=== PATIENT | male | born 1955 | race Caucasian/White ===

== ENCOUNTER 2017-04-22 20:36 | Emergency (ER) | payer OTHER | END 2017-04-22 21:00 | disposition home or self-care (01) | LOC: SCSER 20:36 | DX: G54.6 Phantom limb syndrome with pain (principal); I10 Essential (primary) hypertension; Z79.899 Other long term (current) drug therapy | CPT/HCPCS: 99283 ==

== ENCOUNTER 2017-05-16 04:55 | Emergency (ER) | payer OTHER ==
[2017-05-16] MEDS ORDERED: Ketorolac Tromethamine 30 MG/ML VIAL ONE (05:41)
[2017-05-16] MEDS ORDERED: Methocarbamol 500 MG TAB PO SCH (05:45)
== END 2017-05-16 06:43 | disposition home or self-care (01) ==
LOC: ERS 04:55
DX: S16.1XXA Strain of muscle, fascia and tendon at neck level, initial encounter (principal); I10 Essential (primary) hypertension; I25.2 Old myocardial infarction; Z79.899 Other long term (current) drug therapy; X50.1XXA Overexertion from prolonged static or awkward postures, initial encounter
CPT/HCPCS: 96372; J1885

== ENCOUNTER 2017-05-27 20:45 | Observation (INO) | payer OTHER ==
--- NOTE | 2017-05-27 22:09 | RAD ---
LUMBAR SPINE THREE VIEWS: History: Low back pain. FINDINGS: There are five lumbar type vertebrae. Pedicles are intact. Rightward convex curvature is apparent on the frontal view. Vertebral body heights are maintained. Minimal degenerative retrolisthesis is pre sent at the L3-4 level where disc space narrowing is greatest. There is prominent osteophytosis thro ughout the vertebral bodies and facets. Calcification overlies the arterial structures. IMPRESSION: 1. Lumbar spondylosis. No evidence of compression fracture. 2. Atherosclerosis. POS: [facility]
[2017-05-27] MEDS ORDERED: Methocarbamol 1 GM in Sodium Chloride 0.9% 100 ML IVPB SCH (23:15)
[2017-05-28] MEDS ORDERED: Morphine 10 MG/ML VIAL ONE ×2 (00:19→02:59)
[2017-05-28] MEDS ORDERED: Ondansetron HCl/PF 4 MG/2 ML Vial ONE (00:20)
[2017-05-28] MEDS ORDERED: hydrALAZINE 20 MG/ML VIAL ONE ×2 (00:39→02:18)
[2017-05-28 01:04] LABS: #Eosinphils 0.2 thou/uL (0.0-0.7); #Monocytes 0.6 thou/uL (0.11-0.59); #Neutrophils 4.8 thou/uL (1.40-6.50); %Basophils 0.3 % (0.0-1.0); %Eosinophils 2.8 % (0.0-10.0); %Lymphocytes 25.9 % (21.0-51.0); Hematocrit 42.7 % (42.0-52.0); Red Blood Cell (RBC) Count 4.72 mill/uL (4.70-6.10); White Blood Cell (WBC) Count 7.7 thou/uL (4.8-10.8)
[2017-05-28 01:14] LABS: Calcium 8.8 mg/dL (7.8-10.44); Chloride 110 mmol/L (98-107)
[2017-05-28 01:22] LABS: Troponin I Less than 0.010 ng/mL (< 0.028)
[2017-05-28 01:25] LABS: ALT (SGPT) 15 U/L (8-55); AST (SGOT) 25 U/L (5-34); Alkaline Phosphatase 109 U/L (40-150); BUN (Urea Nitrogen) 22 mg/dL (8.4-25.7); Bilirubin, Total 0.2 mg/dL (0.2-1.2); Calc. Creatinine Clearance 0 mL/min (70-130); Carbon Dioxide 20 mmol/L (22-29); Estimated GFR-MDRD 55; Globulin 3.7 g/dL (2.4-3.5); Protein, Total 7.2 g/dL (6.0-8.3)
[2017-05-28 01:32] LABS: Anion Gap 17 mmol/L (10-20)
[2017-05-28] MEDS ORDERED: Acetaminophen 500 MG TAB ONE (05:06)
[2017-05-28] MEDS ORDERED: Ondansetron ODT 4 MG TAB PO PRN (07:02)
[2017-05-28] MEDS ORDERED: Acetaminophen 325 MG TAB PO PRN (07:02)
[2017-05-28] MEDS ORDERED: Ondansetron HCl/PF 4 MG/2 ML Vial IVP PRN ×2 (07:02→08:56)
[2017-05-28] MEDS ORDERED: Morphine 4 MG/ML Carpuject SLOW IVP PRN (07:04)
[2017-05-28 07:40] VITALS: BMI 25.9
[2017-05-28] MEDS ORDERED: MORPHINE 10 MG/ML SYRINGE IV PRN (07:50)
--- NOTE | 2017-05-28 08:45 | CT ---
PRELIMINARY REPORT/[facility]/EMERGENCY AFTER HOURS PROCEDURE: EXAM: CT Abdomen and Pelvis Without Intravenous Contrast CLINICAL HISTORY: 62 years old, male; Pain; Abdominal pain; Flank; Right; Patient HX: R/O stone TECHNIQUE: Axial computed tomography images of the abdomen and pelvis without intravenous contrast. Coronal reformatted images were created and reviewed. COMPARISON: No relevant prior studies available. FINDINGS: The lung bases are clear. Kidneys: Small left intrarenal calculus. No hydronephrosis or hydroureter. No visible ureteral calculus. Possible small renal cysts bilaterally. Suspect a small faintly calcified gallstone visible within the gallbladder. Ultrasound could be more specific/sensitive for detecting gallstones, if clinically needed. No other definite gallbladder abnormality by CT. No biliary tree dilation. Unremarkable appearance of the liver, spleen, adrenal glands, and pancreas. No free air, ascites, or bowel distention. No evidence for abdominal aortic aneurysm. No retroperitoneal adenopathy. CT pelvis: Urinary bladder unremarkable by CT. The appendix is visualized and appears normal. There are no CT findings to strongly suggest diverticulitis. No abnormal mass or fluid collection in the pelvis. IMPRESSION: Suspect cholelithiasis, see above discussion. Small left intrarenal calculus. No ureteral calculus. No hydronephrosis or hydroureter. Normal appendix. No free air or bowel distention. No diverticulitis. Other findings discussed above. Thank you for allowing us to participate in the care of your patient. Dictated and Authenticated by: Geo Garcia MD 05/28/2017 2:18 AM Central Time ([place] \[place]\ [place]) FINAL REPORT CT ABDOMEN AND PELVIS WITHOUT CONTRAST STONE PROTOCOL: Date: 05/28/17 HISTORY: Right flank pain. Evaluate for stone. COMPARISON: None. FINDINGS/IMPRESSION: Findings and impression are concordant with the preliminary report.
--- NOTE | 2017-05-28 08:45 | RAD ---
RIGHT SHOULDER THREE VIEWS: History: Fall, pain. Comparison: None. FINDINGS: Right shoulder prosthesis is identified. No definite malalignment. No evidence of a complicated proc ess or loosening. No fractures. Possible loose body fragment inferior to the joint space noted. IMPRESSION: No definite fracture. POS: [facility]
--- NOTE | 2017-05-28 08:47 | CT ---
PRELIMINARY REPORT/[facility]/EMERGENCY AFTER HOURS PROCEDURE: EXAM: CT Head Without Intravenous Contrast CLINICAL HISTORY: 62 years old, male; Pain; Headache; Headache not specified; Patient HX: ARREOLA, HTN TECHNIQUE: Axial computed tomography images of the head/brain without intravenous contrast. COMPARISON: No relevant prior studies available. FINDINGS: Brain: No intracranial hemorrhage. Chronic appearing infarctions in the head of the right caudate, t he anterior limb of the right internal capsule, the bilateral basal ganglia, the bilateral centrum s emiovale, and the right whitlock radiata. No evidence of acute infarction. Mild diffuse cortical volum e loss. Patchy white matter hypodensities consistent with chronic small vessel ischemic changes. Ventricles: Normal for age. Bones/joints: No acute fracture. Soft tissues: Normal. Vasculature: Atherosclerosis. Sinuses: Normal as visualized. No acute sinusitis. Mastoid air cells: Normal as visualized. No mastoid effusion. IMPRESSION: No acute intracranial abnormality. Nonacute/incidental findings above. Thank you for allowing us to participate in the care of your patient. Dictated and Authenticated by: Judah Bernard MD 05/28/2017 3:27 AM Central Time ([place] \[place]) FINAL REPORT HEAD CT WITHOUT CONTRAST: Date: 05-28-17 Comparison: 07-27-05 History: Headache. FINDINGS: I agree with the preliminary [facility] report dictated by Dr. Judah Lama. There are multiple foci of hypodensity in the periventricular and deep white matter suggesting seque llae of small vessel disease. Focal areas of hypodensity are noted within the region of the basal ga nglia anteriorly bilaterally suggesting areas of age indeterminate ischemia. No intracranial hemorrh age, midline shift, or mass effect. The imaged paranasal sinuses and mastoid air cells are well aerated. No displaced calvarial fracture . IMPRESSION: Age indeterminate ischemia/small vessel disease. No intracranial hemorrhage. If there is concern for acute infarction, brain MRI advised. Code QA POS: [facility]
[2017-05-28] MEDS ORDERED: Loratadine 10 MG TAB PO PRN (08:56)
[2017-05-28] MEDS ORDERED: Bisacodyl 5 MG TAB PO PRN (08:56)
[2017-05-28] MEDS ORDERED: Cyclobenzaprine 10 MG TAB PO PRN (08:56)
[2017-05-28] MEDS ORDERED: Diabetic Tussin 200 MG/10 ML UDCUP PO PRN (08:56)
[2017-05-28] MEDS ORDERED: Mag-Al 1200 mg/1200 mg/30 ML UDCUP PO PRN (08:56)
[2017-05-28] MEDS ORDERED: Senokot 8.6 MG TAB PO PRN (08:56)
[2017-05-28] MEDS ORDERED: Benzonatate 100 MG CAP PO PRN (08:56)
[2017-05-28] MEDS ORDERED: Calcium Carbonate 500 MG ChewTAB PO PRN (08:56)
[2017-05-28] MEDS ORDERED: Nitroglycerin 0.4 MG TAB (25 Tab Bottle) SL PRN (08:56)
[2017-05-28] MEDS ORDERED: hydrALAZINE 20 MG/ML VIAL SLOW IVP PRN (08:56)
[2017-05-28] MEDS ORDERED: cloNIDine 0.1 MG TAB PO PRN (08:56)
[2017-05-28] MEDS: Enoxaparin Sodium 40 MG/0.4 ML SYRINGE SC SCH (09:41)
[2017-05-28] MEDS: Amlodipine 10 MG TAB PO SCH (09:41)
[2017-05-28] MEDS: Gabapentin 300 MG CAP PO SCH ×3 (09:41→20:14)
[2017-05-28] MEDS: traMADol HCl 50 MG TAB PO PRN ×3 (09:46→21:28)
[2017-05-28] MEDS: Lorazepam 1 MG TAB PO PRN ×2 (10:57→21:29)
[2017-05-28] MEDS ORDERED: Naproxen 500 MG TAB PO SCH (11:45)
[2017-05-28] MEDS ORDERED: SUMAtriptan Succinate 50 MG TAB PO SCH (11:45)
[2017-05-28] MEDS ORDERED: Metoprolol Tartrate 25 MG TAB PO SCH (14:30)
[2017-05-28] MEDS ORDERED: Lisinopril/Hydrochlorothiazide 10 mg/12.5 mg Tablet PO SCH (14:30)
--- NOTE | 2017-05-28 15:13 | HP ---
PRIMARY CARE PHYSICIAN: None. CHIEF COMPLAINT: Fall and backache. HISTORY OF PRESENT ILLNESS: Mr. Cast is a pleasant 62-year-old male with past medical history of h ypertension and strokes in the past as well as blood clots per the patient, who [facility] after he sustained of falls and was hurting in his back. History is mainly obtained by the patient himself and electronic medical records have been reviewed. Last time, the patient was a dmitted here in 02/2017 for chest pain and hypertensive urgency and was ruled out for ACS by a gisel l stress test. At that time, he was started on multiple antihypertensives including amlodipine, met oprolol, lisinopril, along with starting on atorvastatin, aspirin and fish oil, and Plavix, but unfo rtunately the patient reports that he is not taking any of his medications. He reports that while deer hunting, he picked up a log of wood and fell backwards and heard a cracki ng sound in his back and hit the dirt. He presented to the emergency room with severe back pain and was found to be severely hypertensive with blood pressure of 199/127. Multiple imaging studies wer e done including pelvic x-ray as well as head CT, which were all unremarkable. He had a CT scan of the abdomen and pelvis done, which showed possible cholilithiasis otherwise no acute changes. He is now being admitted under observation status for uncontrolled hypertension and pain control. PAST MEDICAL HISTORY: 1. History of cerebrovascular accident. 2. Hypertension. 3. Medication noncompliance. 4. Dyslipidemia. 5. Personal history of deep venous thrombosis and pulmonary embolism. PAST SURGICAL HISTORY: 1. Right BKA. 2. Right knee surgery x7, right elbow surgery x3. 3. L4-L5 back surgery x6. 4. Right shoulder surgery x3. PSYCHIATRIC HISTORY: Anxiety. SOCIAL HISTORY: No history of drug, tobacco, or alcohol abuse. FAMILY HISTORY: Significant for coronary artery disease in his mother. His father had congestive h eart failure. Multiple family members with hypertension. ALLERGIES: CODEINE. CURRENT MEDICATIONS: The patient is not taking the medications as prescribed. Medication, Vantin 3 00 mg p.o. t.i.d., tramadol as needed, and amlodipine 10 mg daily. REVIEW OF SYSTEMS: The patient is complaining of severe headache involving the left side of his fac e, back of his head, and back his neck. Otherwise negative for except are those mentioned in the hi story and physical. The following complete review of systems was negative, unless otherwise mentioned in the HPI or belo w: Constitutional: Weight loss or gain, ability to conduct usual activities. Skin: Rash, itching. Eyes: Double vision, pain. ENT/Mouth: Nose bleeding, neck stiffness, pain, tenderness. Cardiovascular: Palpitations, dyspnea on exertion, orthopnea. Respiratory: Shortness of breath, wheezing, cough, hemoptysis, fever or night sweats. Gastrointestinal: Poor appetite, abdominal pain, heartburn, nausea, vomiting, constipation, or diar jhonny. Genitourinary: Urgency, frequency, dysuria, nocturia. Musculoskeletal: Pain, swelling. Neurologic/Psychiatric: Anxiety, depression. Allergy/Immunologic: Skin rash, bleeding tendency. Please see my HPI for pertinent positives and negatives. All other review of systems reviewed and n egative except as mentioned in the HPI. LABORATORY DATA: CBC is unremarkable. Serum chemistries show chloride 110, bicarbonate 20, creatin ine 1.33 with estimated GFR of 55, CK-MB and troponin normal. Liver enzymes normal. CT scan of the brain by my review has no evidence of acute hemorrhage, infarction. Age indeterminate small vessel disease noticed. CT scan of the abdomen and pelvis by my review as per HPI. Shoulder x-ray is neg ative for any definitive fracture of the right-sided. Lumbar spinal x-ray by my review has no evide nce of fracture. PHYSICAL EXAMINATION: VITAL SIGNS: His blood pressure has been ranging anywhere from systolic 180s to 190s with diastolic anywhere from 90s to one teens. His temperature is 97.8, pulse of 81, respirations 16, and saturat ing 97% on room air. GENERAL: He appears uncomfortable and is fidgety in the bed and complains of severe headache. He i s otherwise awake, alert, oriented x3. HEENT: Mucous membrane is moist and pink. No oropharyngeal exudate or erythema. Head is normoceph alic, atraumatic. Pupils are equal, reactive to light and accommodation. Extraocular movement is i ntact. NECK: Supple without any lymphadenopathy, JVD or bruit. CHEST: Clear to auscultation without any wheezing, rales or rhonchi. Rate and rhythm is regular wi thout any murmur, rubs, or gallops. ABDOMEN: Soft, nontender, nondistended with positive bowel sounds. EXTREMITIES: Show right BKA, otherwise no edema. NEUROLOGIC: Nonfocal. SKIN: Free of any rashes or bruises. Feels warm and dry to touch. PSYCHIATRIC: Normal affect. IMPRESSION AND PLAN: 1. Hypertensive urgency. This is secondary to noncompliance. I have once again instructed the pat lashawn that almost all of his medications are at [facility] list and he says that he can afford it. At this time, I will restart his aspirin, statin, beta nieves. I will add him. I will also start him back on lisinopril with hydrochlorothiazide and continue Norvasc for now. At this time, t he patient is not hemodynamically stable and needs better blood pressure control and may need overni ght stay in the hospital. At this time, we will admit him to telemetry unit under observation statu s and further management will depend upon his clinical course. 2. History of cerebrovascular accident. Restart his aspirin and statins for now. 3. Acute kidney insufficiency. This is likely secondary to end-organ damage from uncontrolled hype rtension. We will avoid any nephrotoxic medications at this time and recheck labs in the morning. We will gently hydrate him as this regard this. Blood pressure management will help with the improv ement in renal function as well. 4. Dyslipidemia. The patient had significant hypertriglyceridemia and hypercholesterolemia during his last hospitalization. He will be restarted on atorvastatin and fish oil at this time. His trig lycerides were 457 with cholesterol of 310. 5. Noncompliance. The patient has been extensively counseled. 6. Headache. We will try medications for migraine, but most likely his headache is from his uncont rolled hypertension. Once again p.r.n. antihypertensives will be used and we will re-start his home medications. 7. Code status: FULL CODE. 8. Personal history of deep venous thrombosis and pulmonary embolism. DISPOSITION: The patient is currently being admitted under observation status. Further management will depend upon his clinical course and improvement in his blood pressure and renal failure.
[2017-05-28] MEDS: Morphine PF 1 MG/ML SYR IVP PRN ×2 (16:05→20:15)
[2017-05-28] MEDS: Metoprolol Tartrate 25 MG TAB PO SCH (20:15)
[2017-05-28] MEDS ORDERED: Atorvastatin Calcium 40 MG TAB PO SCH (21:00)
[2017-05-28] MEDS: Acetaminophen 325 MG TAB PO PRN (21:28)
[2017-05-29] MEDS: Morphine PF 1 MG/ML SYR IVP PRN ×2 (00:03→05:01)
[2017-05-29] MEDS: Acetaminophen 325 MG TAB PO PRN (02:04)
[2017-05-29] MEDS: Lorazepam 1 MG TAB PO PRN (02:04)
[2017-05-29 05:29] LABS: #Basophils 0.1 thou/uL (0.0-0.2); #Eosinphils 0.4 thou/uL (0.0-0.7); #Lymphocytes 2.5 thou/uL (1.20-3.40); #Monocytes 0.7 thou/uL (0.11-0.59); #Neutrophils 3.3 thou/uL (1.40-6.50); %Basophils 0.9 % (0.0-1.0); %Eosinophils 5.6 % (0.0-10.0); %Lymphocytes 36.2 % (21.0-51.0); %Monocytes 10.1 % (0.0-10.0); Hematocrit 42.8 % (42.0-52.0); Mean Platelet Volume 7.4 fL (7.4-10.4); Red Blood Cell (RBC) Count 4.68 mill/uL (4.70-6.10)
[2017-05-29 05:46] LABS: Anion Gap 11 mmol/L (10-20); BUN (Urea Nitrogen) 20 mg/dL (8.4-25.7); Calc. Creatinine Clearance 81 mL/min (70-130); Calcium 8.9 mg/dL (7.8-10.44); Carbon Dioxide 25 mmol/L (22-29); Chloride 105 mmol/L (98-107); Estimated GFR-MDRD 57
[2017-05-29 07:42] VITALS: BP 137/80; TEMP 97.3
[2017-05-29] MEDS: Amlodipine 10 MG TAB PO SCH (08:10)
[2017-05-29] MEDS: Metoprolol Tartrate 25 MG TAB PO SCH (08:10)
[2017-05-29] MEDS: Gabapentin 300 MG CAP PO SCH (08:10)
[2017-05-29] MEDS: Enoxaparin Sodium 40 MG/0.4 ML SYRINGE SC SCH (08:11)
[2017-05-29] MEDS ORDERED: Lisinopril/Hydrochlorothiazide 10 mg/12.5 mg Tablet PO SCH (09:00)
[2017-05-29] MEDS ORDERED: Aspirin 81 mg Enteric Coated Tablet PO SCH (09:00)
--- NOTE | 2017-05-29 11:32 | DIS ---
DATE OF ADMISSION: 05/28/2017 DATE OF DISCHARGE: 05/29/2017 PRIMARY DISCHARGE DIAGNOSIS: Hypertensive urgency. SECONDARY DISCHARGE DIAGNOSES: 1. History of cerebrovascular accident. 2. Acute kidney injury. 3. Dyslipidemia. 4. Medication noncompliance. HOSPITAL COURSE: The patient was admitted after he fell during a hunting event and came in [facility] of excruciating back pain. He was noted to have very elevated blood pressure, systolic greater th an 190. The patient was also noted to have some acute kidney insufficiency. This was thought to be secondary to his uncontrolled hypertension. The patient did admit to being noncompliant with his ant ihypertensive regimen. The patient was administered his appropriate home medication, his blood press ure returned to baseline. The patient was deemed stable for discharge with prescriptions for his qian e antihypertensives as well as tramadol for back pain. PROCEDURES: None. CONSULTATIONS: None. DISPOSITION: To home. DISCHARGE DIET: Cardiac heart healthy, low sodium. DISCHARGE ACTIVITY: As tolerated. DISCHARGE MEDICATIONS: Please see medication rec list. PHYSICAL EXAMINATION: GENERAL: No acute distress, alert and oriented x3. HEENT: Normocephalic, atraumatic. Pupils equal, round, and reactive to light. Extraocular muscles intact. NECK: Supple. LUNGS: Clear to auscultation. CARDIAC: Regular rate and rhythm, no murmurs, rubs or gallops. ABDOMEN: Soft, nontender, nondistended. EXTREMITIES: Right-sided BKA, otherwise no clubbing, cyanosis or edema. NEUROLOGIC: Nonfocal. FOLLOWUP: The patient has been given a hard prescription for Ultram and a prescription for amlodipin e was transmitted to the [facility] pharmacy of the patient's choice. He is to follow up with his PCP kaden ayers 1-2 weeks and he has been strongly encouraged to be compliant with his medication regimen.
== END 2017-05-29 10:31 | disposition home or self-care (01) ==
LOC: ERS 20:45 → 2SW 05-28 05:04
PROVIDERS: ADMIT Internal Medicine; ATTEND Internal Medicine
DX: I16.0 Hypertensive urgency (principal); S37.009A Unspecified injury of unspecified kidney, initial encounter; E78.5 Hyperlipidemia, unspecified; F41.9 Anxiety disorder, unspecified; Z91.14 Patient's other noncompliance with medication regimen; Z88.5 Allergy status to narcotic agent; Z89.511 Acquired absence of right leg below knee; Z98.890 Other specified postprocedural states; Z91.81 History of falling; Z86.718 Personal history of other venous thrombosis and embolism; Z86.73 Personal history of transient ischemic attack (TIA), and cerebral infarction without residual deficits
CPT/HCPCS: 36415; 70450; 72100; 74176; 80048; 80053; 82553; 84484; 85025; 96365; 96375; 96376; A4216; G0378; J0360; J1650; J2270; J2274; J2405; J2800; J7050

== ENCOUNTER 2017-06-08 14:27 | Observation (INO) | payer OTHER ==
[2017-06-08 14:45] LABS: #Basophils 0.1 thou/uL (0.0-0.2); #Eosinphils 0.1 thou/uL (0.0-0.7); #Lymphocytes 1.4 thou/uL (1.20-3.40); #Monocytes 0.5 thou/uL (0.11-0.59); %Basophils 0.7 % (0.0-1.0); %Eosinophils 1.5 % (0.0-10.0); %Lymphocytes 20.2 % (21.0-51.0); %Monocytes 7.1 % (0.0-10.0); Hematocrit 47.3 % (42.0-52.0); Mean Platelet Volume 7.7 fL (7.4-10.4); Red Blood Cell (RBC) Count 5.25 mill/uL (4.70-6.10); White Blood Cell (WBC) Count 7.1 thou/uL (4.8-10.8)
[2017-06-08 15:08] LABS: Amphetamine Not Detected (NotDetected); Methadone Not Detected (NotDetected); Methamphetamine Not Detected (NotDetected)
[2017-06-08 15:10] LABS: Troponin I 0.014 ng/mL (< 0.028)
[2017-06-08 15:33] LABS: ALT (SGPT) 19 U/L (8-55); AST (SGOT) 27 U/L (5-34); Alkaline Phosphatase 108 U/L (40-150); Anion Gap 15 mmol/L (10-20); BUN (Urea Nitrogen) 26 mg/dL (8.4-25.7); Bilirubin, Total 0.3 mg/dL (0.2-1.2); CK (CPK) 119 U/L (30-200); Calc. Creatinine Clearance 0 mL/min (70-130); Calcium 9.3 mg/dL (7.8-10.44); Carbon Dioxide 20 mmol/L (22-29); Chloride 106 mmol/L (98-107); Estimated GFR-MDRD 51; Protein, Total 8.1 g/dL (6.0-8.3)
--- NOTE | 2017-06-08 17:21 | CT ---
NONCONTRAST CT HEAD 06/08/17 HISTORY: Altered mental status, hypertensive crises. COMPARISON: 05/28/17. FINDINGS: Again noted are remote lacunar infarctions in each basal ganglia with stable hypodensities seen in t he periventricular and deep white matter most likely attributable to small vessel ischemic changes. There is no evidence of an acute cortical infarction, hemorrhage, mass effect or midline shift. There is mild cerebral volume loss not unexpected for the patient's age. No mass effect or midline shift. No intraparenchymal or extra-axial hemorrhage is seen. There has been no interval change when compare d to the prior exam. IMPRESSION: 1. No acute intracranial abnormalities demonstrated. 2. Stable CT scan of the head including multiple remote bilateral basal ganglia lacunar infarcti ons as well as stable chronic small vessel ischemic changes. POS: [facility]
[2017-06-08] MEDS ORDERED: Morphine 2 mg/2ml in 0.9% NaCl PF SYRINGE ONE (17:38)
[2017-06-08] MEDS ORDERED: hydrALAZINE 20 MG/ML VIAL SLOW IVP PRN (18:45)
[2017-06-08 18:47] VITALS: BMI 26.9
[2017-06-08] MEDS ORDERED: Acetaminophen 325 MG TAB PO PRN (19:55)
[2017-06-08] MEDS: Famotidine 20 MG TAB PO SCH (20:43)
[2017-06-08] MEDS: Atorvastatin Calcium 20 MG TAB PO SCH (20:43)
[2017-06-08] MEDS: Heparin 5,000 UNITS/ML VIAL SC SCH (20:45)
[2017-06-08] MEDS: Sodium Chloride 0.9% 1,000 ML IV SCH (20:46)
[2017-06-08] MEDS ORDERED: Carvedilol 6.25 MG TAB PO SCH (21:00)
[2017-06-08] MEDS: traMADol HCl 50 MG TAB PO PRN (21:21)
[2017-06-08] MEDS: HYDROcodone/Acetaminophen 5/325 mg Tablet PO PRN (22:38)
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
[2017-06-08] MEDS: hydrALAZINE 20 MG/ML VIAL SLOW IVP PRN (23:33)
[2017-06-09] MEDS ORDERED: HYDROcodone/Acetaminophen 10/325 mg Tablet PO SCH (00:15)
[2017-06-09] MEDS: traMADol HCl 50 MG TAB PO PRN (03:02)
[2017-06-09] MEDS: hydrALAZINE 20 MG/ML VIAL SLOW IVP PRN ×2 (03:42→13:20)
[2017-06-09] MEDS: HYDROcodone/Acetaminophen 5/325 mg Tablet PO PRN ×2 (04:24→08:30)
[2017-06-09 05:38] LABS: Anion Gap 16 mmol/L (10-20); BUN (Urea Nitrogen) 25 mg/dL (8.4-25.7); Calc. Creatinine Clearance 79 mL/min (70-130); Calcium 9.9 mg/dL (7.8-10.44); Carbon Dioxide 19 mmol/L (22-29); Chloride 109 mmol/L (98-107); Estimated GFR-MDRD 53
[2017-06-09] MEDS ORDERED: Amlodipine 10 MG TAB PO SCH ×2 (05:45→09:00)
[2017-06-09] MEDS ORDERED: Carvedilol 25 MG TAB PO SCH (05:45)
[2017-06-09] MEDS ORDERED: Morphine 4 MG/ML VIAL SLOW IVP SCH (05:45)
[2017-06-09] MEDS: Sodium Chloride 0.9% 1,000 ML IV SCH ×2 (05:51→12:58)
[2017-06-09] MEDS: Famotidine 20 MG TAB PO SCH ×2 (08:29→20:39)
[2017-06-09] MEDS: Gabapentin 300 MG CAP PO SCH ×3 (08:30→20:38)
[2017-06-09] MEDS: Heparin 5,000 UNITS/ML VIAL SC SCH ×3 (08:30→20:36)
[2017-06-09] MEDS: NIFEdipine XL 30 MG TAB PO SCH ×2 (08:30→20:38)
[2017-06-09] MEDS ORDERED: Fentanyl 100 MCG/2 ML VIAL SLOW IVP SCH (12:15)
--- NOTE | 2017-06-09 13:29 | PRG ---
DATE OF SERVICE: 06/09/2017 SUBJECTIVE: The patient seen and examined at bedside. He is crying and telling me that he has such a severe headache. He never had one like this before. This headache he had before, but much less in tense and never so severe. It is located in his forehead and behind his both eyes and eyes somewhat burning and blurred vision present. He did not vomit. He did not have any nausea. OBJECTIVE: Blood pressure is 174/102, temperature is 97.9, pulse is 81, respiratory rate is 16, O2 saturation is 97% on room air. HEENT: Eyes: Pupils about 3 mm in size, similar bilaterally, conjunctiva is pinkish. Both eyes con gested, tearing. NECK: Supple. LUNGS: Clear. HEART: S1, S2 normal, no S3, no S4. ABDOMEN: Soft, nontender. EXTREMITIES: No clubbing, cyanosis or edema. Right [id number]-vhef amputee. NEUROLOGIC: He is alert and oriented x4. There are no any sensorimotor deficits present. Cranial n erves intact. LABORATORY DATA: Showed sodium of 140, potassium 4.2, chloride 109, CO2 19, BUN 25, creatinine 1.38, calcium 9.9. IMPRESSION: 1. Hypertensive crisis with severe headache; at this point, it is difficult to know what is the prim yeyo. He had those headaches before, but never that severe. Description fits criteria for cluster he adaches. We will try to use some high flow O2 for 10-15 minutes, see whether this helps. If not, we will give him fentanyl intravenous push every 2 hours until stabilized. 2. History of cerebrovascular accident and positive CT findings consistent with remote bilateral inf arct in basal ganglia. Patient started on Zocor and aspirin. 3. Medical noncompliance. 4. Dyslipidemia. 5. Headache as mentioned above, most likely it is a cluster headache. 6. Renal insufficiency with mild improvement with intravenous fluids. PLAN: To stop IV fluids since his renal insufficiency is not improving that much with hydration. We will start him on O2 high flow and p.r.n. fentanyl and adjust his blood pressure medications.
[2017-06-09] MEDS: Fentanyl 100 MCG/2 ML VIAL SLOW IVP PRN ×4 (14:36→21:38)
[2017-06-09] MEDS ORDERED: cloNIDine 0.1 MG TAB PO SCH ×2 (15:00)
[2017-06-09] MEDS ORDERED: ALPRAZolam 0.5 MG TAB PO PRN (16:14)
[2017-06-09] MEDS ORDERED: Vicks VapoRub 50 gm Jar TOP PRN (17:18)
[2017-06-09] MEDS: cloNIDine 0.1 MG TAB PO SCH (20:37)
[2017-06-09] MEDS: Atorvastatin Calcium 20 MG TAB PO SCH (20:38)
[2017-06-09] MEDS: Carvedilol 25 MG TAB PO SCH (20:39)
[2017-06-09] MEDS ORDERED: cloNIDine 0.1 MG TAB PO PRN (22:09)
[2017-06-10] MEDS: Fentanyl 100 MCG/2 ML VIAL SLOW IVP PRN ×2 (02:38→08:39)
[2017-06-10] MEDS: cloNIDine 0.1 MG TAB PO SCH (08:26)
[2017-06-10] MEDS: NIFEdipine XL 30 MG TAB PO SCH (08:27)
[2017-06-10] MEDS: Famotidine 20 MG TAB PO SCH (08:27)
[2017-06-10] MEDS: Carvedilol 25 MG TAB PO SCH (08:27)
[2017-06-10] MEDS: Gabapentin 300 MG CAP PO SCH (08:27)
[2017-06-10] MEDS: Heparin 5,000 UNITS/ML VIAL SC SCH (08:27)
[2017-06-10] MEDS ORDERED: Amlodipine 10 MG TAB PO SCH (09:00)
[2017-06-10] MEDS ORDERED: NIFEdipine XL 30 MG TAB PO SCH (10:41)
--- NOTE | 2017-06-10 10:55 | PDOC.PN ---
- Subjective Encounter Start Date: 06/10/17 Encounter Start Time: 10:40 Subjective: f/u for HTN urgency and ARREOLA. - Objective Resuscitation Status: Resuscitation Status FULL:Full Resuscitation MAR Reviewed: Yes Vital Signs & Weight: Vital Signs (12 hours) Temp Pulse Resp BP BP Pulse Ox 06/10/17 08:48 165/95 H 06/10/17 08:30 97.6 F 64 16 06/10/17 08:27 64 187/86 H 06/10/17 08:26 187/86 H 06/10/17 07:20 97.6 F 64 16 187/96 H 98 06/10/17 03:20 97.4 F L 72 20 166/101 H 97 06/10/17 01:24 189/103 H 06/09/17 23:57 98.3 F 76 18 189/103 H 97 Weight Weight 215 lb I&O: 06/09/17 06/10/17 06/11/17 06:59 06:59 06:59 Intake Total 1286 720 Output Total 675 1450 Balance 611 -730 Result Diagrams: 06/08/17 14:35 06/09/17 04:26 Dx/Plan - Plan * .
[2017-06-10] MEDS: HYDROcodone/Acetaminophen 5/325 mg Tablet PO PRN (10:57)
[2017-06-10 11:50] VITALS: BP 187/96; TEMP 97.6
--- NOTE | 2017-06-10 12:04 | DIS ---
DATE OF ADMISSION: 06/08/2017 DATE OF DISCHARGE: 06/10/2017 DISCHARGE DIAGNOSES: 1. Hypertensive urgency, resolved. 2. Medication noncompliance. 3. Tension versus cluster headache, improved. 4. Chronic kidney disease, stage 3. 5. Hyperlipidemia. 6. History of lacunar infarct to the basal ganglia, stable. CONSULTATIONS: None. PERTINENT LAB AND X-RAY FINDINGS: Creatinine ranged between 1.38-1.42 with estimated GFR ranging bet ween 51-53. LFTs within normal limits. Troponin I negative x1. CBC within normal limits. Urine dr ug screen dated 06/08/[address] of the brain without contrast dated 05/16 showed no acute intracranial process. Multiple remote bilateral basal ganglia lacunar infarct s with chronic small vessel ischemic changes noted. HOSPITAL COURSE: The patient was observed on the stroke unit after initially presenting with headach es with associated hypertensive urgency. The patient was initially treated for hypertensive urgency with sublingual nitroglycerin in addition to intravenous normal saline and IV labetalol. The patient 's overall blood pressure trend improved with resumption of antihypertensive regimen. The patient wi th medication noncompliance with outpatient prescription likely contributing factor to presentation. The patient was resumed on antihypertensive medications with overall improvement in blood pressure t rend and decreasing headaches. The patient was given education and reinforcement regarding the need for compliance with his overall antihypertensive regimen after discharge. The patient may need addit ional titration of his antihypertensive regimen on an ongoing basis after discharge. Overall, gage cabrera remained clinically stable during observation with telemetry monitoring showing no evidence of acut e arrhythmia or dysrhythmia. The patient overall clinically stable and ready for discharge on 2016. DISCHARGE MEDICATIONS: 1. Amlodipine 10 mg 1 tablet p.o. daily. 2. Aspirin enteric coated 81 mg 1 tablet p.o. daily. 3. Coreg 12.5 mg p.o. b.i.d. 4. Gabapentin 300 mg p.o. t.i.d. 5. Pravachol 40 mg p.o. at bedtime. 6. Tramadol 150 mg p.o. b.i.d. FOLLOWUP: The patient will follow up with his primary care provider, Dr. Geo Hernandez within 7 days o f discharge. CONDITION ON DISCHARGE: Stable. ACTIVITY: Ad ellis. DIET: Heart healthy. CODE STATUS: FULL. DISPOSITION: Home 06/10/2017.
[2017-06-11] MEDS ORDERED: Amlodipine 10 MG TAB PO SCH (09:00)
== END 2017-06-10 12:12 | disposition home or self-care (01) ==
LOC: ERS 14:27 → 2SE 16:49
PROVIDERS: ADMIT Internal Medicine; ATTEND Internal Medicine
DX: I16.0 Hypertensive urgency (principal); G44.209 Tension-type headache, unspecified, not intractable; I12.9 Hypertensive chronic kidney disease with stage 1 through stage 4 chronic kidney disease, or unspecified chronic kidney disease; N18.3 Chronic kidney disease, stage 3 (moderate); E78.5 Hyperlipidemia, unspecified; F41.9 Anxiety disorder, unspecified; Z79.899 Other long term (current) drug therapy; Z91.14 Patient's other noncompliance with medication regimen; Z89.611 Acquired absence of right leg above knee; Z98.890 Other specified postprocedural states; Z86.73 Personal history of transient ischemic attack (TIA), and cerebral infarction without residual deficits; Z82.49 Family history of ischemic heart disease and other diseases of the circulatory system
CPT/HCPCS: 36415; 70450; 80048; 80053; 80306; 82553; 84484; 85025; 93005; 96374; 96375; 96376; A4216; G0378; J0360; J1644; J2270; J3010

== ENCOUNTER 2017-07-13 13:30 | Observation (INO) | payer OTHER ==
[2017-07-13 14:12] LABS: #Eosinphils 0.1 thou/uL (0.0-0.7); #Lymphocytes 1.6 thou/uL (1.20-3.40); #Monocytes 0.5 thou/uL (0.11-0.59); #Neutrophils 6.9 thou/uL (1.40-6.50); %Basophils 0.2 % (0.0-1.0); %Eosinophils 1.2 % (0.0-10.0); %Lymphocytes 17.2 % (21.0-51.0); %Monocytes 5.5 % (0.0-10.0); %Neutrophils 75.9 % (42.0-75.0); Hemoglobin 15.3 g/dL (14.0-18.0); Mean Corpuscular HGB CONC 32.5 g/dL (32.0-36.0); Mean Corpuscular Volume 92.3 fl (80.0-94.0); Mean Platelet Volume 7.2 fL (7.4-10.4); Platelet Count 355 thou/uL (130-400); RBC Distribution Width 12.5 % (11.5-14.5)
[2017-07-13 14:19] LABS: PTT 33.9 SEC (22.9-36.1); Prothrombin Time 13.6 SEC (12.0-14.7)
--- NOTE | 2017-07-13 14:22 | RAD ---
RADIOGRAPH CHEST 1 VIEW: HISTORY: A 62-year-old male with acute chest pain. FINDINGS: There are no air space densities, pulmonary edema, pneumothorax, or cardiomegaly. The lateral costop hrenic angles are sharp. There are multiple surgical clips overlying the soft tissues of the left ax illa and left lower lung zone. Partially visualized metallic hardware at the right shoulder. IMPRESSION: 1. No acute cardiopulmonary findings. 2. Status post surgery in the left axilla and/or chest wall. 3. status post Total right glenohumeral joint shoulder replacement arthroplasty. ama [] POS: SHAI
[2017-07-13 14:31] LABS: ALT (SGPT) 16 U/L (8-55); AST (SGOT) 23 U/L (5-34); Albumin 4.1 g/dL (3.5-5.0); Alkaline Phosphatase 79 U/L (40-150); Anion Gap 15 mmol/L (10-20); BUN (Urea Nitrogen) 24 mg/dL (8.4-25.7); Bilirubin, Total 0.4 mg/dL (0.2-1.2); CK (CPK) 91 U/L (30-200); Calc. Creatinine Clearance 0 mL/min (70-130); Calcium 9.9 mg/dL (7.8-10.44); Carbon Dioxide 27 mmol/L (22-29); Chloride 101 mmol/L (98-107); Estimated GFR-MDRD 53; Globulin 4.2 g/dL (2.4-3.5); Glucose 120 mg/dL (70-105); Lipase 31 U/L (8-78); Potassium 4.3 mmol/L (3.5-5.1); Protein, Total 8.3 g/dL (6.0-8.3); Sodium 139 mmol/L (136-145)
[2017-07-13 14:35] LABS: CKMB 1.9 ng/mL (0-6.6)
[2017-07-13] MEDS ORDERED: Ketorolac Tromethamine 30 MG/ML VIAL ONE (15:09)
[2017-07-13] MEDS ORDERED: Morphine 2 MG/ML SYRINGE ONE ×2 (16:11→17:47)
--- NOTE | 2017-07-13 16:46 | CT ---
CT PULMONARY ANGIOGRAM WITH IV CONTRAST AND 3D POSTPROCESSING: HISTORY: Chest pain and back pain. FINDINGS: No filling defects are seen in well-opacified pulmonary arterial vasculature. No aneurysmal dilatati on or dissection of the thoracic aorta is seen. No pleural or pericardial effusions are identified. No pneumothoraces or lobar consolidation are identified. There are mild ground glass infiltrates in the right lower lobe. Bullous changes seen in the left upper lobe. There are degenerative changes in the spine. Upper abdominal tomograms demonstrate cholelithiasis and left renal cyst. IMPRESSION: No CT evidence of pulmonary embolism. POS: SHALINI
[2017-07-13] MEDS ORDERED: ISOVUE-370 76%-LOCM 1 ML ONE (17:01)
[2017-07-13 17:44] LABS: Troponin I 0.018 ng/mL (< 0.028)
[2017-07-13] MEDS ORDERED: Nitroglycerin 0.4 MG TAB (25 Tab Bottle) PO PRN (18:58)
[2017-07-13] MEDS ORDERED: Senokot 8.6 MG TAB PO PRN (18:58)
[2017-07-13] MEDS ORDERED: Acetaminophen 325 MG TAB PO PRN ×2 (18:58→18:59)
[2017-07-13] MEDS ORDERED: Guaifenesin DM 100-10/5 ML UDCUP PO PRN (18:58)
[2017-07-13 18:59] VITALS: BMI 26.4
[2017-07-13] MEDS ORDERED: Ondansetron HCl/PF 4 MG/2 ML Vial IVP PRN (18:59)
[2017-07-13] MEDS ORDERED: Ondansetron ODT 4 MG TAB SL PRN (18:59)
[2017-07-13] MEDS ORDERED: Sodium Chloride 0.9% 1,000 ML IV SCH (19:00)
[2017-07-13] MEDS ORDERED: Nitroglycerin 2% Ointment 1 INCH/1 GM Packet TOP SCH (19:00)
--- NOTE | 2017-07-13 20:14 | HP ---
REASON FOR ADMISSION: Chest pain, uncontrolled hypertension. HISTORY OF PRESENT ILLNESS: The patient gives history of having chest tightness with increased blood pressure from yesterday 9:00 a.m. This was associated with some back pain in the lower back area. He developed this when he was lying in the couch. He could not get comfortable. Patient tried to take his Ultram for his back pain, which did not really help much. He managed to sleep it off. This morning, the pain was still there and it was a 6/10 in intensity, which is essentially chest tightness. No palpitations, cough, or expectoration. No history of fever. He actually lives in [place] and was visiting his cousins. He has had a stress test done 8 months back, which was negative at [facility] in [place]. The patient also has had history of PE 5 years back and was on Coumadin for the same. Does not complain of any myalgias at present. PAST MEDICAL AND SURGICAL HISTORY: History of hypertension, history of CVA x2 with no residual paralysis, history of pulmonary embolus 5 years ago with left lower extremity DVT, likely due to his back and leg surgeries. 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 CURRENT MEDICATIONS: Patient takes Norvasc 10 mg twice daily, Ultram p.r.n., and gabapentin 300 mg twice daily. ALLERGIES: CODEINE. PERSONAL HISTORY: Does not abuse alcohol or drugs. No history of smoking. FAMILY HISTORY: Mother at the age of 86 years. She has had history of coronary artery disease. Father at the age of 82 years. He has had history of heart failure and coronary artery disease. The patient has 2 children a boy and a girl. He is single and lives alone. The patient states he gets around with his prosthesis and states he is fairly active. REVIEW OF SYSTEMS: The following complete review of systems was negative, unless otherwise mentioned in the HPI or below: Constitutional: Weight loss or gain, ability to conduct usual activities. Skin: Rash, itching. Eyes: Double vision, pain. ENT/Mouth: Nose bleeding, neck stiffness, pain, tenderness. Cardiovascular: Palpitations, dyspnea on exertion, orthopnea. Respiratory: Shortness of breath, wheezing, cough, hemoptysis, fever or night sweats. Gastrointestinal: Poor appetite, abdominal pain, heartburn, nausea, vomiting, constipation, or diarrhea. Genitourinary: Urgency, frequency, dysuria, nocturia. Musculoskeletal: Pain, swelling. Neurologic/Psychiatric: Anxiety, depression. Allergy/Immunologic: Skin rash, bleeding tendency. PHYSICAL EXAMINATION: GENERAL: The patient is a 62-year-old male, who is currently not in any chest pain or tightness at present. VITAL SIGNS: Blood pressure 184/104 on arrival, pulse 68 per minute, respiratory rate 18 per minute, temperature 98.8 degrees Fahrenheit, saturating 97% on room air. NECK: Supple, no elevated JVD. HEENT: Eyes: Extraocular muscles intact. Pupils reacting to light. Oral cavity mucous membranes are moist. No exudates or congestion. CARDIOVASCULAR: S1 and S2 heard. Regular rhythm. RESPIRATORY: Air entry 2+ bilateral. No rales or rhonchi. ABDOMEN: Soft, bowel sounds heard. No tenderness, rigidity, or guarding. EXTREMITIES: No peripheral edema or calf tenderness. Patient has right above- the-knee amputation with prosthesis in place, no calf tenderness in the left lower extremity. VASCULAR: Peripheral pulses are 1+ bilateral. No ischemic ulcerations or gangrene. CENTRAL NERVOUS SYSTEM: No gross focal deficits seen. Patient is alert, awake , oriented well. PSYCHIATRIC: The patient's mood is euthymic. No hallucinations or delusions. LABORATORY AND X-RAY FINDINGS: CT angio chest done shows no evidence of PE or dissection. There was questionable infiltrate in the right lower lobe, likely atelectasis. There is bullous changes in the left lobe, upper abdomen reveals cholelithiasis and left renal cyst. BUN 24, creatinine 1.3, glucose 120, troponin x2 is negative. CK-MB 1.9. Liver enzymes are within normal limits. Albumin is 4.1, lipase is 31. PT, INR, PTT within normal limits. White count of 9, H&H 15 and 47, platelet count 355 with 75% neutrophils, MCV is 92. AST 23 , ALT 16, alkaline phosphatase 79, total bilirubin 0.4. EKG done shows normal sinus rhythm at 69 beats per minute with no gross ST-T wave changes. CLINICAL IMPRESSION AND PLAN: The patient will be under observation on telemetry for atypical chest pain with uncontrolled hypertension. We will continue his Norvasc and add Lopressor 25 mg twice daily to be gently hydrated with normal saline at 60 mL per hour. Patient has no clinical signs of right upper quadrant pain, tenderness, or rigidity, although he has cholelithiasis on the CT angio. The plan is to obtain one more set of cardiac enzymes and if patient is comfortable in the morning, he can be discharged home. He has had a recent stress test done 8 months back, which was negative per patient. His primary care physician is Dr. Seth in [place]. We will continue his Norvasc , gabapentin, and Ultram as before. MTDD
[2017-07-13] MEDS ORDERED: Metoprolol Tartrate 25 MG TAB PO SCH (21:00)
[2017-07-13] MEDS ORDERED: HYDROcodone/Acetaminophen 10/325 mg Tablet PO PRN (21:34)
[2017-07-13] MEDS ORDERED: Carvedilol 25 MG TAB PO SCH (21:45)
[2017-07-13] MEDS: Gabapentin 300 MG CAP PO SCH (21:57)
[2017-07-13] MEDS: Famotidine/PF 20 mg/2ml Vial SLOW IVP SCH (21:57)
[2017-07-13] MEDS: Metoprolol Tartrate 25 MG TAB PO SCH (21:58)
[2017-07-13] MEDS: HYDROcodone/Acetaminophen 10/325 mg Tablet PO PRN (21:58)
[2017-07-13] MEDS: traMADol HCl 50 MG TAB PO PRN (22:01)
[2017-07-13] MEDS: Nitroglycerin 2% Ointment 1 INCH/1 GM Packet TOP SCH (22:16)
[2017-07-13] MEDS: Morphine 4 MG/ML VIAL SLOW IVP PRN (22:50)
[2017-07-13] MEDS: Albuterol Sulfate 1.25 MG/3 ML NEB NEB SCH (23:39)
[2017-07-14] MEDS: HYDROcodone/Acetaminophen 10/325 mg Tablet PO PRN ×2 (02:25→09:37)
[2017-07-14] MEDS: Morphine 4 MG/ML VIAL SLOW IVP PRN ×5 (03:18→20:01)
[2017-07-14] MEDS: Nitroglycerin 2% Ointment 1 INCH/1 GM Packet TOP SCH ×4 (03:23→23:03)
[2017-07-14 04:31] LABS: #Basophils 0.1 thou/uL (0.0-0.2); #Eosinphils 0.2 thou/uL (0.0-0.7); #Lymphocytes 2.2 thou/uL (1.20-3.40); #Monocytes 0.6 thou/uL (0.11-0.59); #Neutrophils 3.7 thou/uL (1.40-6.50); %Eosinophils 2.9 % (0.0-10.0); %Lymphocytes 33.2 % (21.0-51.0); %Monocytes 8.5 % (0.0-10.0); %Neutrophils 54.4 % (42.0-75.0); Hemoglobin 13.5 g/dL (14.0-18.0); Mean Corpuscular HGB CONC 31.9 g/dL (32.0-36.0); Mean Corpuscular Hemoglobin 29.6 pg (27.0-31.0); Mean Corpuscular Volume 92.8 fl (80.0-94.0); Mean Platelet Volume 7.4 fL (7.4-10.4); Platelet Count 309 thou/uL (130-400); RBC Distribution Width 12.6 % (11.5-14.5); Red Blood Cell (RBC) Count 4.55 mill/uL (4.70-6.10); White Blood Cell (WBC) Count 6.8 thou/uL (4.8-10.8)
[2017-07-14 04:50] LABS: Anion Gap 13 mmol/L (10-20); BUN (Urea Nitrogen) 30 mg/dL (8.4-25.7); Calc. Creatinine Clearance 66 mL/min (70-130); Calcium 9.6 mg/dL (7.8-10.44); Carbon Dioxide 28 mmol/L (22-29); Cardiac Risk 5.2 (Less than 4.5); Chloride 102 mmol/L (98-107); Cholesterol 173 mg/dl (< 200 Desired); Estimated GFR-MDRD 44; Glucose 132 mg/dL (70-105); HDL Cholesterol 33 mg/dL (>60 Neg Risk); LDL Cholesterol, Calculated 100 mg/dL; Sodium 139 mmol/L (136-145); Triglycerides 201 mg/dL (Less than 150)
[2017-07-14] MEDS: hydrALAZINE 20 MG/ML VIAL SLOW IVP PRN ×2 (06:17→21:47)
[2017-07-14] MEDS: Famotidine/PF 20 mg/2ml Vial SLOW IVP SCH ×2 (07:52→20:00)
[2017-07-14] MEDS: Amlodipine 10 MG TAB PO SCH (07:53)
[2017-07-14] MEDS: Enoxaparin Sodium 40 MG/0.4 ML SYRINGE SC SCH (07:53)
[2017-07-14] MEDS: Carvedilol 25 MG TAB PO SCH ×3 (07:53→15:27)
[2017-07-14] MEDS: Metoprolol Tartrate 25 MG TAB PO SCH ×2 (07:53→07:57)
[2017-07-14] MEDS: Aspirin 325 MG TAB PO SCH (07:54)
[2017-07-14] MEDS: Gabapentin 300 MG CAP PO SCH ×3 (07:54→20:00)
[2017-07-14] MEDS: Albuterol Sulfate 1.25 MG/3 ML NEB NEB SCH ×3 (08:00→18:13)
--- NOTE | 2017-07-14 15:32 | PDOC.PN ---
- Subjective Encounter Start Date: 07/14/17 Encounter Start Time: 15:31 Mr. Cast was seen today in follow-up of chest and back pain. He now complains of a bad headache. It is also noted that his blood pressure was around 209 systolic at the time of his headache. - Objective Resuscitation Status: Resuscitation Status FULL:Full Resuscitation MAR Reviewed: Yes Vital Signs & Weight: Vital Signs (12 hours) Temp Pulse Resp BP BP Pulse Ox 07/14/17 15:15 98.3 F 60 20 209/101 H 100 07/14/17 11:32 98.0 F 61 16 162/82 H 99 07/14/17 08:00 98 F 72 18 07/14/17 07:31 97.7 F 64 16 219/105 H 99 07/14/17 06:17 72 171/105 H Weight Weight 211 lb 8 oz I&O: 07/13/17 07/14/17 07/15/17 06:59 06:59 06:59 Intake Total 998 Balance 998 Result Diagrams: 07/14/17 03:57 07/14/17 03:57 Phys Exam - Physical Examination HEENT: PERRLA Respiratory: no wheezing, no rales, no rhonchi, clear to auscultation bilateral Cardiovascular: RRR, no significant murmur Gastrointestinal: soft, non-tender, positive bowel sounds Musculoskeletal: no edema Dx/Plan (1) HLD (hyperlipidemia) Code(s): E78.5 - HYPERLIPIDEMIA, UNSPECIFIED Status: Acute (2) Hypertensive urgency Code(s): I16.0 - HYPERTENSIVE URGENCY Status: Acute (3) H/O DVT/PE Status: Chronic Comment: Reports he was taken off of Eliquis 3 weeks ago when he fell and had a scalp bleed - Plan * Hypertensive Urgency- Will add Lisinopril-HCT to his regimen. He states that his Primary care Provider took him off Carvediolol at his last visit, and increased Amlodipine to twice a day. I explained to him that he may need 2 or even three blood pressure medications to control his blood pressure. * Chest pain- likely from uncontrolled HTN * H/O DVT- this has been treated, and CTA was negative for PE * Home once blood pressure is better .
[2017-07-14] MEDS ORDERED: Zolpidem Tartrate 5 MG TAB PO PRN (15:38)
[2017-07-14] MEDS: Fiorinal 325/50/40 mg Tablet PO PRN (18:54)
[2017-07-14] MEDS: Lisinopril/Hydrochlorothiazide 10 mg/12.5 mg Tablet PO SCH (20:00)
[2017-07-15] MEDS: Morphine 4 MG/ML VIAL SLOW IVP PRN (00:18)
[2017-07-15] MEDS: HYDROcodone/Acetaminophen 10/325 mg Tablet PO PRN (01:12)
[2017-07-15 08:19] VITALS: BP 156/97; TEMP 98.3
[2017-07-15] MEDS: traMADol HCl 50 MG TAB PO PRN (09:14)
[2017-07-15] MEDS: Famotidine/PF 20 mg/2ml Vial SLOW IVP SCH (09:16)
[2017-07-15] MEDS: Enoxaparin Sodium 40 MG/0.4 ML SYRINGE SC SCH (09:16)
[2017-07-15] MEDS: Lisinopril/Hydrochlorothiazide 10 mg/12.5 mg Tablet PO SCH (09:16)
[2017-07-15] MEDS: Carvedilol 25 MG TAB PO SCH (09:17)
[2017-07-15] MEDS: Gabapentin 300 MG CAP PO SCH (09:17)
[2017-07-15] MEDS: Aspirin 325 MG TAB PO SCH (09:17)
[2017-07-15] MEDS: Amlodipine 10 MG TAB PO SCH (09:17)
--- NOTE | 2017-07-15 10:30 | PDOC.PN ---
- Subjective Encounter Start Date: 07/15/17 Encounter Start Time: 10:28 Mr. Cast was seen today in follow-up. He is feeling a bit better this morning. - Objective Resuscitation Status: Resuscitation Status FULL:Full Resuscitation MAR Reviewed: Yes Vital Signs & Weight: Vital Signs (12 hours) Temp Pulse Resp BP Pulse Ox 07/15/17 08:10 98.3 F 59 L 16 07/15/17 07:18 98.3 F 59 L 16 156/97 H 99 07/15/17 05:19 95 07/15/17 04:59 98.4 F 74 16 158/87 H 95 07/15/17 00:38 97.6 F 69 20 131/78 97 Weight Weight 211 lb 8 oz I&O: 07/14/17 07/15/17 07/16/17 06:59 06:59 06:59 Intake Total 998 1540 Output Total 3550 Balance Result Diagrams: 07/14/17 03:57 07/14/17 03:57 Phys Exam - Physical Examination HEENT: PERRLA Respiratory: no wheezing, no rales ( ) Cardiovascular: RRR, no significant murmur, no rub Gastrointestinal: soft, non-tender, positive bowel sounds Musculoskeletal: no edema Dx/Plan (1) HLD (hyperlipidemia) Code(s): E78.5 - HYPERLIPIDEMIA, UNSPECIFIED Status: Acute (2) Hypertensive urgency Code(s): I16.0 - HYPERTENSIVE URGENCY Status: Acute (3) H/O DVT/PE Status: Chronic Comment: Reports he was taken off of Eliquis 3 weeks ago when he fell and had a scalp bleed - Plan * HTN- blood pressure is better * Headache- improved * Chest pain- resolved * Stable for discharge home.
[2017-07-15] MEDS: Albuterol Sulfate 1.25 MG/3 ML NEB NEB SCH (10:39)
[2017-07-15] MEDS: Fiorinal 325/50/40 mg Tablet PO PRN (10:44)
--- NOTE | 2017-07-15 11:04 | DIS ---
DATE OF ADMISSION: 07/13/2017 DATE OF DISCHARGE: 07/15/2017 PRIMARY CARE PHYSICIAN: An out of town physician. DISCHARGE DISPOSITION: Home. PRIMARY DISCHARGE DIAGNOSES: 1. Chest and back pain secondary to hypertensive urgency. 2. Hypertensive urgency due to suspected noncompliance. 3. History of previous cerebrovascular accident. 4. 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 DISCHARGE MEDICATIONS: Amlodipine 10 mg; the patient says twice a day, by history it is once a day. The patient is to continue taking as previously directed. Aspirin 81 mg daily, carvedilol 25 mg twi ce a day, gabapentin 300 mg t.i.d., lisinopril 10/12.5 twice a day, tramadol 50 mg t.i.d. as needed f or pain. CODE STATUS: FULL CODE. ALLERGIES: CODEINE. PROCEDURES DONE DURING ADMISSION: The patient had a CT angiogram of the chest, which was negative fo r PE. There is no aneurysm noted or dissection. HOSPITAL COURSE: Mr. Cast is a pleasant 62-year-old gentleman, who presented to the emergency room with complaints of chest and back pain. CT angiogram was done in the ER, which was negative for PE o r dissection. It is also noted the patient had a nuclear stress test earlier this year, approximatel y 4 months ago, which was negative. He was ruled out and it was noted that his blood pressure was ex tremely elevated. It is also noted that he had had a recent admission for hypertensive urgency [facility], and at that time, he was discharged on both amlodipine as well as carvedilol. The patient states that his primary care physician had taken him off of the carvedilol; however, it is unclear whether o r not this was actually the case, and he was placed back on carvedilol as well as lisinopril was adde d to his regimen. His blood pressure has improved dramatically even just overnight and his discharge blood pressure was 156/97. He had had one earlier recorded at 131/78 and he is being discharged qian to have close followup with his primary care physician.
== END 2017-07-15 12:20 | disposition home or self-care (01) ==
LOC: ERS 13:30 → 2SW 17:01
PROVIDERS: ADMIT Internal Medicine; ATTEND Internal Medicine
DX: I16.0 Hypertensive urgency (principal); R07.9 Chest pain, unspecified; M54.9 Dorsalgia, unspecified; I10 Essential (primary) hypertension; E78.5 Hyperlipidemia, unspecified; Z86.73 Personal history of transient ischemic attack (TIA), and cerebral infarction without residual deficits; Z86.14 Personal history of Methicillin resistant Staphylococcus aureus infection; Z86.711 Personal history of pulmonary embolism; Z86.718 Personal history of other venous thrombosis and embolism; Z82.49 Family history of ischemic heart disease and other diseases of the circulatory system; Z79.899 Other long term (current) drug therapy; Z88.5 Allergy status to narcotic agent; Z89.611 Acquired absence of right leg above knee; Z98.890 Other specified postprocedural states
CPT/HCPCS: 36415; 71010; 71275; 80048; 80053; 80061; 82553; 83690; 84484; 85025; 85610; 85730; 93005; 94640; 94760; 96361; 96372; 96374; 96375; 96376; A4216; G0378; J0360; J1650; J1885; J2270; S0028

== ENCOUNTER 2017-07-27 22:02 | Emergency (ER) | payer OTHER ==
[2017-07-27] MEDS ORDERED: Ketorolac Tromethamine 30 MG/ML VIAL ONE (22:59)
== END 2017-07-27 23:18 | disposition home or self-care (01) ==
LOC: ERS 22:02
DX: M27.69 Other endosseous dental implant failure (principal); I10 Essential (primary) hypertension; E78.5 Hyperlipidemia, unspecified; Z86.73 Personal history of transient ischemic attack (TIA), and cerebral infarction without residual deficits; Z79.899 Other long term (current) drug therapy
CPT/HCPCS: 96372; J1885

== ENCOUNTER 2017-08-01 22:30 | Observation (INO) | payer OTHER ==
[2017-08-01] MEDS ORDERED: hydrALAZINE 20 MG/ML VIAL ONE (22:53)
[2017-08-01] MEDS ORDERED: diphenhydrAMINE 50 MG/ML VIAL ONE (23:05)
[2017-08-01] MEDS ORDERED: methylPREDNISolone Sod Succ/PF 125 MG/2 ML VIAL ONE (23:05)
[2017-08-01] MEDS ORDERED: Metoclopramide HCl 10 MG/2 ML VIAL ONE (23:05)
[2017-08-01 23:12] LABS: #Eosinphils 0.2 thou/uL (0.0-0.7); #Monocytes 0.7 thou/uL (0.11-0.59); #Neutrophils 6.2 thou/uL (1.40-6.50); %Basophils 0.4 % (0.0-1.0); %Eosinophils 1.7 % (0.0-10.0); %Monocytes 7.4 % (0.0-10.0); %Neutrophils 68.5 % (42.0-75.0); Hemoglobin 15.5 g/dL (14.0-18.0); Mean Corpuscular HGB CONC 32.6 g/dL (32.0-36.0); Mean Corpuscular Hemoglobin 29.3 pg (27.0-31.0); Mean Corpuscular Volume 89.6 fl (80.0-94.0); Mean Platelet Volume 7.5 fL (7.4-10.4); Platelet Count 278 thou/uL (130-400); RBC Distribution Width 12.5 % (11.5-14.5); Red Blood Cell (RBC) Count 5.31 mill/uL (4.70-6.10)
[2017-08-01] MEDS ORDERED: Lorazepam 2 MG/ML VIAL ONE (23:14)
[2017-08-01 23:37] LABS: CKMB 2.1 ng/mL (0-6.6); Troponin I 0.012 ng/mL (< 0.028)
--- NOTE | 2017-08-01 23:51 | CT ---
NONCONTRAST CT HEAD 08/01/17 HISTORY: Hypertension and headache. Blurry vision. COMPARISON: 06/08/17. FINDINGS: Again noted are chronic small vessel ischemic changes with remote lacunar infarctions in the basal ga nglia bilaterally which were also present on the prior exam. There is no evidence of an acute cortica l infarction, hemorrhage, mass effect or midline shift. Mild cerebral volume loss is present. CT scan of the head is stable from prior exam. IMPRESSION: 1. No acute intracranial abnormalities demonstrated. 2. Stable chronic small vessel ischemic changes with multiple stable remote lacunar infarctions in each basal ganglia. POS: SHAI
[2017-08-02] LABS: ALT (SGPT) 34 U/L (8-55); AST (SGOT) 30 U/L (5-34); Albumin 4.2 g/dL (3.5-5.0); Alkaline Phosphatase 107 U/L (40-150); Anion Gap 17 mmol/L (10-20); BUN (Urea Nitrogen) 29 mg/dL (8.4-25.7); Bilirubin, Total 0.3 mg/dL (0.2-1.2); Calc. Creatinine Clearance 0 mL/min (70-130); Calcium 9.7 mg/dL (7.8-10.44); Carbon Dioxide 20 mmol/L (22-29); Chloride 105 mmol/L (98-107); Estimated GFR-MDRD 66; Glucose 111 mg/dL (70-105); Potassium 4.3 mmol/L (3.5-5.1); Protein, Total 8.2 g/dL (6.0-8.3); Sodium 138 mmol/L (136-145)
[2017-08-02 02:16] VITALS: BMI 26.3
[2017-08-02] MEDS ORDERED: Nitroglycerin 0.4 MG TAB (25 Tab Bottle) SL PRN (03:17)
[2017-08-02] MEDS ORDERED: Ondansetron HCl/PF 4 MG/2 ML Vial IVP PRN (03:17)
[2017-08-02] MEDS ORDERED: Temazepam 15 MG CAP PO PRN (03:17)
[2017-08-02] MEDS ORDERED: hydrALAZINE 20 MG/ML VIAL SLOW IVP PRN (03:17)
[2017-08-02] MEDS ORDERED: Ibuprofen 200 MG TAB PO PRN (03:17)
[2017-08-02] MEDS: traMADol HCl 50 MG TAB PO PRN ×5 (03:58→22:10)
[2017-08-02] MEDS: Acetaminophen 325 MG TAB PO PRN ×2 (04:51→13:22)
[2017-08-02 05:55] LABS: #Monocytes 0.1 thou/uL (0.11-0.59); %Basophils 0.4 % (0.0-1.0); %Eosinophils 0.3 % (0.0-10.0); %Lymphocytes 9.1 % (21.0-51.0); %Monocytes 0.5 % (0.0-10.0); %Neutrophils 89.7 % (42.0-75.0); Hemoglobin 15.2 g/dL (14.0-18.0); Mean Corpuscular HGB CONC 32.7 g/dL (32.0-36.0); Mean Corpuscular Hemoglobin 29.3 pg (27.0-31.0); Mean Corpuscular Volume 89.8 fl (80.0-94.0); Platelet Count 287 thou/uL (130-400); RBC Distribution Width 12.6 % (11.5-14.5); Red Blood Cell (RBC) Count 5.17 mill/uL (4.70-6.10); White Blood Cell (WBC) Count 11.1 thou/uL (4.8-10.8)
--- NOTE | 2017-08-02 06:07 | HP ---
CHIEF COMPLAINT: Headache, blurry vision, and uncontrolled blood pressure as high as 240/130. HISTORY OF PRESENT ILLNESS: This is a 62-year-old pleasant gentleman, who was recently discharged fr om our hospital after being evaluated for atypical chest pain on 07/15/2017, comes back today with bl urry vision. Patient reports that blurry vision started sometime this morning and he woke up with he octavia. He says the blurry vision is worse on the left eye and on the right side. Patient's last re corded blood pressure was 240/130 and patient got some labetalol, nitro 3 sublingual by the EMS. The patient says that he had similar symptoms in the past that resolved after a couple of hours. The pa navdeep also reports chest pain and some mild shortness of breath. The patient denies any fever, chill s, diarrhea, or dysuria. The patient says that he is compliant with his medication and he takes only amlodipine 10 mg p.o. daily though was discharged on Coreg, lisinopril, hydrochlorothiazide, the las t time he was here in our hospital. PAST MEDICAL HISTORY: Significant for hypertension, history of CVA x2 with no residual paralysis, hi story of pulmonary embolism 5 years ago with left lower extremity deep venous thrombosis, likely due to his back and neck surgeries. PAST SURGICAL HISTORY: He took Coumadin for the same and has discontinued after a full course of finesse atment, right knee surgery x7, right elbow surgery x3, back surgery x6, right above-knee amputation, surgery, right shoulder surgery, and right hand surgery, had MRSA in his right shoulder. He to ok vancomycin for nearly 2 years, 10 years back. CURRENT MEDICATIONS: Include Norvasc 10 mg p.o. daily, Ultram 50 p.o. q.6 hours. ALLERGIES: CODEINE. PERSONAL HISTORY: Denies smoking, alcohol, or drug use. FAMILY HISTORY: Mother at age 66, had coronary artery disease. Father at age 82, had a hi story of heart failure and coronary artery disease. REVIEW OF SYSTEMS: Significant for headache, blurry vision, some chest pain, and some mild shortness of breath, otherwise no fever, no chills, eye pain, no hearing loss, no dental disease. No cough, n o diarrhea, dysuria, or polyuria. No memory mood changes. No neck pain. PHYSICAL EXAMINATION: VITAL SIGNS: Patient's blood pressure in the ER was 240/130 right now, after he got some other medic ations given to him by EMS is 184/90. The patient is afebrile, pulse is 70, breathing comfortably on room air. GENERAL: Patient is lying in bed, in no apparent distress. HEENT: Atraumatic, normocephalic. Pupils equally round, react to light. Extraocular movements inta ct. Mucous membranes moist. NECK: Supple. No JVD. CHEST: Breath sounds heard. There are no rales or rhonchi. HEART: S1, S2 normal. No murmurs or gallops. ABDOMEN: Soft. EXTREMITIES: Right AKA. Left leg, distal pulses present. No cyanosis, clubbing, or edema. NEUROLOGIC: Patient has no cranial nerve deficits. Right now, the patient's blurred vision has reso lved. There is no nystagmus. No cranial nerve deficits. SKIN: Warm and dry. LABORATORY DATA: WBC count is 9, hemoglobin is 15, potassium is 4.3, creatinine is 1.1. IMAGING: CT of the brain is negative shows old infarct, old remote, stable infarcts in the lacunar a sara of the basal ganglia is older, stable remote lacunar infarcts in the basal ganglia. ASSESSMENT AND PLAN: 1. Hypertensive urgency, most probably secondary to noncompliance with medication. We will put him back on his Norvasc, Coreg, and lisinopril. 2. Blurred vision has resolved and though he complains of headache and shoulder tightness, and he is asking for Dilaudid versus tramadol. He is asking for Dilaudid, when I said I could not give him Di laudid, he was asking for tramadol. We will put on the tramadol for now and monitor him. 3. History of old cerebrovascular accidents. We will continue aspirin. 4. History of right paswx-awz-vuat amputation secondary to methicillin-resistant Staphylococcus tali us infection in the past, stable. 5. History of noncompliance. Of note, patient was talking to the medical staff, I understand that t he patient has a warrant from the [employer] for him. 6. Sequential compression devices for deep venous thrombosis prophylaxis. I will monitor the blood pressure and make recommendations as the clinical course evolves. If neurological symptoms worsen, w ill get Neurology on board.
[2017-08-02 06:31] LABS: Anion Gap 19 mmol/L (10-20); BUN (Urea Nitrogen) 25 mg/dL (8.4-25.7); Calc. Creatinine Clearance 75 mL/min (70-130); Calcium 10.1 mg/dL (7.8-10.44); Carbon Dioxide 17 mmol/L (22-29); Chloride 105 mmol/L (98-107); Estimated GFR-MDRD 51; Glucose 272 mg/dL (70-105); Potassium 4.1 mmol/L (3.5-5.1); Sodium 137 mmol/L (136-145)
[2017-08-02] MEDS: Docusate 100 MG CAP PO SCH ×2 (07:58→20:51)
[2017-08-02] MEDS ORDERED: Carvedilol 6.25 MG TAB PO SCH ×2 (08:00→08:44)
[2017-08-02] MEDS: Amlodipine 10 MG TAB PO SCH (08:04)
--- NOTE | 2017-08-02 08:47 | PDOC.PN ---
- Subjective Encounter Start Date: 08/02/17 Encounter Start Time: 08:46 Subjective: Seen and examined - Objective Vital Signs & Weight: Vital Signs (12 hours) Temp Pulse Resp BP BP Pulse Ox 08/02/17 08:04 85 185/104 H 08/02/17 08:00 97.8 F 85 20 185/104 H 95 08/02/17 07:58 100 185/104 H 08/02/17 07:57 185/104 H 08/02/17 05:11 159/100 H 08/02/17 04:03 85 08/02/17 04:00 97.8 F 72 16 236/119 H 95 08/02/17 01:35 97.4 F L 85 16 185/99 H 99 Weight Weight 210 lb 9.6 oz Result Diagrams: 08/02/17 05:20 08/02/17 05:20 Phys Exam - Physical Examination Constitutional: NAD HEENT: PERRLA, moist MMs, sclera anicteric, TM's clear Neck: no nodes, no JVD, supple, full ROM Respiratory: no wheezing, no rales, no rhonchi, clear to auscultation bilateral Cardiovascular: RRR, no significant murmur, no rub Gastrointestinal: soft, non-tender, no distention, positive bowel sounds Dx/Plan - Plan PT/OT, social services aide Increase coreg -: increase lisinopril -: D/c ibuprofen -: Counselling on compliance * .
[2017-08-02] MEDS ORDERED: Lisinopril/Hydrochlorothiazide 10 mg/12.5 mg Tablet PO SCH (09:00)
[2017-08-02] MEDS: Lisinopril/Hydrochlorothiazide 20/25 mg Tablet PO SCH (09:11)
[2017-08-02] MEDS: Carvedilol 25 MG TAB PO SCH (16:14)
[2017-08-02] MEDS ORDERED: SUMAtriptan Succinate 25 MG TAB PO SCH (16:15)
[2017-08-02] MEDS: SUMAtriptan Succinate 50 MG TAB PO PRN (20:52)
[2017-08-03] MEDS ORDERED: Ibuprofen 200 MG TAB PO SCH (00:15)
[2017-08-03] MEDS: Labetalol HCl 100 MG/20 ML VIAL SLOW IVP PRN (00:27)
[2017-08-03] MEDS: traMADol HCl 50 MG TAB PO PRN ×5 (02:17→20:14)
[2017-08-03] MEDS: SUMAtriptan Succinate 50 MG TAB PO PRN ×3 (03:06→18:03)
[2017-08-03] MEDS: Docusate 100 MG CAP PO SCH ×2 (08:20→20:08)
[2017-08-03] MEDS: Lisinopril/Hydrochlorothiazide 20/25 mg Tablet PO SCH (08:20)
[2017-08-03] MEDS: Carvedilol 25 MG TAB PO SCH ×2 (08:20→17:59)
[2017-08-03] MEDS: Amlodipine 10 MG TAB PO SCH (08:20)
[2017-08-03] MEDS: hydrALAZINE 25 MG TAB PO SCH ×3 (08:23→20:08)
[2017-08-03 08:31] LABS: #Basophils 0.1 thou/uL (0.0-0.2); #Eosinphils 0.1 thou/uL (0.0-0.7); #Lymphocytes 2.9 thou/uL (1.20-3.40); #Monocytes 0.9 thou/uL (0.11-0.59); #Neutrophils 9.2 thou/uL (1.40-6.50); %Basophils 0.4 % (0.0-1.0); %Eosinophils 0.9 % (0.0-10.0); %Lymphocytes 22.3 % (21.0-51.0); %Monocytes 6.6 % (0.0-10.0); %Neutrophils 69.7 % (42.0-75.0); Hemoglobin 15.3 g/dL (14.0-18.0); Mean Corpuscular Hemoglobin 30.5 pg (27.0-31.0); Mean Corpuscular Volume 92.5 fl (80.0-94.0); Mean Platelet Volume 7.9 fL (7.4-10.4); Platelet Count 269 thou/uL (130-400); RBC Distribution Width 13.2 % (11.5-14.5); Red Blood Cell (RBC) Count 5.01 mill/uL (4.70-6.10); White Blood Cell (WBC) Count 13.2 thou/uL (4.8-10.8)
[2017-08-03 08:52] LABS: Anion Gap 18 mmol/L (10-20); BUN (Urea Nitrogen) 33 mg/dL (8.4-25.7); Calc. Creatinine Clearance 73 mL/min (70-130); Calcium 9.1 mg/dL (7.8-10.44); Carbon Dioxide 17 mmol/L (22-29); Chloride 107 mmol/L (98-107); Estimated GFR-MDRD 47; Glucose 190 mg/dL (70-105); Magnesium 2.4 mg/dL (1.6-2.6); Potassium 4.2 mmol/L (3.5-5.1); Sodium 138 mmol/L (136-145)
[2017-08-03] MEDS ORDERED: Gabapentin 300 MG CAP PO SCH (11:45)
--- NOTE | 2017-08-03 14:06 | PDOC.PN ---
- Subjective Encounter Start Date: 08/03/17 Encounter Start Time: 12:40 Pt seen and examine,d chart reviewed in its entirety. This is my first visit with this patient. Admitted early 08/02 or late 08/01 with left monocular blurry vision and headache/ left head pressure. BP very elevated. Home meds restarted, still remained high. Seen by Dr Del Castillo yesterday, meds adjusted, staying at SBP 180s. blurriness better, headache and pressure better, but still present No F/c, no N/V/D/C, no CP or sOB, no new neuro deficits 10 point ROs performed and neg fro all systems except as per HPI. hydralazine po added this morning by me, BP 2 hours later at systolic 150 - Objective MAR Reviewed: Yes Vital Signs & Weight: Vital Signs (12 hours) Temp Pulse Resp BP Pulse Ox 08/03/17 11:43 98.4 F 67 16 157/92 H 93 L 08/03/17 08:23 76 08/03/17 08:20 76 08/03/17 08:00 97.8 F 76 16 08/03/17 07:49 97.8 F 76 16 180/106 H 94 L 08/03/17 04:00 98.4 F 76 16 184/107 H 94 L Weight Weight 220 lb 1.6 oz Result Diagrams: 08/03/17 08:10 08/03/17 08:10 Radiology Reviewed by me: Yes EKG Reviewed by me: Yes Phys Exam - Physical Examination Constitutional: NAD HEENT: PERRLA, moist MMs, sclera anicteric, oral pharynx no lesions Neck: no nodes, no JVD, supple, full ROM Respiratory: no wheezing, no rales, no rhonchi, clear to auscultation bilateral Cardiovascular: RRR, no significant murmur, no rub Gastrointestinal: soft, non-tender, no distention, positive bowel sounds Musculoskeletal: no edema, pulses present Neurological: non-focal, normal sensation, moves all 4 limbs Lymphatic: no nodes Psychiatric: normal affect, A&O x 3 Skin: no rash, normal turgor, cap refill <2 seconds Dx/Plan (1) Hypertensive urgency Code(s): I16.0 - HYPERTENSIVE URGENCY Status: Acute (2) HTN (hypertension) Code(s): I10 - ESSENTIAL (PRIMARY) HYPERTENSION Status: Acute Qualifiers: Hypertension type: essential hypertension Qualified Code(s): I10 - Essential (primary) hypertension (3) GISELA (acute kidney injury) Code(s): N17.9 - ACUTE KIDNEY FAILURE, UNSPECIFIED Status: Acute (4) H/O: CVA (cerebrovascular accident) Code(s): Z86.73 - PRSNL HX OF TIA (TIA), AND CEREB INFRC W/O RESID DEFICITS Status: Chronic (5) HLD (hyperlipidemia) Code(s): E78.5 - HYPERLIPIDEMIA, UNSPECIFIED Status: Chronic Qualifiers: Hyperlipidemia type: unspecified Qualified Code(s): E78.5 - Hyperlipidemia , unspecified (6) H/O DVT/PE Status: Chronic Comment: Reports he was taken off of Eliquis 3 weeks ago when he fell and had a scalp bleed - Plan cont current plan of care, PT/OT, out of bed/ambulate, DVT proph w/SCDs * .
[2017-08-03] MEDS: Gabapentin 300 MG CAP PO SCH (20:08)
[2017-08-04] MEDS: traMADol HCl 50 MG TAB PO PRN ×5 (00:02→20:55)
[2017-08-04] MEDS: SUMAtriptan Succinate 50 MG TAB PO PRN ×2 (05:08→23:44)
[2017-08-04 05:32] LABS: #Basophils 0.1 thou/uL (0.0-0.2); #Eosinphils 0.3 thou/uL (0.0-0.7); #Lymphocytes 2.7 thou/uL (1.20-3.40); #Monocytes 0.9 thou/uL (0.11-0.59); #Neutrophils 5.2 thou/uL (1.40-6.50); %Eosinophils 3.2 % (0.0-10.0); %Lymphocytes 29.9 % (21.0-51.0); %Monocytes 9.6 % (0.0-10.0); %Neutrophils 56.3 % (42.0-75.0); Hemoglobin 14.9 g/dL (14.0-18.0); Mean Corpuscular HGB CONC 32.5 g/dL (32.0-36.0); Mean Corpuscular Hemoglobin 30.1 pg (27.0-31.0); Mean Corpuscular Volume 92.7 fl (80.0-94.0); Mean Platelet Volume 7.5 fL (7.4-10.4); Platelet Count 298 thou/uL (130-400); RBC Distribution Width 13.3 % (11.5-14.5); Red Blood Cell (RBC) Count 4.94 mill/uL (4.70-6.10); White Blood Cell (WBC) Count 9.2 thou/uL (4.8-10.8)
[2017-08-04 05:51] LABS: Anion Gap 15 mmol/L (10-20); BUN (Urea Nitrogen) 32 mg/dL (8.4-25.7); Calc. Creatinine Clearance 83 mL/min (70-130); Calcium 9.1 mg/dL (7.8-10.44); Carbon Dioxide 25 mmol/L (22-29); Chloride 105 mmol/L (98-107); Estimated GFR-MDRD 54; Glucose 110 mg/dL (70-105); Magnesium 2.5 mg/dL (1.6-2.6); Potassium 4.5 mmol/L (3.5-5.1); Sodium 140 mmol/L (136-145)
[2017-08-04] MEDS: Amlodipine 10 MG TAB PO SCH (08:54)
[2017-08-04] MEDS: Carvedilol 25 MG TAB PO SCH ×2 (08:54→16:11)
[2017-08-04] MEDS: Gabapentin 300 MG CAP PO SCH ×2 (08:55→20:55)
[2017-08-04] MEDS: hydrALAZINE 25 MG TAB PO SCH ×3 (08:55→20:56)
[2017-08-04] MEDS: Docusate 100 MG CAP PO SCH ×2 (08:55→20:55)
[2017-08-04] MEDS: Lisinopril/Hydrochlorothiazide 20/25 mg Tablet PO SCH (08:56)
--- NOTE | 2017-08-04 11:05 | PDOC.PN ---
- Subjective Encounter Start Date: 08/04/17 Encounter Start Time: 09:15 Pt states blurriness to left eyes still there, but a little better, Left hemispheric ARREOLA the same and seems to be associated with his spike sin right LE phantom limb pain. No F/c, no N/V/d/C. has basically not slept in last 2-3 night, requesting aid. No other complaints,. 10 point ROS performed and neg for all systems except as per HPI - Objective MAR Reviewed: Yes Vital Signs & Weight: Vital Signs (12 hours) Temp Pulse Resp BP BP Pulse Ox 08/04/17 08:56 69 133/85 08/04/17 08:55 69 133/85 08/04/17 08:54 69 133/85 08/04/17 08:00 97.6 F 69 16 08/04/17 07:53 97.6 F 69 16 133/85 98 08/04/17 04:10 98.4 F 67 16 159/86 H 98 08/03/17 23:58 98.0 F 66 16 165/86 H 98 Weight Weight 220 lb 1.6 oz Result Diagrams: 08/04/17 04:37 08/04/17 04:37 Phys Exam - Physical Examination Constitutional: NAD HEENT: PERRLA, moist MMs, sclera anicteric, oral pharynx no lesions Neck: no nodes, no JVD, supple, full ROM Respiratory: no wheezing, no rales, no rhonchi, clear to auscultation bilateral Cardiovascular: RRR, no significant murmur, no rub Gastrointestinal: soft, non-tender, no distention, positive bowel sounds Musculoskeletal: no edema right AKa stump C/D/I Neurological: non-focal, normal sensation, moves all 4 limbs Lymphatic: no nodes Psychiatric: normal affect, A&O x 3 Skin: no rash, normal turgor, cap refill <2 seconds Dx/Plan (1) Hypertensive urgency Code(s): I16.0 - HYPERTENSIVE URGENCY Status: Resolved Comment: BP much better, symptoms persist. MRI and MRA ordered (2) HTN (hypertension) Code(s): I10 - ESSENTIAL (PRIMARY) HYPERTENSION Status: Chronic Qualifiers: Hypertension type: essential hypertension Qualified Code(s): I10 - Essential (primary) hypertension (3) GISELA (acute kidney injury) Code(s): N17.9 - ACUTE KIDNEY FAILURE, UNSPECIFIED Status: Resolved Comment : cr 1.3, back to baseline (4) H/O: CVA (cerebrovascular accident) Code(s): Z86.73 - PRSNL HX OF TIA (TIA), AND CEREB INFRC W/O RESID DEFICITS Status: Chronic (5) HLD (hyperlipidemia) Code(s): E78.5 - HYPERLIPIDEMIA, UNSPECIFIED Status: Chronic Qualifiers: Hyperlipidemia type: unspecified Qualified Code(s): E78.5 - Hyperlipidemia , unspecified (6) H/O DVT/PE Status: Chronic Comment: Reports he was taken off of Eliquis 3 weeks ago when he fell and had a scalp bleed - Plan cont current plan of care, PT/OT, DVT proph w/lovenox * .
[2017-08-04] MEDS ORDERED: traZODone HCl 50 MG TAB PO PRN (11:07)
--- NOTE | 2017-08-04 12:05 | MRI ---
MRI OF THE BRAIN WITHOUT CONTRAST: HISTORY: Left posterior headache for 5-6 days causing blurry vision. TECHNIQUE: Multiplanar, multisequence MR images were obtained of the brain without contrast. FINDINGS: There are scattered foci of high FLAIR signal in the subcortical and periventricular white matter, li kevan secondary to small-vessel ischemic disease. No restricted diffusion is seen to suggest an acute infarction. There is no evidence of hydrocephalus, intracranial hemorrhage, or extraaxial fluid collection. The expected flow voids are present. The corpus callosum, pituitary, and craniocervical junction are unr emarkable. The calvarium and overlying soft tissues are unremarkable. The visualized paranasal sinuses and mast oid air cells are well aerated. IMPRESSION: Small-vessel ischemic disease without acute intracranial abnormality. POS: [facility]
--- NOTE | 2017-08-04 12:13 | MRI ---
MRA BRAIN NONCONTRAST: HISTORY: TIA. FINDINGS: Good flow is demonstrated into each internal carotid system and each vertebral system. No filling de fects or aneurysm are apparent. Posterior circulation is supplied via the left vertebral artery. Po sterior communicating arteries are not apparent. IMPRESSION: No significant abnormalities are demonstrated. POS: [facility]
[2017-08-05] MEDS: Labetalol HCl 100 MG/20 ML VIAL SLOW IVP PRN (00:37)
[2017-08-05] MEDS: traMADol HCl 50 MG TAB PO PRN ×3 (00:38→12:21)
[2017-08-05] MEDS: Acetaminophen 325 MG TAB PO PRN ×2 (01:51→08:35)
--- NOTE | 2017-08-05 08:00 | PDOC.PN ---
- Subjective Encounter Start Date: 08/05/17 Encounter Start Time: 08:30 Subjective: Patient with persistent ARREOLA for 2 months. Chronic phantom limb pain. -: BP improved. - Objective MAR Reviewed: Yes Vital Signs & Weight: Vital Signs (12 hours) Temp Pulse Resp BP BP BP Pulse Ox 08/05/17 05:42 97.7 F 77 16 134/76 96 08/05/17 00:37 69 08/05/17 00:07 97.2 F L 70 16 182/100 H 100 08/04/17 21:33 98.2 F 73 20 147/82 H 96 08/04/17 20:56 65 128/79 08/04/17 20:55 98.2 F 73 20 Weight Weight 220 lb 1.6 oz Result Diagrams: 08/04/17 04:37 08/04/17 04:37 Phys Exam - Physical Examination Constitutional: NAD HEENT: moist MMs Respiratory: no wheezing, no rales, no rhonchi Cardiovascular: RRR, no significant murmur Gastrointestinal: soft, positive bowel sounds Right BKA Neurological: non-focal Psychiatric: normal affect, A&O x 3 Dx/Plan (1) Hypertensive urgency Code(s): I16.0 - HYPERTENSIVE URGENCY Status: Resolved Comment: BP much better, symptoms persist. MRI and MRA negative for acute abnormalities (2) HTN (hypertension) Code(s): I10 - ESSENTIAL (PRIMARY) HYPERTENSION Status: Chronic Qualifiers: Hypertension type: essential hypertension Qualified Code(s): I10 - Essential (primary) hypertension (3) GISELA (acute kidney injury) Code(s): N17.9 - ACUTE KIDNEY FAILURE, UNSPECIFIED Status: Resolved Comment : cr 1.3, back to baseline (4) H/O DVT/PE Status: Chronic Comment: Reports he was taken off of Eliquis 3 weeks ago when he fell and had a scalp bleed (5) H/O: CVA (cerebrovascular accident) Code(s): Z86.73 - PRSNL HX OF TIA (TIA), AND CEREB INFRC W/O RESID DEFICITS Status: Chronic (6) HLD (hyperlipidemia) Code(s): E78.5 - HYPERLIPIDEMIA, UNSPECIFIED Status: Chronic Qualifiers: Hyperlipidemia type: unspecified Qualified Code(s): E78.5 - Hyperlipidemia , unspecified (7) Phantom limb pain Code(s): G54.6 - PHANTOM LIMB SYNDROME WITH PAIN Status: Chronic Comment: Previously on Gabapentin with some improvement. Will restart and titrate up to 600mg TID. - Plan cont current plan of care stable to d/c home -: ARREOLA migrainous vs. post concussive syndrome. Will try migraine cocktail -: prior to removing IV. F/u with Dr. Melvin neurology as outpatient. * . - Discharge Day Encounter end time: 09:00
[2017-08-05] MEDS: Amlodipine 10 MG TAB PO SCH (08:33)
[2017-08-05] MEDS: Carvedilol 25 MG TAB PO SCH (08:33)
[2017-08-05] MEDS: Docusate 100 MG CAP PO SCH (08:34)
[2017-08-05] MEDS: hydrALAZINE 25 MG TAB PO SCH (08:34)
[2017-08-05] MEDS: Gabapentin 300 MG CAP PO SCH (08:34)
[2017-08-05] MEDS: Lisinopril/Hydrochlorothiazide 20/25 mg Tablet PO SCH (08:34)
[2017-08-05] MEDS ORDERED: Metoclopramide HCl 10 MG/2 ML VIAL IVP SCH (09:30)
[2017-08-05] MEDS ORDERED: diphenhydrAMINE 50 MG/ML VIAL IVP SCH (09:30)
[2017-08-05 12:14] VITALS: BP 132/77; TEMP 98.6
--- NOTE | 2017-08-05 13:32 | DIS ---
PRIMARY CARE PHYSICIAN: [facility]. DIAGNOSES ON ADMISSION: 1. Hypertensive urgency. 2. Blurred vision and headache. 3. History of previous cerebrovascular accident. 4. History of [id number] amputation. 5. History of medical noncompliance. DIAGNOSES ON DISCHARGE: 1. Hypertensive urgency, resolved. 2. Acute kidney injury, resolved. 3. History of cerebrovascular accident. 4. History of deep venous thrombosis/pulmonary embolus. 5. Hyperlipidemia. 6. Phantom limb pain. 7. Headache, migraine versus post-concussive syndrome. 8. Prescription drug abuse PROCEDURES PERFORMED: 1. CT of the brain showing no acute intracranial abnormalities are stable chronic small vessel ischemic changes with multiple stable remote lacunar infarcts in each basal ganglia. 2. MRI of the brain without contrast showing small vessel ischemic disease without acute intracranial abnormality. 3. MRI/MRA angio of the brain showing no significant vascular abnormalities. CONSULTATIONS: None. HOSPITAL COURSE: This is a 62-year-old white male who presented with a headache and blurred vision. Blurry was worse on the left side. He was found to have hypertensive urgency with blood pressures 240/130, by EMS this improved with medication. The patient was put on observation in the hospital. He had improvement in his blood pressure with resuming his old blood pressure medications that he had been discharged on last hospitalization and had continuing of his aspirin. A urine drug screen was ordered; however, patient never gave us a urine sample. Patient had resolution of high blood pressure with persistent blurred vision and headache on speaking with him. On the day of discharge, he stated the headache is actually going on for 2 months and he has had multiple head injuries with previous subdural hematomas. This is suspicious for possible postconcussive syndrome versus continuous migraine. Otherwise, patient was doing well and he did have an imaging of the brain as above with no evidence for acute CVA. On the day of discharge, he was treated with IV migraine treatments of Benadryl and Reglan with some improvement in his symptoms and he was discharged home to follow up with his primary care physician as well as a neurologist as an outpatient. DISCHARGE MANAGEMENT: Discharged home. DISCHARGE FOLLOWUP: Follow up with Neurology, contact information of Dr. Mahogany Bates's office was given. He is to follow up in 1 week and follow up with his primary care physician in the next 3 days. DISCHARGE ACTIVITY: As tolerated. DISCHARGE DIET: Healthy heart, low sodium diet. DISCHARGE MEDICATIONS: 1. Carvedilol 25 mg twice a day, 60 tablets dispensed. 2. Gabapentin 600 mg 3 times a day. He is to titrate this up for about 2 weeks from once a day to 3 times a day, 90 tablets dispensed. 3. Tramadol 50 mg every 4 hours as needed for pain, 14 tablets dispensed. 4. Continue patient's amlodipine 10 mg daily. Addendum: Later in the day I was contacted by nursing pump servicer supervisor. Apparently patient has filled many Rx for Tramadol over the past month from many different providers. Has also been arrested for stealing prescriptions, including in our ER and sent to [facility]. For some reason patient didn't flag under high alert system. Nursing pump servicer supervisor went to get the Tramadol Rx back from the patient but he had left the room already. EDILSON
--- NOTE | 2017-08-17 14:14 | EKG ---
Test Reason : Blood Pressure : / mmHG Vent. Rate : 079 BPM Atrial Rate : 079 BPM P-R Int : 146 ms QRS Dur : 106 ms QT Int : 386 ms P-R-T Axes : 042 -29 026 degrees QTc Int : 442 ms Normal sinus rhythm Normal ECG Confirmed by CRISTY RODRIGUEZ, CASSANDRA ([id number]), newspaper editor [employer] ([id number]) on 08/17/2017 2:13:58 PM Referred By: Confirmed By:CASSANDRA MUNIZ MD
== END 2017-08-05 13:11 | disposition home or self-care (01) ==
LOC: ERS 22:30 → 2SE 08-02 00:14
PROVIDERS: ADMIT Internal Medicine; ATTEND Internal Medicine
DX: I16.0 Hypertensive urgency (principal); N17.9 Acute kidney failure, unspecified; E78.5 Hyperlipidemia, unspecified; G54.6 Phantom limb syndrome with pain; R51 Headache; F19.10 Other psychoactive substance abuse, uncomplicated; I10 Essential (primary) hypertension; Z91.19 Patient's noncompliance with other medical treatment and regimen; Z79.899 Other long term (current) drug therapy; Z88.5 Allergy status to narcotic agent; Z89.611 Acquired absence of right leg above knee; Z98.890 Other specified postprocedural states; Z86.14 Personal history of Methicillin resistant Staphylococcus aureus infection; Z86.73 Personal history of transient ischemic attack (TIA), and cerebral infarction without residual deficits; Z86.718 Personal history of other venous thrombosis and embolism; Z86.711 Personal history of pulmonary embolism
CPT/HCPCS: 36415; 36416; 70450; 70544; 70551; 80048; 80053; 82553; 83735; 83880; 84484; 85025; 93005; 96374; 96375; 96376; G0378; J0360; J1200; J2060; J2765; J2930

== ENCOUNTER 2017-08-12 08:31 | Observation (INO) | payer OTHER ==
[2017-08-12] MEDS ORDERED: Morphine 2 MG/ML SYRINGE ONE ×4 (08:42→17:09)
[2017-08-12 09:04] LABS: #Eosinphils 0.3 thou/uL (0.0-0.7); #Lymphocytes 2.3 thou/uL (1.20-3.40); #Neutrophils 6.2 thou/uL (1.40-6.50); %Basophils 0.5 % (0.0-1.0); %Eosinophils 3.1 % (0.0-10.0); %Lymphocytes 23.1 % (21.0-51.0); %Neutrophils 63.4 % (42.0-75.0); Hemoglobin 15.6 g/dL (14.0-18.0); Mean Corpuscular HGB CONC 34.1 g/dL (32.0-36.0); Mean Corpuscular Hemoglobin 30.4 pg (27.0-31.0); Mean Corpuscular Volume 89.1 fl (80.0-94.0); Platelet Count 338 thou/uL (130-400); RBC Distribution Width 12.1 % (11.5-14.5); Red Blood Cell (RBC) Count 5.13 mill/uL (4.70-6.10); White Blood Cell (WBC) Count 9.7 thou/uL (4.8-10.8)
--- NOTE | 2017-08-12 09:11 | RAD ---
PORTABLE CHEST 1 VIEW: Date: 08/12/17 Time: 0859 hours HISTORY: Chest pain. FINDINGS: Comparison made with exam of 07/13/17. The heart size is normal. The lungs are well expanded without focal areas of consolidation, pneumotho rax, or pleural effusions. There are postop changes of right shoulder arthroplasty. IMPRESSION: No radiographic evidence of acute cardiopulmonary process. POS: [facility]
[2017-08-12 09:30] LABS: CKMB 1.4 ng/mL (0-6.6); Troponin I 0.013 ng/mL (< 0.028)
[2017-08-12 10:47] LABS: ALT (SGPT) 20 U/L (8-55); AST (SGOT) 18 U/L (5-34); Albumin 4.1 g/dL (3.5-5.0); Alkaline Phosphatase 90 U/L (40-150); Anion Gap 12 mmol/L (10-20); BUN (Urea Nitrogen) 26 mg/dL (8.4-25.7); Bilirubin, Total 0.2 mg/dL (0.2-1.2); Calc. Creatinine Clearance 0 mL/min (70-130); Calcium 9.5 mg/dL (7.8-10.44); Carbon Dioxide 24 mmol/L (22-29); Chloride 105 mmol/L (98-107); Estimated GFR-MDRD 73; Globulin 3.5 g/dL (2.4-3.5); Glucose 113 mg/dL (70-105); Lipase 45 U/L (8-78); Potassium 4.4 mmol/L (3.5-5.1); Protein, Total 7.6 g/dL (6.0-8.3); Sodium 137 mmol/L (136-145)
--- NOTE | 2017-08-12 11:25 | ULT ---
RIGHT UPPER QUADRANT ULTRASOUND: Date: 08/12/17 HISTORY: Abdominal pain COMPARISON: None. TECHNIQUE: Utilizing multihertz transducer, sonographic imaging of the right upper quadrant was performed in the longitudinal and transverse plane. FINDINGS: Examination is markedly limited due to artifact. There is sonographic evidence of cholelithiasis with out definite sonographic evidence of cholecystitis. No obvious hydronephrosis in the right kidney. IMPRESSION: Suboptimal evaluation due to artifact. No definite evidence of cholecystitis. There is sonographic ev idence of cholelithiasis. POS: [facility]
[2017-08-12] MEDS ORDERED: Ketorolac Tromethamine 30 MG/ML VIAL ONE (11:51)
[2017-08-12] MEDS ORDERED: Glycopyrrolate 0.2 MG/ML 5 ML SYRINGE ONE (12:15)
[2017-08-12] MEDS ORDERED: Propofol 200 MG/20 ML VIAL ONE (12:15)
[2017-08-12] MEDS ORDERED: Ondansetron HCl/PF 4 MG/2 ML Vial ONE (12:15)
--- NOTE | 2017-08-12 12:49 | HP ---
DATE OF ADMISSION: 08/12/2017 HISTORY OF PRESENT ILLNESS: This is a 62-year-old man who presented with recurrent epigast raoul abdominal pain. The patient was awoken at 0300 hours this morning with severe epigastric abdomin al pain, which radiated to his back. The patient denies any nausea or vomiting. He has had similar pain episodes in the past landed him in the emergency department with chest pain. The patient report s frequent flatulence and abdominal bloating over the last few days. He denies any fevers or chills. PAST MEDICAL HISTORY: Significant for essential hypertension. Other pertinent past medical history includes chronic pain. PAST SURGICAL HISTORY: Significant for lumber spinal fusion x5. He is status post right shoulder ar throplasty. He had total right knee replacement, which was complicated by infection, treated with pr olonged antibiotic therapy and ultimately patient underwent right above the knee amputation. SOCIAL HISTORY: He is an senior cost accountant. He denies any cigarette smoking, ethanol or illicit drug abuse . PREHOSPITALIZATION MEDICATION: Includes amlodipine 10 mg p.o. daily, gabapentin 600 mg p.o. t.i.d., tramadol 50 mg 1-2 p.o. p.r.n. pain, and carvedilol 25 mg p.o. b.i.d. ALLERGIES: CODEINE. FAMILY HISTORY: Notable for heart disease in both parents who from complications there off. He denies any family history of diabetes mellitus or cancer. REVIEW OF SYSTEMS: Ten point review of systems essentially unremarkable except for as stated in past medical history and chief complaint. PHYSICAL EXAMINATION: GENERAL: This reveals a 62-year-old normally developed man who is otherwise coherent and interactive and appears stated age. The patient is alert and oriented x3, appears to be in no significant acute distress at the time of my evaluation. VITAL SIGNS: Includes blood pressure 150/101, pulse is 79, respiratory rate is 16, oxygen saturation is 95% on room air. HEENT: Reveals normocephalic and atraumatic. Pupils equal, round, and reactive to light and accommo dation. Extraocular muscles are intact bilaterally. No sclerae icterus is present. Oral mucosa is pink and moist. No lesions are noted. NECK: Supple. No palpable lymphadenopathy or thyromegaly present. HEART: Reveals regular rate and rhythm, no murmurs or gallops auscultated. LUNGS: Clear to auscultation bilaterally. Breathing is regular and unlabored. ABDOMEN: Soft with epigastric to right upper quadrant tenderness to palpation. Liver and spleen are otherwise nonpalpable below costal margins. EXTREMITIES: Reveals 2+ bilateral radial and left pedal pulses. He is status post right above-the-k nee amputation with a healed stump. NEUROLOGIC: Reveals no focal deficits present. PERTINENT LABORATORY FINDINGS AND IMAGING: Includes a CBC with 9700 white blood cells, hemoglobin 15 .6, hematocrit is 45.7, platelet count is 338,000. Metabolic profile: Sodium 137, potassium is 4.4, chloride is 105, bicarbonate 24, BUN 26, creatinine is 1.04, glucose is 113. Total bilirubin is 0.2 , AST and ALT are 18 and 20 respectively. Alkaline phosphatase is 90. Serum lipase is 45. I have p ersonally reviewed the abdominal ultrasound, which was obtained as part of this evaluation. This rev eals a large solitary stone impacted in gallbladder neck. IMPRESSION: Recurrent biliary colic secondary to impacting large solitary gallstone. PLAN: Laparoscopic cholecystectomy. Above findings and plan has been discussed with the patient who indicates understanding of the information given. I have answered his questions. I have advised th e patient of the risks and benefits of the proposed surgery. Risks include, but not limited to bleed ing, infection, injury to bile duct or surrounding structures. The patient indicates understanding o f this information. He has granted consent for this admission and surgical intervention.
[2017-08-12] MEDS ORDERED: Lidocaine 1% w/Epinephrine 1:200K 30 ML VIAL ONE (13:10)
[2017-08-12] MEDS ORDERED: Bupivacaine PF 0.5% 30 ML VIAL ONE (13:10)
[2017-08-12] MEDS ORDERED: Iothalamate Meglumine 60% 50 ML VIAL FS ONE (13:10)
[2017-08-12] MEDS ORDERED: Fentanyl 100 MCG/2 ML VIAL ONE ×5 (13:43→18:30)
[2017-08-12] MEDS ORDERED: Promethazine HCl 25 MG/ML VIAL ONE ×2 (15:36→18:36)
--- NOTE | 2017-08-12 15:38 | OP ---
DATE OF OPERATION: 08/12/2017 PREOPERATIVE DIAGNOSES: 1. Acute recurrent biliary colic. 2. Cholelithiasis. POSTOPERATIVE DIAGNOSES: 1. Acute recurrent biliary colic. 2. Cholelithiasis. PROCEDURE PERFORMED: Laparoscopic cholecystectomy. SURGEON: Jostin Dowell D.O. ANESTHESIA: General endotracheal. ESTIMATED BLOOD LOSS: 5 mL FLUIDS GIVEN: 500 mL crystalloids. SPONGE AND INSTRUMENT COUNT: Certified as correct x2. COMPLICATIONS: None apparent. INDICATIONS FOR PROCEDURE: This is a 62-year-old man who presented to the emergency department today with recurrent epigastric abdominal pain, which started at 0300 hours. The patient has had 2 previo us trips to the Emergency Department in the recent past, complaining of similar pain at that time. A cute coronary syndrome was excluded. Abdominal ultrasound today was obtained, which revealed a large gallstone impacted in gallbladder nec k. The patient was brought to the operating room today for cholecystectomy. Findings are consistent with gallbladder in the usual anatomic location with partial omental encaseme nt. DESCRIPTION OF PROCEDURE: Informed consent obtained from the patient who was brought to the operatin g room and placed in supine position. Following general anesthesia, the abdomen was sterilely preppe d and draped in the usual fashion. Next, the skin below the umbilicus was infiltrated with 0.25% Mar kyra with epinephrine. A small curvilinear infraumbilical incision was made using an 11 scalpel. U mbilical stalk was grasped with Robby and elevated. A Veress needle was inserted through the incisi on through which the abdomen was insufflated with 3 liters of CO2 gas. Intraabdominal pressure was n oted at 2 mmHg. Following abdominal insufflation, Veress needle was removed. The 5 mm trocar was th en introduced into the peritoneal cavity using a Visiport under laparoscopy. Laparoscopy confirmed p dioni placement of the port, no injuries to underlying structures. An additional laparoscopy reveale d gallbladder in the usual anatomic location partially encased by omental adhesions. On the laparosc opy, a 12 mm epigastric and two 5 mm right lateral subcostal ports were placed after the overlying sk in was infiltrated with 0.25% Marcaine with epinephrine and appropriate incisions made. The patient was placed in the reverse Trendelenburg position, rotated to his left. I introduced the [place] dissector with cautery, using this to take down omental adhesions. Prestig e grasper was then introduced through the right lateral subcostal port grasping the fundus of the gal lbladder which was elevated cephalad. Next, a second Prestige grasper was introduced through the rig ht medial subcostal port grasping the Anderson's pouch which was retracted laterally. An anterior cou rsing cystic artery was dissected free from surrounding structures and divided between clips. Two cl ips were applied proximally and one clip at the junction of the cystic artery and gallbladder. The cystic duct itself was then divided between clips in a similar fashion. Gallbladder itself was r emoved from the liver bed using cautery. Gallbladder was passed off the operative field for transmis kimberly to pathology. Minor venous oozing from the gallbladder fossa was readily controlled using 1 x 2 inch piece of fibula. Finding no other pathology, laparoscopy was terminated. Fascia of the epigas tric port was closed using 0 Vicryl suture and Endo closure device under laparoscopy. Abdomen was de sufflated. Next, all ports and instruments were removed and accounted for. All skin incisions close d using 4-0 Monocryl suture in subcuticular fashion. Dermabond was applied over the incisions. The patient tolerated the operation without any apparent complication and was returned to the recover y room in a satisfactory condition.
[2017-08-12] MEDS ORDERED: HYDROmorphone 0.5 MG/0.5 ML SYRINGE ONE ×3 (17:10→18:09)
[2017-08-12] MEDS ORDERED: Ibuprofen 600 MG TAB PO PRN (20:04)
[2017-08-12] MEDS ORDERED: Dextrose 50% Abboject 50 ML SYRINGE SLOW IVP PRN (20:04)
[2017-08-12] MEDS ORDERED: Acetaminophen 500 MG TAB PO PRN (20:04)
[2017-08-12] MEDS ORDERED: traMADol HCl 50 MG TAB PO PRN ×2 (20:04)
[2017-08-12] MEDS ORDERED: Dextrose 5% in Water 1,000 ML IV PRN (20:04)
[2017-08-12] MEDS ORDERED: hydrALAZINE 20 MG/ML VIAL SLOW IVP PRN (20:04)
[2017-08-12] MEDS ORDERED: Mag-Al 1200 mg/1200 mg/30 ML UDCUP PO PRN (20:04)
[2017-08-12] MEDS ORDERED: Senokot 8.6 MG TAB PO SCH (21:00)
[2017-08-12] MEDS: Famotidine 20 MG TAB PO SCH (21:48)
[2017-08-12] MEDS: Acetaminophen 500 MG TAB PO SCH (21:51)
[2017-08-12 22:24] VITALS: BMI 24.3
[2017-08-12] MEDS ORDERED: Sodium Chloride 0.9% 10 ML ONE (23:49)
[2017-08-12] MEDS: Ketorolac Tromethamine 30 MG/ML VIAL IVP SCH (23:50)
[2017-08-13] MEDS ORDERED: Morphine 2 MG/ML SYRINGE SLOW IVP SCH (00:18)
[2017-08-13] MEDS ORDERED: traMADol HCl 50 MG TAB PO SCH (00:30)
[2017-08-13] MEDS ORDERED: Morphine 5 MG/ML SYRINGE SLOW IVP SCH (01:00)
[2017-08-13] MEDS: Acetaminophen 500 MG TAB PO SCH ×3 (03:16→14:37)
[2017-08-13] MEDS: Ketorolac Tromethamine 30 MG/ML VIAL IVP SCH ×2 (05:20→14:42)
[2017-08-13] MEDS: traMADol HCl 50 MG TAB PO SCH ×2 (05:21→14:34)
[2017-08-13] MEDS: Famotidine 20 MG TAB PO SCH (09:09)
--- NOTE | 2017-08-13 12:44 | DIS ---
DATE OF ADMISSION: 08/12/2017 DATE OF DISCHARGE: 08/13/2017 ADMITTING PHYSICIAN: Dr. Jostin Dowell. ADMITTING DIAGNOSES: 1. Acute recurrent biliary colic. 2. Cholelithiasis. DISCHARGE DIAGNOSES: 1. Acute recurrent biliary colic. 2. Cholelithiasis. OPERATIONS PERFORMED: Laparoscopic cholecystectomy on 08/12/2017 by Delmer. Please see separate dict ation for the operative report. HISTORY AND HOSPITAL COURSE: This is a 62-year-old man, who presented with recurrent epigastric abdo haily pain. Clinical and radiographic examination was consistent with a large solitary gallstone imp act and gallbladder neck. The patient was taken to the operating room for an uneventful laparoscopic cholecystectomy. Following surgery, the patient was admitted to surgical floor for observation due to severe pain. Postop day #1, the patient is evaluated, have remained hemodynamically stable and afebrile through ho spitalization. Pain is now adequately controlled on oral analgesics. The patient is tolerating a ge neral diet, having normal bowel and urinary function and I will be discharged home with the following instructions: 1. He follows up with me in the Surgery Clinic in 2 weeks. 2. He is to call me with any questions or problems including exacerbation of abdominal pain, intoler ance to oral intake or any abnormal drainage from the wound. 3. He is to call me also for fever in excess of 101 degrees Fahrenheit. 4. He is given a prescription for tramadol 50 mg #30 to be taken 1-2 p.o. q.6 hours p.r.n. pain. 5. He may alternate or augment this with Tylenol 1000 mg p.o. q.6 hours or ibuprofen 600 mg p.o. q.8 hours p.r.n. pain. I examined the patient's abdominal incisional wounds remain intact today clean and dry. He clearly h as no peritoneal signs on examination. The patient indicated understanding of information I have given him today. I answered his questions. He has expressed gratitude for the care and nurturing during this hospitalization and surgery.
[2017-08-13 17:15] VITALS: BP 154/89; TEMP 98.5
--- NOTE | 2017-08-17 14:21 | EKG ---
Test Reason : CHEST PAIN Blood Pressure : / mmHG Vent. Rate : 088 BPM Atrial Rate : 088 BPM P-R Int : 140 ms QRS Dur : 094 ms QT Int : 370 ms P-R-T Axes : 040 -17 057 degrees QTc Int : 447 ms Normal sinus rhythm Normal ECG Confirmed by CRISTY RODRIGUEZ, CASSANDRA ([id number]), editorial specialist [employer]ES ([id number]) on 08/17/2017 2:21:27 PM Referred By: Confirmed By:CASSANDRA MUNIZ MD
== END 2017-08-13 18:06 | disposition home or self-care (01) ==
LOC: ERS 08:31 → SDC 13:05 → 3SE 19:27 → SURG A 08-13 00:10
PROVIDERS: ADMIT Surgery; ATTEND Surgery
PROC: 0FT44ZZ Resection of Gallbladder, Percutaneous Endoscopic Approach (ICD-10-PCS; principal; 2017-08-13)
DX: K80.64 Calculus of gallbladder and bile duct with chronic cholecystitis without obstruction (principal); I10 Essential (primary) hypertension; G89.29 Other chronic pain; Z88.5 Allergy status to narcotic agent; Z79.899 Other long term (current) drug therapy; Z98.1 Arthrodesis status; Z89.611 Acquired absence of right leg above knee; Z98.890 Other specified postprocedural states; Z82.49 Family history of ischemic heart disease and other diseases of the circulatory system
CPT/HCPCS: 36415; 36416; 71045; 76705; 80053; 82553; 83690; 83880; 84484; 85025; 88304; 93005; 96374; 96375; 96376; J2270; A4216; G0378; J1170; J1885; J2405; J2550; J2704; J3010; J3370; Q9961; S0020

== ENCOUNTER 2017-08-14 08:07 | Emergency (ER) | payer OTHER ==
--- NOTE | 2017-08-14 08:53 | RAD ---
RIGHT SHOULDER 2 VIEWS: HISTORY: Shoulder pain. FINDINGS: There are postop changes of total right shoulder arthroplasty. There is superior dislocation of righ t glenohumeral joint. POS: [facility]
[2017-08-14] MEDS ORDERED: Propofol 1,000 MG/100 ML VIAL IV ONE (09:32)
--- NOTE | 2017-08-14 11:58 | RAD ---
TWO VIEWS RIGHT SHOULDER: Date: 08-14-17 Time: 10:47 a.m. Comparison: 08-14-17 at 8:37 a.m. History: Status post reduction of previously noted shoulder dislocation. FINDINGS: There is a shoulder arthroplasty present on the right. The metallic glenoid component and the metalli c proximal right humeral component demonstrate a more normal configuration suggesting interval reduct ion in the previously noted dislocation. No acute fracture is seen. IMPRESSION: Findings suggesting interval reduction of previously noted dislocation of right shoulder arthroplasty . POS: [facility]
== END 2017-08-14 13:00 | disposition home or self-care (01) ==
LOC: ERS 08:07
DX: S43.004A Unspecified dislocation of right shoulder joint, initial encounter (principal); X58.XXXA Exposure to other specified factors, initial encounter; I10 Essential (primary) hypertension; E78.5 Hyperlipidemia, unspecified; Z79.899 Other long term (current) drug therapy
CPT/HCPCS: 23650; 99152; J2704

== ENCOUNTER 2017-08-15 21:16 | Observation (INO) | payer OTHER ==
[~2017-08-15 21:16] MED LIST: ISOVUE-370 76%-LOCM 1 ML ONE
[2017-08-15] MEDS ORDERED: HYDROmorphone 0.5 MG/0.5 ML SYRINGE ONE (22:04)
[2017-08-15 22:28] LABS: #Eosinphils 0.4 thou/uL (0.0-0.7); #Lymphocytes 1.7 thou/uL (1.20-3.40); #Monocytes 0.7 thou/uL (0.11-0.59); %Basophils 0.5 % (0.0-1.0); %Eosinophils 4.3 % (0.0-10.0); %Monocytes 7.9 % (0.0-10.0); %Neutrophils 68.3 % (42.0-75.0); Mean Corpuscular HGB CONC 32.7 g/dL (32.0-36.0); Mean Corpuscular Volume 91.9 fl (80.0-94.0); Mean Platelet Volume 7.1 fL (7.4-10.4); Platelet Count 298 thou/uL (130-400); Red Blood Cell (RBC) Count 4.01 mill/uL (4.70-6.10); White Blood Cell (WBC) Count 8.7 thou/uL (4.8-10.8)
[2017-08-15 22:37] LABS: Prothrombin Time 13.4 SEC (12.0-14.7)
[2017-08-15 22:49] LABS: Anion Gap 14 mmol/L (10-20); BUN (Urea Nitrogen) 19 mg/dL (8.4-25.7); Calc. Creatinine Clearance 0 mL/min (70-130); Carbon Dioxide 24 mmol/L (22-29); Chloride 104 mmol/L (98-107); Estimated GFR-MDRD 77; Glucose 107 mg/dL (70-105); Lipase 28 U/L (8-78); Sodium 138 mmol/L (136-145)
[2017-08-15 23:10] LABS: Bilirubin Negative (Negative); Blood, Urine Negative (Negative); Clarity CLOUDY (Clear); Glucose, Urine (Dipstick) Negative (Negative); Leukocyte Negative (Negative); Nitrite Negative (Negative); Protein, Urine (Dipstick) 30 mg/dL (Neg-Trace); Specific Gravity, Urine 1.018 (1.002-1.036); Urobilinogen 0.2 mg/dL (0.2-1.0); pH, Urine 7.5 (5.0-9.0)
[2017-08-15 23:12] LABS: Bacteria/HPF None Seen HPF (None Seen); Hyaline Casts/LPF 0-3 HYALINE CAST LPF (0-3 Hyaline); Squamous Epithelial None Seen HPF (0-3); WBC/HPF None Seen HPF (0-3)
--- NOTE | 2017-08-15 23:48 | CT ---
ABDOMEN AND PELVIC CT SCAN WITH IV CONTRAST: 08/15/17 HISTORY: 62-year-old male with abdominal pain following having gallbladder removed on 08/13/17. Minimal linear parenchymal changes in the right lower lobe evidence for some subsegmental atelectasis . There is some minimal opacity changes within the gallbladder fossa evidence for recent cholecystect margaret. There is a small amount of pericapsular low attenuation change involving the anterior inferior a spect of the right lobe of the liver measuring approximately 2.5 cm x 7.4 cm probably representing a small amount of subcapsular hemorrhage. The right kidney is somewhat small and scarred. Nonobstructin g left renal calculus. No evidence for acute obstruction. Normal appearing appendix. Small amount of slightly higher attenuation fluid in the pelvis possibly a very small amount of postoperative bloo d. No evidence for bowel obstruction. Bilateral renal low attenuation foci statistically small cyst. Minimal recent postoperative changes involving the anterior abdominal wall. Somewhat hypoplastic fatt y replaced left rectus muscle noted. IMPRESSION: Findings consistent with postoperative cholecystectomy with a small focus of subcapsular low attenuat ion probably blood as well as some very minimal higher attenuation fluid within the pelvis probably r epresenting some minimal postoperative fluid including some blood or hemorrhagic fluid. Normal appear ing appendix. No bowel obstruction. Nonobstructing left renal calculus. Postoperative changes of the right proximal femur evidence for a prior vadim placement which has been removed. Other findings as abo ve. POS: [facility]
[2017-08-16] MEDS ORDERED: HYDROcodone/Acetaminophen 10/325 mg Tablet PO PRN (00:23)
[2017-08-16] MEDS ORDERED: Dextrose 50% Abboject 50 ML SYRINGE SLOW IVP PRN (00:27)
[2017-08-16] MEDS ORDERED: Dextrose 5% in Water 1,000 ML IV PRN (00:27)
[2017-08-16] MEDS ORDERED: Ondansetron HCl/PF 4 MG/2 ML Vial IVP PRN (00:27)
[2017-08-16] MEDS ORDERED: Ondansetron ODT 4 MG TAB PO PRN (00:27)
[2017-08-16] MEDS ORDERED: Acetaminophen 325 MG TAB PO SCH (01:15)
[2017-08-16] MEDS ORDERED: Senokot S 8.6-50 MG TAB PO SCH ×2 (01:15→09:00)
[2017-08-16] MEDS: traMADol HCl 50 MG TAB PO SCH ×3 (01:57→13:23)
[2017-08-16] MEDS: Sodium Chloride 0.9% 1,000 ML IV SCH ×2 (01:58→11:23)
[2017-08-16 03:33] VITALS: BMI 26.8
--- NOTE | 2017-08-16 04:48 | HP ---
DATE OF SERVICE: 08/16/2017 HISTORY OF PRESENT ILLNESS: This is a 62-year-old gentleman with recurrent visits to the emergency r oom for pain and history of chronic pain, who is postoperative day #3 status post laparoscopic cholec ystectomy. Per patient, laparoscopic cholecystectomy with Dr. Dowell. Per patient, he initially have a significant amount of pain postoperatively, which had started to improve prior to discharge from [facility]; however, once the patient returned home, his pain continued to worsen and was no longer controlled with p.o. analgesics at home. Patient additionally noted increased lower abdominal/pelvic distention and a fever of 101. The patient states the only pain medication he is taking at home as Ultram. The only time he took ibuprofen was after he had his fever. The patient states the abdomina l discomfort is worse secondary to bloating. He endorses having flatulence, but denies any bowel mov ement since before his surgery. Pain is relieved with IV pain medications that he received in the em ergency room in urination. It is worsened with movement, palpation, or deep breathing. Although, he told the ER physician that his pain was worse in the pelvis and lower abdomen. He tells me that his pain is worse in the right upper quadrant. His current pain is 7/10. We were asked to admit patien t for pain control. Additionally, the patient had a CT scan which demonstrated evidence of a subcaps ular fluid collection measuring approximately 2.5 x 7.4 cm. We were asked to admit patient for obser vation and pain control. ALLERGIES: Previously reported as CODEINE; however, the patient states that he has tolerated Ultram and Dilaudid in the emergency room. CHRONIC MEDICAL ILLNESSES: Hypertension and chronic pain. 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 SOCIAL HISTORY: Patient is an systems accountant. Denies tobacco, alcohol, or illicit drug use. HOME MEDICATIONS: Amlodipine 10 mg p.o. daily, gabapentin 600 mg p.o. t.i.d., Ultram 50 mg 1-2 p.o. p.r.n. for pain, and carvedilol 25 mg p.o. b.i.d. FAMILY HISTORY: Mother with coronary artery disease. Father with coronary artery disease. REVIEW OF SYSTEMS: Negative except as indicated in the HPI. PHYSICAL EXAMINATION: VITAL SIGNS: Blood pressure 159/95, pulse 82, respirations 16, O2 sat 100% on room air, temperature 99.1. GENERAL: Well-developed male in no acute distress, resting in bed. HEAD: Normocephalic, atraumatic. EYES: Pupils were PERRL. Extraocular movements are intact. NECK: Supple. Trachea is midline. CHEST/PULMONARY: Normal work of breathing, symmetric rise. LUNGS: Clear to auscultation bilaterally. CARDIOVASCULAR: Regular rate and rhythm, no obvious murmurs, rubs, or gallops. GASTROINTESTINAL: Surgical sites are clean, dry, and intact. Abdomen is soft with generalized tende rness. There is minimal guarding. There is no rebound. There is no rigidity. Abdomen is most tend er in the right upper quadrant. BACK: Being reported as within normal limits. MUSCULOSKELETAL: Bilateral upper extremities within normal limits. Left lower extremity within norm al limits. Right AKA noted. NEUROLOGIC: GCS of 15. No focal deficit noted. LABORATORY FINDINGS: WBC 8.7, hemoglobin 12.0, hematocrit 36.8, platelet count 298. INR 1.0. Sodiu m 138, potassium 4.0, chloride 104, carbon dioxide 24, BUN 19, creatinine 0.99, glucose 107. Lactic acid 0.8. Urinalysis was unremarkable with the exception of proteinuria. RADIOGRAPHIC FINDINGS: CT of the abdomen and pelvis was read by Radiology as having findings consist ent with postoperative cholecystectomy and a small focus of subcapsular low attenuation measuring 2.5 x 7.4 cm as well as minimal higher attenuation fluid within the pelvis representing what they felt w as postoperative fluid including some blood or hemorrhage. There was no evidence of bowel obstructio n. There was evidence of a nonobstructing left renal calculus. Postoperative changes to the right p roximal femur were noted. ASSESSMENT: 1. Status post laparoscopic cholecystectomy on 08/12/2017. 2. Abdominal pain. 3. Low-grade fever. 4. Subcapsular fluid collection on CT. 5. Acute anemia. 6. History of chronic pain. 7. History of [id number] amputation. PLAN: Admit for observation and pain control. The patient should be n.p.o. Serial abdominal exams. The patient was educated on the importance of the abdominal exam in this setting and that high dose narcotic pain medications may mask worsening abdominal pain. Additionally, patient was educated on narcotic usage and risks for constipation. As patient has not been taking any NSAIDs or Tylenol, lindy l use these in addition to Ultram to try and achieve pain control at this time. Escalate pain medica tions as necessary. Gentle IV fluid hydration. Recheck labs in a.m. Low grade temperature, likely secondary to atelectasis. Incentive spirometry and pulmonary toilet, walking program. Assessment and plan was discussed with Dr. Lange prior to admission. Patient plans for admission wer e discussed with the patient, who vocalizes understanding. All questions were answered at the time o f this dictation.
[2017-08-16] MEDS: Ketorolac Tromethamine 30 MG/ML VIAL IVP SCH ×2 (05:44→11:54)
[2017-08-16] MEDS: Acetaminophen 325 MG TAB PO SCH ×2 (05:44→11:54)
[2017-08-16 06:08] LABS: Anion Gap 14 mmol/L (10-20); BUN (Urea Nitrogen) 15 mg/dL (8.4-25.7); Calc. Creatinine Clearance 110 mL/min (70-130); Calcium 9.4 mg/dL (7.8-10.44); Carbon Dioxide 23 mmol/L (22-29); Chloride 104 mmol/L (98-107); Estimated GFR-MDRD 78; Glucose 103 mg/dL (70-105); Magnesium 1.9 mg/dL (1.6-2.6); Phosphorus 2.9 mg/dL (2.3-4.7); Sodium 137 mmol/L (136-145)
[2017-08-16 06:11] LABS: ALT (SGPT) 34 U/L (8-55); AST (SGOT) 30 U/L (5-34); Albumin 3.8 g/dL (3.5-5.0); Alkaline Phosphatase 87 U/L (40-150); Bilirubin, Direct 0.2 mg/dL (0.1-0.3); Bilirubin, Total 0.6 mg/dL (0.2-1.2); Protein, Total 7.9 g/dL (6.0-8.3)
[2017-08-16 06:14] LABS: #Eosinphils 0.3 thou/uL (0.0-0.7); #Lymphocytes 1.6 thou/uL (1.20-3.40); #Monocytes 0.7 thou/uL (0.11-0.59); #Neutrophils 6.1 thou/uL (1.40-6.50); %Basophils 0.6 % (0.0-1.0); %Eosinophils 3.3 % (0.0-10.0); %Lymphocytes 18.6 % (21.0-51.0); %Monocytes 7.5 % (0.0-10.0); %Neutrophils 70.1 % (42.0-75.0); Hemoglobin 12.1 g/dL (14.0-18.0); Mean Corpuscular HGB CONC 32.4 g/dL (32.0-36.0); Mean Corpuscular Hemoglobin 29.8 pg (27.0-31.0); Mean Platelet Volume 7.2 fL (7.4-10.4); Platelet Count 304 thou/uL (130-400); Red Blood Cell (RBC) Count 4.05 mill/uL (4.70-6.10); White Blood Cell (WBC) Count 8.8 thou/uL (4.8-10.8)
[2017-08-16] MEDS ORDERED: Polyethylene Glycol 3350 17 GM Packet PO SCH (09:00)
[2017-08-16] MEDS ORDERED: Bisacodyl 10 MG SUPP PR SCH (10:00)
[2017-08-16] MEDS ORDERED: Amlodipine 10 MG TAB PO SCH (11:45)
[2017-08-16 11:52] VITALS: BP 185/100; TEMP 98.9
--- NOTE | 2017-08-16 14:20 | DIS ---
ADMITTING AND DISCHARGING PHYSICIAN: Dr. Jostin Dowell ADMITTING DIAGNOSES: Postoperative abdominal pain. HISTORY AND HOSPITAL COURSE: A 62-year-old man who is postoperative day #4 today status post laparos copic cholecystectomy. The patient apparently had a ground level fall onto his right side 2 to 3 days ago. He presented to emergency department with worsening abdominal pain. CT scan of abdomen and pelvis re vealed no significant postoperative changes at the operative site; however, a small pericapsular aston barber of the liver is noted. Hemoglobin is stable at 12.1, white blood cell count is 8800, hematocrit is 37.3, platelet count 304, 000. Metabolic profile is unremarkable. Clinical examination reveals a man in good spirits who was complaining of abdominal pain. The pain i s adequately controlled on oral analgesics. He was previously placed on tramadol which provided him with inadequate pain control. He was given [place]o 10 mg with better pain control. PHYSICAL EXAMINATION: VITAL SIGNS: Includes blood pressure 166/96, respiratory rate is 19, heart rate 86, oxygen saturatio n is 96% on room air. HEART: Reveals regular rate and rhythm, no murmurs or gallops auscultated. ABDOMEN: Abdominal examination reveals intact incisional wound. He clearly has no gross rebound ten derness on examination. NEUROLOGIC: Reveals no focal deficits present. The patient will be discharged home today with a prescription for [place]o 10 mg #20 to be taken 1 p.o. q.6 hours p.r.n. breakthrough pain. He is also encouraged to continue to take tramadol 50 mg 1-2 p.o . q.6h. p.r.n. pain. DISCHARGE INSTRUCTIONS: 1. He is to maintain his postoperative followup appointment with me in the next 10-14 days. The pat ient is to call with any questions or problems including fever in excess of 101 degrees Fahrenheit. 2. He is to continue his post-admission medication as prescribed by his primary care physician for h is blood pressure. 3. He is to follow up with his primary care physician regarding his hypertension. The patient indicates understanding of the information given. I answered his questions.
== END 2017-08-16 13:48 | disposition home or self-care (01) ==
LOC: ERS 21:16 → SURG A 08-16 00:27
PROVIDERS: ADMIT Surgery; ATTEND Surgery
DX: G89.18 Other acute postprocedural pain (principal); R10.9 Unspecified abdominal pain; I10 Essential (primary) hypertension; G89.29 Other chronic pain; R50.9 Fever, unspecified; Z88.5 Allergy status to narcotic agent; Z79.899 Other long term (current) drug therapy; Z90.49 Acquired absence of other specified parts of digestive tract; Z98.1 Arthrodesis status; Z89.611 Acquired absence of right leg above knee; Z98.890 Other specified postprocedural states; Z82.49 Family history of ischemic heart disease and other diseases of the circulatory system
CPT/HCPCS: 36415; 74177; 80048; 80076; 81003; 81015; 83605; 83690; 83735; 84100; 85025; 85610; 87040; 87086; 93005; 96361; 96374; 96375; G0378; J1170; J1885

== ENCOUNTER 2017-08-18 14:23 | Emergency (ER) | payer OTHER ==
[2017-08-18] MEDS ORDERED: Ondansetron HCl/PF 4 MG/2 ML Vial ONE (15:09)
[2017-08-18 15:12] LABS: Bilirubin Negative (Negative); Blood, Urine Negative (Negative); Clarity CLEAR (Clear); Glucose, Urine (Dipstick) Negative (Negative); Leukocyte Negative (Negative); Nitrite Negative (Negative); Protein, Urine (Dipstick) Trace mg/dL (Neg-Trace); Specific Gravity, Urine 1.018 (1.002-1.036); Urobilinogen 0.2 mg/dL (0.2-1.0)
[2017-08-18 15:28] LABS: #Basophils 0.1 thou/uL (0.0-0.2); #Eosinphils 0.1 thou/uL (0.0-0.7); #Lymphocytes 1.8 thou/uL (1.20-3.40); #Monocytes 0.8 thou/uL (0.11-0.59); #Neutrophils 7.3 thou/uL (1.40-6.50); %Basophils 0.7 % (0.0-1.0); %Eosinophils 0.9 % (0.0-10.0); %Monocytes 7.7 % (0.0-10.0); %Neutrophils 72.8 % (42.0-75.0); Hemoglobin 12.4 g/dL (14.0-18.0); Mean Corpuscular HGB CONC 33.9 g/dL (32.0-36.0); Mean Corpuscular Hemoglobin 30.7 pg (27.0-31.0); Mean Corpuscular Volume 90.6 fl (80.0-94.0); Mean Platelet Volume 7.1 fL (7.4-10.4); Platelet Count 353 thou/uL (130-400); Red Blood Cell (RBC) Count 4.04 mill/uL (4.70-6.10); White Blood Cell (WBC) Count 10.1 thou/uL (4.8-10.8)
[2017-08-18 15:55] LABS: ALT (SGPT) 27 U/L (8-55); AST (SGOT) 23 U/L (5-34); Albumin 3.7 g/dL (3.5-5.0); Alkaline Phosphatase 97 U/L (40-150); Anion Gap 14 mmol/L (10-20); BUN (Urea Nitrogen) 26 mg/dL (8.4-25.7); Bilirubin, Total 0.5 mg/dL (0.2-1.2); CK (CPK) 120 U/L (30-200); Calc. Creatinine Clearance 0 mL/min (70-130); Calcium 9.7 mg/dL (7.8-10.44); Carbon Dioxide 23 mmol/L (22-29); Chloride 105 mmol/L (98-107); Estimated GFR-MDRD 61; Globulin 4.3 g/dL (2.4-3.5); Glucose 107 mg/dL (70-105); Lipase 36 U/L (8-78); Sodium 138 mmol/L (136-145)
--- NOTE | 2017-08-18 16:17 | RAD ---
RIGHT SHOULDER THREE VIEWS: History: 62-year-old male with history of right shoulder pain. FINDINGS: There appears to be anterior superior dislocation of the humeral portion of reverse total shoulder pr osthesis. IMPRESSION: Dislocation of the reverse shoulder arthroplasty with what appears to be anterior superior dislocatio n. POS: [facility]
[2017-08-18] MEDS ORDERED: Diprivan 20 ML ONE (16:30)
--- NOTE | 2017-08-18 17:13 | CT ---
CT ABDOMEN AND PELVIS WITH CONTRAST: Comparison: 08-15-17 History: Abdominal pain status post cholecystectomy on 08-14-17. Technique: Multiple contiguous axial images were obtained in a CT of the abdomen and pelvis with cont rast. Coronal reformats were performed. FINDINGS: The gallbladder has been removed. There is a stable small amount of fluid in the gallbladder bed. No free air is identified. No biliary dilatation is seen. The liver, adrenal glands, and spleen are unremarkable. There is a nonobstructing stable small calcif ication in the left kidney. There are hypodensities in the bilateral kidneys which likely represent c ysts. The large and small bowel are unremarkable. The appendix is normal. No abdominal or pelvic lymphadeno edin are seen. Degenerative changes are seen in the spine. Visualized inferior thorax and abdominal aortic soft tiss ues are unremarkable. No free air is seen in the abdomen or pelvis. There is a very minimal amount of hyperdense fluid in t he pelvis which has decreased compared to the prior examination. IMPRESSION: Post-surgical changes from recent cholecystectomy with stable small amount of fluid in the gallbladde r bed. The previously seen blood in the pelvis has nearly completely resolved. POS: [facility]
--- NOTE | 2017-08-18 17:23 | RAD ---
TWO VIEWS OF THE RIGHT SHOULDER: Comparison: 08-18-17 History: Reduction of shoulder dislocation. FINDINGS: Two views of the right shoulder shows reduction of the shoulder prosthesis. No fracture is seen. The visualized right thorax is unremarkable. IMPRESSION: Reduction of dislocated shoulder prosthesis. POS: [facility]
== END 2017-08-18 17:50 | disposition home or self-care (01) ==
LOC: ERS 14:23
DX: R10.9 Unspecified abdominal pain (principal); T84.028A Dislocation of other internal joint prosthesis, initial encounter; E78.5 Hyperlipidemia, unspecified; I10 Essential (primary) hypertension; Z86.73 Personal history of transient ischemic attack (TIA), and cerebral infarction without residual deficits; Z79.899 Other long term (current) drug therapy; Z96.611 Presence of right artificial shoulder joint
CPT/HCPCS: 23650; 36415; 74177; 80053; 81003; 82550; 83690; 85025; 96361; 96374; 96375; 99152; J2405; J2704

== ENCOUNTER 2017-08-21 16:43 | Emergency (ER) | payer OTHER ==
[2017-08-21 17:52] LABS: Bilirubin Negative (Negative); Blood, Urine Negative (Negative); Clarity CLEAR (Clear); Glucose, Urine (Dipstick) Negative (Negative); Leukocyte Negative (Negative); Nitrite Negative (Negative); Protein, Urine (Dipstick) Trace mg/dL (Neg-Trace); Specific Gravity, Urine 1.016 (1.002-1.036); Urobilinogen 0.2 mg/dL (0.2-1.0)
== END 2017-08-21 19:02 | disposition home or self-care (01) ==
LOC: ERS 16:43
DX: R10.11 Right upper quadrant pain (principal); I10 Essential (primary) hypertension; Z86.73 Personal history of transient ischemic attack (TIA), and cerebral infarction without residual deficits; E78.5 Hyperlipidemia, unspecified; Z79.891 Long term (current) use of opiate analgesic; Z79.899 Other long term (current) drug therapy
CPT/HCPCS: 81003; 99284

== ENCOUNTER 2017-11-11 19:43 | Emergency (ER) | payer OTHER ==
[2017-11-11 20:45] LABS: #Basophils 0.1 thou/uL (0.0-0.2); #Eosinphils 0.2 thou/uL (0.0-0.7); #Monocytes 0.9 thou/uL (0.11-0.59); #Neutrophils 6.3 thou/uL (1.40-6.50); %Basophils 0.8 % (0.0-1.0); %Eosinophils 1.7 % (0.0-10.0); %Lymphocytes 20.8 % (21.0-51.0); %Monocytes 9.3 % (0.0-10.0); %Neutrophils 67.4 % (42.0-75.0); Hemoglobin 15.7 g/dL (14.0-18.0); Mean Corpuscular HGB CONC 33.8 g/dL (32.0-36.0); Mean Corpuscular Hemoglobin 29.6 pg (27.0-31.0); Mean Corpuscular Volume 87.5 fl (80.0-94.0); Mean Platelet Volume 7.1 fL (7.4-10.4); Platelet Count 385 thou/uL (130-400); RBC Distribution Width 13.2 % (11.5-14.5); Red Blood Cell (RBC) Count 5.32 mill/uL (4.70-6.10); White Blood Cell (WBC) Count 9.4 thou/uL (4.8-10.8)
[2017-11-11 21:04] LABS: ALT (SGPT) 20 U/L (8-55); AST (SGOT) 36 U/L (5-34); Albumin 4.1 g/dL (3.5-5.0); Alkaline Phosphatase 96 U/L (40-150); Anion Gap 19 mmol/L (10-20); BUN (Urea Nitrogen) 44 mg/dL (8.4-25.7); Bilirubin, Total 0.3 mg/dL (0.2-1.2); Calc. Creatinine Clearance 0 mL/min (70-130); Calcium 9.5 mg/dL (7.8-10.44); Carbon Dioxide 22 mmol/L (22-29); Chloride 101 mmol/L (98-107); Estimated GFR-MDRD 32; Glucose 93 mg/dL (70-105); Potassium 4.5 mmol/L (3.5-5.1); Protein, Total 9.1 g/dL (6.0-8.3); Sodium 137 mmol/L (136-145)
--- NOTE | 2017-11-11 22:57 | ULT ---
BILATERAL LOWER EXTREMITY VENOUS DOPPLER ULTRASOUND: 11/11/2017 HISTORY: Lower extremity pain, swelling, and edema. COMPARISON: None. TECHNIQUE: Multiplanar mckeon-scale sonographic imaging of the venous structures of the bilateral lower extremitie s obtained with color-flow and spectral analysis. FINDINGS: The right common femoral vein, greater saphenous vein, profunda femoral vein, and femoral vein appear patent. The left common femoral vein, greater saphenous vein, profunda femoral vein, femoral vein, popliteal vein, and posterior tibial vein demonstrate patency. Normal blood flow, augmentation, and compression within the deep venous system of the left lower extremity. The patient is status post right lower extremity amputation and, thus, the popliteal vein and posteri or tibial vein are not assessed. IMPRESSION: No evidence for deep venous thrombosis of either lower extremity. POS: [facility]
== END 2017-11-11 23:08 | disposition home or self-care (01) ==
LOC: ERS 19:43
DX: N17.9 Acute kidney failure, unspecified (principal); I10 Essential (primary) hypertension; E78.5 Hyperlipidemia, unspecified; Z79.899 Other long term (current) drug therapy; Z86.73 Personal history of transient ischemic attack (TIA), and cerebral infarction without residual deficits
CPT/HCPCS: 80053; 83880; 85025; 93970; 96360

== ENCOUNTER 2017-12-16 11:32 | Emergency (ER) | payer MEDICAID, OTHER ==
--- NOTE | 2017-12-16 14:42 | RAD ---
FRONTAL RADIOGRAPH CHEST AND 3 VIEWS RIGHT RIBS: Date: 12/16/17 COMPARISON: None. HISTORY: Right-sided anterior rib pain following a fall down stairs. FINDINGS: There are postoperative clips in the left axillary region. There is postoperative hardware associated with arthroplasty of right shoulder. There is no pneumothorax, pleural fluid, focal consolidation, or alveolar edema. Three views of right ribs demonstrate no displaced right-sided rib fracture. Clips in right upper sinan drant suggest prior cholecystectomy. IMPRESSION: No acute findings. POS: [facility]
== END 2017-12-16 14:12 | disposition home or self-care (01) ==
LOC: ERS 11:32
DX: S29.011A Strain of muscle and tendon of front wall of thorax, initial encounter (principal); E78.5 Hyperlipidemia, unspecified; I10 Essential (primary) hypertension; Z86.73 Personal history of transient ischemic attack (TIA), and cerebral infarction without residual deficits; Z79.899 Other long term (current) drug therapy; W17.89XA Other fall from one level to another, initial encounter

== ENCOUNTER 2018-01-15 13:03 | Emergency (ER) | payer MEDICAID ==
[2018-01-15] MEDS ORDERED: Gabapentin 300 MG CAP PO SCH (13:45)
== END 2018-01-15 14:25 | disposition home or self-care (01) ==
LOC: ERS 13:03
DX: Z76.0 Encounter for issue of repeat prescription (principal); G54.6 Phantom limb syndrome with pain; I10 Essential (primary) hypertension; Z86.73 Personal history of transient ischemic attack (TIA), and cerebral infarction without residual deficits; E78.5 Hyperlipidemia, unspecified; Z79.899 Other long term (current) drug therapy
CPT/HCPCS: 99283

== ENCOUNTER 2018-03-14 05:47 | Emergency (ER) | payer OTHER | END 2018-03-14 07:18 | disposition home or self-care (01) | LOC: ERS 05:47 | DX: G54.6 Phantom limb syndrome with pain (principal); E78.5 Hyperlipidemia, unspecified; I10 Essential (primary) hypertension; Z86.73 Personal history of transient ischemic attack (TIA), and cerebral infarction without residual deficits; Z79.899 Other long term (current) drug therapy | CPT/HCPCS: 99283 ==

== ENCOUNTER 2018-04-14 14:30 | Emergency (ER) | payer OTHER ==
[2018-04-14 15:26] LABS: #Eosinphils 0.4 thou/uL (0.0-0.7); #Lymphocytes 2.2 thou/uL (1.20-3.40); #Monocytes 0.8 thou/uL (0.11-0.59); #Neutrophils 6.6 thou/uL (1.40-6.50); %Basophils 0.5 % (0.0-1.0); %Eosinophils 4.2 % (0.0-10.0); %Lymphocytes 21.5 % (21.0-51.0); %Monocytes 7.7 % (0.0-10.0); %Neutrophils 66.1 % (42.0-75.0); Hemoglobin 16.3 g/dL (14.0-18.0); Mean Corpuscular HGB CONC 32.3 g/dL (32.0-36.0); Mean Corpuscular Hemoglobin 29.8 pg (27.0-31.0); Platelet Count 399 thou/uL (130-400); RBC Distribution Width 12.4 % (11.5-14.5); Red Blood Cell (RBC) Count 5.47 mill/uL (4.70-6.10)
[2018-04-14 15:47] LABS: ALT (SGPT) 204 U/L (8-55); AST (SGOT) 75 U/L (5-34); Albumin 4.3 g/dL (3.4-4.8); Alkaline Phosphatase 143 U/L (40-150); Anion Gap 14 mmol/L (10-20); BUN (Urea Nitrogen) 33 mg/dL (8.4-25.7); Bilirubin, Total 0.4 mg/dL (0.2-1.2); Calc. Creatinine Clearance 0 mL/min (70-130); Calcium 9.9 mg/dL (7.8-10.44); Carbon Dioxide 22 mmol/L (23-31); Chloride 104 mmol/L (98-107); Estimated GFR-MDRD 39; Globulin 4.9 g/dL (2.4-3.5); Glucose 120 mg/dL (80-115); Potassium 4.5 mmol/L (3.5-5.1); Protein, Total 9.2 g/dL (5.8-8.1); Sodium 135 mmol/L (136-145)
[2018-04-14] MEDS ORDERED: Lidocaine 1% w/Epinephrine 1:100K 20 ML VIAL ONE ×2 (16:19→16:39)
[2018-04-14] MEDS ORDERED: Fentanyl 100 MCG/2 ML VIAL ONE (16:38)
[2018-04-14] MEDS ORDERED: cefTRIAXone\\ROCEPHIN 1 GM VIAL ONE (16:39)
[2018-04-14] MEDS ORDERED: Ketorolac Tromethamine 30 MG/ML VIAL ONE (17:44)
--- NOTE | 2018-04-14 20:23 | CON ---
DATE OF CONSULTATION: 04/14/2018 PRIMARY CARE PHYSICIAN: PRIMARY SURGEON: Dr. Blanca. TIME OF SERVICE: 18:00 REQUESTING PHYSICIAN: Dr. Dimitry Naylor. REASON FOR CONSULTATION: Evaluation of cellulitis. HISTORY OF PRESENT ILLNESS: Mr. Cast is a pleasant 63-year-old male known to us from previous hospi talization with history of hypertension, hyperlipidemia, cerebrovascular disease with a stroke, DVT, PE, and hypertension who presented to the emergency department today for right arm pain. Patient abo ut a week ago underwent a cyst removed by Dr. Blanca in the [facility] in a procedu re that he said took several hours. Postoperatively, did well, but 2 days prior to presentation here , he developed some redness at the site. He saw Dr. Blanca who removed the sutures and started him on levofloxacin. The patient was taking regularly. Denies any abdominal pain, no nausea, vomiting, no chest pain, aisha rtness of breath and temperatures up to about 100. He said he has had some bloody drainage from the site that he is described as kind of milky looking but later retracted that. He presented to emergency department. Here labs were normal with a white count of 10.0, creatinine 1 .79, which is in line with previous values. His liver functions were abnormal with AST of 75 and ALT of 204 and I was subsequently called to evaluate. Patient denies any current complaints. PAST MEDICAL HISTORY: 1. Hypertension. 2. Hyperlipidemia. 3. Cerebrovascular disease. 4. DVT/PE. 5. Hypertension. 6. Chronic pain syndrome. PAST SURGICAL HISTORY: 1. Left cholecystectomy in July 2017. 2. Lumbar fusion x5. 3. Right total shoulder arthroplasty. 4. Right total knee arthroplasty with secondary infection ultimately resulting in a right AKA about 10 years ago. CURRENT MEDICATIONS: 1. Amlodipine 10 mg p.o. b.i.d. 2. Gabapentin 300 mg p.o. b.i.d. 3. Losartan/HCTZ 100/25 one p.o. daily. 4. Clonidine 0.1 mg p.o. b.i.d. ALLERGIES: CODEINE cause nausea and vomiting. He has tolerated other opioids without any difficulty . FAMILY HISTORY: Negative for clotting or bleeding disorder. No immune dysfunction. SOCIAL HISTORY: Does have a history of tobacco abuse, but says he does not smoke currently. No sign ificant alcohol use. No IV drug use. REVIEW OF SYSTEMS: All systems reviewed and negative except stated as per HPI. PHYSICAL EXAMINATION: VITAL SIGNS: Temperature here is 98.9, pulse 101, blood pressure 163/113, respiratory rate 18, 98% o n room air recently and 9/10 on the pain scale. GENERAL: He is awake. He is alert and he is oriented x3, well-developed, well-nourished, white male who appears to be in no distress. HEENT: Normocephalic, atraumatic. Pupils are equal and reactive bilaterally. Mucous membranes are moist. There is no visible lesion or thrush. NECK: Supple. No lymphadenopathy, JVD, or thyromegaly. He has normal carotid upstroke without brui ts. LUNGS: Clear, no wheeze, no rales, no rhonchi. No prolonged expiratory phase. He has had good air movement. Symmetrical chest excursion. CARDIOVASCULAR: Normal S1, S2. No S3, S4. There is a faint 2/6 systolic ejection murmur at the rig ht sternal border. There is no radiation. ABDOMEN: Soft, nontender, nondistended. No mass, organomegaly. No rebound, rigidity, or guarding. He has good bowel sounds in all fourth quadrants. EXTREMITIES: Show no cyanosis and no clubbing in the left, right has right AKA. The stump is clean, dry, and intact. There is no erythema or redness. No skin breakdown. MUSCULOSKELETAL: Shows large joints otherwise be normal. There is no evidence of inflammation or pa lpable effusions. SKIN: Warm, moist, and well perfused. On the right anterior forearm, he has a 3 cm incision covered with Dermabond that is slightly hyperemic and tender. There is no overt fluctuance, but does have s ome deep purplish discoloration. There is a small stab incision of the distal end of that to the chasidy l that is achieved hemostasis. There was some dried blood on the bandage, but no evidence of pus. NEUROLOGIC: Cranial nerves II-XII are grossly intact. There are no focal deficits. Normal speech p attern. LABORATORY DATA: Sodium 135, potassium 4.5, chloride 102, bicarb 22, BUN 33, creatinine 1.79, glucos e 120, calcium 9.9. Liver functions showed alkaline phosphatase of 143, AST elevated at 75, ALT of 2 04 and protein level was normal. CBC showed a white count of 10.0 with normal differential, hemoglob in 16.3, hematocrit of 50.4, and platelet count 399,000. RADIOGRAPHIC IMAGING: None. I did speak with Dr. Naylor. He did place an ultrasound probe. There is very minimal fluid collection present in the wound bed. IMPRESSION AND PLAN: 1. Cellulitis of the right upper extremity, postoperatively. Cause of organs will be Staph or strep . Levaquin is not optimal therapy for these. We will stop his Levaquin at this time and convert him over to doxycycline 100 mg p.o. b.i.d. and Keflex 500 mg p.o. q.i.d. for at least 10 days. We will with Dr. Blanca and short course in 2-3 days for wound check. 2. Transaminitis secondary to Levaquin, presumed. We will stop the Levaquin at this time and can eubanks ve this rechecked by Dr. Pearson in the next couple of days. 3. Hypertension, uncontrolled. Blood pressure 163/113. The patient said he is due for his evening amlodipine. He also stated he did not take his losartan/HCTZ today. Encouraged him to remain consis tent with that. 4. History of cerebrovascular disease. 5. History of deep venous thrombosis/pulmonary embolus. 6. Hypertension. 7. Chronic pain syndrome. We will place the patient on oral antibiotics and have him follow up with Dr. Balnca. If there are any other problems or recurs or worsens and warnings were given for temperature greater than 101.0, incr easing redness, drenching sweats or teeth chattering shaking chills, he is asked to come back for kenneth luation.
== END 2018-04-14 20:06 | disposition home or self-care (01) ==
LOC: ERS 14:30
DX: L03.113 Cellulitis of right upper limb (principal); K71.6 Toxic liver disease with hepatitis, not elsewhere classified; I10 Essential (primary) hypertension; Z79.899 Other long term (current) drug therapy
CPT/HCPCS: 10060; 36415; 80053; 85025; 87040; 96361; 96365; 96366; 96375; J0696; J1885; J2001; J3010; J3370

== ENCOUNTER 2018-04-15 20:51 | Emergency (ER) | payer OTHER ==
[2018-04-15] MEDS ORDERED: cloNIDine 0.1 MG TAB ONE (22:09)
[2018-04-15 22:12] LABS: #Basophils 0.1 thou/uL (0.0-0.2); #Eosinphils 0.5 thou/uL (0.0-0.7); #Lymphocytes 2.1 thou/uL (1.20-3.40); #Monocytes 0.9 thou/uL (0.11-0.59); #Neutrophils 4.5 thou/uL (1.40-6.50); %Basophils 1.1 % (0.0-1.0); %Eosinophils 6.3 % (0.0-10.0); %Lymphocytes 26.2 % (21.0-51.0); %Monocytes 11.2 % (0.0-10.0); %Neutrophils 55.2 % (42.0-75.0); Hemoglobin 14.9 g/dL (14.0-18.0); Mean Corpuscular Hemoglobin 30.1 pg (27.0-31.0); Mean Corpuscular Volume 91.4 fL (78.0-98.0); Mean Platelet Volume 7.9 fL (7.4-10.4); Platelet Count 350 thou/uL (130-400); RBC Distribution Width 12.4 % (11.5-14.5); Red Blood Cell (RBC) Count 4.93 mill/uL (4.70-6.10); White Blood Cell (WBC) Count 8.2 thou/uL (4.8-10.8)
[2018-04-15 22:57] LABS: ALT (SGPT) 126 U/L (8-55); AST (SGOT) 50 U/L (5-34); Alkaline Phosphatase 111 U/L (40-150); Anion Gap 15 mmol/L (10-20); BUN (Urea Nitrogen) 31 mg/dL (8.4-25.7); Bilirubin, Total 0.4 mg/dL (0.2-1.2); Calc. Creatinine Clearance 0 mL/min (70-130); Calcium 9.5 mg/dL (7.8-10.44); Carbon Dioxide 26 mmol/L (23-31); Chloride 104 mmol/L (98-107); Estimated GFR-MDRD 28; Globulin 4.8 g/dL (2.4-3.5); Glucose 92 mg/dL (80-115); Potassium 4.8 mmol/L (3.5-5.1); Protein, Total 8.8 g/dL (5.8-8.1); Sodium 140 mmol/L (136-145)
== END 2018-04-15 22:42 | disposition home or self-care (01) ==
LOC: ERS 20:51
DX: H10.13 Acute atopic conjunctivitis, bilateral (principal); Z48.01 Encounter for change or removal of surgical wound dressing; I10 Essential (primary) hypertension
CPT/HCPCS: 80053; 85025; 99283

== ENCOUNTER 2018-05-05 14:25 | Emergency (ER) | payer OTHER ==
[2018-05-05 15:50] LABS: #Eosinphils 0.2 thou/uL (0.0-0.7); #Lymphocytes 2.2 thou/uL (1.20-3.40); #Monocytes 0.8 thou/uL (0.11-0.59); #Neutrophils 5.7 thou/uL (1.40-6.50); %Basophils 0.2 % (0.0-1.0); %Eosinophils 1.8 % (0.0-10.0); %Lymphocytes 25.1 % (21.0-51.0); %Monocytes 8.5 % (0.0-10.0); %Neutrophils 64.4 % (42.0-75.0); Hemoglobin 14.9 g/dL (14.0-18.0); Mean Corpuscular HGB CONC 33.8 g/dL (32.0-36.0); Mean Corpuscular Hemoglobin 30.3 pg (27.0-31.0); Mean Corpuscular Volume 89.7 fL (78.0-98.0); Mean Platelet Volume 7.5 fL (7.4-10.4); Platelet Count 303 thou/uL (130-400); RBC Distribution Width 12.6 % (11.5-14.5); Red Blood Cell (RBC) Count 4.91 mill/uL (4.70-6.10); White Blood Cell (WBC) Count 8.9 thou/uL (4.8-10.8)
[2018-05-05 16:12] LABS: ALT (SGPT) 41 U/L (8-55); AST (SGOT) 77 U/L (5-34); Albumin 3.6 g/dL (3.4-4.8); Alkaline Phosphatase 84 U/L (40-150); Anion Gap 15 mmol/L (10-20); BUN (Urea Nitrogen) 45 mg/dL (8.4-25.7); Bilirubin, Total 0.3 mg/dL (0.2-1.2); Calc. Creatinine Clearance 0 mL/min (70-130); Calcium 9.1 mg/dL (7.8-10.44); Carbon Dioxide 22 mmol/L (23-31); Chloride 105 mmol/L (98-107); Estimated GFR-MDRD 22; Globulin 4.4 g/dL (2.4-3.5); Glucose 123 mg/dL (80-115); Potassium 3.9 mmol/L (3.5-5.1); Sodium 138 mmol/L (136-145)
[2018-05-05] MEDS ORDERED: Ibuprofen 200 MG TAB ONE (16:43)
[2018-05-05] MEDS ORDERED: HYDROcodone/Acetaminophen 10/325 mg Tablet ONE (16:43)
--- NOTE | 2018-05-10 13:26 | EKG ---
Test Reason : Blood Pressure : / mmHG Vent. Rate : 088 BPM Atrial Rate : 088 BPM P-R Int : 130 ms QRS Dur : 092 ms QT Int : 376 ms P-R-T Axes : 038 001 054 degrees QTc Int : 454 ms Normal sinus rhythm Nonspecific ST and T wave abnormality Abnormal ECG Confirmed by BOB DELUNA ([id number]), scientific editor [employer] ([id number]) on 05/10/2018 1:25:55 PM Referred By: Confirmed By:BOB DELUNA
== END 2018-05-05 17:08 | disposition left against medical advice (07) ==
LOC: ERS 14:25
DX: M54.5 Low back pain (principal); R10.9 Unspecified abdominal pain; I10 Essential (primary) hypertension; W01.198A Fall on same level from slipping, tripping and stumbling with subsequent striking against other object, initial encounter
CPT/HCPCS: 36415; 80053; 85025; 93005

== ENCOUNTER 2018-05-07 12:02 | Emergency (ER) | payer OTHER ==
--- NOTE | 2018-05-07 14:42 | RAD ---
PELVIS ONE VIEW: HISTORY: Pelvic pain. COMPARISON: None. FINDINGS: Mild degenerative changes to both hips, including hip joint space narrowing. Mild vascular calcifica tions. Heterotopic ossification along the right inferior iliac spine with possible old avulsion inju ry. 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 IMPRESSION: 1. Likely an old avulsion injury of the right anterior-inferior iliac spine. 2. No acute fracture or malalignment. 3. 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 POS: [facility]
--- NOTE | 2018-05-07 14:56 | CT ---
CT LUMBAR SPINE WITHOUT CONTRAST: HISTORY: Fall. Low back pain. Hematuria. COMPARISON: Pelvic radiograph from the same day. FINDINGS: Aortic contour is nonaneurysmal. Mild atherosclerotic plaque. No retroperitoneal adenopathy. No acute fracture of the lumbar spine. There is extensive narrowing of the L3-S1 interspinous proces ses with subcortical sclerosis and cyst formation. The lumbar spine transverse processes are intact. The visualized portions, limited, of the lung bases are clear. Levels are as follows: L1-L2: Moderate degenerative disk space height loss. Circumferential disk bulge. Bilateral subfemo ral and posterior disk osteophyte complexes. Mild ligamentum flavum hypertrophy. There is moderate bilateral neural foraminal narrowing. L2-L3: Mild circumferential disk bulge. Moderate facet arthrosis. Mild ligamentum flavum hypertrop hy. Moderate bilateral neural foraminal narrowing with abutment of the exiting nerve roots bilateral ly. L3-L4: Severe degenerative disk space height loss. Circumferential disk osteophyte complex. Severe facet arthrosis on the left and moderate on the right. There is moderate bilateral neural foraminal narrowing with abutment of the exiting nerve roots bilaterally. There appears to be a partial prior left hemilaminectomy at L4. L4-L5: Disk desiccation and disk vacuum phenomenon. Ligamentum flavum hypertrophy. There is a circ umferential disk bulge. Moderate facet arthropathy. Moderate to severe left and moderate to severe right-sided neural foraminal narrowing. There is abutment of the exiting traversing nerve roots bila terally. The spinal canal measures only approximately 6 mm. L5-S1: There is advanced facet arthrosis. Circumferential disk bulge. Bilateral posterior subforam inal disk osteophyte complexes. Moderate left and moderate to severe right-sided neural foraminal na rrowing with abutment of the exiting nerve roots bilaterally. IMPRESSION: 1. No acute lumbar spine fracture or malalignment. 2. Advanced spondylosis with multilevel neural foraminal and spinal canal narrowing. POS: [facility]
[2018-05-07] MEDS ORDERED: Ketorolac Tromethamine 60 MG/2 ML VIAL ONE (15:34)
== END 2018-05-07 15:36 | disposition home or self-care (01) ==
LOC: ERS 12:02
DX: M51.36 Other intervertebral disc degeneration, lumbar region (principal); I10 Essential (primary) hypertension; Z86.73 Personal history of transient ischemic attack (TIA), and cerebral infarction without residual deficits; E78.5 Hyperlipidemia, unspecified; Z79.899 Other long term (current) drug therapy
CPT/HCPCS: 72131; 72170; J1885

== ENCOUNTER 2018-05-09 18:26 | Emergency (ER) | payer OTHER ==
[2018-05-09 19:09] LABS: #Basophils 0.1 thou/uL (0.0-0.2); #Eosinphils 0.1 thou/uL (0.0-0.7); #Lymphocytes 2.5 thou/uL (1.20-3.40); #Monocytes 0.7 thou/uL (0.11-0.59); #Neutrophils 5.6 thou/uL (1.40-6.50); %Basophils 0.7 % (0.0-1.0); %Eosinophils 1.5 % (0.0-10.0); %Lymphocytes 27.9 % (21.0-51.0); %Monocytes 7.4 % (0.0-10.0); %Neutrophils 62.5 % (42.0-75.0); Hemoglobin 16.3 g/dL (14.0-18.0); Mean Corpuscular HGB CONC 32.6 g/dL (32.0-36.0); Mean Corpuscular Hemoglobin 29.7 pg (27.0-31.0); Mean Corpuscular Volume 91.2 fL (78.0-98.0); Mean Platelet Volume 7.6 fL (7.4-10.4); Platelet Count 364 thou/uL (130-400); RBC Distribution Width 12.9 % (11.5-14.5); Red Blood Cell (RBC) Count 5.48 mill/uL (4.70-6.10)
[2018-05-09 19:32] LABS: ALT (SGPT) 30 U/L (8-55); AST (SGOT) 32 U/L (5-34); Albumin 4.1 g/dL (3.4-4.8); Alkaline Phosphatase 90 U/L (40-150); Anion Gap 19 mmol/L (10-20); BUN (Urea Nitrogen) 28 mg/dL (8.4-25.7); Bilirubin, Total 0.4 mg/dL (0.2-1.2); Calc. Creatinine Clearance 0 mL/min (70-130); Calcium 10.1 mg/dL (7.8-10.44); Carbon Dioxide 22 mmol/L (23-31); Chloride 101 mmol/L (98-107); Estimated GFR-MDRD 40; Glucose 151 mg/dL (80-115); Lipase 48 U/L (8-78); Potassium 3.9 mmol/L (3.5-5.1); Protein, Total 9.1 g/dL (5.8-8.1); Sodium 138 mmol/L (136-145)
[2018-05-09 22:18] LABS: Bilirubin Small (Negative); Blood, Urine Negative (Negative); Clarity CLEAR (Clear); Glucose, Urine (Dipstick) 250 mg/dL (Negative); Leukocyte Trace (Negative); Nitrite Negative (Negative); Protein, Urine (Dipstick) 100 mg/dL (Neg-Trace); Specific Gravity, Urine 1.025 (1.002-1.036); pH, Urine 5.5 (5.0-9.0)
[2018-05-09 22:21] LABS: Bacteria/HPF None Seen HPF (None Seen); Hyaline Casts/LPF 0-3 HYALINE CAST LPF (0-3 Hyaline); Pathc Cast-AUWi Flag 0.72 (0-2.49); RBC/HPF 0-3 HPF (0-3); Squamous Epithelial 0-3 HPF (0-3)
[2018-05-09] MEDS ORDERED: Ibuprofen 800 MG TAB ONE (22:37)
== END 2018-05-09 22:39 | disposition home or self-care (01) ==
LOC: ERS 18:26
DX: N39.0 Urinary tract infection, site not specified (principal); R59.0 Localized enlarged lymph nodes; I10 Essential (primary) hypertension; Z79.899 Other long term (current) drug therapy
CPT/HCPCS: 36415; 51701; 80053; 81003; 81015; 83690; 85025

== ENCOUNTER 2018-05-14 16:55 | Emergency (ER) | payer OTHER ==
[2018-05-14] MEDS ORDERED: Ketorolac Tromethamine 30 MG/ML VIAL ONE (17:30)
== END 2018-05-14 18:05 | disposition home or self-care (01) ==
LOC: ERS 16:55
DX: L02.411 Cutaneous abscess of right axilla (principal); I10 Essential (primary) hypertension; E78.5 Hyperlipidemia, unspecified; Z86.73 Personal history of transient ischemic attack (TIA), and cerebral infarction without residual deficits; Z79.899 Other long term (current) drug therapy
CPT/HCPCS: 96372; J1885

== ENCOUNTER 2018-05-22 00:43 | Emergency (ER) | payer OTHER | END 2018-05-22 03:04 | disposition home or self-care (01) | LOC: ERS 00:43 | DX: Z00.00 Encounter for general adult medical examination without abnormal findings (principal); I10 Essential (primary) hypertension | CPT/HCPCS: 99282 ==

== ENCOUNTER 2018-07-07 01:36 | Inpatient (IN) | payer OTHER ==
[~2018-07-07 01:36] MED LIST changes: +Heparin 10,000 UNITS/ 10 ML VIAL ONE; -ISOVUE-370 76%-LOCM 1 ML ONE
[2018-07-07 02:15] LABS: #Basophils 0.1 thou/uL (0.0-0.2); #Eosinphils 0.2 thou/uL (0.0-0.7); #Lymphocytes 2.3 thou/uL (1.20-3.40); #Monocytes 1.3 thou/uL (0.11-0.59); #Neutrophils 9.3 thou/uL (1.40-6.50); %Basophils 0.4 % (0.0-1.0); %Eosinophils 1.7 % (0.0-10.0); %Lymphocytes 17.5 % (21.0-51.0); %Monocytes 9.9 % (0.0-10.0); %Neutrophils 70.4 % (42.0-75.0); Hemoglobin 15.5 g/dL (14.0-18.0); Mean Corpuscular HGB CONC 33.2 g/dL (32.0-36.0); Mean Corpuscular Hemoglobin 30.6 pg (27.0-31.0); Mean Corpuscular Volume 92.2 fL (78.0-98.0); Mean Platelet Volume 7.9 fL (7.4-10.4); Platelet Count 338 thou/uL (130-400); RBC Distribution Width 12.6 % (11.5-14.5); Red Blood Cell (RBC) Count 5.04 mill/uL (4.70-6.10); White Blood Cell (WBC) Count 13.2 thou/uL (4.8-10.8)
[2018-07-07 02:38] LABS: Osmolality, Serum 339 mOsm/kg (280-295)
[2018-07-07 02:41] LABS: Acetaminophen Less than 6.0 mcg/mL (10.0-30.0); Alcohol Less than 10 mg/dL (Less than 10); Salicylate Less than 8.0 mg/dL (15.0-30.0)
[2018-07-07 02:59] LABS: ALT (SGPT) 30 U/L (8-55); AST (SGOT) 21 U/L (5-34); Alkaline Phosphatase 105 U/L (40-150); Anion Gap 25 mmol/L (10-20); BUN (Urea Nitrogen) 46 mg/dL (8.4-25.7); Bilirubin, Total 0.2 mg/dL (0.2-1.2); Calc. Creatinine Clearance 0 mL/min (70-130); Carbon Dioxide 12 mmol/L (23-31); Chloride 112 mmol/L (98-107); Estimated GFR-MDRD 20; Globulin 4.3 g/dL (2.4-3.5); Glucose 100 mg/dL (80-115); Potassium 4.6 mmol/L (3.5-5.1); Protein, Total 8.3 g/dL (5.8-8.1); Sodium 144 mmol/L (136-145)
[2018-07-07] MEDS ORDERED: Thiamine HCl 200 MG/2 ML VIAL SLOW IVP SCH (03:30)
[2018-07-07] MEDS ORDERED: Fomepizole 1.5 GM in Sodium Chloride 0.9% 100 ML IVPB SCH (03:30)
[2018-07-07 03:38] LABS: Amphetamine Not Detected (NotDetected); Barbiturates Screen Not Detected (NotDetected); Benzodiazepine Screen Not Detected (NotDetected); Cocaine Metabolite Screen Not Detected (NotDetected); Medtox Control Line Valid? VALID (VALID); Medtox Reader # READER 4; Methadone Not Detected (NotDetected); Methamphetamine Not Detected (NotDetected); Opiate Screen Not Detected (NotDetected); Oxycodone Screen Not Detected (NotDetected); Phencyclidine (PCP) Not Detected (NotDetected); THC/Cannabinoid Screen Not Detected (NotDetected); Tricyclic Screen Not Detected (NotDetected)
--- NOTE | 2018-07-07 05:51 | HP ---
CHIEF COMPLAINT: Dizziness. HISTORY OF PRESENT ILLNESS: The patient is a 63-year-old male who was brought in by the ambulance after feeling unwell, especially dizzy. The patient stated that he had a cup of tea and a cup of antifreeze and accidentally picked up the antifreeze and drank about a cup of antifreeze when he realized that it was not tea. At this time, the patient started feeling unwell, he felt kind of dizzy and so he got worried and called EMS to bring him to the hospital. The patient denies any chest pain, shortness of breath, nausea, vomiting, or diarrhea. The patient stated that he did have one loose bowel movement on Saturday during the daytime. The patient states he has been eating and drinking without any difficulties. The patient did state that he has been falling quite a bit at home. He does have a zwzgi-[id number] amputation on his right leg and feels like his prosthesis is not fitting in appropriately, so he has been falling quite a bit. The patient denies having a syncopal episode. PAST MEDICAL HISTORY: 1. He has a history of hypertension. 2. He has a history hyperlipidemia. 3. He has had a history of chronic kidney disease. 4. He also has a history of MRSA infection. 5. He has a history of ischemic CVA in the past. PAST SURGICAL HISTORY: 1. He has had a cholecystectomy. 2. He has had nkuuh-fim-jfvu amputation. 3. He has had elbow surgeries. 4. He has also had a right shoulder surgery and a right hand surgery. SOCIAL HISTORY: The patient drinks alcohol at times. Denies any drug use and does not smoke any cigarettes. He is a full code and he lives alone. REVIEW OF SYSTEMS: All negative except for the ones mentioned above. ALLERGIES: HE IS ALLERGIC TO CODEINE. HE GETS HIVES. MEDICATIONS: The patient does not have a list with him. from the previous documentation, he is on; 1. Amlodipine. 2. Losartan. 3. Clonidine. FAMILY HISTORY: No history of heart disease or cancer. PHYSICAL EXAMINATION: VITAL SIGNS: Temperature 97.8, blood pressure 169/98, pulse of 77, respirations are 19, he is 99% on room air. GENERAL: He is awake, alert, and oriented x3. Does not appear in any distress. CV: S1, S2 present. No murmurs, rubs, or gallops. HEENT: Normocephalic, atraumatic. No lymphadenopathy noted. He does have some pain upon palpation to his left forehead area. LUNGS: Clear to auscultation. No rhonchi or wheezes noted. ABDOMEN: Soft and nontender. Bowel sounds are present x2. No hepatomegaly or splenomegaly noted. EXTREMITIES: He has a right ktiya-zev-mbgn amputation. Scar is healed. Left leg has some cuts and bruises. Otherwise, pedal pulses are present. No edema present. SKIN: Minor cuts and bruises present all over, which appear to be healed. NEUROVASCULAR: No focal deficits noted. LABORATORY DATA: His white count is 13.2, hemoglobin of 15.5, hematocrit of 46.5, and his platelets are 338. Chemistry; sodium of 144, potassium of 4.6, his BUN is 46, and creatinine of 3.12, which is elevated from his baseline. His anion gap is 25. His bicarb is 12. The patient's serum osmolality is 339. Lactic acid is 3.7. Urine, he has a few wbc's. Toxicology; his plasma alcohol level is less than 10; everything else is nondetected. ASSESSMENT AND PLAN: The patient is a very pleasant 63-year-old male who presents to the hospital with; 1. Dizziness. 2. Ethylene glycol poisoning. His calculated osmolality is 310 and his osmolar gap is 25. At this time, Poison Control was called. The patient has been started on and also Nephrology has been consulted and the patient will undergo dialysis currently and will be added thiamine and paroxetine also. The patient states he only ingested a cup; however, it is difficult to say how much he ingested. 3. Anion gap metabolic acidosis, most likely secondary to the ethylene glycol toxicity. We will continue to monitor labs closely and Nephrology has been consulted. 4. Acute kidney injury. The patient's creatinine at baseline is ranging from 1.73-2.9, currently is 3.12. We will continue to monitor. 5. Lactic acidosis. This could be secondary to the underlying process. We will continue to monitor. Also, the patient has been falling quite a bit. We will get Physical Therapy to see this patient. Also, we will get a CT head since he does have some tenderness on his left frontal area on some slight palpation. There is no ecchymosis or bruises that are noted. 6. Deep venous thrombosis prophylaxis. We will put the patient on some heparin subcu. Ethylene glycol level has been sent out, but it is going to take a while before we get those levels back in. The patient denies any suicidal thoughts or ideations. He is not trying to hurt himself. He stated that this was purely an accident that he just accidentally picked up ethylene glycol, started drinking only a little bit and thought he was drinking tea until he realized that it was not tea. Job ID: [id number]
[2018-07-07 06:04] LABS: Lactic Acid 1.4 mmol/L (0.5-2.2)
[2018-07-07 06:27] LABS: HBSAB Concentration 0.25 mIU/mL; Hep B Surf AB Non-Reactive (NonReactive)
[2018-07-07] MEDS ORDERED: Amlodipine 10 MG TAB PO SCH (06:30)
[2018-07-07] MEDS ORDERED: FOMEPIZOLE IVPB PRN (06:52)
[2018-07-07] MEDS ORDERED: Artificial Tears 18 DROP/0.9 ML EA EYE PRN (06:55)
[2018-07-07] MEDS ORDERED: Sodium Chloride 0.65% Nasal 44 ML BOT EA NARE PRN (06:55)
[2018-07-07] MEDS ORDERED: Labetalol HCl 100 MG/20 ML VIAL SLOW IVP PRN (06:55)
[2018-07-07] MEDS ORDERED: Loratadine 10 MG TAB PO PRN (06:55)
[2018-07-07] MEDS ORDERED: Diabetic Tussin 200 MG/10 ML UDCUP PO PRN (06:55)
[2018-07-07] MEDS ORDERED: Metoclopramide HCl 10 MG/2 ML VIAL IVP PRN (06:55)
[2018-07-07] MEDS ORDERED: Loperamide HCl 2 MG CAP PO PRN (06:55)
[2018-07-07] MEDS ORDERED: Acetaminophen 500 MG TAB PO PRN (06:55)
[2018-07-07] MEDS ORDERED: Eucerin (Mineral Oil/Petrolatum,White) 30 gm Jar TOP PRN (06:55)
[2018-07-07] MEDS ORDERED: Senokot S 8.6-50 MG TAB PO PRN (06:55)
[2018-07-07] MEDS ORDERED: Cepastat Lozenges 1 LOZ PO PRN (06:55)
[2018-07-07] MEDS ORDERED: Zolpidem Tartrate 5 MG TAB PO PRN (06:55)
[2018-07-07 07:18] LABS: Hep B Surf Ag Non-Reactive S/CO (NonReactive)
[2018-07-07 07:34] LABS: Actual Bicarbonate (HCO3a) 22.5 mEq/L (22-28); Analyzer IN Cardio ER; Base Excess (BEa) -1.5 mEq/L (-2.0 to +3.0); CO2 Tension 35.9 mmHg (35.0-45.0); Calcium, Ionized 1.07 mmol/L (1.12-1.30); Carboxyhemoglobin (COHb) 0.5 gm% (0.0-3.0); O2 Tension (PaO2) 89.1 mmHg (> 80.0); Potassium - ABG Lab 4.12 mmol/L (3.70-5.30); pH, Arterial 7.42 (7.35-7.45)
[2018-07-07 07:35] LABS: ALV-art Gradient 15.755 (0-20)
[2018-07-07 07:48] LABS: Anion Gap 16 mmol/L (10-20); BUN (Urea Nitrogen) 24 mg/dL (8.4-25.7); Calc. Creatinine Clearance 0 mL/min (70-130); Calcium 8.4 mg/dL (7.8-10.44); Carbon Dioxide 22 mmol/L (23-31); Chloride 106 mmol/L (98-107); Estimated GFR-MDRD 33; Glucose 94 mg/dL (80-115); Potassium 4.3 mmol/L (3.5-5.1); Sodium 140 mmol/L (136-145)
[2018-07-07] MEDS ORDERED: Heparin 10,000 UNITS/ 10 ML VIAL ONE (07:55)
[2018-07-07] MEDS ORDERED: Morphine 4 MG/ML VIAL ONE ×2 (09:33→13:51)
--- NOTE | 2018-07-07 10:13 | PDOC.PN ---
- Subjective Encounter Start Date: 07/07/18 Encounter Start Time: 09:15 -: old records requested/rev Patient seen and examined. No new complaints. No overnight events pt is getting HD, he has pain at catheter site - Objective Resuscitation Status - Order Detail: 07/07/18 04:22 Resuscitation Status Routine Resuscitation Status: FULL: Full Resuscitation MAR Reviewed: Yes Result Diagrams: 07/07/18 02:07 07/07/18 07:04 EKG Reviewed by me: Yes (nsr) Phys Exam - Physical Examination Constitutional: NAD HEENT: PERRLA, moist MMs, sclera anicteric Neck: no JVD, supple Respiratory: no wheezing, no rales, no rhonchi Cardiovascular: RRR, no significant murmur, no rub Gastrointestinal: soft, non-tender, no distention, positive bowel sounds Musculoskeletal: no edema, pulses present HD catheter left groin Neurological: non-focal, normal sensation, moves all 4 limbs Lymphatic: no nodes Psychiatric: normal affect, A&O x 3 Skin: no rash, normal turgor Dx/Plan (1) Ethylene glycol poisoning Code(s): T52.8X1A - TOXIC EFFECT OF ORGANIC SOLVENTS, ACCIDENTAL, INIT Status : Acute (2) Acute kidney failure Status: Acute (3) High anion gap metabolic acidosis Code(s): E87.2 - ACIDOSIS Status: Acute (4) H/O: CVA (cerebrovascular accident) Code(s): Z86.73 - PRSNL HX OF TIA (TIA), AND CEREB INFRC W/O RESID DEFICITS Status: Chronic (5) HTN (hypertension) Code(s): I10 - ESSENTIAL (PRIMARY) HYPERTENSION Status: Chronic Qualifiers: - Plan cont current plan of care * nephrology initiated HD * monitor labs * continue fomepizole, thiamin, pyridoxin as ordered * pulmonary will be consulted * medication reviewed as below * symptomatic treatment. * add morphin for pain control Review of Systems - Review of Systems Constitutional: negative: fever, chills, sweats, weakness, malaise, other ENT: negative: Ear Pain, Ear Discharge, Nose Pain, Nose Discharge, Nose Congestion, Mouth Pain, Mouth Swelling, Throat Pain, Throat Swelling, Other Respiratory: negative: Cough, Dry, Shortness of Breath, Hemoptysis, SOB with Excertion, Pleuritic Pain, Sputum, Wheezing Cardiovascular: negative: chest pain, palpitations, orthopnea, paroxysmal nocturnal dyspnea, edema, light headedness, other Gastrointestinal: negative: Nausea, Vomiting, Abdominal Pain, Diarrhea, Constipation, Melena, Hematochezia, Other Genitourinary: negative: Dysuria, Frequency, Incontinence, Hematuria, Retention , Other Skin: negative: Rash, Lesions, Mickey, Bruising, Other - Medications/Allergies Allergies/Adverse Reactions: Allergies Allergy/AdvReac Type Severity Reaction Status Date / Time codeine Allergy Hives Verified 06/09/17 00:22 Medications: Current Medications Acetaminophen (Tylenol) 650 mg PO Q6H PRN PRN Reason: Headache/Fever/Mild Pain (1-3) Artificial Tears (Tears Naturale) 2 drop EA EYE PRN PRN PRN Reason: Dry Eyes Guaifenesin (Robitussin Sf) 200 mg PO Q4H PRN PRN Reason: Cough Heparin Sodium (Porcine) (Heparin) 5,000 units SC BID [facility] Hydralazine HCl (Apresoline) 5 mg SLOW IVP Q6H PRN PRN Reason: Blood Pressure Dextrose/Sodium Chloride (D5 0.9% Ns) 1,000 mls @ 75 mls/hr IV .[id number] [facility] Thiamine HCl 100 mg/Pyridoxine HCl 100 mg/ Sodium Chloride 52 mls @ 101.961 mls /hr IVPB 0900 [facility] Fomepizole 1 gm/ Sodium (Chloride) 101 mls @ 202 mls/hr IVPB 1000,2200 [facility] Stop: 07/08/18 22:29 Labetalol HCl (Normodyne) 10 mg SLOW IVP Q4H PRN PRN Reason: SBP > 180 and HR >/= 70 Loperamide HCl (Imodium) 2 mg PO PRN PRN PRN Reason: Diarrhea/Loose Stools Loratadine (Claritin) 10 mg PO DAILYPRN PRN PRN Reason: Sinus Symptoms Metoclopramide HCl (Reglan) 5 mg IVP Q4H PRN PRN Reason: Nausea Mineral Oil/White Petrolatum (Eucerin Cream) 0 gm TOP BIDPRN PRN PRN Reason: Dry Skin Miscellaneous Medication (Pharmacy To Dose) 0 each IVPB DAILYPRN PRN PRN Reason: Pharmacy to dose Morphine Sulfate (Morphine) 2 mg SLOW IVP Q4H PRN PRN Reason: Pain Pantoprazole Sodium (Protonix) 40 mg IVP DAILY [facility] Senna/Docusate Sodium (Senokot S) 2 tab PO BID PRN PRN Reason: Constipation Sodium Chloride ([place] Nasal [place] 0.65%) 0 ml EA NARE QIDPRN PRN PRN Reason: Nasal Congestion Throat Lozenges (Cepastat Lozenges) 1 arin PO Q2H PRN PRN Reason: Sore Throat Zolpidem Tartrate (Ambien) 5 mg PO HSPRN PRN PRN Reason: Insomnia
--- NOTE | 2018-07-07 10:29 | CT ---
CT BRAIN WITHOUT CONTRAST: Date: 07/07/18 HISTORY: Fall, pain in left forehead. FINDINGS: Comparison made with exam of 08/01/17. Changes of chronic small vessel ischemic disease and old lacunar infarctions are again seen. The vent ricular size is stable and the basilar cisterns are patent. No evidence of acute infarct, hemorrhage, midline shift, or abnormal extra-axial fluid collections are noted. The bony calvarium is intact. Th e visualized paranasal sinuses and mastoid air cells are well aerated. IMPRESSION: No CT evidence of acute intracranial process. POS: [facility]
[2018-07-07] MEDS ORDERED: Pantoprazole 40 MG VIAL ONE (11:02)
[2018-07-07 11:08] LABS: Actual Bicarbonate (HCO3a) 21.6 mEq/L (22-28); Analyzer IN Cardio ER; Base Excess (BEa) -2.6 mEq/L (-2.0 to +3.0); CO2 Tension 35.6 mmHg (35.0-45.0); Calcium, Ionized 1.08 mmol/L (1.12-1.30); Carboxyhemoglobin (COHb) 0.4 gm% (0.0-3.0); Hemoglobin (Hb) 14.9 g/dL (14.0-18.0); O2 Tension (PaO2) 83.9 mmHg (> 80.0); Potassium - ABG Lab 4.04 mmol/L (3.70-5.30)
[2018-07-07 11:09] LABS: Puncture Site LRA
[2018-07-07 11:37] LABS: Anion Gap 18 mmol/L (10-20); BUN (Urea Nitrogen) 23 mg/dL (8.4-25.7); Calc. Creatinine Clearance 0 mL/min (70-130); Calcium 8.4 mg/dL (7.8-10.44); Carbon Dioxide 20 mmol/L (23-31); Chloride 107 mmol/L (98-107); Estimated GFR-MDRD 26; Glucose 87 mg/dL (80-115); Potassium 4.9 mmol/L (3.5-5.1); Sodium 140 mmol/L (136-145)
--- NOTE | 2018-07-07 11:45 | RAD ---
PORTABLE UPRIGHT FRONTAL CHEST RADIOGRAPH: Date: 07/07/18 COMPARISON: 12/16/17. HISTORY: Leukocytosis. FINDINGS: There is no pneumothorax or pleural fluid. No focal consolidation or alveolar edema. There are postop erative clips in the left axillary region. There is a shoulder arthroplasty on the right. IMPRESSION: No acute findings. POS: [facility]
[2018-07-07 12:59] LABS: Bilirubin Negative (Negative); Blood, Urine Trace (Negative); Clarity CLEAR (Clear); Glucose, Urine (Dipstick) Negative (Negative); Leukocyte Negative (Negative); Nitrite Negative (Negative); Protein, Urine (Dipstick) 30 mg/dL (Neg-Trace); Urobilinogen 0.2 mg/dL (0.2-1.0)
[2018-07-07 13:01] LABS: Bacteria/HPF None Seen HPF (None Seen); Hyaline Casts/LPF 0-3 HYALINE CAST LPF (0-3 Hyaline); Pathc Cast-AUWi Flag 0.58 (0-2.49); Squamous Epithelial 0-3 HPF (0-3); WBC/HPF 0-3 HPF (0-3)
--- NOTE | 2018-07-07 13:11 | CON ---
DATE OF CONSULTATION: NEPHROLOGY CONSULT REASON FOR CONSULTATION: Ethylene glycol toxicity, acidosis, as well as hyperkalemia. HISTORY OF PRESENT ILLNESS: This is a 63-year-old gentleman, who presented to the hospital at 4 a.m., after ingesting ethylene glycol accidently. The patient denies headache, numbness, tingling, or chest pain. PAST MEDICAL HISTORY: Significant for hypertension, chronic kidney disease, MRSA infection, and history of CVA. PAST SURGICAL HISTORY: Cholecystectomy, above-knee amputation, elbow surgery, and shoulder surgery. SOCIAL HISTORY: No alcohol or drug use. ALLERGIES: REVIEWED. MEDICATIONS: Home medication list reviewed. FAMILY HISTORY: Negative for ESRD. REVIEW OF SYSTEMS: A 15-point review of systems was performed and was negative except for positives noted above. NECK: No swelling or lumps. NOSE: No epistaxis or discharge. EYES: No diplopia or pain. MUSCULOSKELETAL: No joint pain. NEURO/PSYCHIATRIC SYSTEMS: No suicidal ideation. No ideation. SKIN: Denies any rash or ulcer. CONSTITUTIONAL: No fever or chills. PHYSICAL EXAMINATION: CONSTITUTIONAL: The patient is awake and alert. VITAL SIGNS: Afebrile, pulse 70, breathing is 16, and blood pressure was 150/70. GENERAL APPEARANCE AND MENTAL STATUS: Fair. HEAD/NECK: Normocephalic. Atraumatic. EYES: EOMI. No deformity. EARS: Clear. No ulcers. NOSE: Intact. No lesions. MOUTH: Clear. No discharge. THROAT: Clear. No exudate. LUNGS: Clear. No crackles. CARDIAC: S1, S2. No rub. ABDOMEN: Benign. Bowel sounds positive. GENITALIA/RECTUM: Go absent. BACK/EXTREMITIES: Edema 0+. NEUROLOGICAL: Alert and motor intact. LABORATORY DATA: Labs show sodium was 144, bicarb 12, creatinine 3.12, serum osmolality was 339. ASSESSMENT AND PLAN: 1. Ethylene glycol toxicity. We will plan urgent dialysis. The dialysis was called at 3:30 a.m., and dialysis will be initiated after line placement. 2. Metabolic acidosis. Plan dialysis of ethylene glycol. We will check ABG as well as acidosis periodically. 3. Anemia, stable. 4. Hyperkalemia. Plan dialysis. Risks versus benefits of dialysis were discussed and the patient agreed. Job ID: [id number]
[2018-07-07 17:49] VITALS: BMI 27.3
[2018-07-07] MEDS: Morphine 4 MG/ML VIAL SLOW IVP PRN (18:30)
[2018-07-07] MEDS: PYRIDOXINE HCL IVPB SCH (18:41)
[2018-07-07] MEDS: SODIUM CHLORIDE 0.9% IVPB SCH (18:41)
[2018-07-07] MEDS: THIAMINE HCL IVPB SCH (18:41)
[2018-07-07] MEDS: Pantoprazole 40 MG VIAL IVP SCH (18:42)
[2018-07-07] MEDS: Heparin 5,000 UNITS/ML VIAL SC SCH ×2 (18:42→22:03)
[2018-07-07] MEDS: Dextrose 5 % And 0.9 % NaCl 1,000 ML IV SCH ×2 (19:12)
--- NOTE | 2018-07-07 20:37 | CON ---
DATE OF CONSULTATION: 07/07/2018 SERVICE: Pulmonary Medicine. REASON FOR CONSULTATION: CU patient. HISTORY OF PRESENT ILLNESS: The patient is a 63-year-old white male with past medical history significant for nothing. He was in his usual state of health when he was thirsty. He grabbed a cup of water and was distracted. He grabbed the antifreeze which was next to his peach tea, he poured himself a glass of what he thought was peach tea and drank it. The thing that was a tip off that it was not peach tea, that it did have any peach flavor to it, it was appropriately sweet. Either way, a couple of hours later, he ended up calling Poison Control Services who asked for him to seek medical attention. He came to the ICU. Emergent dialysis was undertaken. He has had 2 separate episodes of dialysis. He does have a little bit of a headache. He denies any current fevers, chills, nausea, or vomiting. Prior to this event, he was in his usual state of health. He has no chronic respiratory issues. PAST MEDICAL HISTORY: 1. Hypertension. 2. Dyslipidemia. 3. Chronic kidney disease. 4. History of CVA. PAST SURGICAL HISTORY: 1. Cholecystectomy. 2. Above knee amputation. 3. Elbow surgery. 4. Right shoulder surgery. 5. Right hand surgery. SOCIAL HISTORY: The patient does drink alcohol. He denies any illicit drugs. He does not use any cigarettes. He has no exposure to chemicals, dust, asbestos, or tuberculosis. FAMILY HISTORY: Noncontributory. REVIEW OF SYSTEMS: General, head, ears, eyes, nose, throat, cardiovascular, respiratory, GI, , musculoskeletal, neurologic, and skin are negative except as mentioned in the HPI. PHYSICAL EXAMINATION: VITAL SIGNS: Afebrile, pulse 86, blood pressure 109/67, respirations 16, saturation 93% on room air. GENERAL: The patient is awake, alert, in no apparent distress. LUNGS: Decent air entry. There is no prolonged expiratory phase or wheezing present. No other adventitious sounds are appreciated. HEART: Normal rate, regular. ABDOMEN: Soft, nontender, and nondistended. Bowel sounds are positive. MUSCULOSKELETAL: No cyanosis or clubbing. No pitting in the bilateral lower extremities. NEUROLOGIC: Grossly nonfocal. LABORATORY DATA: WBC 13.2, hemoglobin 15.5, and platelets 338,000. PH 7.40, pCO2 36, PO2 84. Creatinine 2.54 and up-trending, this is on top of a baseline of roughly 1.7. Serum osmolality was originally 339, but is downtrending to 311. Lactic acid is 1.4. Liver function studies are unremarkable. Urinalysis is unremarkable. Urine drug screen is also negative. Plasma alcohol, acetaminophen, and salicylates are negative. IMAGING STUDIES: CT of the brain demonstrates no acute intracranial abnormality. Chest x-ray demonstrates no acute cardiopulmonary abnormality. ASSESSMENT: 1. Acute kidney injury on chronic kidney disease 3. 2. Ethylene glycol ingestion, accidental. 3. Anion gap metabolic acidosis, improving. DISCUSSION AND PLAN: The patient has already undergone emergent dialysis x2. Supportive measures will be continued. We will push fluids on the patient and see if we can dilute this toxin down further. Most likely, the damage to his kidneys is done. We will now need to deal with a fallout from this event. From my perspective, if he is hemodynamically stable in the morning, he is stable for transition to the medical unit. When he leaves the IMCU, we have no further requirements for Pulmonary Critical Care opinion, and we will sign off. Please call with additional questions or concerns. 70 minutes have been devoted to this patient in various activities. I personally reviewed all imaging studies and laboratory data noted within this document. For fifty percent of this time, I was interacting with the patient at the bedside or coordinating care with the care team. For the remainder of the time I was immediately available to the patient in the hospital unit. Job ID: [id number] MTDD
[2018-07-08] MEDS: Morphine 4 MG/ML VIAL SLOW IVP PRN ×5 (02:04→23:48)
[2018-07-08 02:23] LABS: #Basophils 0.1 thou/uL (0.0-0.2); #Eosinphils 0.4 thou/uL (0.0-0.7); #Lymphocytes 2.8 thou/uL (1.20-3.40); #Monocytes 0.8 thou/uL (0.11-0.59); #Neutrophils 4.4 thou/uL (1.40-6.50); %Basophils 1.2 % (0.0-1.0); %Eosinophils 4.5 % (0.0-10.0); %Lymphocytes 33.1 % (21.0-51.0); %Monocytes 9.4 % (0.0-10.0); %Neutrophils 51.8 % (42.0-75.0); Hemoglobin 13.9 g/dL (14.0-18.0); Mean Corpuscular Hemoglobin 30.6 pg (27.0-31.0); Mean Corpuscular Volume 92.6 fL (78.0-98.0); Mean Platelet Volume 7.5 fL (7.4-10.4); Platelet Count 293 thou/uL (130-400); RBC Distribution Width 12.8 % (11.5-14.5); Red Blood Cell (RBC) Count 4.54 mill/uL (4.70-6.10); White Blood Cell (WBC) Count 8.6 thou/uL (4.8-10.8)
[2018-07-08 02:45] LABS: Anion Gap 16 mmol/L (10-20); BUN (Urea Nitrogen) 26 mg/dL (8.4-25.7); Calc. Creatinine Clearance 30 mL/min (70-130); Calcium 8.3 mg/dL (7.8-10.44); Carbon Dioxide 23 mmol/L (23-31); Chloride 105 mmol/L (98-107); Estimated GFR-MDRD 17; Glucose 105 mg/dL (80-115); Potassium 4.4 mmol/L (3.5-5.1); Sodium 140 mmol/L (136-145)
[2018-07-08 03:00] LABS: Creatinine, Urine 77.96 mg/dL (63-166)
[2018-07-08] MEDS ORDERED: Amlodipine 10 MG TAB PO SCH (09:00)
[2018-07-08 09:12] LABS: Hemoglobin 13.5 g/dL (14.0-18.0)
[2018-07-08 09:29] LABS: Anion Gap 16 mmol/L (10-20); BUN (Urea Nitrogen) 26 mg/dL (8.4-25.7); Calc. Creatinine Clearance 27 mL/min (70-130); Calcium 8.1 mg/dL (7.8-10.44); Carbon Dioxide 22 mmol/L (23-31); Chloride 104 mmol/L (98-107); Estimated GFR-MDRD 15; Glucose 110 mg/dL (80-115); Potassium 4.2 mmol/L (3.5-5.1); Sodium 138 mmol/L (136-145)
[2018-07-08] MEDS: Dextrose 5 % And 0.9 % NaCl 1,000 ML IV SCH ×2 (09:38→22:10)
[2018-07-08] MEDS: THIAMINE HCL IVPB SCH (09:39)
[2018-07-08] MEDS: Heparin 5,000 UNITS/ML VIAL SC SCH ×2 (09:39→21:01)
[2018-07-08] MEDS: Pantoprazole 40 MG VIAL IVP SCH (09:39)
[2018-07-08] MEDS: PYRIDOXINE HCL IVPB SCH (09:39)
[2018-07-08] MEDS: SODIUM CHLORIDE 0.9% IVPB SCH (09:39)
--- NOTE | 2018-07-08 10:00 | PDOC.PN ---
- Subjective Encounter Start Date: 07/08/18 Encounter Start Time: 08:25 Patient seen and examined. No new complaints. No overnight events pt reports that he is making very little urine output, no dyspnea, no pain - Objective Resuscitation Status - Order Detail: 07/07/18 04:22 Resuscitation Status Routine Resuscitation Status: FULL: Full Resuscitation MAR Reviewed: Yes Vital Signs & Weight: Vital Signs (12 hours) Temp Pulse Resp BP Pulse Ox 07/08/18 07:24 99.7 F H 78 16 153/93 H 97 07/08/18 04:01 99.0 F 78 20 101/69 93 L 07/08/18 00:00 99.0 F 69 18 109/49 L 97 Weight Weight 218 lb 12.8 oz I&O: 07/07/18 07/08/18 07/09/18 06:59 06:59 06:59 Intake Total 1430 Output Total 300 Balance 1130 Result Diagrams: 07/08/18 08:57 07/08/18 08:57 EKG Reviewed by me: Yes (nsr) Phys Exam - Physical Examination Constitutional: NAD HEENT: PERRLA, moist MMs, sclera anicteric Neck: no JVD, supple Respiratory: no wheezing, no rales, no rhonchi Cardiovascular: RRR, no significant murmur, no rub Gastrointestinal: soft, non-tender, no distention, positive bowel sounds Musculoskeletal: no edema, pulses present right above knee ampuation, left groin HD catheter+ Neurological: non-focal, normal sensation, moves all 4 limbs Lymphatic: no nodes Psychiatric: normal affect, A&O x 3 Skin: no rash, normal turgor Dx/Plan (1) Acute kidney failure Status: Acute (2) Ethylene glycol poisoning Code(s): T52.8X1A - TOXIC EFFECT OF ORGANIC SOLVENTS, ACCIDENTAL, INIT Status : Acute (3) High anion gap metabolic acidosis Code(s): E87.2 - ACIDOSIS Status: Acute (4) H/O: CVA (cerebrovascular accident) Code(s): Z86.73 - PRSNL HX OF TIA (TIA), AND CEREB INFRC W/O RESID DEFICITS Status: Chronic (5) HTN (hypertension) Code(s): I10 - ESSENTIAL (PRIMARY) HYPERTENSION Status: Chronic Qualifiers: - Plan cont current plan of care * discussed with nephrology * may need HD * renal function still has not improved * medication reviewed as below * symptomatic treatment * will monitor. Review of Systems - Review of Systems Constitutional: negative: fever, chills, sweats, weakness, malaise, other ENT: negative: Ear Pain, Ear Discharge, Nose Pain, Nose Discharge, Nose Congestion, Mouth Pain, Mouth Swelling, Throat Pain, Throat Swelling, Other Respiratory: negative: Cough, Dry, Shortness of Breath, Hemoptysis, SOB with Excertion, Pleuritic Pain, Sputum, Wheezing Cardiovascular: negative: chest pain, palpitations, orthopnea, paroxysmal nocturnal dyspnea, edema, light headedness, other Gastrointestinal: negative: Nausea, Vomiting, Abdominal Pain, Diarrhea, Constipation, Melena, Hematochezia, Other Genitourinary: negative: Dysuria, Frequency, Incontinence, Hematuria, Retention , Other Musculoskeletal: negative: Neck Pain, Shoulder Pain, Arm Pain, Back Pain, Hand Pain, Leg Pain, Foot Pain, Other Skin: negative: Rash, Lesions, Mickey, Bruising, Other - Medications/Allergies Allergies/Adverse Reactions: Allergies Allergy/AdvReac Type Severity Reaction Status Date / Time codeine Allergy Hives Verified 07/07/18 17:46 Medications: Current Medications Acetaminophen (Tylenol) 650 mg PO Q6H PRN PRN Reason: Headache/Fever/Mild Pain (1-3) Artificial Tears (Tears Naturale) 2 drop EA EYE PRN PRN PRN Reason: Dry Eyes Guaifenesin (Robitussin Sf) 200 mg PO Q4H PRN PRN Reason: Cough Heparin Sodium (Porcine) (Heparin) 5,000 units SC BID [facility] Last Admin: 07/08/18 09:39 Dose: 5,000 units Hydralazine HCl (Apresoline) 5 mg SLOW IVP Q6H PRN PRN Reason: Blood Pressure Dextrose/Sodium Chloride (D5 0.9% Ns) 1,000 mls @ 75 mls/hr IV .[id number] [facility] Last Admin: 07/08/18 09:38 Dose: 1,000 mls Thiamine HCl 100 mg/Pyridoxine HCl 100 mg/ Sodium Chloride 52 mls @ 101.961 mls /hr IVPB 0900 [facility] Last Admin: 07/08/18 09:39 Dose: 52 mls Fomepizole 1 gm/ Sodium (Chloride) 101 mls @ 202 mls/hr IVPB 1000,2200 [facility] Stop: 07/08/18 22:29 Last Admin: 07/07/18 22:03 Dose: 101 mls Fomepizole 1.5 gm/ Sodium (Chloride) 101.5 mls @ 203 mls/hr IVPB 1000,2200 [facility] Labetalol HCl (Normodyne) 10 mg SLOW IVP Q4H PRN PRN Reason: SBP > 180 and HR >/= 70 Loperamide HCl (Imodium) 2 mg PO PRN PRN PRN Reason: Diarrhea/Loose Stools Loratadine (Claritin) 10 mg PO DAILYPRN PRN PRN Reason: Sinus Symptoms Metoclopramide HCl (Reglan) 5 mg IVP Q4H PRN PRN Reason: Nausea Mineral Oil/White Petrolatum (Eucerin Cream) 0 gm TOP BIDPRN PRN PRN Reason: Dry Skin Miscellaneous Medication (Pharmacy To Dose) 0 each IVPB DAILYPRN PRN PRN Reason: Pharmacy to dose Morphine Sulfate (Morphine) 2 mg SLOW IVP Q4H PRN PRN Reason: Pain Last Admin: 07/08/18 06:26 Dose: 2 mg Pantoprazole Sodium (Protonix) 40 mg IVP DAILY [facility] Last Admin: 07/08/18 09:39 Dose: 40 mg Senna/Docusate Sodium (Senokot S) 2 tab PO BID PRN PRN Reason: Constipation Sodium Chloride ([place] Nasal [place] 0.65%) 0 ml EA NARE QIDPRN PRN PRN Reason: Nasal Congestion Throat Lozenges (Cepastat Lozenges) 1 arin PO Q2H PRN PRN Reason: Sore Throat Zolpidem Tartrate (Ambien) 5 mg PO HSPRN PRN PRN Reason: Insomnia
--- NOTE | 2018-07-08 12:06 | PRG ---
DATE OF SERVICE: 07/08/2018 SUBJECTIVE: A 63-year-old gentleman is being seen for acute kidney injury. The patient denies any nausea, vomiting, or chest pain. The patient was dialyzed twice yesterday with the decreasing serum osmolality. The patient's creatinine continues to rise. OBJECTIVE: CONSTITUTIONAL: The patient is awake and alert. VITAL SIGNS: Afebrile. Pulse 78, breathing 16, blood pressure 101/69. GENERAL APPEARANCE AND MENTAL STATUS: Fair. HEAD/NECK: Normocephalic. Atraumatic. EYES: EOMI. No deformity. EARS: Clear. No ulcers. NOSE: Intact. No lesions. MOUTH: Clear. No discharge. THROAT: Clear. No exudate. LUNGS: Clear. No crackles. CARDIAC: S1, S2. No rub. ABDOMEN: Benign. Bowel sounds positive. GENITALIA/RECTUM: Go absent. BACK/EXTREMITIES: Edema 0+. NEUROLOGICAL: Alert and motor intact. LABORATORY DATA: Labs show pH of 7.4. Urine osmolal gap is normal. Potassium is 4.2, bicarb is 22. Serum osmolality 307. ASSESSMENT AND RECOMMENDATIONS: 1. Chronic kidney disease, stage 5, with acute kidney injury and slightly elevated serum osmolal gap. We will plan dialysis today. 2. Ethylene glycol levels are pending. 3. Hypertension, stable. 4. Anemia, stable. 5. Metabolic acidosis present. Job ID: [id number]
[2018-07-08] MEDS ORDERED: Activase 2 MG VIAL CATH SCH (12:59)
[2018-07-08] MEDS ORDERED: Sterile Water 10 ML VIAL IVP SCH (12:59)
--- NOTE | 2018-07-08 22:06 | HP ---
CHIEF COMPLAINT: Dizziness. HISTORY OF PRESENT ILLNESS: The patient is a very pleasant 63-year-old male, who presents to the hospital with complaints of dizziness x1 day. The patient stated that he had 2 cups out today. He had 1 cup that he had tea and then next to it he had antifreeze. The patient stated that accidentally he picked up a cup of antifreeze and drank about a cup of antifreeze, then realizing that it was not tea. The patient denies any fevers or chills. The patient stated that he later on started feeling really unwell, felt very dizzy, did not feel like himself, so he called the ambulance and came into the ER. The patient denies any suicidal thoughts or ideations. The patient stated that he only drank a cup and it was accidental. The patient denies drinking it on purpose. The patient denies any blurry vision; however, he states that he just did not feel well. The patient has been falling significantly at home according to him. He has a right knee prosthesis, which has not been locking in appropriately and the patient has been experiencing multiple falls. His last fall was yesterday. The patient also states that he had diarrhea x1 on Saturday afternoon. The patient also states that he has been eating and drinking without any difficulties. PAST MEDICAL HISTORY: 1. He has a history of hypertension. 2. He has a history of ischemic CVA. 3. He has a history of hyperlipidemia and CKD. PAST SURGICAL HISTORY: He has had right [id number] amputation. He has had some back surgeries. He has also had right elbow surgery. He had right shoulder surgery and hand surgery. SOCIAL HISTORY: The patient states he drinks occasionally alcohol, however, denies any drug use or any smoking history. He is a full code and lives alone. ALLERGIES: HE IS ALLERGIC TO CODEINE. HE GETS HIVES. MEDICATIONS: He does not know his medications as of yet. The patient did not bring a list with him. FAMILY HISTORY: Denies any history of heart disease in his family. REVIEW OF SYSTEMS: All negative except for the ones mentioned above in the HPI. PHYSICAL EXAMINATION: VITAL SIGNS: As of the following; temperature of 97.8, 100% on room air, respirations 19, blood pressure 169/98, and pulse 77. GENERAL: He is awake, alert, and oriented x3. Does not appear in distress. HEENT: Normocephalic and atraumatic. No lymphadenopathy noted. The patient's mucous membranes are not dry. He also has some tenderness upon palpation of his right frontal area, where the patient stated that he fell. CV: S1 and S2 present. No murmurs, rubs, or gallops. LUNGS: Clear to auscultation. No rhonchi or wheezes noted. ABDOMEN: Soft and nontender. Bowel sounds are present x2. No hepatomegaly or splenomegaly noted. EXTREMITIES: The patient has had [id number] amputation on the right. The scar is healed. Left leg, no swelling or edema noted. Pedal pulses are present on the left leg. SKIN: He does have some minor cuts and bruises on his lower extremities and bilateral upper extremities. NEUROLOGIC: No focal deficits noted. 5/5 bilateral upper extremity strength and 5/5 left lower extremity strength. LABORATORY DATA: Labs are as of the following; WBCs of 13.2, hemoglobin of 15.5, hematocrit of 46.5, platelets of 338. Chemistry; sodium of 144, potassium of 4.6, BUN of , creatinine of 3.12, anion gap of 25, glucose of 100. Serum osmolality is 339. Lactic acid is . Toxicology; plasma is negative for alcohol. UDS is negative. ASSESSMENT AND PLAN: The patient is a very pleasant 63-year-old male, who presents to the hospital with dizziness. 1. Ethylene glycol toxicity. The patient's calculated osmolar gap is 25. His calculated serum osmolality is 310. Poison Control was notified. The patient is going to be started on fomepizole. Nephrology also has been consulted. The patient is to undergo dialysis. The patient states he did not try to hurt himself. He only drank a cup; however, I am not sure if this is very reliable at this time. We will continue to monitor. 2. Anion gap metabolic acidosis, most likely secondary to the ethylene glycol toxicity. We will continue to watch. 3. Acute kidney injury. The patient's baseline creatinine is around 1.7 to 2.5. We will continue to monitor. 4. Frequent falls. We will get Physical Therapy and also get a CT of head to rule out any abnormalities. 5. Hypertension. We will continue the patient's home medications. 6. Lactic acidosis, most likely secondary to his underlying process. However, we will also get a chest x-ray to make sure there is no other infectious processes is going on. 7. Deep venous thrombosis prophylaxis. We will put the patient on heparin subcu. Job ID: [id number]
--- NOTE | 2018-07-08 22:38 | CON ---
DATE OF CONSULTATION: 07/08/2018 HISTORY OF PRESENT ILLNESS: Mr. Cast is a pleasant 63-year-old male. He says he accidentally ingested ethylene glycol. He said it was in the same container that he had some tea in, so he took a big sip out of it and realized what he done, immediately called Poison Control. He ended up here and has been dialyzed twice per my discussion with Dr. Torres. PAST MEDICAL HISTORY: Remarkable for hypertension, lipid disorder, chronic kidney disease, and CVA. SOCIAL HISTORY: Non contributory FAMILY HISTORY: Not obtained REVIEW OF SYSTEMS: 10 point review of systems completed, otherwise negative. PHYSICAL EXAMINATION: GENERAL: He is in no distress. He is actually laughing about what he did and also recognizes that it may have been a fatal event. VITAL SIGNS: He is afebrile. Heart rate 78, respiratory rate is 15, oximetry is 92, and blood pressure 144/98. HEENT: pupils react. NECK: supple. LUNGS: Clear. HEART: Regular rhythm. ABDOMEN: Soft. EXTREMITIES: without clubbing. LABORATORY DATA: White count 8.6, hemoglobin 13.9, and platelets 293. Sodium 138, potassium 4.2, chloride 104, bicarb 22, BUN 26, and creatinine 4.01. Serum osmoles are 307. IMPRESSION: Status post ingestion of ethylene glycol, appears to be improved after 2 episodes of dialysis. Will continue to follow the other physicians caring for him. This is a 50 minute consult, with greater than 50% of time spent on unit coordinating care. Job ID: [id number] MTDD
[2018-07-09] MEDS: Morphine 4 MG/ML VIAL SLOW IVP PRN ×5 (05:19→21:26)
[2018-07-09] MEDS: Dextrose 5 % And 0.9 % NaCl 1,000 ML IV SCH ×2 (05:33→21:25)
[2018-07-09 09:08] LABS: #Eosinphils 0.4 thou/uL (0.0-0.7); #Lymphocytes 1.9 thou/uL (1.20-3.40); #Monocytes 0.8 thou/uL (0.11-0.59); #Neutrophils 4.9 thou/uL (1.40-6.50); %Basophils 0.4 % (0.0-1.0); %Eosinophils 5.3 % (0.0-10.0); %Lymphocytes 23.9 % (21.0-51.0); %Monocytes 9.3 % (0.0-10.0); Mean Corpuscular HGB CONC 32.5 g/dL (32.0-36.0); Mean Corpuscular Hemoglobin 29.8 pg (27.0-31.0); Mean Corpuscular Volume 91.7 fL (78.0-98.0); Mean Platelet Volume 7.5 fL (7.4-10.4); Platelet Count 279 thou/uL (130-400); RBC Distribution Width 12.4 % (11.5-14.5); Red Blood Cell (RBC) Count 4.34 mill/uL (4.70-6.10); White Blood Cell (WBC) Count 8.1 thou/uL (4.8-10.8)
[2018-07-09] MEDS: Pantoprazole 40 MG VIAL IVP SCH (09:19)
[2018-07-09] MEDS: Heparin 5,000 UNITS/ML VIAL SC SCH ×2 (09:19→20:38)
[2018-07-09] MEDS: THIAMINE HCL IVPB SCH (09:30)
[2018-07-09] MEDS: SODIUM CHLORIDE 0.9% IVPB SCH (09:30)
[2018-07-09] MEDS: PYRIDOXINE HCL IVPB SCH (09:30)
[2018-07-09 09:33] LABS: ALT (SGPT) 16 U/L (8-55); AST (SGOT) 17 U/L (5-34); Albumin 3.4 g/dL (3.4-4.8); Alkaline Phosphatase 75 U/L (40-150); Anion Gap 15 mmol/L (10-20); BUN (Urea Nitrogen) 17 mg/dL (8.4-25.7); Bilirubin, Total 0.3 mg/dL (0.2-1.2); Calc. Creatinine Clearance 29 mL/min (70-130); Calcium 8.3 mg/dL (7.8-10.44); Carbon Dioxide 23 mmol/L (23-31); Chloride 102 mmol/L (98-107); Estimated GFR-MDRD 17; Globulin 3.8 g/dL (2.4-3.5); Glucose 118 mg/dL (80-115); Magnesium 1.9 mg/dL (1.6-2.6); Phosphorus 3.3 mg/dL (2.3-4.7); Potassium 4.1 mmol/L (3.5-5.1); Protein, Total 7.2 g/dL (5.8-8.1); Sodium 136 mmol/L (136-145)
--- NOTE | 2018-07-09 09:38 | PDOC.PN ---
- Subjective Encounter Start Date: 07/09/18 Encounter Start Time: 07:10 Patient seen and examined. No new complaints. No overnight events - Objective Resuscitation Status - Order Detail: 07/07/18 04:22 Resuscitation Status Routine Resuscitation Status: FULL: Full Resuscitation MAR Reviewed: Yes Vital Signs & Weight: Vital Signs (12 hours) Temp Pulse Resp BP Pulse Ox 07/09/18 08:00 95 07/09/18 07:27 99.3 F 72 16 163/96 H 95 07/09/18 04:00 99.1 F 65 22 H 173/112 H 100 07/09/18 00:00 98.9 F 79 18 157/95 H 94 L Weight Weight 218 lb 12.8 oz I&O: 07/08/18 07/09/18 07/10/18 06:59 06:59 06:59 Intake Total 1430 1450 Output Total 300 590 Balance 1130 860 Result Diagrams: 07/09/18 08:35 07/09/18 08:35 EKG Reviewed by me: Yes (nsr) Phys Exam - Physical Examination Constitutional: NAD HEENT: PERRLA, moist MMs, sclera anicteric Neck: no JVD, supple Respiratory: no wheezing, no rales, no rhonchi Cardiovascular: RRR, no significant murmur, no rub Gastrointestinal: soft, non-tender, no distention, positive bowel sounds Musculoskeletal: no edema, pulses present right AKA Neurological: non-focal, normal sensation Lymphatic: no nodes Psychiatric: normal affect, A&O x 3 Skin: no rash, normal turgor Dx/Plan (1) Acute kidney failure Status: Acute (2) Ethylene glycol poisoning Code(s): T52.8X1A - TOXIC EFFECT OF ORGANIC SOLVENTS, ACCIDENTAL, INIT Status : Acute (3) High anion gap metabolic acidosis Code(s): E87.2 - ACIDOSIS Status: Acute (4) H/O: CVA (cerebrovascular accident) Code(s): Z86.73 - PRSNL HX OF TIA (TIA), AND CEREB INFRC W/O RESID DEFICITS Status: Chronic (5) HTN (hypertension) Code(s): I10 - ESSENTIAL (PRIMARY) HYPERTENSION Status: Chronic Qualifiers: - Plan cont current plan of care * transfer to medical floor * HD as per nephrology * will monitor renal function, once stable and creatinine does decrease off HD, then stable for discharge * medication reviewed as below * symptomatic treatment. Review of Systems - Review of Systems ENT: negative: Ear Pain, Ear Discharge, Nose Pain, Nose Discharge, Nose Congestion, Mouth Pain, Mouth Swelling, Throat Pain, Throat Swelling, Other Respiratory: negative: Cough, Dry, Shortness of Breath, Hemoptysis, SOB with Excertion, Pleuritic Pain, Sputum, Wheezing Cardiovascular: negative: chest pain, palpitations, orthopnea, paroxysmal nocturnal dyspnea, edema, light headedness, other Gastrointestinal: negative: Nausea, Vomiting, Abdominal Pain, Diarrhea, Constipation, Melena, Hematochezia, Other Genitourinary: negative: Dysuria, Frequency, Incontinence, Hematuria, Retention , Other Musculoskeletal: negative: Neck Pain, Shoulder Pain, Arm Pain, Back Pain, Hand Pain, Leg Pain, Foot Pain, Other - Medications/Allergies Allergies/Adverse Reactions: Allergies Allergy/AdvReac Type Severity Reaction Status Date / Time codeine Allergy Hives Verified 07/07/18 17:46 Medications: Current Medications Acetaminophen (Tylenol) 650 mg PO Q6H PRN PRN Reason: Headache/Fever/Mild Pain (1-3) Artificial Tears (Tears Naturale) 2 drop EA EYE PRN PRN PRN Reason: Dry Eyes Guaifenesin (Robitussin Sf) 200 mg PO Q4H PRN PRN Reason: Cough Heparin Sodium (Porcine) (Heparin) 5,000 units SC BID [facility] Last Admin: 07/09/18 09:19 Dose: 5,000 units Hydralazine HCl (Apresoline) 5 mg SLOW IVP Q6H PRN PRN Reason: Blood Pressure Dextrose/Sodium Chloride (D5 0.9% Ns) 1,000 mls @ 75 mls/hr IV .[id number] [facility] Last Admin: 07/09/18 05:33 Dose: 1,000 mls Thiamine HCl 100 mg/Pyridoxine HCl 100 mg/ Sodium Chloride 52 mls @ 101.961 mls /hr IVPB 0900 [facility] Last Admin: 07/09/18 09:30 Dose: 52 mls Fomepizole 1.5 gm/ Sodium (Chloride) 101.5 mls @ 203 mls/hr IVPB 1000,2200 [facility] Labetalol HCl (Normodyne) 10 mg SLOW IVP Q4H PRN PRN Reason: SBP > 180 and HR >/= 70 Loperamide HCl (Imodium) 2 mg PO PRN PRN PRN Reason: Diarrhea/Loose Stools Loratadine (Claritin) 10 mg PO DAILYPRN PRN PRN Reason: Sinus Symptoms Last Admin: 07/09/18 09:31 Dose: 10 mg Metoclopramide HCl (Reglan) 5 mg IVP Q4H PRN PRN Reason: Nausea Mineral Oil/White Petrolatum (Eucerin Cream) 0 gm TOP BIDPRN PRN PRN Reason: Dry Skin Miscellaneous Medication (Pharmacy To Dose) 0 each IVPB DAILYPRN PRN PRN Reason: Pharmacy to dose Morphine Sulfate (Morphine) 2 mg SLOW IVP Q4H PRN PRN Reason: Pain Last Admin: 07/09/18 09:20 Dose: 2 mg Pantoprazole Sodium (Protonix) 40 mg IVP DAILY SUE Last Admin: 07/09/18 09:19 Dose: 40 mg Senna/Docusate Sodium (Senokot S) 2 tab PO BID PRN PRN Reason: Constipation Sodium Chloride ([place] Nasal [place] 0.65%) 0 ml EA NARE QIDPRN PRN PRN Reason: Nasal Congestion Throat Lozenges (Cepastat Lozenges) 1 arin PO Q2H PRN PRN Reason: Sore Throat Zolpidem Tartrate (Ambien) 5 mg PO HSPRN PRN PRN Reason: Insomnia
[2018-07-09] MEDS ORDERED: Fomepizole 1.5 GM in Sodium Chloride 0.9% 100 ML IVPB SCH ×2 (10:00→21:00)
--- NOTE | 2018-07-09 11:42 | PRG ---
DATE OF SERVICE: 07/09/2018 SUBJECTIVE: A 63-year-old gentleman, being seen for acute kidney injury, dialysis dependent. The patient denied any nausea, vomiting, or chest pain. OBJECTIVE: CONSTITUTIONAL: The patient awake and alert. VITAL SIGNS: Afebrile, pulse 72, breathing 16, blood pressure 163/96. GENERAL APPEARANCE AND MENTAL STATUS: Fair. HEAD/NECK: Normocephalic. Atraumatic. EYES: EOMI. No deformity. EARS: Clear. No ulcers. NOSE: Intact. No lesions. MOUTH: Clear. No discharge. THROAT: Clear. No exudate. LUNGS: Clear. No crackles. CARDIAC: S1, S2. No rub. ABDOMEN: Benign. Bowel sounds positive. GENITALIA/RECTUM: Go absent. BACK/EXTREMITIES: Edema 0+. NEUROLOGICAL: Alert and motor intact. LABORATORY DATA: Hemoglobin 13.0. Creatinine 3.7, potassium 4.1. Serum osmolality has improved to 296. ASSESSMENT AND PLAN: 1. Acute kidney injury, dialysis dependent. We will plan dialysis today. 2. Metabolic cirrhosis, plan dialysis. 3. Hypertension, stable. 4. Anemia, stable. 5. Medications based on glomerular filtration rate are appropriate. Job ID: [id number]
--- NOTE | 2018-07-09 14:29 | PRG ---
DATE OF SERVICE: 07/09/2018 SERVICE: Pulmonary Medicine. INTERVAL HISTORY: The patient is doing fine from respiratory standpoint. Denies any current chest pain, fevers, chills, nausea, or vomiting. He is breathing comfortably. There has been no interval change to his condition otherwise. OBJECTIVE: VITAL SIGNS: Afebrile. Pulse 72, blood pressure 187/94, respirations 20, and saturation 94% on room air. GENERAL: The patient is awake and alert, in no apparent distress. LUNGS: Excellent air entry. There is no prolonged expiratory phase or wheezing present. HEART: Normal rate, regular. ABDOMEN: Soft, nontender, and nondistended. Bowel sounds are positive. MUSCULOSKELETAL: No cyanosis or clubbing. No pitting in the bilateral lower extremities. NEUROLOGIC: Grossly nonfocal. LABORATORY DATA: WBC 8.1, hemoglobin 13.0, platelets 279,000. Basic metabolic profile is completely unremarkable. His creatinine is 3.72. Liver function studies are also unremarkable. Serum osmolality is returning to the normal range. Anion gap is also improving. ASSESSMENT: 1. Acute kidney injury on chronic kidney disease 3. 2. Ethylene glycol ingestion, accidental. 3. Anion gap metabolic acidosis, improving. DISCUSSION AND PLAN: The patient is currently on dialysis. We will see whether or not his kidneys regain function through time. At this point, he has no further requirements for Pulmonary Critical Care opinion and is stable for transition out of the [facility]. Please call if the patient has a significant decline in function. Job ID: [id number]
[2018-07-09] MEDS: Fomepizole 1.5 GM in Sodium Chloride 0.9% 100 ML IVPB SCH ×3 (17:00→20:51)
[2018-07-09] MEDS ORDERED: FOMEPIZOLE IVPB SCH (20:00)
[2018-07-09] MEDS ORDERED: SODIUM CHLORIDE 0.9% IVPB SCH (20:00)
[2018-07-09] MEDS: hydrALAZINE 20 MG/ML VIAL SLOW IVP PRN (20:37)
[2018-07-10] MEDS: Morphine 4 MG/ML VIAL SLOW IVP PRN ×5 (01:28→19:51)
[2018-07-10] MEDS: Fomepizole 1.5 GM in Sodium Chloride 0.9% 100 ML IVPB SCH ×3 (02:02→21:19)
[2018-07-10] MEDS: hydrALAZINE 20 MG/ML VIAL SLOW IVP PRN (04:29)
[2018-07-10] MEDS ORDERED: Fomepizole 1.5 GM in Sodium Chloride 0.9% 100 ML IVPB SCH (04:30)
[2018-07-10] MEDS: Erythromycin Base 0.5% Oint 1 GM TUBE TOP SCH ×4 (04:59→23:58)
[2018-07-10] MEDS: Heparin 5,000 UNITS/ML VIAL SC SCH ×2 (07:55→19:51)
[2018-07-10] MEDS: Pantoprazole 40 MG VIAL IVP SCH (07:55)
[2018-07-10 08:30] LABS: Anion Gap 17 mmol/L (10-20); BUN (Urea Nitrogen) 16 mg/dL (8.4-25.7); Calc. Creatinine Clearance 28 mL/min (70-130); Calcium 8.9 mg/dL (7.8-10.44); Carbon Dioxide 22 mmol/L (23-31); Chloride 105 mmol/L (98-107); Estimated GFR-MDRD 16; Glucose 118 mg/dL (80-115); Potassium 4.1 mmol/L (3.5-5.1); Sodium 140 mmol/L (136-145)
[2018-07-10] MEDS: SODIUM CHLORIDE 0.9% IVPB SCH (08:54)
[2018-07-10] MEDS: THIAMINE HCL IVPB SCH (08:54)
[2018-07-10] MEDS: PYRIDOXINE HCL IVPB SCH (08:54)
[2018-07-10] MEDS: Ciprofloxacin 0.3% Ophth Drops 2.5 ml Bottle L EYE SCH ×5 (11:23→15:33)
--- NOTE | 2018-07-10 11:25 | PQF ---
CLINICAL DOCUMENTATION IMPROVEMENT CLARIFICATION FORM: ICD-10 Updated PLEASE DO AN ADDENDUM TO THE PROGRESS NOTE WITH ANY DOCUMENTATION UPDATES OR ADDITIONS AND CARRY THROUGH TO DC SUMMARY. THANK YOU. DATE: 07/10/18 ATTN: Dr. Torres Please exercise your independent, professional judgment in responding to the clarification form. Clinical indicators are provided on the bottom of this form for your review Please check appropriate box(s): [ x] Acute Tubular Necrosis (ATN) [ x] Acute Renal Failure (ARF) / Acute Kidney Injury (GISELA) [x ] Other Etiology or underlying conditions related to the diagnosis of ARF/ GISELA: _Ethylene Glycol Toxicity [ x ] Acute on Chronic Renal Failure [ ] Other diagnosis [ ] Unable to determine In addition, please specify: Present on Admission (POA): [ x ] Yes [ ] No [ ] Unable to determine For continuity of documentation, please document condition throughout progress notes and discharge summary. Thank You. CLINICAL INDICATORS - SIGNS / SYMPTOMS / LABS 07/07 @0207 07/07 @ 0704 07/07 @ 1104 LABS: Creatinine 3.12 2.06 2.54 GFR 20 33 26 07/08 @ 0215 07/08 @ 0857 Creatinine 3.62 4.01 GFR 17 15 07/09 07/10 Creatinine 3.72 3.83 GFR 17 16 H&P 07/07: Dizziness Ethylene glycol poisoning. Pt's calculated osmolar gap is 25. His calculated serum osmolality is 310 Acute Kidney injury. The pt's baseline creatinine is around 1.7 to 2.5 Nephrology Consult 07/07: creatinine 3.12 Ethylene glycol toxicity. We will plan urgent dialysis. Metabolic acidosis. Hyperkalemia Pn 07/08 (Torres): Chronic kidney disease, stage 5, w/ acute kidney injury and slightly elevated serum osmolal gap. Plan dialysis today RISKS: H&P 07/07: Hx of HTN, ischemic CVA, hyperlipidemia and CKD. Ethylene glycol toxicity. Anion gap metabolic acidosis. GISELA. Lactic acidosis. TREATMENT: Order 07/07: Dextrose 5% and 0.9% Nacl 75 mls/hr Pn 07/08 ( Torres) The pt was dialyzed twice yesterday with the decreasing serum osmolality. Thank you, Amelia (This form is maintained as a part of the permanent medical record) 2015 [employer]. All Rights Reserved Amelia Mcleod RN, BSN [email or web address] Office: [phone] [facility]
--- NOTE | 2018-07-10 12:09 | PRG ---
DATE OF SERVICE: 07/10/2018 SUBJECTIVE: A 63-year-old gentleman, being seen for acute kidney injury. The patient denied any nausea, vomiting, or chest pain. OBJECTIVE: CONSTITUTIONAL: Awake, alert, in no acute distress. VITAL SIGNS: Afebrile. Pulse 92, breathing 16, breathing 158/82. GENERAL APPEARANCE AND MENTAL STATUS: Fair. HEAD/NECK: Normocephalic. Atraumatic. EYES: EOMI. No deformity. EARS: Clear. No ulcers. NOSE: Intact. No lesions. MOUTH: Clear. No discharge. THROAT: Clear. No exudate. LUNGS: Clear. No crackles. CARDIAC: S1, S2. No rub. ABDOMEN: Benign. Bowel sounds positive. GENITALIA/RECTUM: Go absent. BACK/EXTREMITIES: Edema 0+. NEUROLOGICAL: Alert and motor intact. SKIN: LYMPHATICS: LABORATORY DATA: Hemoglobin 13. Creatinine 3.83. ASSESSMENT AND PLAN: 1. Stage 4 chronic kidney disease, stable. 2. Hypertension, stable. 3. Anemia, stable. We will plan dialysis tomorrow, if renal function does not improve. Job ID: [id number]
[2018-07-10] MEDS: Dextrose 5 % And 0.9 % NaCl 1,000 ML IV SCH (12:37)
--- NOTE | 2018-07-10 13:02 | PDOC.PN ---
- Subjective Encounter Start Date: 07/10/18 Encounter Start Time: 09:30 pt has developed left red eye, no feeling good today Patient seen and examined. No overnight events - Objective Resuscitation Status - Order Detail: 07/07/18 04:22 Resuscitation Status Routine Resuscitation Status: FULL: Full Resuscitation MAR Reviewed: Yes Vital Signs & Weight: Vital Signs (12 hours) Temp Pulse Resp BP BP Pulse Ox 07/10/18 11:24 98.3 F 92 20 180/95 H 96 07/10/18 08:00 98.7 F 104 H 18 158/82 H 95 07/10/18 05:02 172/86 H 07/10/18 04:29 83 181/97 H 07/10/18 04:00 98.3 F 84 20 97 Weight Admit Weight 218 lb 12.8 oz Weight 218 lb 12.8 oz I&O: 07/09/18 07/10/18 07/11/18 06:59 06:59 06:59 Intake Total 1450 3645 Output Total 590 1370 Balance 860 2275 Result Diagrams: 07/09/18 08:35 07/10/18 07:54 Phys Exam - Physical Examination Constitutional: NAD HEENT: PERRLA, moist MMs, sclera anicteric left eye conjuctivitis Neck: no JVD, supple Respiratory: no wheezing, no rales, no rhonchi Cardiovascular: RRR, no significant murmur, no rub Gastrointestinal: soft, non-tender, no distention, positive bowel sounds Musculoskeletal: no edema, pulses present right AKA Neurological: non-focal, normal sensation Lymphatic: no nodes Psychiatric: normal affect, A&O x 3 Skin: no rash, normal turgor Dx/Plan (1) Acute kidney failure Status: Acute (2) Ethylene glycol poisoning Code(s): T52.8X1A - TOXIC EFFECT OF ORGANIC SOLVENTS, ACCIDENTAL, INIT Status : Acute (3) High anion gap metabolic acidosis Code(s): E87.2 - ACIDOSIS Status: Acute (4) H/O: CVA (cerebrovascular accident) Code(s): Z86.73 - PRSNL HX OF TIA (TIA), AND CEREB INFRC W/O RESID DEFICITS Status: Chronic (5) HTN (hypertension) Code(s): I10 - ESSENTIAL (PRIMARY) HYPERTENSION Status: Chronic Qualifiers: (6) Acute bacterial conjunctivitis Code(s): H10.30 - UNSPECIFIED ACUTE CONJUNCTIVITIS, UNSPECIFIED EYE Status: Acute Qualifiers: Laterality: left Qualified Code(s): H10.32 - Unspecified acute conjunctivitis, left eye - Plan cont current plan of care * renal function has not improved, fluctuating * HD as per nephrology * will add cipro opthalmic drops * medication reviewed as below * symptomatic treatment * not ready for discharge yet. Review of Systems - Review of Systems Eyes: Conjunctivae Inflammation, Eyelid Inflammation, Redness. negative: Pain, Vision Change, Other ENT: negative: Ear Pain, Ear Discharge, Nose Pain, Nose Discharge, Nose Congestion, Mouth Pain, Mouth Swelling, Throat Pain, Throat Swelling, Other Respiratory: negative: Cough, Dry, Shortness of Breath, Hemoptysis, SOB with Excertion, Pleuritic Pain, Sputum, Wheezing Cardiovascular: negative: chest pain, palpitations, orthopnea, paroxysmal nocturnal dyspnea, edema, light headedness, other Gastrointestinal: negative: Nausea, Vomiting, Abdominal Pain, Diarrhea, Constipation, Melena, Hematochezia, Other Genitourinary: negative: Dysuria, Frequency, Incontinence, Hematuria, Retention , Other Musculoskeletal: negative: Neck Pain, Shoulder Pain, Arm Pain, Back Pain, Hand Pain, Leg Pain, Foot Pain, Other - Medications/Allergies Allergies/Adverse Reactions: Allergies Allergy/AdvReac Type Severity Reaction Status Date / Time codeine Allergy Hives Verified 07/07/18 17:46 Medications: Current Medications Acetaminophen (Tylenol) 650 mg PO Q6H PRN PRN Reason: Headache/Fever/Mild Pain (1-3) Artificial Tears (Tears Naturale) 2 drop EA EYE PRN PRN PRN Reason: Dry Eyes Ciprofloxacin (Ciloxan 0.3% Ophth Soln) 1 drop L EYE Q2HR SUE Last Admin: 07/10/18 11:23 Dose: Not Given Erythromycin (Erythromycin Base 0.5% Oint) 0 gm TOP Q6HR SUE Last Admin: 07/10/18 11:22 Dose: 1 strip Guaifenesin (Robitussin Sf) 200 mg PO Q4H PRN PRN Reason: Cough Heparin Sodium (Porcine) (Heparin) 5,000 units SC BID SUE Last Admin: 07/10/18 07:55 Dose: 5,000 units Hydralazine HCl (Apresoline) 5 mg SLOW IVP Q6H PRN PRN Reason: Blood Pressure Last Admin: 07/10/18 04:29 Dose: 5 mg Dextrose/Sodium Chloride (D5 0.9% Ns) 1,000 mls @ 75 mls/hr IV .[id number] [facility] Last Admin: 07/10/18 12:37 Dose: 1,000 mls Thiamine HCl 100 mg/Pyridoxine HCl 100 mg/ Sodium Chloride 52 mls @ 101.961 mls /hr IVPB 0900 [facility] Last Admin: 07/10/18 08:54 Dose: 52 mls Fomepizole 1.5 gm/ Sodium (Chloride) 101.5 mls @ 203 mls/hr IVPB .Q4H AT DIALYSIS [facility] Fomepizole 1.5 gm/ Sodium (Chloride) 101.5 mls @ 203 mls/hr IVPB Q12HR [facility] Last Admin: 07/10/18 08:57 Dose: 101.5 mls Labetalol HCl (Normodyne) 10 mg SLOW IVP Q4H PRN PRN Reason: SBP > 180 and HR >/= 70 Loperamide HCl (Imodium) 2 mg PO PRN PRN PRN Reason: Diarrhea/Loose Stools Loratadine (Claritin) 10 mg PO DAILYPRN PRN PRN Reason: Sinus Symptoms Last Admin: 07/09/18 09:31 Dose: 10 mg Metoclopramide HCl (Reglan) 5 mg IVP Q4H PRN PRN Reason: Nausea Last Admin: 07/10/18 07:55 Dose: 5 mg Mineral Oil/White Petrolatum (Eucerin Cream) 0 gm TOP BIDPRN PRN PRN Reason: Dry Skin Miscellaneous Medication (Pharmacy To Dose) 0 each IVPB DAILYPRN PRN PRN Reason: Pharmacy to dose Morphine Sulfate (Morphine) 2 mg SLOW IVP Q4H PRN PRN Reason: Pain Last Admin: 07/10/18 11:22 Dose: 2 mg Pantoprazole Sodium (Protonix) 40 mg IVP DAILY [facility] Last Admin: 07/10/18 07:55 Dose: 40 mg Senna/Docusate Sodium (Senokot S) 2 tab PO BID PRN PRN Reason: Constipation Sodium Chloride ([place] Nasal [place] 0.65%) 0 ml EA NARE QIDPRN PRN PRN Reason: Nasal Congestion Sodium Chloride (Flush - Normal Saline) 10 ml IVF Q12HR SUE Sodium Chloride (Flush - Normal Saline) 10 ml IVF PRN PRN PRN Reason: Saline Flush Throat Lozenges (Cepastat Lozenges) 1 arin PO Q2H PRN PRN Reason: Sore Throat Zolpidem Tartrate (Ambien) 5 mg PO HSPRN PRN PRN Reason: Insomnia
[2018-07-10] MEDS: Acetaminophen 325 MG TAB PO PRN (16:38)
[2018-07-11] MEDS: Morphine 4 MG/ML VIAL SLOW IVP PRN ×5 (00:05→19:47)
[2018-07-11] MEDS: Dextrose 5 % And 0.9 % NaCl 1,000 ML IV SCH (04:08)
[2018-07-11] MEDS: Acetaminophen 325 MG TAB PO PRN (05:58)
[2018-07-11] MEDS: Erythromycin Base 0.5% Oint 1 GM TUBE TOP SCH ×3 (05:59→15:19)
[2018-07-11] MEDS: Heparin 5,000 UNITS/ML VIAL SC SCH ×2 (07:52→20:40)
[2018-07-11] MEDS: cloNIDine 0.2 MG TAB PO SCH ×2 (07:53→20:39)
[2018-07-11 07:54] LABS: #Basophils 0.1 thou/uL (0.0-0.2); #Eosinphils 0.3 thou/uL (0.0-0.7); #Lymphocytes 1.9 thou/uL (1.20-3.40); #Monocytes 0.7 thou/uL (0.11-0.59); #Neutrophils 3.7 thou/uL (1.40-6.50); %Basophils 0.8 % (0.0-1.0); %Eosinophils 4.5 % (0.0-10.0); %Lymphocytes 28.9 % (21.0-51.0); %Monocytes 11.1 % (0.0-10.0); %Neutrophils 54.8 % (42.0-75.0); Hemoglobin 12.6 g/dL (14.0-18.0); Mean Corpuscular HGB CONC 33.9 g/dL (32.0-36.0); Mean Corpuscular Hemoglobin 31.2 pg (27.0-31.0); Mean Corpuscular Volume 92.1 fL (78.0-98.0); Mean Platelet Volume 7.4 fL (7.4-10.4); Platelet Count 258 thou/uL (130-400); RBC Distribution Width 12.4 % (11.5-14.5); Red Blood Cell (RBC) Count 4.03 mill/uL (4.70-6.10); White Blood Cell (WBC) Count 6.7 thou/uL (4.8-10.8)
[2018-07-11] MEDS: Fenofibrate Nanocrystallized 145 MG TAB PO SCH (07:54)
[2018-07-11] MEDS: HYDROcodone/Acetaminophen 10/325 mg Tablet PO PRN (07:54)
[2018-07-11] MEDS: Amlodipine 10 MG TAB PO SCH (07:55)
[2018-07-11 08:26] LABS: Albumin 3.5 g/dL (3.4-4.8); Anion Gap 16 mmol/L (10-20); BUN (Urea Nitrogen) 22 mg/dL (8.4-25.7); BUN/Creatinine Ratio 4.64; Calc. Creatinine Clearance 23 mL/min (70-130); Calcium 8.6 mg/dL (7.8-10.44); Carbon Dioxide 23 mmol/L (23-31); Chloride 108 mmol/L (98-107); Estimated GFR-MDRD 13; Glucose 102 mg/dL (80-115); Phosphorus 4.1 mg/dL (2.3-4.7); Potassium 4.1 mmol/L (3.5-5.1); Sodium 143 mmol/L (136-145)
[2018-07-11 09:21] LABS: Anion Gap 16 mmol/L (10-20); BUN (Urea Nitrogen) 22 mg/dL (8.4-25.7); Calc. Creatinine Clearance 23 mL/min (70-130); Calcium 8.7 mg/dL (7.8-10.44); Carbon Dioxide 22 mmol/L (23-31); Chloride 108 mmol/L (98-107); Estimated GFR-MDRD 13; Glucose 100 mg/dL (80-115); Potassium 4.1 mmol/L (3.5-5.1); Sodium 142 mmol/L (136-145)
--- NOTE | 2018-07-11 10:13 | PDOC.PN ---
- Subjective Encounter Start Date: 07/11/18 Encounter Start Time: 09:30 Patient seen and examined. No new complaints. No overnight events - Objective Resuscitation Status - Order Detail: 07/07/18 04:22 Resuscitation Status Routine Resuscitation Status: FULL: Full Resuscitation MAR Reviewed: Yes Vital Signs & Weight: Vital Signs (12 hours) Temp Pulse Resp BP Pulse Ox 07/11/18 07:55 70 07/11/18 07:10 98.6 F 70 18 213/123 H 98 07/11/18 05:00 172/94 H 07/11/18 04:04 97.9 F 72 18 97 07/11/18 00:05 97.9 F 73 18 154/93 H 96 Weight Admit Weight 218 lb 12.8 oz Weight 218 lb 12.8 oz I&O: 07/10/18 07/11/18 07/12/18 06:59 06:59 06:59 Intake Total 3645 3000 Output Total 1370 2050 Balance 2275 950 Result Diagrams: 07/11/18 07:39 07/11/18 07:39 Phys Exam - Physical Examination Constitutional: NAD HEENT: PERRLA, moist MMs, sclera anicteric Neck: no JVD, supple Respiratory: no wheezing, no rales, no rhonchi Cardiovascular: RRR, no significant murmur, no rub Gastrointestinal: soft, non-tender, no distention, positive bowel sounds Musculoskeletal: no edema, pulses present right AKA Neurological: non-focal, normal sensation, moves all 4 limbs Lymphatic: no nodes Psychiatric: normal affect, A&O x 3 Skin: no rash, normal turgor Dx/Plan (1) Acute kidney failure Status: Acute (2) Ethylene glycol poisoning Code(s): T52.8X1A - TOXIC EFFECT OF ORGANIC SOLVENTS, ACCIDENTAL, INIT Status : Acute (3) High anion gap metabolic acidosis Code(s): E87.2 - ACIDOSIS Status: Acute (4) H/O: CVA (cerebrovascular accident) Code(s): Z86.73 - PRSNL HX OF TIA (TIA), AND CEREB INFRC W/O RESID DEFICITS Status: Chronic (5) HTN (hypertension) Code(s): I10 - ESSENTIAL (PRIMARY) HYPERTENSION Status: Chronic Qualifiers: (6) Acute bacterial conjunctivitis Code(s): H10.30 - UNSPECIFIED ACUTE CONJUNCTIVITIS, UNSPECIFIED EYE Status: Acute Qualifiers: Laterality: left Qualified Code(s): H10.32 - Unspecified acute conjunctivitis, left eye - Plan cont current plan of care * pt's renal function has not improved so far * suspecting that he may need manager terminal HD, will defer that part to nephrology * medication reviewed as below * symptomatic treatment * will add hydralazin 25 m gpo tid * DC IVF * monitor renal function * not ready for discharge yet. Review of Systems - Review of Systems Eyes: Conjunctivae Inflammation, Eyelid Inflammation. negative: Pain, Vision Change, Redness, Other ENT: negative: Ear Pain, Ear Discharge, Nose Pain, Nose Discharge, Nose Congestion, Mouth Pain, Mouth Swelling, Throat Pain, Throat Swelling, Other Respiratory: negative: Cough, Dry, Shortness of Breath, Hemoptysis, SOB with Excertion, Pleuritic Pain, Sputum, Wheezing Cardiovascular: negative: chest pain, palpitations, orthopnea, paroxysmal nocturnal dyspnea, edema, light headedness, other Gastrointestinal: negative: Nausea, Vomiting, Abdominal Pain, Diarrhea, Constipation, Melena, Hematochezia, Other Genitourinary: negative: Dysuria, Frequency, Incontinence, Hematuria, Retention , Other Musculoskeletal: negative: Neck Pain, Shoulder Pain, Arm Pain, Back Pain, Hand Pain, Leg Pain, Foot Pain, Other Skin: negative: Rash, Lesions, Mickey, Bruising, Other - Medications/Allergies Allergies/Adverse Reactions: Allergies Allergy/AdvReac Type Severity Reaction Status Date / Time codeine Allergy Hives Verified 07/07/18 17:46 Medications: Current Medications Acetaminophen (Tylenol) 650 mg PO Q6H PRN PRN Reason: Headache/Fever/Mild Pain (1-3) Last Admin: 07/11/18 05:58 Dose: 650 mg Hydrocodone Bitart/Acetaminophen ([place] 10/325) 1 tab PO Q8H PRN PRN Reason: Pain Last Admin: 07/11/18 07:54 Dose: 1 tab Amlodipine Besylate (Norvasc) 10 mg PO DAILY SUE Last Admin: 07/11/18 07:55 Dose: 10 mg Artificial Tears (Tears Naturale) 2 drop EA EYE PRN PRN PRN Reason: Dry Eyes Ciprofloxacin (Ciprofloxacin Hcl) 1 drop L EYE Q2HR SUE Last Admin: 07/11/18 07:53 Dose: 1 drop Clonidine (Catapres) 0.2 mg PO BID [facility] Last Admin: 07/11/18 07:53 Dose: 0.2 mg Erythromycin (Erythromycin Base 0.5% Oint) 0 gm TOP Q6HR [facility] Last Admin: 07/11/18 05:59 Dose: 1 strip Fenofibrate (Tricor) 145 mg PO DAILY [facility] Last Admin: 07/11/18 07:54 Dose: 145 mg Guaifenesin (Robitussin Sf) 200 mg PO Q4H PRN PRN Reason: Cough Heparin Sodium (Porcine) (Heparin) 5,000 units SC BID [facility] Last Admin: 07/11/18 07:52 Dose: 5,000 units Hydralazine HCl (Apresoline) 5 mg SLOW IVP Q6H PRN PRN Reason: Blood Pressure Last Admin: 07/10/18 04:29 Dose: 5 mg Hydralazine HCl (Apresoline) 25 mg PO TID [facility] Labetalol HCl (Normodyne) 10 mg SLOW IVP Q4H PRN PRN Reason: SBP > 180 and HR >/= 70 Loperamide HCl (Imodium) 2 mg PO PRN PRN PRN Reason: Diarrhea/Loose Stools Loratadine (Claritin) 10 mg PO DAILYPRN PRN PRN Reason: Sinus Symptoms Last Admin: 07/09/18 09:31 Dose: 10 mg Metoclopramide HCl (Reglan) 5 mg IVP Q4H PRN PRN Reason: Nausea Last Admin: 07/10/18 07:55 Dose: 5 mg Mineral Oil/White Petrolatum (Eucerin Cream) 0 gm TOP BIDPRN PRN PRN Reason: Dry Skin Morphine Sulfate (Morphine) 2 mg SLOW IVP Q4H PRN PRN Reason: Pain Last Admin: 07/11/18 04:02 Dose: 2 mg Pantoprazole Sodium (Protonix) 40 mg PO DAILY [facility] Last Admin: 07/11/18 07:55 Dose: 40 mg Senna/Docusate Sodium (Senokot S) 2 tab PO BID PRN PRN Reason: Constipation Sodium Chloride ([place] Nasal [place] 0.65%) 0 ml EA NARE QIDPRN PRN PRN Reason: Nasal Congestion Sodium Chloride (Flush - Normal Saline) 10 ml IVF Q12HR [facility] Last Admin: 07/11/18 07:55 Dose: Not Given Sodium Chloride (Flush - Normal Saline) 10 ml IVF PRN PRN PRN Reason: Saline Flush Thiamine HCl (Thiamine) 100 mg PO DAILY SUE Last Admin: 07/11/18 07:53 Dose: 100 mg Throat Lozenges (Cepastat Lozenges) 1 arin PO Q2H PRN PRN Reason: Sore Throat Zolpidem Tartrate (Ambien) 5 mg PO HSPRN PRN PRN Reason: Insomnia
--- NOTE | 2018-07-11 15:10 | PRG ---
DATE OF SERVICE: 07/11/2018 SUBJECTIVE: A 63-year-old gentleman, being seen for acute kidney injury. The patient denied any nausea, vomiting, or chest pain. OBJECTIVE: CONSTITUTIONAL: Awake, alert, in no acute distress. VITAL SIGNS: Afebrile. Pulse 60, breathing 16, blood pressure 172/94. GENERAL APPEARANCE AND MENTAL STATUS: Fair. HEAD/NECK: Normocephalic. Atraumatic. EYES: EOMI. No deformity. EARS: Clear. No ulcers. NOSE: Intact. No lesions. MOUTH: Clear. No discharge. THROAT: Clear. No exudate. LUNGS: Clear. No crackles. CARDIAC: S1, S2. No rub. ABDOMEN: Benign. Bowel sounds positive. GENITALIA/RECTUM: Go absent. BACK/EXTREMITIES: Edema 0+. NEUROLOGICAL: Alert and motor intact. SKIN: LYMPHATICS: LABORATORY DATA: Labs show hemoglobin 12.6 and creatinine of 4.7. ASSESSMENT AND PLAN: 1. Chronic kidney disease, stage 5 with improvement in creatinine. The patient remains nonoliguric. We will plan dialysis. 2. Hypertension. Start Procardia 30 mg daily. 3. Anemia, stable. 4. Medication based on GFR, appropriate. I will set up outpatient dialysis. Job ID: [id number]
[2018-07-11] MEDS: hydrALAZINE 25 MG TAB PO SCH ×2 (15:19→20:39)
[2018-07-12] MEDS: Morphine 4 MG/ML VIAL SLOW IVP PRN ×6 (00:25→20:40)
[2018-07-12] MEDS: Erythromycin Base 0.5% Oint 1 GM TUBE TOP SCH ×4 (00:31→18:15)
--- NOTE | 2018-07-12 07:52 | PDOC.PN ---
- Subjective Encounter Start Date: 07/12/18 Encounter Start Time: 08:30 Subjective: Patient reports a little constipation. Feels "bad all over" but no -: specific complaints. Producing some urine. - Objective Resuscitation Status - Order Detail: 07/07/18 04:22 Resuscitation Status Routine Resuscitation Status: FULL: Full Resuscitation MAR Reviewed: Yes Vital Signs & Weight: Vital Signs (12 hours) Temp Pulse Resp BP BP BP Pulse Ox 07/12/18 04:00 97.8 F 61 18 153/90 H 100 07/12/18 00:00 97.8 F 52 L 18 161/95 H 98 07/11/18 21:16 67 176/99 H 07/11/18 20:39 70 186/96 H 07/11/18 20:00 95 Weight Admit Weight 218 lb 12.8 oz Weight 218 lb 12.8 oz I&O: 07/11/18 07/12/18 07/13/18 06:59 06:59 06:59 Intake Total 3000 3375 Output Total 2050 3450 Balance 950 -75 Result Diagrams: 07/12/18 07:32 07/12/18 07:32 Phys Exam - Physical Examination Constitutional: NAD HEENT: moist MMs Respiratory: no wheezing, no rales, no rhonchi Cardiovascular: RRR, no significant murmur Gastrointestinal: soft, non-tender, positive bowel sounds Neurological: non-focal, moves all 4 limbs Psychiatric: normal affect, A&O x 3 Dx/Plan (1) Acute kidney failure Status: Acute Comment: Creatinine not improving, will need dialysis. Dr. Torres plans to arrange outpatient dialysis. (2) Ethylene glycol poisoning Code(s): T52.8X1A - TOXIC EFFECT OF ORGANIC SOLVENTS, ACCIDENTAL, INIT Status : Resolved (3) High anion gap metabolic acidosis Code(s): E87.2 - ACIDOSIS Status: Acute (4) H/O: CVA (cerebrovascular accident) Code(s): Z86.73 - PRSNL HX OF TIA (TIA), AND CEREB INFRC W/O RESID DEFICITS Status: Chronic (5) HTN (hypertension) Code(s): I10 - ESSENTIAL (PRIMARY) HYPERTENSION Status: Chronic Qualifiers: Comment: Titrate Hydralazine up to control BP (6) Acute bacterial conjunctivitis Code(s): H10.30 - UNSPECIFIED ACUTE CONJUNCTIVITIS, UNSPECIFIED EYE Status: Acute Qualifiers: Laterality: left Qualified Code(s): H10.32 - Unspecified acute conjunctivitis, left eye - Plan cont current plan of care, DVT proph w/heparin * . - Discharge Day Encounter end time: 08:45
[2018-07-12 08:12] LABS: Hemoglobin 12.8 g/dL (14.0-18.0)
[2018-07-12 08:18] LABS: Anion Gap 15 mmol/L (10-20); BUN (Urea Nitrogen) 27 mg/dL (8.4-25.7); Calc. Creatinine Clearance 23 mL/min (70-130); Calcium 8.8 mg/dL (7.8-10.44); Carbon Dioxide 22 mmol/L (23-31); Chloride 106 mmol/L (98-107); Estimated GFR-MDRD 13; Glucose 92 mg/dL (80-115); Potassium 4.4 mmol/L (3.5-5.1); Sodium 139 mmol/L (136-145)
[2018-07-12] MEDS: Fenofibrate Nanocrystallized 145 MG TAB PO SCH (08:28)
[2018-07-12] MEDS: Amlodipine 10 MG TAB PO SCH (08:28)
[2018-07-12] MEDS: Heparin 5,000 UNITS/ML VIAL SC SCH ×2 (08:29→20:36)
[2018-07-12] MEDS: cloNIDine 0.2 MG TAB PO SCH ×2 (08:32→20:36)
[2018-07-12] MEDS: hydrALAZINE 25 MG TAB PO SCH ×3 (08:32→20:36)
--- NOTE | 2018-07-12 10:38 | PRG ---
DATE OF SERVICE: 07/12/2018 SUBJECTIVE: A 63-year-old gentleman being seen for acute kidney injury. The patient denies nausea, vomiting or chest pain. The patient is making urine. OBJECTIVE: CONSTITUTIONAL: Awake, alert, in no acute distress. VITAL SIGNS: Afebrile. Pulse 61, breathing 16, blood pressure 179/94. GENERAL APPEARANCE AND MENTAL STATUS: Fair. HEAD/NECK: Normocephalic. Atraumatic. EYES: EOMI. No deformity. EARS: Clear. No ulcers. NOSE: Intact. No lesions. MOUTH: Clear. No discharge. THROAT: Clear. No exudate. LUNGS: Clear. No crackles. CARDIAC: S1, S2. No rub. ABDOMEN: Benign. Bowel sounds positive. GENITALIA/RECTUM: Go absent. BACK/EXTREMITIES: Edema 0+.NEUROLOGICAL: Alert and motor intact. LABORATORY DATA: Today show hemoglobin 12.8. Creatinine 4.6. ASSESSMENT AND PLAN: 1. Acute kidney injury with chronic kidney disease, stage 5. Creatinine has plateaued. We will hold off on dialysis. The patient is nonoliguric. 2. Hypertension. Would recommend adding low-dose beta-nieves to the current regimen to control blood pressure. 3. Anemia, stable. Medication based on glomerular filtration rate appropriate. Urine, alcohol level is nondetectable. Job ID: [id number]
--- NOTE | 2018-07-12 18:29 | EKG ---
Test Reason : INGESTION Blood Pressure : / mmHG Vent. Rate : 085 BPM Atrial Rate : 085 BPM P-R Int : 138 ms QRS Dur : 092 ms QT Int : 386 ms P-R-T Axes : 020 -23 057 degrees QTc Int : 459 ms Normal sinus rhythm Normal ECG Confirmed by POLI SMITH DO [id number]), science editor CONCETTA GALLOWAY ([id number]) on 07/12/2018 6:29:10 PM Referred By: Confirmed By:POLI SMITH DO
[2018-07-12] MEDS: Docusate 100 MG CAP PO SCH (20:35)
[2018-07-13] MEDS: Erythromycin Base 0.5% Oint 1 GM TUBE TOP SCH ×4 (00:29→18:07)
[2018-07-13] MEDS: Morphine 4 MG/ML VIAL SLOW IVP PRN ×6 (00:40→20:29)
[2018-07-13] MEDS: Amlodipine 10 MG TAB PO SCH (08:35)
[2018-07-13] MEDS: hydrALAZINE 25 MG TAB PO SCH ×3 (08:35→20:20)
[2018-07-13] MEDS: Fenofibrate Nanocrystallized 145 MG TAB PO SCH (08:35)
[2018-07-13] MEDS: Docusate 100 MG CAP PO SCH ×2 (08:35→20:21)
[2018-07-13] MEDS: cloNIDine 0.2 MG TAB PO SCH ×2 (08:35→20:21)
[2018-07-13] MEDS: Heparin 5,000 UNITS/ML VIAL SC SCH ×2 (08:35→20:21)
[2018-07-13 12:59] LABS: Anion Gap 16 mmol/L (10-20); BUN (Urea Nitrogen) 43 mg/dL (8.4-25.7); Calc. Creatinine Clearance 22 mL/min (70-130); Calcium 9.1 mg/dL (7.8-10.44); Carbon Dioxide 22 mmol/L (23-31); Chloride 106 mmol/L (98-107); Estimated GFR-MDRD 12; Glucose 88 mg/dL (80-115); Potassium 4.7 mmol/L (3.5-5.1); Sodium 139 mmol/L (136-145)
--- NOTE | 2018-07-13 14:11 | PRG ---
DATE OF SERVICE: 07/13/2018 SUBJECTIVE: This is a 63-year-old gentleman being seen for acute kidney injury. The patient denied any nausea, vomiting, or chest pain. OBJECTIVE: CONSTITUTIONAL: On examination, the patient is awake and alert. VITAL SIGNS: Afebrile, pulse 56, breathing 16, and blood pressure 125/78. GENERAL APPEARANCE AND MENTAL STATUS: Fair. HEAD/NECK: Normocephalic. Atraumatic. EYES: EOMI. No deformity. EARS: Clear. No ulcers. NOSE: Intact. No lesions. MOUTH: Clear. No discharge. THROAT: Clear. No exudate. LUNGS: Clear. No crackles. CARDIAC: S1, S2. No rub. ABDOMEN: Benign. Bowel sounds positive. GENITALIA/RECTUM: Go absent. BACK/EXTREMITIES: Edema 0+. NEUROLOGICAL: Alert and motor intact. LABORATORY DATA: Labs show hemoglobin 12.8. Creatinine 4.87. ASSESSMENT AND PLAN: 1. Chronic kidney disease stage 5 with progressive rise in creatinine. We will plan dialysis tomorrow if renal function does not improve. 2. Hypertension, stable. 3. Anemia, stable. 4. Medications based on glomerular filtration rate are appropriate. Job ID: [id number]
--- NOTE | 2018-07-13 14:32 | PDOC.PN ---
- Subjective Encounter Start Date: 07/13/18 Encounter Start Time: 14:30 Subjective: f/u for GISELA/CKD with ingestion of ethylene glycol. Overall feels ok -: with fluctuating renal function. - Objective Resuscitation Status - Order Detail: 07/07/18 04:22 Resuscitation Status Routine Resuscitation Status: FULL: Full Resuscitation MAR Reviewed: Yes Vital Signs & Weight: Vital Signs (12 hours) Temp Pulse Resp BP BP BP Pulse Ox 07/13/18 11:42 98.4 F 53 L 20 125/78 100 07/13/18 08:35 53 L 157/95 H 07/13/18 08:20 97.9 F 53 L 18 157/97 H 100 07/13/18 08:00 100 Weight Admit Weight 218 lb 12.8 oz Weight 218 lb 12.8 oz I&O: 07/12/18 07/13/18 07/14/18 06:59 06:59 06:59 Intake Total 3375 1500 Output Total 3450 1700 Balance -75 -200 Result Diagrams: 07/12/18 07:32 07/13/18 12:14 Additional Labs: Laboratory Tests 07/07/18 07/07/18 07/09/18 03:28 11:04 08:35 Creatinine Phosphorus Ethylene Glycol 49 H 19 None Detected 07/10/18 07/11/18 07/11/18 07:54 07:39 07:39 Creatinine 3.83 H 4.74 H 4.71 H Phosphorus 4.1 Ethylene Glycol 07/12/18 07:32 Creatinine 4.65 H Phosphorus Ethylene Glycol Phys Exam - Physical Examination Constitutional: NAD HEENT: PERRLA, sclera anicteric, oral pharynx no lesions Neck: no nodes, no JVD, supple, full ROM Respiratory: no wheezing, no rales, no rhonchi, clear to auscultation bilateral S1, S2 Cardiovascular: RRR, no significant murmur, no rub, gallop Gastrointestinal: soft, non-tender, no distention, positive bowel sounds R AKA Musculoskeletal: no edema, pulses present Neurological: normal sensation, moves all 4 limbs Psychiatric: A&O x 3 Skin: normal turgor, cap refill <2 seconds Dx/Plan (1) Acute kidney failure Status: Acute Comment: Renal function continues to decline, likely will need HD (2) Ethylene glycol poisoning Code(s): T52.8X1A - TOXIC EFFECT OF ORGANIC SOLVENTS, ACCIDENTAL, INIT Status : Acute Comment: ? intentional event, may consider [facility] evaluation (3) Falls frequently Code(s): R29.6 - REPEATED FALLS Status: Acute Comment: PT/OT for functional assessment (4) High anion gap metabolic acidosis Code(s): E87.2 - ACIDOSIS Status: Acute Comment: Secondary to ethylene glycol ingestion (5) HTN (hypertension) Code(s): I10 - ESSENTIAL (PRIMARY) HYPERTENSION Status: Chronic Qualifiers: Comment: Continue Norvasc, Hydralazine and Clonidine - Plan PT/OT, manager social work, out of bed/ambulate Stable overall -: Likely will need HD given creatinine trend -: OOB with PT -: Continue current BP regimen -: AM lab: BMP * .
[2018-07-14] MEDS: Morphine 4 MG/ML VIAL SLOW IVP PRN ×3 (00:08→09:00)
[2018-07-14] MEDS: Erythromycin Base 0.5% Oint 1 GM TUBE TOP SCH ×4 (00:10→17:49)
[2018-07-14 07:15] LABS: Anion Gap 18 mmol/L (10-20); BUN (Urea Nitrogen) 50 mg/dL (8.4-25.7); Calc. Creatinine Clearance 23 mL/min (70-130); Calcium 9.3 mg/dL (7.8-10.44); Carbon Dioxide 20 mmol/L (23-31); Chloride 105 mmol/L (98-107); Estimated GFR-MDRD 12; Glucose 98 mg/dL (80-115); Potassium 5.1 mmol/L (3.5-5.1); Sodium 138 mmol/L (136-145)
[2018-07-14] MEDS: hydrALAZINE 25 MG TAB PO SCH ×3 (08:57→20:59)
[2018-07-14] MEDS: Amlodipine 10 MG TAB PO SCH (08:57)
[2018-07-14] MEDS: cloNIDine 0.2 MG TAB PO SCH ×2 (08:58→20:59)
[2018-07-14] MEDS: Docusate 100 MG CAP PO SCH ×2 (08:58→20:59)
[2018-07-14] MEDS: Fenofibrate Nanocrystallized 145 MG TAB PO SCH (08:58)
[2018-07-14] MEDS: Heparin 5,000 UNITS/ML VIAL SC SCH ×2 (08:59→21:00)
--- NOTE | 2018-07-14 10:18 | PRG ---
DATE OF SERVICE: 07/14/2018 SUBJECTIVE: A 63-year-old gentleman, being seen for acute kidney injury. The patient denies any nausea, vomiting, or chest pain. OBJECTIVE: CONSTITUTIONAL: The patient is awake, alert, in no acute distress. VITAL SIGNS: Afebrile, pulse 61, breathing 16, blood pressure 157/88. GENERAL APPEARANCE AND MENTAL STATUS: Fair. HEAD/NECK: Normocephalic. Atraumatic. EYES: EOMI. No deformity. EARS: Clear. No ulcers. NOSE: Intact. No lesions. MOUTH: Clear. No discharge. THROAT: Clear. No exudate. LUNGS: Clear. No crackles. CARDIAC: S1, S2. No rub. ABDOMEN: Benign. Bowel sounds positive. GENITALIA/RECTUM: Go absent. BACK/EXTREMITIES: Edema 0+. NEUROLOGICAL: Alert and motor intact. SKIN: LYMPHATICS: LABORATORY DATA: Labs show hemoglobin 12.8. Creatinine 4.7. ASSESSMENT AND PLAN: 1. Chronic kidney disease, stage 5, stable. 2. Hypertension, stable. 3. Anemia, stable. 4. No urgent indication for dialysis today. Job ID: [id number]
--- NOTE | 2018-07-14 12:32 | PDOC.PN ---
- Subjective Encounter Start Date: 07/14/18 Encounter Start Time: 12:30 Subjective: f/u for GISELA secondary to ingesting ethylene glycol. Received HD initially -: now monitored serially but not requiring urgent repeat HD. Feels ok -: overall. Not ambulating currently. - Objective Resuscitation Status - Order Detail: 07/07/18 04:22 Resuscitation Status Routine Resuscitation Status: FULL: Full Resuscitation MAR Reviewed: Yes Vital Signs & Weight: Vital Signs (12 hours) Temp Pulse Resp BP Pulse Ox 07/14/18 08:57 61 07/14/18 07:38 97.6 F 61 18 157/88 H 99 Weight Admit Weight 218 lb 12.8 oz Weight 218 lb 12.8 oz I&O: 07/13/18 07/14/18 07/15/18 06:59 06:59 06:59 Intake Total 1500 1740 Output Total 1700 1825 Balance -200 -85 Result Diagrams: 07/12/18 07:32 07/14/18 06:29 Additional Labs: Laboratory Tests 07/07/18 07/07/18 07/09/18 03:28 11:04 08:35 Creatinine Phosphorus Ethylene Glycol 49 H 19 None Detected 07/10/18 07/11/18 07/11/18 07:54 07:39 07:39 Creatinine 3.83 H 4.74 H 4.71 H Phosphorus 4.1 Ethylene Glycol 07/12/18 07:32 Creatinine 4.65 H Phosphorus Ethylene Glycol Phys Exam - Physical Examination Constitutional: NAD HEENT: PERRLA, sclera anicteric, oral pharynx no lesions Neck: no nodes, no JVD, supple, full ROM Respiratory: no wheezing, no rales, no rhonchi, clear to auscultation bilateral S1, S2 Cardiovascular: RRR, no significant murmur, no rub, gallop Gastrointestinal: soft, non-tender, no distention, positive bowel sounds R AKA Musculoskeletal: pulses present, edema present Neurological: normal sensation, moves all 4 limbs Psychiatric: A&O x 3 Skin: normal turgor, cap refill <2 seconds Dx/Plan (1) Acute kidney failure Status: Acute Comment: Renal function variable, currently stabilizing but may need future HD, serial monitoring, avoid nephrotoxic meds and contrast exposure (2) Ethylene glycol poisoning Code(s): T52.8X1A - TOXIC EFFECT OF ORGANIC SOLVENTS, ACCIDENTAL, INIT Status : Acute Comment: ? intentional event, may consider MR evaluation (3) Falls frequently Code(s): R29.6 - REPEATED FALLS Status: Acute Comment: PT/OT for functional assessment (4) High anion gap metabolic acidosis Code(s): E87.2 - ACIDOSIS Status: Acute Comment: Secondary to ethylene glycol ingestion, resolved (5) HTN (hypertension) Code(s): I10 - ESSENTIAL (PRIMARY) HYPERTENSION Status: Chronic Qualifiers: Comment: Continue Norvasc, Hydralazine and Clonidine - Plan PT/OT, out of bed/ambulate Stable currently -: Continue current BP regimen -: OOB/mobilize -: D/C Morphine sulfate -: AM lab: BMP * Home in am 07/15/18
[2018-07-14] MEDS: HYDROcodone/Acetaminophen 10/325 mg Tablet PO PRN ×2 (12:52→21:02)
[2018-07-15] MEDS: Erythromycin Base 0.5% Oint 1 GM TUBE TOP SCH ×3 (00:10→12:58)
[2018-07-15] MEDS: cloNIDine 0.2 MG TAB PO SCH (08:28)
[2018-07-15] MEDS: Amlodipine 10 MG TAB PO SCH (08:28)
[2018-07-15] MEDS: Fenofibrate Nanocrystallized 145 MG TAB PO SCH (08:29)
[2018-07-15] MEDS: Docusate 100 MG CAP PO SCH (08:29)
[2018-07-15] MEDS: Heparin 5,000 UNITS/ML VIAL SC SCH (08:29)
[2018-07-15] MEDS: hydrALAZINE 25 MG TAB PO SCH (08:36)
[2018-07-15] MEDS: HYDROcodone/Acetaminophen 10/325 mg Tablet PO PRN (08:42)
[2018-07-15 09:03] LABS: Anion Gap 15 mmol/L (10-20); BUN (Urea Nitrogen) 52 mg/dL (8.4-25.7); Calc. Creatinine Clearance 26 mL/min (70-130); Calcium 9.5 mg/dL (7.8-10.44); Carbon Dioxide 23 mmol/L (23-31); Chloride 104 mmol/L (98-107); Estimated GFR-MDRD 14; Glucose 86 mg/dL (80-115); Potassium 4.8 mmol/L (3.5-5.1); Sodium 137 mmol/L (136-145)
--- NOTE | 2018-07-15 09:23 | DIS ---
DATE OF ADMISSION: 07/07/2018 DATE OF DISCHARGE: 07/15/2018 DISCHARGE DIAGNOSES: 1. Acute kidney injury secondary to ethylene glycol toxicity. 2. Ethylene glycol poisoning. 3. Frequent falls. 4. Anion gap metabolic acidosis secondary to #1 and #2, resolved. 5. Hypertension, stable. 6. Chronic kidney disease stage 3. CONSULTATIONS: 1. Dr. Torres with Nephrology Service. 2. Dr. Mcclendon with Pulmonology/Critical Care Service. PERTINENT LABORATORY DATA AND X-RAY FINDINGS: Potassium ranged between 4.1 to 5.1. Creatinine ranged between 2.06 to 4.87. Estimated GFR ranged between 12 to 33. Lactic acid level ranged between 1.4 to 3.7, phosphorus ranged between 3.3 to 4.1, magnesium level 1.9. CBC showed a white blood cell count ranged between 6.7 to 13.2, hemoglobin ranged between 12.6 to 15.5. Urine drug screen dated 07/07/2018 showed ethylene glycol level ranged between 19 to 49. Plasma alcohol level less than 10. Hepatitis B surface antigen and antibody nonreactive on 07/07/2018. CT of the brain without contrast dated on 07/07/2018 showed no acute intracranial process. Portable chest x-ray dated on 07/07/2018 showed no acute cardiopulmonary process. HOSPITAL COURSE: The patient was initially admitted after presenting with increased dizziness after apparently ingesting ethylene glycol accidentally. The patient underwent evaluation including drug screen and ethylene glycol sampling showing elevated level as stated previously. The patient was also noted with an anion gap metabolic acidosis consistent with acute kidney injury and ethylene glycol toxicity. The patient was initially managed with IV fluids and treated with fomepizole. The patient was evaluated by the Nephrology Service and placed in the Critical Care Unit. The patient underwent subsequent temporary hemodialysis catheter placement and underwent urgent hemodialysis at the direction of the Nephrology Service. The patient clinically stabilized and was monitored serially with repeat creatinine throughout the hospital course. The patient stabilized metabolically in regard to potassium, phosphorus, and magnesium levels. The patient continued to clinically improve throughout the hospital course with creatinine stabilizing in the 4.5 to 4.8 range after serial monitoring. The patient currently without need for ongoing hemodialysis with recommendations by the Nephrology Service for outpatient monitoring of renal function. I have examined the patient at the time of discharge and discussed followup instructions. The patient verbalized understanding and agreement and ready for discharge on 07/15/2018. DISCHARGE MEDICATIONS: 1. Amlodipine 10 mg p.o. daily. 2. Clonidine 0.2 mg p.o. b.i.d. 3. Fenofibrate 145 mg p.o. daily. 4. [place] 10/325 mg one tablet p.o. q.8 hours p.r.n. pain. 5. Testosterone 200 mg intramuscularly q.7 days. 6. Hydralazine 50 mg p.o. t.i.d. FOLLOW UP: The patient may follow up with his primary care provider, Dr. Pearson within 7 days of discharge. The patient may also follow up with Dr. Maurilio Torres within 7 days of discharge. CONDITION ON DISCHARGE: Fair. ACTIVITY: Ad-ellis. DIET: Heart healthy and renal. CODE STATUS: Full. SPECIAL INSTRUCTIONS: Repeat basic metabolic profile in 3 to 5 days after discharge. DISPOSITION: Discharged to home on 07/15/2018. Total time preparing and coordinating discharge, 35 minutes. Job ID: [id number]
--- NOTE | 2018-07-15 13:11 | PRG ---
DATE OF SERVICE: 07/15/2018 SUBJECTIVE: A 63-year-old gentleman being seen for an acute kidney injury. The patient denies nausea, vomiting, or chest pain. OBJECTIVE: See above. CONSTITUTIONAL: The patient is awake and alert, in no acute distress. VITAL SIGNS: Afebrile, pulse 68, breathing 16, blood pressure 151/80. GENERAL APPEARANCE AND MENTAL STATUS: Fair. HEAD/NECK: Normocephalic. Atraumatic. EYES: EOMI. No deformity. EARS: Clear. No ulcers. NOSE: Intact. No lesions. MOUTH: Clear. No discharge. THROAT: Clear. No exudate. LUNGS: Clear. No crackles. CARDIAC: S1, S2. No rub. ABDOMEN: Benign. Bowel sounds positive. GENITALIA/RECTUM: Go absent. BACK/EXTREMITIES: Edema 0+. NEUROLOGICAL: Alert and motor intact. SKIN: LYMPHATICS: LABORATORY DATA: Labs show creatinine is 4.2. ASSESSMENT AND PLAN: 1. Stage 4 chronic kidney disease, stable. 2. Hypertension with anemia stable. 3. No indication for dialysis today. The patient will follow up with me in 1 week. Job ID: [id number]
[2018-07-15 14:12] VITALS: BP 114/73; TEMP 98.1
== END 2018-07-15 14:08 | disposition home or self-care (01) | DRG 917 ==
LOC: ERS 01:36 → ERHOLD 04:51 → IMCU/EMU 17:33 → T4-A 07-09 11:20
PROVIDERS: ADMIT Internal Medicine; ATTEND Internal Medicine
PROC: 5A1D70Z Performance of Urinary Filtration, Intermittent, Less than 6 Hours Per Day (ICD-10-PCS; 2018-07-07)
PROC: 5A1D70Z Performance of Urinary Filtration, Intermittent, Less than 6 Hours Per Day (ICD-10-PCS; 2018-07-08)
PROC: 5A1D70Z Performance of Urinary Filtration, Intermittent, Less than 6 Hours Per Day (ICD-10-PCS; principal; 2018-07-09)
DX: T51.8X1A Toxic effect of other alcohols, accidental (unintentional), initial encounter (principal); N17.0 Acute kidney failure with tubular necrosis; E87.2 Acidosis; Y92.009 Unspecified place in unspecified non-institutional (private) residence as the place of occurrence of the external cause; E78.5 Hyperlipidemia, unspecified; I12.9 Hypertensive chronic kidney disease with stage 1 through stage 4 chronic kidney disease, or unspecified chronic kidney disease; H10.32 Unspecified acute conjunctivitis, left eye; R29.6 Repeated falls; E87.5 Hyperkalemia; N18.3 Chronic kidney disease, stage 3 (moderate); D64.9 Anemia, unspecified; Z86.73 Personal history of transient ischemic attack (TIA), and cerebral infarction without residual deficits; Z90.49 Acquired absence of other specified parts of digestive tract; Z89.611 Acquired absence of right leg above knee
CPT/HCPCS: 36415; 70450; 71045; 80048; 80053; 80069; 80306; 80307; 81001; 82570; 82693; 82805; 83605; 83735; 83930; 84100; 84300; 85014; 85018; 85025; 86706; 87340; 90935; 93005; 96361; 96365; 96367; 96375; 96376; A4216; C1752; C9113; G0257; G8978-GP-CJ; G8979-GP-CJ; G8980-GP-CJ; J0360; J1451; J1644; J2270; J2765; J2997; J3411; J3415; J7050

== ENCOUNTER 2018-07-15 18:40 | Emergency (ER) | payer OTHER | END 2018-07-15 20:35 | disposition home or self-care (01) | LOC: ERS 18:40 | DX: R51 Headache (principal); I10 Essential (primary) hypertension; E78.5 Hyperlipidemia, unspecified; Z86.73 Personal history of transient ischemic attack (TIA), and cerebral infarction without residual deficits; Z79.899 Other long term (current) drug therapy | CPT/HCPCS: 99283 ==

== ENCOUNTER 2018-07-16 14:00 | Emergency (ER) | payer OTHER ==
[2018-07-16 16:40] LABS: #Eosinphils 0.2 thou/uL (0.0-0.7); #Lymphocytes 1.7 thou/uL (1.20-3.40); #Monocytes 0.5 thou/uL (0.11-0.59); #Neutrophils 3.8 thou/uL (1.40-6.50); %Basophils 0.6 % (0.0-1.0); %Eosinophils 3.4 % (0.0-10.0); %Lymphocytes 27.2 % (21.0-51.0); %Monocytes 7.8 % (0.0-10.0); Hemoglobin 13.4 g/dL (14.0-18.0); Mean Corpuscular HGB CONC 33.7 g/dL (32.0-36.0); Mean Platelet Volume 7.3 fL (7.4-10.4); Platelet Count 335 thou/uL (130-400); RBC Distribution Width 12.4 % (11.5-14.5); Red Blood Cell (RBC) Count 4.31 mill/uL (4.70-6.10); White Blood Cell (WBC) Count 6.2 thou/uL (4.8-10.8)
[2018-07-16 17:11] LABS: ALT (SGPT) 18 U/L (8-55); AST (SGOT) 23 U/L (5-34); Alkaline Phosphatase 68 U/L (40-150); Anion Gap 18 mmol/L (10-20); BUN (Urea Nitrogen) 60 mg/dL (8.4-25.7); Bilirubin, Total 0.2 mg/dL (0.2-1.2); Calc. Creatinine Clearance 0 mL/min (70-130); Calcium 9.5 mg/dL (7.8-10.44); Carbon Dioxide 18 mmol/L (23-31); Chloride 109 mmol/L (98-107); Estimated GFR-MDRD 16; Globulin 4.5 g/dL (2.4-3.5); Glucose 86 mg/dL (80-115); Potassium 4.9 mmol/L (3.5-5.1); Protein, Total 8.5 g/dL (5.8-8.1); Sodium 140 mmol/L (136-145)
[2018-07-16 18:47] LABS: Bilirubin Negative (Negative); Blood, Urine Negative (Negative); Clarity CLEAR (Clear); Glucose, Urine (Dipstick) Negative (Negative); Leukocyte Negative (Negative); Nitrite Negative (Negative); Protein, Urine (Dipstick) Negative (Neg-Trace); Urobilinogen 0.2 mg/dL (0.2-1.0)
== END 2018-07-16 19:34 | disposition home or self-care (01) ==
LOC: ERS 14:00
DX: N19 Unspecified kidney failure (principal); I10 Essential (primary) hypertension; Z86.73 Personal history of transient ischemic attack (TIA), and cerebral infarction without residual deficits; E78.5 Hyperlipidemia, unspecified; Z79.899 Other long term (current) drug therapy
CPT/HCPCS: 36415; 80053; 81003; 85025; 99283

== ENCOUNTER 2018-07-26 23:38 | Emergency (ER) | payer OTHER ==
[2018-07-27 00:53] LABS: #Basophils 0.1 thou/uL (0.0-0.2); #Eosinphils 0.3 thou/uL (0.0-0.7); #Lymphocytes 2.4 thou/uL (1.20-3.40); #Monocytes 0.6 thou/uL (0.11-0.59); #Neutrophils 3.5 thou/uL (1.40-6.50); %Basophils 0.8 % (0.0-1.0); %Eosinophils 4.2 % (0.0-10.0); %Lymphocytes 35.2 % (21.0-51.0); %Monocytes 8.8 % (0.0-10.0); Hemoglobin 12.9 g/dL (14.0-18.0); Mean Corpuscular HGB CONC 34.8 g/dL (32.0-36.0); Mean Corpuscular Hemoglobin 31.1 pg (27.0-31.0); Mean Corpuscular Volume 89.5 fL (78.0-98.0); Mean Platelet Volume 7.6 fL (7.4-10.4); Platelet Count 327 thou/uL (130-400); Red Blood Cell (RBC) Count 4.15 mill/uL (4.70-6.10); White Blood Cell (WBC) Count 6.9 thou/uL (4.8-10.8)
[2018-07-27 01:14] LABS: ALT (SGPT) 17 U/L (8-55); AST (SGOT) 25 U/L (5-34); Alkaline Phosphatase 69 U/L (40-150); Anion Gap 14 mmol/L (10-20); BUN (Urea Nitrogen) 35 mg/dL (8.4-25.7); Bilirubin, Total 0.2 mg/dL (0.2-1.2); Calc. Creatinine Clearance 0 mL/min (70-130); Calcium 9.1 mg/dL (7.8-10.44); Carbon Dioxide 24 mmol/L (23-31); Chloride 105 mmol/L (98-107); Estimated GFR-MDRD 28; Globulin 4.2 g/dL (2.4-3.5); Glucose 99 mg/dL (80-115); Potassium 4.2 mmol/L (3.5-5.1); Protein, Total 8.2 g/dL (5.8-8.1); Sodium 139 mmol/L (136-145)
[2018-07-27] MEDS ORDERED: cloNIDine 0.1 MG TAB ONE (02:10)
[2018-07-27 03:34] LABS: Bilirubin Negative (Negative); Blood, Urine Negative (Negative); Clarity CLEAR (Clear); Glucose, Urine (Dipstick) Negative (Negative); Leukocyte Negative (Negative); Nitrite Negative (Negative); Protein, Urine (Dipstick) 30 mg/dL (Neg-Trace); Specific Gravity, Urine 1.015 (1.002-1.036)
[2018-07-27 03:37] LABS: Bacteria/HPF None Seen HPF (None Seen); Hyaline Casts/LPF 0-3 HYALINE CAST LPF (0-3 Hyaline); Pathc Cast-AUWi Flag 0.14 (0-2.49); RBC/HPF None Seen HPF (0-3); Squamous Epithelial None Seen HPF (0-3); WBC/HPF None Seen HPF (0-3)
--- NOTE | 2018-07-27 09:23 | RAD ---
PORTABLE CHEST: HISTORY: Back pain. FINDINGS: Lungs are clear. Heart and mediastinum unremarkable. Vasculature normal. IMPRESSION: No acute finding. POS: [facility]
== END 2018-07-27 04:09 | disposition home or self-care (01) ==
LOC: ERS 23:38
DX: R35.0 Frequency of micturition (principal); I10 Essential (primary) hypertension; Z86.73 Personal history of transient ischemic attack (TIA), and cerebral infarction without residual deficits; E78.5 Hyperlipidemia, unspecified
CPT/HCPCS: 36415; 71045; 80053; 81003; 81015; 83880; 84484; 85025; 93005

== ENCOUNTER 2018-07-28 14:01 | Emergency (ER) | payer OTHER ==
[2018-07-28 15:31] LABS: #Basophils 0.1 thou/uL (0.0-0.2); #Eosinphils 0.2 thou/uL (0.0-0.7); #Lymphocytes 1.8 thou/uL (1.20-3.40); #Monocytes 0.6 thou/uL (0.11-0.59); #Neutrophils 5.3 thou/uL (1.40-6.50); %Basophils 0.9 % (0.0-1.0); %Eosinophils 2.8 % (0.0-10.0); %Monocytes 6.8 % (0.0-10.0); %Neutrophils 66.5 % (42.0-75.0); Hemoglobin 13.1 g/dL (14.0-18.0); Mean Corpuscular HGB CONC 33.9 g/dL (32.0-36.0); Mean Corpuscular Hemoglobin 30.6 pg (27.0-31.0); Mean Corpuscular Volume 90.4 fL (78.0-98.0); Mean Platelet Volume 7.6 fL (7.4-10.4); Platelet Count 305 thou/uL (130-400); RBC Distribution Width 12.1 % (11.5-14.5); Red Blood Cell (RBC) Count 4.28 mill/uL (4.70-6.10)
[2018-07-28 15:57] LABS: Calcium 9.3 mg/dL (7.8-10.44); Chloride 107 mmol/L (98-107); Globulin 3.7 g/dL (2.4-3.5); Glucose 90 mg/dL (80-115); Potassium 4.6 mmol/L (3.5-5.1); Protein, Total 7.7 g/dL (5.8-8.1); Sodium 136 mmol/L (136-145)
[2018-07-28 16:09] LABS: ALT (SGPT) 16 U/L (8-55); AST (SGOT) 23 U/L (5-34); Alkaline Phosphatase 57 U/L (40-150); Anion Gap 15 mmol/L (10-20); BUN (Urea Nitrogen) 28 mg/dL (8.4-25.7); Bilirubin, Total 0.3 mg/dL (0.2-1.2); Calc. Creatinine Clearance 0 mL/min (70-130); Carbon Dioxide 20 mmol/L (23-31); Estimated GFR-MDRD 39; Lipase 32 U/L (8-78)
[2018-07-28 16:41] LABS: Bilirubin Negative (Negative); Blood, Urine Negative (Negative); Clarity CLEAR (Clear); Glucose, Urine (Dipstick) Negative (Negative); Leukocyte Negative (Negative); Nitrite Negative (Negative); Protein, Urine (Dipstick) Trace mg/dL (Neg-Trace); Specific Gravity, Urine 1.013 (1.002-1.036); Urobilinogen 0.2 mg/dL (0.2-1.0)
== END 2018-07-28 17:43 | disposition home or self-care (01) ==
LOC: ERS 14:01
DX: R10.9 Unspecified abdominal pain (principal); I10 Essential (primary) hypertension; Z86.73 Personal history of transient ischemic attack (TIA), and cerebral infarction without residual deficits; Z79.899 Other long term (current) drug therapy
CPT/HCPCS: 36415; 80053; 81003; 83690; 85025; 94760

== ENCOUNTER 2018-07-29 08:19 | Emergency (ER) | payer OTHER ==
[2018-07-29 09:59] LABS: Anion Gap 20 mmol/L (10-20); BUN (Urea Nitrogen) 38 mg/dL (8.4-25.7); Calc. Creatinine Clearance 0 mL/min (70-130); Calcium 9.5 mg/dL (7.8-10.44); Carbon Dioxide 19 mmol/L (23-31); Chloride 104 mmol/L (98-107); Estimated GFR-MDRD 38; Glucose 88 mg/dL (80-115); Potassium 4.5 mmol/L (3.5-5.1); Sodium 138 mmol/L (136-145)
--- NOTE | 2018-07-29 11:21 | ULT ---
BILATERAL RENAL SONOGRAM: Date: 07/29/18 HISTORY: Flank pain. COMPARISON: CT abdomen on 08/18/17. FINDINGS: Right kidney measures 10.4 cm x 6.0 cm. Left kidney measures 11.6 cm x 7.1 cm. There is a lobulated a ppearance of each kidney. There is no evidence of hydronephrosis present. There are two anechoic cyst ic structures seen within the superior pole of the left kidney measuring 2.1 cm and 1.8 cm, respectiv afshin, which were also seen on prior CT examination, likely attributable to small cysts. There is a sub centimeter hypoechoic cystic appearing structure seen at the junction of the mid portion of the super ior pole of the right kidney, which is difficult to characterize on the study due to very small size, but this was also present on prior CT exam. There is no evidence of hydronephrosis. There is an echogenic focus seen within the junction of the m id portion of the superior pole of the left kidney without definitive shadowing. A nonobstructing deneen culus was seen in the mid portion of the left kidney on recent CT exam. No perinephric fluid collection is seen. Urinary bladder is distended and has a normal sonographic appearance. IMPRESSION: 1. Superior pole left renal cyst with difficult to characterize anechoic to hypoechoic cystic struct ure junction of the mid portion and superior pole of the right kidney, which was also seen on recent CT scan examination, statistically also likely represents a cyst. 2. No evidence of hydronephrosis. 3. Echogenic focus mid portion left kidney, which does not definitely demonstrate posterior shadowin g, but a nonobstructing calculus was seen in this region on recent CT scan examination. POS: SHAI
== END 2018-07-29 11:07 | disposition home or self-care (01) ==
LOC: ERS 08:19
DX: R10.9 Unspecified abdominal pain (principal); I10 Essential (primary) hypertension; E78.5 Hyperlipidemia, unspecified; Z86.73 Personal history of transient ischemic attack (TIA), and cerebral infarction without residual deficits; Z79.899 Other long term (current) drug therapy
CPT/HCPCS: 36415; 76770; 80048

== ENCOUNTER 2018-07-29 17:30 | Inpatient (IN) | payer OTHER ==
[~2018-07-29 17:30] MED LIST changes: +Heparin 1,000 UNITS/ML VIAL ONE
[2018-07-29 18:22] LABS: #Eosinphils 0.1 thou/uL (0.0-0.7); #Lymphocytes 2.2 thou/uL (1.20-3.40); #Monocytes 0.8 thou/uL (0.11-0.59); #Neutrophils 5.6 thou/uL (1.40-6.50); %Basophils 0.5 % (0.0-1.0); %Eosinophils 1.2 % (0.0-10.0); %Lymphocytes 25.4 % (21.0-51.0); %Monocytes 9.1 % (0.0-10.0); %Neutrophils 63.8 % (42.0-75.0); Hemoglobin 13.3 g/dL (14.0-18.0); Mean Corpuscular HGB CONC 33.1 g/dL (32.0-36.0); Mean Corpuscular Hemoglobin 30.5 pg (27.0-31.0); Mean Platelet Volume 8.2 fL (7.4-10.4); Platelet Count 318 thou/uL (130-400); Red Blood Cell (RBC) Count 4.37 mill/uL (4.70-6.10); White Blood Cell (WBC) Count 8.7 thou/uL (4.8-10.8)
[2018-07-29 18:25] LABS: Bilirubin Negative (Negative); Blood, Urine Negative (Negative); Clarity CLEAR (Clear); Glucose, Urine (Dipstick) Negative (Negative); Leukocyte Negative (Negative); Nitrite Negative (Negative); Protein, Urine (Dipstick) 30 mg/dL (Neg-Trace); Specific Gravity, Urine 1.011 (1.002-1.036); Urobilinogen 0.2 mg/dL (0.2-1.0)
[2018-07-29 18:28] LABS: Bacteria/HPF None Seen HPF (None Seen); Hyaline Casts/LPF 0-3 HYALINE CAST LPF (0-3 Hyaline); RBC/HPF 0-3 HPF (0-3); Squamous Epithelial None Seen HPF (0-3); WBC/HPF None Seen HPF (0-3)
[2018-07-29 18:36] LABS: Amphetamine Not Detected (NotDetected); Barbiturates Screen Not Detected (NotDetected); Benzodiazepine Screen Not Detected (NotDetected); Cocaine Metabolite Screen Not Detected (NotDetected); Medtox Control Line Valid? VALID (VALID); Medtox Reader # READER 4; Methadone Not Detected (NotDetected); Methamphetamine Not Detected (NotDetected); Opiate Screen Detected (NotDetected); Oxycodone Screen Not Detected (NotDetected); Phencyclidine (PCP) Not Detected (NotDetected); THC/Cannabinoid Screen Not Detected (NotDetected); Tricyclic Screen Not Detected (NotDetected)
[2018-07-29 18:47] LABS: Crystals/HPF 4+ CA OXALATE HPF (Negative)
[2018-07-29 19:00] LABS: Osmolality, Serum 335 mOsm/kg (280-295)
[2018-07-29] MEDS ORDERED: Fomepizole 1.5 GM in Sodium Chloride 0.9% 100 ML IVPB SCH (19:00)
[2018-07-29 19:03] LABS: ALT (SGPT) 16 U/L (8-55); AST (SGOT) 25 U/L (5-34); Acetaminophen Less than 6.0 mcg/mL (10.0-30.0); Albumin 4.2 g/dL (3.4-4.8); Alcohol Less than 10 mg/dL (Less than 10); Alkaline Phosphatase 70 U/L (40-150); BUN (Urea Nitrogen) 34 mg/dL (8.4-25.7); Bilirubin, Total 0.2 mg/dL (0.2-1.2); CK (CPK) 141 U/L (30-200); Calc. Creatinine Clearance 0 mL/min (70-130); Calcium 9.9 mg/dL (7.8-10.44); Carbon Dioxide Less than 8 mmol/L (23-31); Chloride 110 mmol/L (98-107); Estimated GFR-MDRD 35; Globulin 4.2 g/dL (2.4-3.5); Glucose 105 mg/dL (80-115); Potassium 5.1 mmol/L (3.5-5.1); Protein, Total 8.4 g/dL (5.8-8.1); Salicylate Less than 8.0 mg/dL (15.0-30.0); Sodium 141 mmol/L (136-145)
[2018-07-29] MEDS ORDERED: KETAMINE 100 MG/ML (5ML VIAL) ONE (20:00)
[2018-07-29] MEDS ORDERED: Sodium Chloride 0.9% 1,000 ML IV SCH (21:00)
[2018-07-29] MEDS ORDERED: Ondansetron PF 4 MG/2 ML Vial IVP PRN (21:00)
[2018-07-29] MEDS ORDERED: Lorazepam 2 MG/ML VIAL ONE (21:12)
[2018-07-29 22:48] VITALS: BMI 28.8
[2018-07-29] MEDS ORDERED: hydrALAZINE 20 MG/ML VIAL SLOW IVP PRN (23:47)
[2018-07-30] MEDS: Lorazepam 2 MG/ML VIAL SLOW IVP PRN ×4 (00:10→21:37)
[2018-07-30] MEDS ORDERED: diphenhydrAMINE 50 MG/ML VIAL IVP SCH (00:15)
[2018-07-30] MEDS ORDERED: Activase 2 MG VIAL CATH SCH (01:00)
[2018-07-30] MEDS ORDERED: Sterile Water 10 ML VIAL IVP SCH (01:00)
--- NOTE | 2018-07-30 04:25 | CON ---
DATE OF CONSULTATION: REASON FOR CONSULTATION: Ethylene glycol intoxication. HISTORY OF PRESENTING ILLNESS: This is a very pleasant 63-year-old gentleman with a history of acute kidney injury and , who had a drink of ethylene glycol on July 07, presented to the hospital again with intentional ethylene glycol ingestion. The patient can give no further history. PAST MEDICAL HISTORY: 1. Hypertension. 2. MRSA. 3. History of cholecystectomy. 4. Above-knee amputation. 5. Elbow surgery. 6. Shoulder surgery. SOCIAL HISTORY: Multisubstance abuse. ALLERGIES: REVIEWED. HOME MEDICATIONS: Reviewed. REVIEW OF SYSTEMS: Unobtainable. PHYSICAL EXAMINATION: Vital signs reviewed. Awake, alert, in no acute distress. GENERAL APPEARANCE AND MENTAL STATUS: Fair. HEAD/NECK: Normocephalic. Atraumatic. EYES: EOMI. No deformity. EARS: Clear. No ulcers. NOSE: Intact. No lesions. MOUTH: Clear. No discharge. THROAT: Clear. No exudate. LUNGS: Clear. No crackles. CARDIAC: S1, S2. No rub. ABDOMEN: Benign. Bowel sounds positive. GENITALIA/RECTUM: Go absent. BACK/EXTREMITIES: Edema 0+. NEUROLOGICAL: The patient was confused. LABORATORY DATA: Show bicarb less than 8, creatinine of 1.9. ASSESSMENT AND PLAN: 1. Acute kidney injury with a major osmolal gap, we will plan urgent hemodialysis. Risks versus benefits discussed. 2. Metabolic acidosis. Plan dialysis. 3. Ethylene glycol toxicity. Plan dialysis. 4. Overall prognosis is extremely poor. Job ID: [id number]
[2018-07-30 06:10] LABS: Anion Gap 28 mmol/L (10-20); BUN (Urea Nitrogen) 34 mg/dL (8.4-25.7); Calc. Creatinine Clearance 42 mL/min (70-130); Calcium 9.8 mg/dL (7.8-10.44); Carbon Dioxide 9 mmol/L (23-31); Chloride 113 mmol/L (98-107); Estimated GFR-MDRD 27; Glucose 85 mg/dL (80-115); Sodium 145 mmol/L (136-145)
[2018-07-30 07:03] LABS: #Eosinphils 0.1 thou/uL (0.0-0.7); #Lymphocytes 1.3 thou/uL (1.20-3.40); #Monocytes 1.1 thou/uL (0.11-0.59); #Neutrophils 13.5 thou/uL (1.40-6.50); %Basophils 0.3 % (0.0-1.0); %Eosinophils 0.4 % (0.0-10.0); %Lymphocytes 8.2 % (21.0-51.0); %Monocytes 6.8 % (0.0-10.0); %Neutrophils 84.3 % (42.0-75.0); Mean Corpuscular HGB CONC 33.4 g/dL (32.0-36.0); Mean Corpuscular Hemoglobin 30.2 pg (27.0-31.0); Mean Corpuscular Volume 90.2 fL (78.0-98.0); Mean Platelet Volume 8.1 fL (7.4-10.4); Platelet Count 305 thou/uL (130-400); RBC Distribution Width 12.1 % (11.5-14.5); White Blood Cell (WBC) Count 16.1 thou/uL (4.8-10.8)
--- NOTE | 2018-07-30 08:05 | HP ---
PRIMARY CARE DOCTOR: Dr. Madai Pearson. CODE STATUS: Full code. TIME OF EVALUATION: 8:40 p.m. CHIEF COMPLAINT: Altered mental status. HISTORY OF PRESENT ILLNESS: This is a 63-year-old male patient with past medical history of previous intoxication with ethylene glycol, hyperlipidemia. The patient came to the hospital after having change in mental status, it seems the patient intentionally took antifreeze to commit suicide, no clear triggers, no alleviating factors. The patient is intoxicated. He is encephalopathic, unable to obtain any further information from the patient. Symptoms are severe. No alleviating factors. We will place him in the ICU for close monitoring. REVIEW OF SYSTEMS: The patient is encephalopathic. PAST MEDICAL HISTORY: Reported in the HPI. SURGICAL HISTORY: Cholecystectomy, right knee surgeries x7, right elbow surgeries x3, L4-L5 back surgery x6, right [id number] amputation, right shoulder surgery x3, right hand surgery x7. PSYCHIATRIC HISTORY: No previous psych history except for previous possible accidental ingestions for suicide. SOCIAL HISTORY: The patient lives at home alone. No alcohol use. No drug use. No smoking history. FAMILY HISTORY: Reviewed and noncontributory to current presentation. Unable to obtain from the patient since he is encephalopathic. ALLERGIES: TO CODEINE REPORTED. MEDICATIONS: Unknown. Unable to obtain from the patient since he is encephalopathic. PHYSICAL EXAMINATION: VITAL SIGNS: On presentation, blood pressure 98, temperature 95.4, oxygen saturation 98 on room air. GENERAL APPEARANCE: The patient is encephalopathic, disoriented, and mildly agitation. Still stated that he wants to . HEENT: Normal conjunctivae, moist oral mucosa, anicteric. NECK: No JVD. RESPIRATORY: Bilateral air entry. No rales. No wheezing. Symmetric expansion. CARDIOVASCULAR: Normal rate, regular rhythm. No murmurs. No gallops. No edema. ABDOMEN: Soft. Normal bowel sounds. MUSCULOSKELETAL: Baseline range of motion and strength. No tenderness. The patient has right [id number]-[id number] amputation. SKIN: Warm and intact. No burn or rash. No redness. EXTREMITIES: Peripheral pulses are present. Capillary refill seems to be intact. NEURO: The patient has acute encephalopathy, unable to fully explore. PSYCH: The patient is confused, encephalopathic, agitated, anxious. IMAGING DATA: EK-lead EKG shows sinus bradycardia at a rate of 66 and conduction normal, ST-segment is normal, WA interval 140 milliseconds , QRS duration 98 milliseconds, QT . LABORATORY DATA: Laboratory was reviewed. The patient's white count 8.7, hemoglobin 13.3, MCV 92, platelet count 318. Chemistry, sodium 141, potassium 5.1, chloride 110, carbon dioxide was less than 8, anion gap was unable to calculate, creatinine 1.96, serum osmolality 335. ASSESSMENT AND PLAN: The patient will be placed in the IMCU for close monitoring, due to severe severity of illness, with the following medical problems: 1. Acute encephalopathy secondary to ethylene glycol intoxication. The patient has been started on fomepizole, we will consult ICU, we have consulted Dr. Torres, who has stated the patient might need hemodialysis, we will follow recommendations from nephro. 2. Hyperosmolar state with osmolal gap, secondary to the ethylene glycol ingestion, treatment as above with fomepizole and hemodialysis. 3. Severe metabolic acidosis with bicarb less than 9, arrangement has been done for the patient with hemodialysis. Also the patient is getting bicarb drip, we will follow Dr. Torres's recommendations. 4. Suicidal ideation. The patient is at high risks for complications from medical problems, the patient has been placed with the suicidal precautions, who need to be evaluated by psych. 5. Deep venous thrombosis prophylaxis. Job ID: [id number] MTDD
[2018-07-30 08:19] LABS: Osmolality, Serum 338 mOsm/kg (280-295)
--- NOTE | 2018-07-30 11:34 | PRG ---
DATE OF SERVICE: 07/30/2018 SUBJECTIVE: A 63-year-old gentleman being seen for acute kidney injury. The patient was dialyzed yesterday without any improvement in acidosis. OBJECTIVE: See above. CONSTITUTIONAL: The patient is resting and agitated. VITAL SIGNS: Afebrile, pulse 90, breathing 16, blood pressure . CONSTITUTIONAL: The patient is awake, alert, in no acute distress. VITAL SIGNS: Afebrile, pulse 61, breathing 16, blood pressure 157/88. GENERAL APPEARANCE AND MENTAL STATUS: Fair. HEAD/NECK: Normocephalic. Atraumatic. EYES: EOMI. No deformity. EARS: Clear. No ulcers. NOSE: Intact. No lesions. MOUTH: Clear. No discharge. THROAT: Clear. No exudate. LUNGS: Clear. No crackles. CARDIAC: S1, S2. No rub. ABDOMEN: Benign. Bowel sounds positive. GENITALIA/RECTUM: Go absent. BACK/EXTREMITIES: Edema 0+. NEUROLOGICAL: Alert and motor intact. SKIN: LYMPHATICS: LABORATORY DATA: Labs show hemoglobin 13, bicarb 9, potassium 5. 1. plan dialysis. 2. Hyperkalemia, plan dialysis. 3. Metabolic acidosis, plan dialysis. 4. Prognosis is extremely poor. Job ID: [id number]
--- NOTE | 2018-07-30 12:24 | PDOC.PN ---
- Subjective Encounter Start Date: 07/30/18 Encounter Start Time: 11:25 Subjective: awake, getting HD -: c/o pain everywhere -: no sob - Objective Resuscitation Status - Order Detail: 07/29/18 21:00 Resuscitation Status Routine Resuscitation Status: FULL: Full Resuscitation MAR Reviewed: Yes Vital Signs & Weight: Vital Signs (12 hours) Temp Pulse Resp BP Pulse Ox 07/30/18 08:19 100 07/30/18 07:53 97.9 F 90 20 151/97 H 100 07/30/18 03:57 98.5 F 75 24 H 173/106 H 100 Weight Weight 207 lb 0.225 oz Result Diagrams: 07/30/18 06:41 07/30/18 05:13 Phys Exam - Physical Examination HEENT: PERRLA, sclera anicteric dry mucosa Neck: no JVD, supple Respiratory: no wheezing, no rales Cardiovascular: RRR, no significant murmur Gastrointestinal: soft, no distention, positive bowel sounds Musculoskeletal: no edema, pulses present right aka Neurological: non-focal, moves all 4 limbs Dx/Plan (1) Acute kidney failure Status: Acute (2) Ethylene glycol poisoning Code(s): T52.8X1A - TOXIC EFFECT OF ORGANIC SOLVENTS, ACCIDENTAL, INIT Status : Acute Comment: second episode (3) High anion gap metabolic acidosis Code(s): E87.2 - ACIDOSIS Status: Acute Comment: Secondary to ethylene glycol ingestion (4) H/O: CVA (cerebrovascular accident) Code(s): Z86.73 - PRSNL HX OF TIA (TIA), AND CEREB INFRC W/O RESID DEFICITS Status: Chronic (5) HTN (hypertension) Code(s): I10 - ESSENTIAL (PRIMARY) HYPERTENSION Status: Chronic Qualifiers: Comment: Continue Norvasc, Hydralazine and Clonidine (6) right aka Status: Chronic - Plan got 4 doses of fomepizole -: is getting HD now -: has done this for second time in a month now -: continue norvasc and hydralazine * . Review of Systems - Medications/Allergies Allergies/Adverse Reactions: Allergies Allergy/AdvReac Type Severity Reaction Status Date / Time codeine Allergy Hives Verified 07/07/18 17:46 Medications: Current Medications Amlodipine Besylate (Norvasc) 10 mg PO DAILY [facility] Hydralazine HCl (Apresoline) 10 mg SLOW IVP Q4H PRN PRN Reason: Blood Pressure Hydralazine HCl (Apresoline) 50 mg PO TID [facility] Fomepizole 1 gm/ Sodium (Chloride) 101 mls @ 202 mls/hr IVPB .Q4H AT DIALYSIS [facility] Stop: 08/03/18 22:46 Fomepizole 1 gm/ Sodium (Chloride) 101 mls @ 202 mls/hr IVPB Q12H [facility] Stop: 07/31/18 18:29 Last Admin: 07/30/18 05:35 Dose: 101 mls Fomepizole 1.5 gm/ Sodium (Chloride) 101.5 mls @ 203 mls/hr IVPB Q12H [facility] Stop: 08/06/18 06:01 Lorazepam (Ativan) 1 mg SLOW IVP Q4H PRN PRN Reason: .ANXIETY Last Admin: 07/30/18 09:06 Dose: 1 mg Miscellaneous Medication (Pharmacy To Dose) 1 each IVPB PRN PRN PRN Reason: Pharmacy to dose Ondansetron HCl (Zofran) 4 mg IVP Q6H PRN PRN Reason: Nausea/Vomiting Sodium Chloride (Flush - Normal Saline) 10 ml IVF Q12HR [facility] Last Admin: 07/30/18 09:09 Dose: 10 ml Sodium Chloride (Flush - Normal Saline) 10 ml IVF PRN PRN PRN Reason: Saline Flush
[2018-07-30] MEDS: hydrALAZINE 25 MG TAB PO SCH ×2 (16:20→19:58)
--- NOTE | 2018-07-30 16:28 | CON ---
DATE OF CONSULTATION: 07/30/2018 SERVICE: Pulmonary Medicine. HISTORY OF PRESENT ILLNESS: The patient is a 63-year-old white male with past medical history significant for chronic kidney disease. One month ago, he was in the hospital for an accidental ingestion of ethylene glycol. He ended up getting dialysis for a couple of sessions, but made good recovery of his kidney function. At that point, he is absolutely adamant and told multiple care providers that this was an accidental ingestion. That being said, he returned to the hospital because of repeat accidental ingestion of ethylene glycol. He currently denies any chest pain, nausea, vomiting, fevers, or chills. He was encephalopathic on presentation to the emergency department. Dialysis is underway. Currently, his encephalopathy is clearing. He had some agitation last night, requires some restraints. His mentation is improving. PAST MEDICAL HISTORY: 1. Dyslipidemia. 2. History of ethylene glycol ingestion x2. 3. Chronic kidney disease, stage 3. PAST SURGICAL HISTORY: 1. Dialysis catheter placement with subsequent removal. 2. Dialysis catheter placement. 3. Cholecystectomy. 4. Right knee surgery x7. 5. Elbow surgery x3. 6. L4-L5 back surgery, multiple. 7. Right above-knee amputation. 8. Right shoulder surgery x3. 9. Right hand surgery. SOCIAL HISTORY: Negative for alcohol, tobacco, or illicit drug use. He has no exposure to chemicals, dust, asbestos, or tuberculosis. FAMILY HISTORY: Noncontributory. ALLERGIES: CODEINE. MEDICATIONS: List of his inpatient medications was reviewed. No specific updates were made at this time. REVIEW OF SYSTEMS: General; head, ears, eyes, nose, throat; cardiovascular; respiratory; GI; ; musculoskeletal; neurologic; and skin are negative, except as mentioned in the HPI PHYSICAL EXAMINATION: VITAL SIGNS: Afebrile, pulse 90, blood pressure 151/97, respirations 20, and saturation 100% on room air. GENERAL: The patient is awake and alert, in no apparent distress. LUNGS: Decent air entry. There is no prolonged expiratory phase or wheezing present. No rhonchi or crackles are appreciated. HEART: Normal rate, regular. ABDOMEN: Soft, nontender, and nondistended. Bowel sounds are positive. MUSCULOSKELETAL: No cyanosis or clubbing. There is no pitting in the bilateral lower extremities. The right lower extremity is absent above the knee. LABORATORY DATA: WBC 16.1, hemoglobin 13.0, platelets 305,000. Bicarb less than 8 is improving, chloride 113, anion gap 28, creatinine up trending to 2.47. Liver function studies are essentially unremarkable. Serum osmolality is quite elevated at 338. Urinalysis is unremarkable. Urine osmolality falls within normal limits. Urine drug screen is essentially unremarkable except for opiates. ASSESSMENT: 1. Acute kidney injury on chronic kidney disease, stage 3. 2. Ethylene glycol toxicity. 3. Metabolic encephalopathy, improving. 4. Suicide attempt, suspected. DISCUSSION AND PLAN: The patient is stable for transition out of the ICU to the medical unit. Pulmonary/Critical Care will continue to follow along for the time being. We will repeat laboratories tomorrow morning, but hopefully, his acidosis will be much improved at that point. 70 minutes have been devoted to this patient in various activities. I personally reviewed all imaging studies and laboratory data noted within this document. For fifty percent of this time, I was interacting with the patient at the bedside or coordinating care with the care team. For the remainder of the time I was immediately available to the patient in the hospital unit. Job ID: [id number] [facility]
[2018-07-31] MEDS: Lorazepam 2 MG/ML VIAL SLOW IVP PRN ×2 (01:44→10:52)
[2018-07-31] MEDS: Acetaminophen 325 MG TAB PO PRN (02:55)
[2018-07-31 06:48] LABS: Anion Gap 15 mmol/L (10-20); BUN (Urea Nitrogen) 24 mg/dL (8.4-25.7); Calc. Creatinine Clearance 26 mL/min (70-130); Calcium 8.7 mg/dL (7.8-10.44); Carbon Dioxide 22 mmol/L (23-31); Chloride 107 mmol/L (98-107); Estimated GFR-MDRD 16; Glucose 109 mg/dL (80-115); Sodium 140 mmol/L (136-145)
[2018-07-31] MEDS ORDERED: Amlodipine 10 MG TAB PO SCH (09:00)
[2018-07-31] MEDS: Amlodipine 10 MG TAB PO SCH (09:00)
[2018-07-31] MEDS: hydrALAZINE 25 MG TAB PO SCH ×4 (09:00→20:00)
[2018-07-31] MEDS: Gabapentin 400 MG CAP PO SCH ×5 (09:00→20:01)
[2018-07-31 09:39] LABS: #Eosinphils 0.2 thou/uL (0.0-0.7); #Lymphocytes 1.7 thou/uL (1.20-3.40); #Neutrophils 7.3 thou/uL (1.40-6.50); %Basophils 0.5 % (0.0-1.0); %Eosinophils 1.7 % (0.0-10.0); %Lymphocytes 16.4 % (21.0-51.0); %Monocytes 9.7 % (0.0-10.0); %Neutrophils 71.8 % (42.0-75.0); Hemoglobin 11.6 g/dL (14.0-18.0); Mean Corpuscular HGB CONC 33.7 g/dL (32.0-36.0); Mean Corpuscular Hemoglobin 30.3 pg (27.0-31.0); Mean Corpuscular Volume 90.1 fL (78.0-98.0); Mean Platelet Volume 7.8 fL (7.4-10.4); Platelet Count 250 thou/uL (130-400); RBC Distribution Width 12.4 % (11.5-14.5); Red Blood Cell (RBC) Count 3.82 mill/uL (4.70-6.10); White Blood Cell (WBC) Count 10.1 thou/uL (4.8-10.8)
--- NOTE | 2018-07-31 10:39 | PRG ---
DATE OF SERVICE: 07/31/2018 SUBJECTIVE: A 63-year-old gentleman, being seen for acute kidney injury and ethylene glycol toxicity, planning dialysis. OBJECTIVE: See above. Awake, alert, in no acute distress. The patient is resting. VITAL SIGNS: Afebrile, pulse 87, breathing 16, blood pressure 147/84. GENERAL APPEARANCE AND MENTAL STATUS: Fair. HEAD/NECK: Normocephalic. Atraumatic. EYES: EOMI. No deformity. EARS: Clear. No ulcers. NOSE: Intact. No lesions. MOUTH: Clear. No discharge. THROAT: Clear. No exudate. LUNGS: Clear. No crackles. CARDIAC: S1, S2. No rub. ABDOMEN: Benign. Bowel sounds positive. GENITALIA/RECTUM: Go absent. BACK/EXTREMITIES: Edema 0+. NEUROLOGICAL: Alert and motor intact. SKIN: LYMPHATICS: LABORATORY DATA: Labs show hemoglobin 11.6. ASSESSMENT AND PLAN: 1. Stage 6 chronic kidney disease. Plan dialysis. 2. Hypertension, stable. 3. Anemia, stable. 4. Metabolic acidosis, stable. Serum osmolality has improved. Job ID: [id number]
[2018-07-31] MEDS ORDERED: Heparin 1,000 UNITS/ML VIAL ONE (11:11)
--- NOTE | 2018-07-31 11:24 | PDOC.OP ---
Operative Note - Operative Note Operative Note: PROCEDURE: Right femoral hemodialysis catheter placement with ultrasound guidance DATE OF PROCEDURE: 07/30/2018 SURGEON: Tate Covarrubias M.D. PREOPERATIVE DIAGNOSES: Renal failure POSTOPERATIVE DIAGNOSIS: Renal failure HISTORY: Patient with ethylene glycol poisoning who requires emergency access for immediate dialysis. He has a left femoral hemodialysis catheter in place but this is not functioning. PROCEDURE IN DETAIL: After informed consent was obtained and an ultrasound used to confirm presence of a patent compressible right femoral vein, the groin was prepped and draped in standard sterile fashion. Local anesthesia was infused over the femoral vein which was accessed under direct ultrasound guidance with excellent flow of dark venous nonpulsatile blood. Ultrasound was used to confirm the presence of the wire within the patent compressible femoral vein. A skin incision was made and the tract was serially dilated over the wire. The dialysis catheter was placed over the wire and secured to the skin with sutures. Both ports easily aspirated and easily flushed without resistance. A Biopatch and Tegaderm dressing was placed. The patient tolerated the procedure well. Estimated blood loss was minimal. There were no complications. There were no specimens. The dialysis nurse was at the bedside for immediate hemodialysis.
--- NOTE | 2018-07-31 13:14 | PRG ---
DATE OF SERVICE: 07/31/2018 SERVICE: Pulmonary Medicine. INTERVAL HISTORY: The patient is doing fine from respiratory standpoint. Breathing comfortably. There has been no interval change to his condition. He has tolerated dialysis well twice. His acidosis is completely cleared. PHYSICAL EXAMINATION: VITAL SIGNS: Afebrile. Pulse 87, blood pressure 167/83, respirations 20, saturation 98% on room air. GENERAL: The patient is awake and alert, in no apparent distress. LUNGS: Decent air entry without prolonged expiratory phase or wheezing. HEART: Normal rate regular. ABDOMEN: Soft, nontender, and nondistended. Bowel sounds are positive. MUSCULOSKELETAL: No cyanosis or clubbing. There is no pitting in the bilateral lower extremities. NEUROLOGIC: Grossly nonfocal. LABORATORY DATA: WBC 10.1, hemoglobin 11.6, and platelets 250,000. Basic metabolic profile is essentially unremarkable. Anion gap has resolved to 15, bicarb is improved to 22. Creatinine is up-trending to 3.94 as of this morning. Serum osmolality has improved dramatically to 309. ASSESSMENT: 1. Acute kidney injury on chronic kidney disease 3. 2. Ethylene glycol toxicity. 3. Metabolic encephalopathy, resolved. 4. Suicide attempt, suspected. DISCUSSION AND PLAN: At this point, the patient is stable from purely Pulmonary and Critical Care standpoint. We will continue to dialyze him through time. Hopefully, his kidney function will improve. [facility] can evaluate the patient. At this point, he has no further requirements for inpatient Pulmonary or Critical Care opinion, and I will sign off. Please call with additional questions or concerns moving forward. Job ID: [id number]
[2018-07-31] MEDS ORDERED: Heparin 10,000 UNITS/ 10 ML VIAL ONE (14:06)
[2018-07-31] MEDS ORDERED: HYDROcodone/Acetaminophen 7.5/325 mg Tablet PO SCH (14:30)
--- NOTE | 2018-07-31 17:28 | PDOC.PN ---
- Subjective Encounter Start Date: 07/31/18 Encounter Start Time: 10:30 Subjective: pt up in bed no complains -: last night pt very combative - Objective Resuscitation Status - Order Detail: 07/29/18 21:00 Resuscitation Status Routine Resuscitation Status: FULL: Full Resuscitation Vital Signs & Weight: Vital Signs (12 hours) Temp Pulse Resp BP BP Pulse Ox 07/31/18 14:40 99.0 F 90 20 153/100 H 98 07/31/18 14:36 90 153/100 H 07/31/18 10:52 87 07/31/18 09:00 87 07/31/18 08:00 98.0 F 87 20 167/83 H 98 07/31/18 07:50 98 Weight Weight 207 lb 0.225 oz I&O: 07/30/18 07/31/18 08/01/18 06:59 06:59 06:59 Intake Total 600 480 Output Total 200 2400 Balance 400 -1920 Result Diagrams: 07/31/18 09:20 07/31/18 05:38 Phys Exam - Physical Examination Neck: no nodes, no JVD, supple, full ROM Respiratory: no wheezing, no rales, no rhonchi, wheezing present, clear to auscultation bilateral Cardiovascular: RRR, no significant murmur, no rub, gallop, irregular Gastrointestinal: soft, non-tender, no distention, positive bowel sounds Dx/Plan (1) Acute kidney failure Status: Acute (2) Ethylene glycol poisoning Code(s): T52.8X1A - TOXIC EFFECT OF ORGANIC SOLVENTS, ACCIDENTAL, INIT Status : Acute Comment: second episode (3) High anion gap metabolic acidosis Code(s): E87.2 - ACIDOSIS Status: Acute Comment: Secondary to ethylene glycol ingestion (4) HTN (hypertension) Code(s): I10 - ESSENTIAL (PRIMARY) HYPERTENSION Status: Chronic Qualifiers: Comment: Continue Norvasc, Hydralazine and Clonidine - Plan will conitnue dialysis for now -: will add trazadone since pt feels depressed -: will ask Mental health to evaluate him * . Review of Systems - Review of Systems Respiratory: negative: Cough, Dry, Shortness of Breath, Hemoptysis, SOB with Excertion, Pleuritic Pain, Sputum, Wheezing Cardiovascular: negative: chest pain, palpitations, orthopnea, paroxysmal nocturnal dyspnea, edema, light headedness, other Gastrointestinal: negative: Nausea, Vomiting, Abdominal Pain, Diarrhea, Constipation, Melena, Hematochezia, Other Genitourinary: negative: Dysuria, Frequency, Incontinence, Hematuria, Retention , Other - Medications/Allergies Allergies/Adverse Reactions: Allergies Allergy/AdvReac Type Severity Reaction Status Date / Time codeine Allergy Hives Verified 07/07/18 17:46 Medications: Current Medications Acetaminophen (Tylenol) 650 mg PO Q6H PRN PRN Reason: Headache/Fever or Pain Last Admin: 07/31/18 02:55 Dose: 650 mg Hydrocodone Bitart/Acetaminophen (Watson 7.5/325) 1 tab PO Q6H PRN PRN Reason: Mild Pain (1-3) Amlodipine Besylate (Norvasc) 10 mg PO DAILY [facility] Last Admin: 07/31/18 09:00 Dose: Not Given Gabapentin (Neurontin) 400 mg PO QID [facility] Last Admin: 07/31/18 14:36 Dose: 400 mg Hydralazine HCl (Apresoline) 10 mg SLOW IVP Q4H PRN PRN Reason: Blood Pressure Hydralazine HCl (Apresoline) 50 mg PO TID [facility] Last Admin: 07/31/18 14:36 Dose: 50 mg Lorazepam (Ativan) 1 mg SLOW IVP Q4H PRN PRN Reason: .ANXIETY Last Admin: 07/31/18 10:52 Dose: 1 mg Miscellaneous Medication (Pharmacy To Dose) 1 each IVPB PRN PRN PRN Reason: Pharmacy to dose Ondansetron HCl (Zofran) 4 mg IVP Q6H PRN PRN Reason: Nausea/Vomiting Sodium Chloride (Flush - Normal Saline) 10 ml IVF Q12HR [facility] Last Admin: 07/31/18 10:52 Dose: 10 ml Sodium Chloride (Flush - Normal Saline) 10 ml IVF PRN PRN PRN Reason: Saline Flush Trazodone HCl (Desyrel) 50 mg PO HS [facility]
[2018-07-31] MEDS: HYDROcodone/Acetaminophen 7.5/325 mg Tablet PO PRN ×2 (18:14→23:54)
--- NOTE | 2018-07-31 19:12 | ULT ---
VENOUS DUPLEX SONOGRAM BILATERAL UPPER EXTREMITY FOR VEIN MAPPING 07/31/18 HISTORY: Renal failure. FINDINGS: Good color and spectral doppler flow are present within each internal jugular and subclavian vein and each axillary and brachial vein. Measurements are as follows: RIGHT UPPER EXTREMITY BRACHIAL ARTERY: 5 mm RADIAL ARTERY: 3 mm ULNAR ARTERY: 3 mm CEPHALIC VEIN Proximal Humerus: Not visualized Mid Humerus: 5 mm Distal Humerus: 4 mm Antecubital Fossa: Not visualized Proximal Forearm: 2 mm Mid Forearm: 2 mm Distal Forearm: 2 mm BASILIC VEIN Proximal Humerus: 4 mm Mid Humerus: 5 mm Distal Humerus: 6 mm Antecubital Fossa: 5 mm Proximal Forearm: 3 mm Mid Forearm: 2 mm Distal Forearm: 2 mm LEFT UPPER EXTREMITY BRACHIAL ARTERY: 6 mm RADIAL ARTERY: 4 mm ULNAR ARTERY: 3 mm CEPHALIC VEIN Proximal Humerus: 5 mm Mid Humerus: 5 mm Distal Humerus: 4 mm Antecubital Fossa: Not visualized Proximal Forearm: 1 mm Mid Forearm: 2 mm Distal Forearm: 2 mm BASILIC VEIN Proximal Humerus: 6 mm Mid Humerus: 5 mm Distal Humerus: 6 mm Antecubital Fossa: 5 mm Proximal Forearm: 2 mm Mid Forearm: 2 mm Distal Forearm: 2 mm IMPRESSION: Patent vascular structures within each upper extremity, with measurements as detailed above. POS: BST
[2018-07-31] MEDS: traZODone HCl 50 MG TAB PO SCH (20:01)
[2018-08-01] MEDS ORDERED: Fomepizole 1.5 GM in Sodium Chloride 0.9% 100 ML IVPB SCH (01:00)
[2018-08-01] MEDS: Acetaminophen 325 MG TAB PO PRN (04:10)
[2018-08-01] MEDS: HYDROcodone/Acetaminophen 7.5/325 mg Tablet PO PRN ×3 (05:53→20:29)
[2018-08-01] MEDS: Gabapentin 400 MG CAP PO SCH ×4 (08:18→20:28)
[2018-08-01] MEDS: hydrALAZINE 25 MG TAB PO SCH ×3 (08:19→20:28)
[2018-08-01] MEDS: Amlodipine 10 MG TAB PO SCH (08:20)
[2018-08-01 08:44] LABS: Anion Gap 17 mmol/L (10-20); BUN (Urea Nitrogen) 29 mg/dL (8.4-25.7); Calc. Creatinine Clearance 19 mL/min (70-130); Carbon Dioxide 21 mmol/L (23-31); Chloride 103 mmol/L (98-107); Estimated GFR-MDRD 11; Glucose 91 mg/dL (80-115); Potassium 3.9 mmol/L (3.5-5.1); Sodium 137 mmol/L (136-145)
--- NOTE | 2018-08-01 12:02 | PRG ---
DATE OF SERVICE: 08/01/2018 SUBJECTIVE: A 63-year-old gentleman being seen for end-stage kidney disease. The patient denies any nausea, vomiting, or chest pain. OBJECTIVE: CONSTITUTIONAL: The patient is awake and alert. VITAL SIGNS: Afebrile, pulse 93, breathing 16, blood pressure 157/83. GENERAL APPEARANCE AND MENTAL STATUS: Fair. HEAD/NECK: Normocephalic. Atraumatic. EYES: EOMI. No deformity. EARS: Clear. No ulcers. NOSE: Intact. No lesions. MOUTH: Clear. No discharge. THROAT: Clear. No exudate. LUNGS: Clear. No crackles. CARDIAC: S1, S2. No rub. ABDOMEN: Benign. Bowel sounds positive. GENITALIA/RECTUM: Go absent. BACK/EXTREMITIES: Edema 0+. NEUROLOGICAL: Alert and motor intact. SKIN: LYMPHATICS: LABORATORY DATA: Labs show hemoglobin 11.6. Creatinine 5.29. ASSESSMENT AND PLAN: 1. Stage 6 chronic kidney disease. Continue hemodialysis. 2. Hypertension, stable. 3. Anemia, stable. 4. Medication based on GFR appropriate. 5. Ethylene glycol toxicity. 6. The patient still has an osmolal gap. We will continue dialysis. Job ID: [id number]
--- NOTE | 2018-08-01 14:07 | PDOC.PN ---
- Subjective Encounter Start Date: 08/01/18 Encounter Start Time: 13:55 Subjective: pt up in bed eating - Objective Resuscitation Status - Order Detail: 07/29/18 21:00 Resuscitation Status Routine Resuscitation Status: FULL: Full Resuscitation Vital Signs & Weight: Vital Signs (12 hours) Temp Pulse Resp BP Pulse Ox 08/01/18 08:24 93 L 08/01/18 08:20 69 08/01/18 08:19 69 08/01/18 07:26 98.1 F 69 19 147/83 H 93 L 08/01/18 05:26 97.8 F 93 18 143/94 H 94 L Weight Weight 207 lb 0.225 oz I&O: 07/31/18 08/01/18 08/02/18 06:59 06:59 06:59 Intake Total 600 1200 Output Total 200 2400 Balance 400 -1200 Result Diagrams: 07/31/18 09:20 08/01/18 07:49 Phys Exam - Physical Examination Neck: no nodes, no JVD, supple, full ROM Respiratory: no wheezing, no rales, no rhonchi, wheezing present, clear to auscultation bilateral Cardiovascular: RRR, no significant murmur, no rub, gallop, irregular Gastrointestinal: soft, non-tender, no distention, positive bowel sounds right amputation Dx/Plan (1) Acute kidney failure Status: Acute (2) Ethylene glycol poisoning Code(s): T52.8X1A - TOXIC EFFECT OF ORGANIC SOLVENTS, ACCIDENTAL, INIT Status : Acute Comment: second episode (3) High anion gap metabolic acidosis Code(s): E87.2 - ACIDOSIS Status: Acute Comment: Secondary to ethylene glycol ingestion (4) HTN (hypertension) Code(s): I10 - ESSENTIAL (PRIMARY) HYPERTENSION Status: Chronic Qualifiers: Comment: Continue Norvasc, Hydralazine and Clonidine - Plan since pt will be on permanent dialysis pt will no be able to go to -: inpatient psy. spoke with mental health who stated that once everything -: has been done for this pt, she will evaluate him and he will have to be -: transferred to [place] for inpatient psy. * . Review of Systems - Review of Systems Respiratory: negative: Cough, Dry, Shortness of Breath, Hemoptysis, SOB with Excertion, Pleuritic Pain, Sputum, Wheezing Cardiovascular: negative: chest pain, palpitations, orthopnea, paroxysmal nocturnal dyspnea, edema, light headedness, other Gastrointestinal: negative: Nausea, Vomiting, Abdominal Pain, Diarrhea, Constipation, Melena, Hematochezia, Other - Medications/Allergies Allergies/Adverse Reactions: Allergies Allergy/AdvReac Type Severity Reaction Status Date / Time codeine Allergy Hives Verified 07/07/18 17:46 Medications: Current Medications Acetaminophen (Tylenol) 650 mg PO Q6H PRN PRN Reason: Headache/Fever or Pain Last Admin: 08/01/18 04:10 Dose: 650 mg Hydrocodone Bitart/Acetaminophen ([place] 7.5/325) 1 tab PO Q6H PRN PRN Reason: Mild Pain (1-3) Last Admin: 08/01/18 12:05 Dose: 1 tab Amlodipine Besylate (Norvasc) 10 mg PO DAILY [facility] Last Admin: 08/01/18 08:20 Dose: Not Given Gabapentin (Neurontin) 400 mg PO QID [facility] Last Admin: 08/01/18 12:05 Dose: 400 mg Hydralazine HCl (Apresoline) 10 mg SLOW IVP Q4H PRN PRN Reason: Blood Pressure Hydralazine HCl (Apresoline) 50 mg PO TID [facility] Last Admin: 08/01/18 08:19 Dose: Not Given Lorazepam (Ativan) 1 mg SLOW IVP Q4H PRN PRN Reason: .ANXIETY Last Admin: 07/31/18 10:52 Dose: 1 mg Miscellaneous Medication (Pharmacy To Dose) 1 each IVPB PRN PRN PRN Reason: Pharmacy to dose Ondansetron HCl (Zofran) 4 mg IVP Q6H PRN PRN Reason: Nausea/Vomiting Sodium Chloride (Flush - Normal Saline) 10 ml IVF Q12HR [facility] Last Admin: 08/01/18 08:22 Dose: 10 ml Sodium Chloride (Flush - Normal Saline) 10 ml IVF PRN PRN PRN Reason: Saline Flush Trazodone HCl (Desyrel) 50 mg PO HS [facility] Last Admin: 07/31/18 20:01 Dose: 50 mg
[2018-08-01] MEDS ORDERED: Heparin 10,000 UNITS/ 10 ML VIAL ONE (15:00)
[2018-08-01] MEDS: traZODone HCl 50 MG TAB PO SCH (20:28)
[2018-08-02] MEDS ORDERED: CEFAZOLIN 2 GM in Premix Bag 1 BAG IVPB SCH (00:45)
[2018-08-02] MEDS ORDERED: CEFAZOLIN/Water 2 GM/20 ML SYRINGE SLOW IVP SCH (00:45)
[2018-08-02] MEDS: HYDROcodone/Acetaminophen 7.5/325 mg Tablet PO PRN ×2 (02:21→08:08)
[2018-08-02 06:47] LABS: Anion Gap 18 mmol/L (10-20); BUN (Urea Nitrogen) 40 mg/dL (8.4-25.7); Calc. Creatinine Clearance 16 mL/min (70-130); Calcium 8.9 mg/dL (7.8-10.44); Carbon Dioxide 20 mmol/L (23-31); Chloride 104 mmol/L (98-107); Estimated GFR-MDRD 9; Glucose 96 mg/dL (80-115); Potassium 4.4 mmol/L (3.5-5.1); Sodium 138 mmol/L (136-145)
[2018-08-02] MEDS: hydrALAZINE 25 MG TAB PO SCH ×3 (08:07→20:34)
[2018-08-02] MEDS: Gabapentin 400 MG CAP PO SCH ×4 (08:07→20:34)
[2018-08-02] MEDS: Amlodipine 10 MG TAB PO SCH (08:07)
[2018-08-02] MEDS ORDERED: Midazolam HCl 5 mg/5 ml Vial ONE (10:45)
[2018-08-02] MEDS ORDERED: Fentanyl 250 MCG/5 ML VIAL ONE ×2 (10:45→11:38)
[2018-08-02] MEDS ORDERED: Phenylephrine HCL 10 MG/ML VIAL ONE (10:46)
[2018-08-02] MEDS ORDERED: Vecuronium 10 MG VIAL ONE (10:46)
[2018-08-02] MEDS ORDERED: Norepinephrine 8 MG/0.9% NS 0 ML ONE (10:46)
[2018-08-02] MEDS ORDERED: Heparin 5,000 UNITS/ML VIAL ONE (10:54)
--- NOTE | 2018-08-02 10:59 | PDOC.PN ---
- Subjective Encounter Start Date: 08/02/18 Encounter Start Time: 10:00 Subjective: pt up in bed no complains - Objective Resuscitation Status - Order Detail: 07/29/18 21:00 Resuscitation Status Routine Resuscitation Status: FULL: Full Resuscitation Vital Signs & Weight: Vital Signs (12 hours) Temp Pulse Resp BP BP Pulse Ox 08/02/18 08:11 95 08/02/18 08:07 84 143/81 H 08/02/18 07:57 98 F 84 18 143/81 H 95 08/02/18 05:27 97.8 F 103 H 20 122/75 94 L 08/01/18 23:40 98 F 103 H 16 128/73 96 Weight Weight 207 lb 0.225 oz I&O: 08/01/18 08/02/18 08/03/18 06:59 06:59 06:59 Intake Total 1200 1440 Output Total 2400 1225 Balance -1200 215 Result Diagrams: 07/31/18 09:20 08/02/18 06:15 Phys Exam - Physical Examination Neck: no nodes, no JVD, supple, full ROM Respiratory: no wheezing, no rales, no rhonchi, wheezing present, clear to auscultation bilateral Cardiovascular: RRR, no significant murmur, no rub, gallop, irregular Gastrointestinal: soft, non-tender, no distention, positive bowel sounds Dx/Plan (1) Acute kidney failure Status: Acute (2) Ethylene glycol poisoning Code(s): T52.8X1A - TOXIC EFFECT OF ORGANIC SOLVENTS, ACCIDENTAL, INIT Status : Acute Comment: second episode (3) High anion gap metabolic acidosis Code(s): E87.2 - ACIDOSIS Status: Acute Comment: Secondary to ethylene glycol ingestion (4) HTN (hypertension) Code(s): I10 - ESSENTIAL (PRIMARY) HYPERTENSION Status: Chronic Qualifiers: Comment: Continue Norvasc, Hydralazine and Clonidine - Plan pt stated that he urinated last night -: he was not happy when i told him he might have to go to -: [place] for inpatient psy * . Review of Systems - Review of Systems Respiratory: negative: Cough, Dry, Shortness of Breath, Hemoptysis, SOB with Excertion, Pleuritic Pain, Sputum, Wheezing Cardiovascular: negative: chest pain, palpitations, orthopnea, paroxysmal nocturnal dyspnea, edema, light headedness, other Gastrointestinal: negative: Nausea, Vomiting, Abdominal Pain, Diarrhea, Constipation, Melena, Hematochezia, Other Genitourinary: negative: Dysuria, Frequency, Incontinence, Hematuria, Retention , Other - Medications/Allergies Allergies/Adverse Reactions: Allergies Allergy/AdvReac Type Severity Reaction Status Date / Time codeine Allergy Hives Verified 07/07/18 17:46 Medications: Current Medications Acetaminophen (Tylenol) 650 mg PO Q6H PRN PRN Reason: Headache/Fever or Pain Last Admin: 08/01/18 04:10 Dose: 650 mg Hydrocodone Bitart/Acetaminophen ([place] 7.5/325) 1 tab PO Q6H PRN PRN Reason: Mild Pain (1-3) Last Admin: 08/02/18 08:08 Dose: 1 tab Amlodipine Besylate (Norvasc) 10 mg PO DAILY [facility] Last Admin: 08/02/18 08:07 Dose: 10 mg Gabapentin (Neurontin) 400 mg PO QID [facility] Last Admin: 08/02/18 08:07 Dose: 400 mg Hydralazine HCl (Apresoline) 10 mg SLOW IVP Q4H PRN PRN Reason: Blood Pressure Hydralazine HCl (Apresoline) 50 mg PO TID [facility] Last Admin: 08/02/18 08:07 Dose: 50 mg Cefazolin Sodium/Dextrose 2 gm (/ Device) 50 mls @ 100 mls/hr IVPB ONCALL-OR [facility] Stop: 08/03/18 00:46 Lorazepam (Ativan) 1 mg SLOW IVP Q4H PRN PRN Reason: .ANXIETY Last Admin: 07/31/18 10:52 Dose: 1 mg Miscellaneous Medication (Pharmacy To Dose) 1 each IVPB PRN PRN PRN Reason: Pharmacy to dose Ondansetron HCl (Zofran) 4 mg IVP Q6H PRN PRN Reason: Nausea/Vomiting Sodium Chloride (Flush - Normal Saline) 10 ml IVF Q12HR [facility] Last Admin: 08/01/18 20:29 Dose: 10 ml Sodium Chloride (Flush - Normal Saline) 10 ml IVF PRN PRN PRN Reason: Saline Flush Trazodone HCl (Desyrel) 50 mg PO HS [facility] Last Admin: 08/01/18 20:28 Dose: 50 mg
--- NOTE | 2018-08-02 11:14 | EKG ---
Test Reason : Blood Pressure : / mmHG Vent. Rate : 056 BPM Atrial Rate : 056 BPM P-R Int : 140 ms QRS Dur : 098 ms QT Int : 486 ms P-R-T Axes : 038 -06 -02 degrees QTc Int : 468 ms Sinus bradycardia Otherwise normal ECG Confirmed by NATTY HENDRICKS ([id number]), assistant film editor АЛЕКСАНДР FUNES ([id number]) on 08/02/2018 11:14:25 AM Referred By: Confirmed By:NATTY HENDRICKS
[2018-08-02] MEDS ORDERED: Heparin 10,000 UNITS/1 ML VIAL ONE (11:50)
[2018-08-02] MEDS ORDERED: Sodium Chloride 0.9% 10 ML ONE (11:50)
[2018-08-02] MEDS ORDERED: Lidocaine 2% PF 5 ML VIAL ONE (11:50)
[2018-08-02] MEDS ORDERED: Bupivacaine HCl 0.5%/Epinephrine 1:200,000/PF 30 ml Vial ONE (11:50)
--- NOTE | 2018-08-02 12:31 | PRG ---
DATE OF SERVICE: 08/02/2018 SUBJECTIVE: A 63-year-old gentleman being seen for end-stage renal disease. The patient denies any nausea, vomiting, or chest pain. OBJECTIVE: CONSTITUTIONAL: The patient is awake and alert. VITAL SIGNS: Afebrile, pulse 72, breathing 16, and blood pressure 98/55. GENERAL APPEARANCE AND MENTAL STATUS: Fair. HEAD/NECK: Normocephalic. Atraumatic. EYES: EOMI. No deformity. EARS: Clear. No ulcers. NOSE: Intact. No lesions. MOUTH: Clear. No discharge. THROAT: Clear. No exudate. LUNGS: Clear. No crackles. CARDIAC: S1, S2. No rub. ABDOMEN: Benign. Bowel sounds positive. GENITALIA/RECTUM: Go absent. BACK/EXTREMITIES: Edema 0+. NEUROLOGICAL: Alert and motor intact. SKIN: LYMPHATICS: LABORATORY DATA: Labs showed hemoglobin 11.6. Creatinine 6.39. ASSESSMENT AND PLAN: 1. Stage 6 chronic kidney disease. Plan dialysis. 2. Hypertension, stable. 3. Anemia, stable. 4. Urine osmolal gap is pending, and the patient is getting a new access. We will plan dialysis today. Job ID: [id number]
[2018-08-02] MEDS ORDERED: Morphine 4 MG/ML VIAL ONE (13:38)
--- NOTE | 2018-08-02 14:36 | RAD ---
PORTABLE CHEST: Date: 08/02/18 PROVIDED CLINICAL HISTORY: Central line placement. FINDINGS: Comparison with 07/27/18. Interval placement of right IJ central line, with tips overlying expected location of SVC. Cardiac si lhouette appears prominent. No focal consolidation, pleural fluid, or pneumothorax apparent. IMPRESSION: Status post central line placement without evidence for complication. POS: SHALINI
[2018-08-02] MEDS ORDERED: Lidocaine 1% PF 5 ML VIAL ONE (15:22)
[2018-08-02] MEDS ORDERED: PROPOFOL 200 MG/20 ML VIAL ONE (15:22)
[2018-08-02] MEDS ORDERED: Ondansetron PF 4 MG/2 ML Vial ONE (15:22)
[2018-08-02] MEDS: traMADol HCl 50 MG TAB PO PRN (18:05)
--- NOTE | 2018-08-02 19:56 | HP ---
HISTORY OF PRESENT ILLNESS: Dionicio Cast is a 63-year-old male patient status post suicide attempt with ethylene glycol ingestion. He has end-stage renal disease. He had a temporary dialysis catheter that has malfunctioned and he is in need of a cuffed tunneled dialysis catheter over the weekend. Plan is to place that today. He will need primary access. We will plan left arm fistula early next week. The patient has a marking ultrasound with antecubital cephalic vein is poorly visualized, but otherwise, cephalic vein looks good caliber in both upper extremities. Basilic vein is excellent caliber in both upper extremities. Expiration may yield that he needs a stage fistula, but we will plan placement of a hemodialysis catheter today and left arm fistula early next week. The patient was admitted to the Hospitalist Service this admission on 07/29/2018, for ethylene glycol ingestion suicide attempt. He has history of hyperlipidemia and was encephalopathic on admission, but is clear now. He has a sitter with him. PAST SURGICAL HISTORY: Cholecystectomy, knee surgeries, elbow surgeries, laminectomies lumbar, right [id number] amputation, right shoulder surgery, and right hand surgery. SOCIAL HISTORY: The patient lives at home alone. Alcohol, none. Drug use, none. Tobacco use, none. ALLERGIES: CODEINE REPORTED. MEDICATIONS: At home; 1. Losartan. 2. Hydrocodone. 3. Amlodipine. 4. Gabapentin. 5. Hydrochlorothiazide. 6. Hydralazine. 7. Clonidine. 8. Amlodipine. 9. Testosterone. 10. Fenofibrate. In the hospital, he is on; 1. Tramadol. 2. Lorazepam. 3. Hydralazine p.r.n. 4. Gabapentin 400 q.i.d. 5. Amlodipine 10 daily. 6. Tylenol p.r.n. The patient has chronic kidney disease with abnormal kidney function since October 2017, progressive. He has had abdominal pelvic CAT scans and renal ultrasounds that were unremarkable except for postsurgical changes and renal ultrasound without obstructive uropathy. He does have renal cyst. Cardiolite stress test 03/08/2017, Dr. Schaefer, was unremarkable without reversible ischemia and normal ejection fraction. ASSESSMENT: End-stage renal disease. PLAN: Placement of cuffed tunneled dialysis catheter this weekend. We will plan placement of left arm fistula, possibly graft early next week. He can be discharged post placement as this is an outpatient procedure. Job ID: [id number]
[2018-08-02] MEDS: Acetaminophen 500 MG TAB PO PRN (20:33)
[2018-08-02] MEDS: traZODone HCl 50 MG TAB PO SCH (20:34)
--- NOTE | 2018-08-02 20:56 | OP ---
DATE OF PROCEDURE: 07/29/2018 PREOPERATIVE DIAGNOSIS: Toxicity secondary to antifreeze ingestion, need to emergently dialyze. POSTPROCEDURE DIAGNOSIS: Toxicity secondary to antifreeze ingestion, need to emergently dialyze. PROCEDURE PERFORMED: Placement of a left femoral 12-Turkish hemodialysis catheter. ANESTHESIA: 1% lidocaine. INDICATIONS: The patient is a 63-year-old white male. He had presented to the emergency room, apparently having intentionally ingested antifreeze. Urgent hemodialysis was recommended. The emergency room physician, Dr. Mcgraw had attempted placement of a right femoral hemodialysis catheter. There was apparently difficulty with this and he was unable to successfully place the catheter. I was called urgently to assist with catheter placement. DESCRIPTION OF THE PROCEDURE: At the time that I arrived to his bed in the emergency room, he was being chemically sedated as he was somewhat thrashing around. A sterile drape was in place, exposing the right femoral area. An ultrasound was not being utilized. There was no obvious hematoma within the wound and the puncture site from the recent catheter placement was still visible. I passed the needle through the prior skin opening into the anticipated area of the right femoral vein. Blood was aspirated, but I could not feed a wire through this. I suspected that I had entered into a small simon venous hematoma. I attempted this couple other times and never was able to advance the wire in the right groin. I therefore decided to switch over to the left groin. The left groin was prepped with ChloraPrep and draped in sterile fashion. Local anesthetic was infiltrated and large gauge needle was passed into the left femoral vein on the initial attempt. A guidewire was passed through the needle, skin was incised, tract was dilated, and 12-Turkish hemodialysis catheter was advanced uneventfully. Each lumen aspirated blood freely and was flushed with heparinized saline. The catheter was secured at skin exit site with 3-0 silk suture. Sterile occlusive dressing was applied. There were no complications and negligible blood loss. The catheter was safe to be utilized for hemodialysis. Job ID: [id number]
[2018-08-03] MEDS: traMADol HCl 50 MG TAB PO PRN ×4 (00:04→22:13)
[2018-08-03 06:53] LABS: Anion Gap 19 mmol/L (10-20); BUN (Urea Nitrogen) 53 mg/dL (8.4-25.7); Calc. Creatinine Clearance 13 mL/min (70-130); Calcium 8.8 mg/dL (7.8-10.44); Carbon Dioxide 19 mmol/L (23-31); Chloride 102 mmol/L (98-107); Estimated GFR-MDRD 7; Glucose 108 mg/dL (80-115); Potassium 4.6 mmol/L (3.5-5.1); Sodium 135 mmol/L (136-145)
[2018-08-03] MEDS: Gabapentin 400 MG CAP PO SCH ×4 (08:47→21:01)
[2018-08-03] MEDS: hydrALAZINE 25 MG TAB PO SCH ×3 (08:47→21:01)
[2018-08-03] MEDS: Amlodipine 10 MG TAB PO SCH (08:47)
--- NOTE | 2018-08-03 10:18 | PRG ---
DATE OF SERVICE: 08/03/2018 SUBJECTIVE: A 63-year-old gentleman, being seen for end-stage kidney disease. The patient denies any nausea, vomiting, or chest pain. OBJECTIVE: GENERAL: The patient is awake and alert. VITAL SIGNS: Afebrile, pulse 95, breathing 16, blood pressure 137/75. GENERAL APPEARANCE AND MENTAL STATUS: Fair. HEAD/NECK: Normocephalic. Atraumatic. EYES: EOMI. No deformity. EARS: Clear. No ulcers. NOSE: Intact. No lesions. MOUTH: Clear. No discharge. THROAT: Clear. No exudate. LUNGS: Clear. No crackles. CARDIAC: S1, S2. No rub. ABDOMEN: Benign. Bowel sounds positive. GENITALIA/RECTUM: Go absent. BACK/EXTREMITIES: Edema 0+. NEUROLOGICAL: Alert and motor intact. SKIN: LYMPHATICS: LABORATORY DATA: Hemoglobin 11.6. Potassium 4.6. ASSESSMENT AND PLAN: 1. End-stage kidney disease with metabolic acidosis. Plan dialysis today. 2. Hypertension, stable. 3. Anemia, stable. 4. Medications based on GFR appropriate. Job ID: [id number]
--- NOTE | 2018-08-03 13:16 | PDOC.PN ---
- Subjective Encounter Start Date: 08/03/18 Encounter Start Time: 13:14 Subjective: pt up in bed no complains - Objective Resuscitation Status - Order Detail: 07/29/18 21:00 Resuscitation Status Routine Resuscitation Status: FULL: Full Resuscitation Vital Signs & Weight: Vital Signs (12 hours) Temp Pulse Resp BP BP Pulse Ox 08/03/18 08:47 94 08/03/18 08:00 97.5 F L 75 18 159/74 H 91 L 08/03/18 04:00 97.3 F L 94 20 137/75 95 Weight Weight 207 lb 0.225 oz I&O: 08/02/18 08/03/18 08/04/18 06:59 06:59 06:59 Intake Total 1440 4190 200 Output Total 1225 600 Balance 215 3590 200 Result Diagrams: 07/31/18 09:20 08/03/18 06:20 Phys Exam - Physical Examination Neck: no nodes, no JVD, supple, full ROM Respiratory: no wheezing, no rales, no rhonchi, wheezing present, clear to auscultation bilateral Cardiovascular: RRR, no significant murmur, no rub, gallop, irregular Gastrointestinal: soft, non-tender, no distention, positive bowel sounds Musculoskeletal: no edema, pulses present, edema present Dx/Plan (1) Acute kidney failure Status: Acute (2) Ethylene glycol poisoning Code(s): T52.8X1A - TOXIC EFFECT OF ORGANIC SOLVENTS, ACCIDENTAL, INIT Status : Acute Comment: second episode (3) High anion gap metabolic acidosis Code(s): E87.2 - ACIDOSIS Status: Acute Comment: Secondary to ethylene glycol ingestion (4) HTN (hypertension) Code(s): I10 - ESSENTIAL (PRIMARY) HYPERTENSION Status: Chronic Qualifiers: Comment: Continue Norvasc, Hydralazine and Clonidine - Plan pt up in bed no complains -: once stable will get mental health * . Review of Systems - Review of Systems Respiratory: negative: Cough, Dry, Shortness of Breath, Hemoptysis, SOB with Excertion, Pleuritic Pain, Sputum, Wheezing Cardiovascular: negative: chest pain, palpitations, orthopnea, paroxysmal nocturnal dyspnea, edema, light headedness, other Gastrointestinal: negative: Nausea, Vomiting, Abdominal Pain, Diarrhea, Constipation, Melena, Hematochezia, Other Genitourinary: negative: Dysuria, Frequency, Incontinence, Hematuria, Retention , Other - Medications/Allergies Allergies/Adverse Reactions: Allergies Allergy/AdvReac Type Severity Reaction Status Date / Time codeine Allergy Hives Verified 07/07/18 17:46 Medications: Current Medications Acetaminophen (Tylenol) 1,000 mg PO Q6H PRN PRN Reason: Moderate to Severe Pain (6-10) Last Admin: 08/02/18 20:33 Dose: 1,000 mg Amlodipine Besylate (Norvasc) 10 mg PO DAILY [facility] Last Admin: 08/03/18 08:47 Dose: 10 mg Gabapentin (Neurontin) 400 mg PO QID [facility] Last Admin: 08/03/18 12:54 Dose: 400 mg Hydralazine HCl (Apresoline) 10 mg SLOW IVP Q4H PRN PRN Reason: Blood Pressure Hydralazine HCl (Apresoline) 50 mg PO TID [facility] Last Admin: 08/03/18 08:47 Dose: 50 mg Lorazepam (Ativan) 1 mg SLOW IVP Q4H PRN PRN Reason: .ANXIETY Last Admin: 07/31/18 10:52 Dose: 1 mg Miscellaneous Medication (Pharmacy To Dose) 1 each IVPB PRN PRN PRN Reason: Pharmacy to dose Ondansetron HCl (Zofran) 4 mg IVP Q6H PRN PRN Reason: Nausea/Vomiting Sodium Chloride (Flush - Normal Saline) 10 ml IVF Q12HR [facility] Last Admin: 08/03/18 08:48 Dose: 10 ml Sodium Chloride (Flush - Normal Saline) 10 ml IVF PRN PRN PRN Reason: Saline Flush Tramadol HCl (Ultram) 50 mg PO Q6H PRN PRN Reason: Mild Pain (1-3) Last Admin: 08/03/18 06:06 Dose: 50 mg Tramadol HCl (Ultram) 100 mg PO Q6H PRN PRN Reason: Moderate Pain (4-6) Last Admin: 08/03/18 12:55 Dose: 100 mg Trazodone HCl (Desyrel) 50 mg PO HS [facility] Last Admin: 08/02/18 20:34 Dose: 50 mg
--- NOTE | 2018-08-03 13:55 | OP ---
DATE OF PROCEDURE: 08/02/2018 PREOPERATIVE DIAGNOSES: Malfunctioned groin temporary dialysis catheter, end-stage renal disease, in need of fistula next week. POSTOPERATIVE DIAGNOSES: Malfunctioned groin temporary dialysis catheter, end-stage renal disease, in need of fistula next week. PROCEDURE PERFORMED: Right IJ cuffed tunneled hemodialysis catheter, ultrasound and fluoroscopy used. ANESTHESIA: Local TIVA, 0.5% Marcaine with epinephrine, 30 mL mixed to 2% Xylocaine 10 mL. Ultrasound and fluoroscopy used for the procedure. DESCRIPTION OF PROCEDURE: The patient was taken to the operating room. Under intravenous sedation, neck and chest were clipped of hair, prepared with ChloraPrep and draped in routine fashion. Using ultrasound guidance, right internal jugular vein was cannulated with a trocar catheter and J-wire threaded, trocar catheter removed. Skin was incised and enlarged sharply. Stab incision was made over the right chest. Using Seldinger technique, pre-curved [employer] cuffed-tunneled hemodialysis catheter tunneled between the 2 incisions, placed the fabric cuff beneath the catheter exit site. Catheter was secured with 2 interrupted sutures of 3-0 nylon and sterile dressing was applied. Small and medium size dilators were placed over the J-wire and the internal jugular vein removed. Dilator and Peel-Away sheath were placed over the J-wire into the superior vena cava. Dilator and J-wire were removed. Catheter placed with Peel-Away sheath. Peel-Away sheath was removed. Platysma was approximated with 4-0 Monocryl, skin with subdermal 4-0 Monocryl. Fluoroscopic images revealed good line placement. Each port aspirated blood, flushed with saline solution and heparinized saline solution 1000 units of heparin per mL indicating volume of the port. Sterile dressings applied. The patient tolerated the procedure well. Final fluoroscopic images revealed good line placement. Job ID: [id number]
[2018-08-03] MEDS: traZODone HCl 50 MG TAB PO SCH (21:01)
[2018-08-04] MEDS: traMADol HCl 50 MG TAB PO PRN ×3 (05:08→22:24)
[2018-08-04 08:01] LABS: Anion Gap 17 mmol/L (10-20); BUN (Urea Nitrogen) 33 mg/dL (8.4-25.7); Calc. Creatinine Clearance 18 mL/min (70-130); Calcium 8.9 mg/dL (7.8-10.44); Carbon Dioxide 23 mmol/L (23-31); Chloride 100 mmol/L (98-107); Estimated GFR-MDRD 10; Glucose 102 mg/dL (80-115); Potassium 4.7 mmol/L (3.5-5.1); Sodium 135 mmol/L (136-145)
[2018-08-04] MEDS ORDERED: Midazolam HCl 2 mg/2 ml Vial ONE (08:34)
[2018-08-04] MEDS ORDERED: Fentanyl 100 MCG/2 ML VIAL ONE ×2 (08:34→08:51)
[2018-08-04] MEDS ORDERED: Propofol 500 MG/50 ML VIAL ONE (08:51)
[2018-08-04] MEDS ORDERED: Heparin 5,000 UNITS/ML VIAL ONE (08:56)
[2018-08-04] MEDS ORDERED: Bupivacaine HCl 0.5%/Epinephrine 1:200,000/PF 30 ml Vial ONE ×2 (08:56→14:43)
[2018-08-04] MEDS ORDERED: Lidocaine 2% PF 5 ML VIAL ONE (08:56)
[2018-08-04] MEDS ORDERED: Protamine Sulfate 50 MG/5 ML VIAL ONE (08:56)
[2018-08-04] MEDS ORDERED: Lidocaine 2% 11 ML SYR ONE (10:39)
[2018-08-04] MEDS: hydrALAZINE 25 MG TAB PO SCH ×3 (12:11→20:16)
[2018-08-04] MEDS: Amlodipine 10 MG TAB PO SCH (12:11)
[2018-08-04] MEDS: Gabapentin 400 MG CAP PO SCH ×4 (12:11→20:16)
--- NOTE | 2018-08-04 13:19 | OP ---
DATE OF PROCEDURE: 08/04/2018 PREOPERATIVE DIAGNOSIS: End-stage renal disease, in need of dialysis access. POSTOPERATIVE DIAGNOSES: Thrombosed cephalic vein risk secondary to IV access. Thrombus left cephalic vein secondary to IV access, thrombosis of basilic vein secondary to IV access. PROCEDURES PERFORMED: Exploration of left wrist cephalic vein ligated secondary to thrombosis. Expiration of left AC with primary fistula outflow cephalic vein after Catie thrombectomy of thrombus from the cephalic vein, basilic vein could not be interrogated secondary to thrombosis for IV access, 4 mm coronary dilator outflow, perforating branch antecubital vein outflow cephalic vein only, good quality proximal radial artery of good size without arteriosclerotic disease. ANESTHESIA: Regional TIVA. DESCRIPTION OF PROCEDURE: The patient was taken to the operating room, where under regional anesthesia, left upper extremity was prepared with ChloraPrep and draped in routine fashion. Incision was made longitudinally in the left wrist, carried down the skin and subcutaneous tissue. Cephalic vein on the hand side dissected free seemed to be of adequate size, ligated with 3-0 silk tie, divided and interrogated with coronary dilators. It was thrombosed secondary to IV access, thus it was ligated. Wound was closed by approximating the subcutaneous tissues with 3-0 Monocryl, skin with subdermal 4-0 Monocryl, and [place] glue was applied. Left antecubital vein was dissected free after an incisional institution in the proximal volar forearm below the antecubital fossa. The cephalic vein at the forearm side was small caliber. Perforating branch was of excellent caliber. It was dissected free. Branches were divided between clips and ties. It was spatulated over branch point, interrogated with coronary dilators. Coronary dilators were not passed through the basilic vein secondary to fibrosis from poor IV access. There was a puncture site above the antecubital fossa from an IV this hospitalization. I had some difficulty passing the coronary dilators, thus passed a Catie catheter and removed a large thrombus from the vein. It was present secondary to IV access. Coronary dilators were passed from 1 mm to 4 mm without restriction. It was flushed with heparinized saline solution. The patient given 6000 units of heparin intravenously. The brachial, ulnar, and radial arteries were dissected free and controlled with vascular clamps. Longitudinal arteriotomy was made sharply in the proximal radial artery, and a 2 cm anastomosis was created between the proximal radial artery and the end perforating branch antecubital vein using continuous suture of 6-0 Prolene. At the end of the procedure, there was good Doppler signal in the outflow, although, seemingly prominent pulsations. At this point, the patient was given 25 mg of protamine intravenously by Anesthesia. Subcutaneous tissue was approximated with 3-0 Monocryl, skin with subdermal 4-0 Monocryl. [place] glue was applied. Note, if this fistula does not mature, may have to explore the right arm to avoid a prosthesis. Job ID: [id number]
[2018-08-04] MEDS ORDERED: Heparin 10,000 UNITS/ 10 ML VIAL ONE (14:45)
[2018-08-04] MEDS ORDERED: PROPOFOL 200 MG/20 ML VIAL ONE (14:45)
--- NOTE | 2018-08-04 17:54 | PRG ---
DATE OF SERVICE: 08/04/2018 SUBJECTIVE: Patient was seen and examined at bedside and overnight events noted. Patient denies any shortness of breath or chest pain or palpitation. No history of nausea or vomiting or diarrhea or fever or chills or cramps. OBJECTIVE: GENERAL: This is a well built male, in no acute distress. VITAL SIGNS: Temperature 98.2. Heart rate 91. Respiratory rate . Blood pressure 144/76. HEENT: Atraumatic, normocephalic. Oral mucosa is moist NECK: Supple. CARDIOVASCULAR: S1, S2 heard. Rate and rhythm regular. RESPIRATORY: Clear to auscultation. GASTROINTESTINAL: Abdomen is soft. MUSCULOSKELETAL: No tenderness. No edema. DERMATOLOGIC: No skin rash. NEUROLOGIC: Alert and awake and oriented X3. No focal neurologic deficits. Moving all the extremities. PSYCHIATRIC: Mood and affect normal. LABORATORY DATA: Potassium is 4.7, BUN is 33, creatinine is 5.1. ASSESSMENT AND PLAN: 1. Acute kidney injury on chronic kidney disease stage 3. Dialysis dependent. No dialysis today. The patient underwent access placement. 2. Edema, controlled. 3. Hypertension. 4. Anemia. The patient reports that he is making increased amount of urine, seems like made 500 mL of urine today. We will continue to monitor dialysis. Job ID: [id number]
[2018-08-04] MEDS: Acetaminophen 500 MG TAB PO PRN (19:23)
[2018-08-04] MEDS: Lorazepam 2 MG/ML VIAL SLOW IVP PRN (19:24)
[2018-08-04] MEDS: traZODone HCl 50 MG TAB PO SCH (20:18)
[2018-08-05] MEDS: traMADol HCl 50 MG TAB PO PRN ×3 (05:19→19:12)
[2018-08-05] MEDS: Acetaminophen 500 MG TAB PO PRN ×3 (05:21→19:12)
[2018-08-05 08:09] LABS: Anion Gap 17 mmol/L (10-20); BUN (Urea Nitrogen) 47 mg/dL (8.4-25.7); Calc. Creatinine Clearance 15 mL/min (70-130); Calcium 8.8 mg/dL (7.8-10.44); Carbon Dioxide 24 mmol/L (23-31); Chloride 98 mmol/L (98-107); Estimated GFR-MDRD 8; Glucose 107 mg/dL (80-115); Potassium 4.5 mmol/L (3.5-5.1); Sodium 134 mmol/L (136-145)
[2018-08-05] MEDS: Amlodipine 10 MG TAB PO SCH ×2 (08:28→13:06)
[2018-08-05] MEDS: Gabapentin 400 MG CAP PO SCH ×4 (08:28→20:23)
[2018-08-05] MEDS: hydrALAZINE 25 MG TAB PO SCH ×3 (08:28→20:23)
--- NOTE | 2018-08-05 11:17 | PDOC.PN ---
- Subjective Encounter Start Date: 08/04/18 Encounter Start Time: 15:55 Subjective: pt up in bed post cath placement - Objective Resuscitation Status - Order Detail: 07/29/18 21:00 Resuscitation Status Routine Resuscitation Status: FULL: Full Resuscitation Vital Signs & Weight: Vital Signs (12 hours) Temp Pulse Resp BP BP Pulse Ox 08/05/18 08:32 98.7 F 76 20 136/72 94 L 08/05/18 04:46 99.3 F 86 20 140/78 93 L Weight Weight 207 lb 0.225 oz I&O: 08/04/18 08/05/18 08/06/18 06:59 06:59 06:59 Intake Total 920 1000 Output Total 2400 1075 Balance -1480 -75 Result Diagrams: 07/31/18 09:20 08/05/18 07:40 Phys Exam - Physical Examination Respiratory: no wheezing, no rales, no rhonchi, wheezing present, clear to auscultation bilateral Cardiovascular: RRR, no significant murmur, no rub, gallop, irregular Gastrointestinal: soft, non-tender, no distention, positive bowel sounds Dx/Plan (1) Acute kidney failure Status: Acute (2) Ethylene glycol poisoning Code(s): T52.8X1A - TOXIC EFFECT OF ORGANIC SOLVENTS, ACCIDENTAL, INIT Status : Acute Comment: second episode (3) High anion gap metabolic acidosis Code(s): E87.2 - ACIDOSIS Status: Acute Comment: Secondary to ethylene glycol ingestion (4) HTN (hypertension) Code(s): I10 - ESSENTIAL (PRIMARY) HYPERTENSION Status: Chronic Qualifiers: Comment: Continue Norvasc, Hydralazine and Clonidine - Plan pt a little sleepy -: sitter at bedside -: will continue to monitor -: when pt cleared by nephro and surgery will consult mental health. * . Review of Systems - Review of Systems Respiratory: negative: Cough, Dry, Shortness of Breath, Hemoptysis, SOB with Excertion, Pleuritic Pain, Sputum, Wheezing Cardiovascular: negative: chest pain, palpitations, orthopnea, paroxysmal nocturnal dyspnea, edema, light headedness, other Gastrointestinal: negative: Nausea, Vomiting, Abdominal Pain, Diarrhea, Constipation, Melena, Hematochezia, Other - Medications/Allergies Allergies/Adverse Reactions: Allergies Allergy/AdvReac Type Severity Reaction Status Date / Time codeine Allergy Hives Verified 07/07/18 17:46 Medications: Current Medications Acetaminophen (Tylenol) 1,000 mg PO Q6H PRN PRN Reason: Moderate to Severe Pain (6-10) Last Admin: 08/05/18 13:04 Dose: 1,000 mg Amlodipine Besylate (Norvasc) 10 mg PO DAILY [facility] Last Admin: 08/05/18 13:06 Dose: 10 mg Gabapentin (Neurontin) 400 mg PO QID [facility] Last Admin: 08/05/18 13:04 Dose: 400 mg Hydralazine HCl (Apresoline) 10 mg SLOW IVP Q4H PRN PRN Reason: Blood Pressure Hydralazine HCl (Apresoline) 50 mg PO TID [facility] Last Admin: 08/05/18 08:28 Dose: Not Given Lorazepam (Ativan) 1 mg SLOW IVP Q4H PRN PRN Reason: .ANXIETY Last Admin: 08/04/18 19:24 Dose: 1 mg Miscellaneous Medication (Pharmacy To Dose) 1 each IVPB PRN PRN PRN Reason: Pharmacy to dose Ondansetron HCl (Zofran) 4 mg IVP Q6H PRN PRN Reason: Nausea/Vomiting Sodium Chloride (Flush - Normal Saline) 10 ml IVF Q12HR [facility] Last Admin: 08/05/18 13:03 Dose: Not Given Sodium Chloride (Flush - Normal Saline) 10 ml IVF PRN PRN PRN Reason: Saline Flush Tramadol HCl (Ultram) 50 mg PO Q6H PRN PRN Reason: Mild Pain (1-3) Last Admin: 08/03/18 06:06 Dose: 50 mg Tramadol HCl (Ultram) 100 mg PO Q6H PRN PRN Reason: Moderate Pain (4-6) Last Admin: 08/05/18 13:04 Dose: 100 mg Trazodone HCl (Desyrel) 50 mg PO HS [facility] Last Admin: 08/04/18 20:18 Dose: 50 mg
--- NOTE | 2018-08-05 13:45 | PDOC.PN ---
- Subjective Encounter Start Date: 08/05/18 Encounter Start Time: 10:30 Subjective: pt up in dialysis, no complains - Objective Resuscitation Status - Order Detail: 07/29/18 21:00 Resuscitation Status Routine Resuscitation Status: FULL: Full Resuscitation Vital Signs & Weight: Vital Signs (12 hours) Temp Pulse Resp BP BP BP Pulse Ox 08/05/18 13:07 76 154/83 H 08/05/18 08:32 98.7 F 76 20 136/72 94 L 08/05/18 04:46 99.3 F 86 20 140/78 93 L Weight Weight 207 lb 0.225 oz I&O: 08/04/18 08/05/18 08/06/18 06:59 06:59 06:59 Intake Total 920 1000 Output Total 2400 1075 Balance -1480 -75 Result Diagrams: 07/31/18 09:20 08/05/18 07:40 Phys Exam - Physical Examination Respiratory: no wheezing, no rales, no rhonchi, wheezing present, clear to auscultation bilateral Cardiovascular: RRR, no significant murmur, no rub, gallop, irregular Gastrointestinal: soft, non-tender, no distention, positive bowel sounds Dx/Plan (1) Acute kidney failure Status: Acute (2) Ethylene glycol poisoning Code(s): T52.8X1A - TOXIC EFFECT OF ORGANIC SOLVENTS, ACCIDENTAL, INIT Status : Acute Comment: second episode (3) High anion gap metabolic acidosis Code(s): E87.2 - ACIDOSIS Status: Acute Comment: Secondary to ethylene glycol ingestion (4) HTN (hypertension) Code(s): I10 - ESSENTIAL (PRIMARY) HYPERTENSION Status: Chronic Qualifiers: Comment: Continue Norvasc, Hydralazine and Clonidine - Plan roach in to see his urine output -: continue dialysis per nephro -: pt will need inpatient psy due to 2 attempts for sucide -: pt tells the sitter that he wants to hurt himself but tells me He does not. * . Review of Systems - Review of Systems Cardiovascular: negative: chest pain, palpitations, orthopnea, paroxysmal nocturnal dyspnea, edema, light headedness, other Gastrointestinal: negative: Nausea, Vomiting, Abdominal Pain, Diarrhea, Constipation, Melena, Hematochezia, Other Genitourinary: negative: Dysuria, Frequency, Incontinence, Hematuria, Retention , Other - Medications/Allergies Allergies/Adverse Reactions: Allergies Allergy/AdvReac Type Severity Reaction Status Date / Time codeine Allergy Hives Verified 07/07/18 17:46 Medications: Current Medications Acetaminophen (Tylenol) 1,000 mg PO Q6H PRN PRN Reason: Moderate to Severe Pain (6-10) Last Admin: 08/05/18 13:04 Dose: 1,000 mg Amlodipine Besylate (Norvasc) 10 mg PO DAILY [facility] Last Admin: 08/05/18 13:06 Dose: 10 mg Gabapentin (Neurontin) 400 mg PO QID [facility] Last Admin: 08/05/18 13:04 Dose: 400 mg Hydralazine HCl (Apresoline) 10 mg SLOW IVP Q4H PRN PRN Reason: Blood Pressure Hydralazine HCl (Apresoline) 50 mg PO TID [facility] Last Admin: 08/05/18 08:28 Dose: Not Given Lorazepam (Ativan) 1 mg SLOW IVP Q4H PRN PRN Reason: .ANXIETY Last Admin: 08/04/18 19:24 Dose: 1 mg Miscellaneous Medication (Pharmacy To Dose) 1 each IVPB PRN PRN PRN Reason: Pharmacy to dose Ondansetron HCl (Zofran) 4 mg IVP Q6H PRN PRN Reason: Nausea/Vomiting Sodium Chloride (Flush - Normal Saline) 10 ml IVF Q12HR [facility] Last Admin: 08/05/18 13:03 Dose: Not Given Sodium Chloride (Flush - Normal Saline) 10 ml IVF PRN PRN PRN Reason: Saline Flush Tramadol HCl (Ultram) 50 mg PO Q6H PRN PRN Reason: Mild Pain (1-3) Last Admin: 08/03/18 06:06 Dose: 50 mg Tramadol HCl (Ultram) 100 mg PO Q6H PRN PRN Reason: Moderate Pain (4-6) Last Admin: 08/05/18 13:04 Dose: 100 mg Trazodone HCl (Desyrel) 50 mg PO [facility] Last Admin: 08/04/18 20:18 Dose: 50 mg
--- NOTE | 2018-08-05 16:03 | PRG ---
DATE OF SERVICE: 08/05/2018 SUBJECTIVE: Dionicio Cast is doing well today. He complains of pain in his left arm. His surgical wound looks good. There is no evidence of a significant hematoma. He does have a thrill and bruit over his fistula, although he has prominent pulsations. At the time of operation, his left wrist was explored, and the vein was too small and had to be ligated. There was scar from previous IV access. Informed that he has left antecubital fistula. He was noted to have an IV puncture site in the distal upper arm cephalic vein. I performed a thrombectomy removing thrombus from this vein. I placed coronary artery dilators and they seemed to pass. Today, there are prominent pulsations antecubital fossa. I do not hear a good signal in the upper arm with cephalic vein. It is very possible that he has a mechanical problem that this may be thrombosed. There is no intervention that can be done at this time. I would recommend not placing IVs above his wrist in right arm as he might need a fistula in that right arm. Ultrasound vein mapping on 07/31/2018 of the right arm revealed the cephalic vein is not visualized at the proximal humerus nor the antecubital fossa. The basilic vein was 4, 5, 6 and 5 mm. At this point, we will observe his fistula as far as his pain that should improve with time. The patient is using ice pack and oral analgesics. This should improve with time. The patient should follow up in my office in 2 to 3 weeks. I will see him as needed this hospitalization. Job ID: [id number]
--- NOTE | 2018-08-05 20:21 | PRG ---
DATE OF SERVICE: 08/05/2018 SUBJECTIVE: Patient was seen and examined at bedside and overnight events noted. Patient denies any shortness of breath or chest pain or palpitation. No history of nausea or vomiting or diarrhea or fever or chills or cramps. OBJECTIVE: GENERAL: This is a well-built male, in no apparent distress. VITAL SIGNS: Temperature 98.7, pulse 77, respirations blood pressure 136/72. HEENT: Atraumatic, normocephalic. Oral mucosa is moist NECK: Supple. CARDIOVASCULAR: S1, S2 heard. Rate and rhythm regular. RESPIRATORY: Clear to auscultation. GASTROINTESTINAL: Abdomen is soft. MUSCULOSKELETAL: No tenderness. No edema. DERMATOLOGIC: No skin rash. NEUROLOGIC: Alert and awake and oriented X3. No focal neurologic deficits. Moving all the extremities. PSYCHIATRIC: Mood and affect normal. LABORATORY DATA: Potassium is 4.5, BUN is 47, creatinine is 7.02. ASSESSMENT AND PLAN: 1. Acute kidney injury on chronic kidney disease stage 4, still needing dialysis. We will continue hemodialysis. Plan is to have dialysis today. 2. Edema, controlled. 3. Hypertension. 4. Anemia. 5. Continue dialysis as tolerated. Job ID: [id number]
[2018-08-05] MEDS: traZODone HCl 50 MG TAB PO SCH (20:23)
[2018-08-06] MEDS: Acetaminophen 500 MG TAB PO PRN ×2 (02:17→18:06)
[2018-08-06] MEDS: traMADol HCl 50 MG TAB PO PRN ×4 (02:17→20:54)
[2018-08-06 06:05] LABS: Anion Gap 14 mmol/L (10-20); BUN (Urea Nitrogen) 32 mg/dL (8.4-25.7); Calc. Creatinine Clearance 21 mL/min (70-130); Calcium 8.9 mg/dL (7.8-10.44); Carbon Dioxide 27 mmol/L (23-31); Chloride 99 mmol/L (98-107); Estimated GFR-MDRD 12; Glucose 95 mg/dL (80-115); Potassium 4.6 mmol/L (3.5-5.1); Sodium 135 mmol/L (136-145)
[2018-08-06] MEDS: hydrALAZINE 25 MG TAB PO SCH ×3 (08:26→20:51)
[2018-08-06] MEDS: Gabapentin 400 MG CAP PO SCH ×4 (08:26→20:51)
[2018-08-06] MEDS: Amlodipine 10 MG TAB PO SCH (08:27)
[2018-08-06] MEDS ORDERED: Bisacodyl 10 MG SUPP PR PRN (08:28)
[2018-08-06] MEDS: Polyethylene Glycol 3350 17 GM Packet PO SCH (08:35)
[2018-08-06] MEDS: Senokot S 8.6-50 MG TAB PO SCH (08:35)
[2018-08-06 10:11] LABS: #Eosinphils 0.4 thou/uL (0.0-0.7); #Lymphocytes 1.8 thou/uL (1.20-3.40); #Monocytes 0.8 thou/uL (0.11-0.59); #Neutrophils 4.1 thou/uL (1.40-6.50); %Basophils 0.4 % (0.0-1.0); %Eosinophils 6.1 % (0.0-10.0); %Lymphocytes 24.7 % (21.0-51.0); %Monocytes 11.5 % (0.0-10.0); %Neutrophils 57.3 % (42.0-75.0); Hemoglobin 9.2 g/dL (14.0-18.0); Mean Corpuscular HGB CONC 32.7 g/dL (32.0-36.0); Mean Corpuscular Hemoglobin 30.5 pg (27.0-31.0); Mean Corpuscular Volume 93.3 fL (78.0-98.0); Mean Platelet Volume 8.1 fL (7.4-10.4); Platelet Count 266 thou/uL (130-400); RBC Distribution Width 12.2 % (11.5-14.5); Red Blood Cell (RBC) Count 3.03 mill/uL (4.70-6.10); White Blood Cell (WBC) Count 7.2 thou/uL (4.8-10.8)
[2018-08-06] MEDS ORDERED: Tuberculin PPD 0.1 ML VIAL I-DERMAL SCH (10:15)
--- NOTE | 2018-08-06 11:50 | RAD ---
LEFT ELBOW 2 VIEWS: Date: 08/06/18 HISTORY: Left elbow pain. FINDINGS/IMPRESSION: There are surgical clips in the soft tissues of the anterior aspect of the elbow. No fracture, disloc ation, or bony destruction is identified. No joint effusion seen. POS: SHALINI
--- NOTE | 2018-08-06 12:27 | PRG ---
DATE OF SERVICE: 08/06/2018 SUBJECTIVE: Patient was seen and examined at bedside and overnight events noted. Patient denies any shortness of breath or chest pain or palpitation. No history of nausea or vomiting or diarrhea or fever or chills or cramps. OBJECTIVE: GENERAL: This is a well-built male, in no apparent distress. VITAL SIGNS: Temperature 97.9. Heart rate 77. Respiratory rate 16. Blood pressure 164/86. HEENT: Atraumatic, normocephalic. Oral mucosa is moist NECK: Supple. CARDIOVASCULAR: S1, S2 heard. Rate and rhythm regular. RESPIRATORY: Clear to auscultation. GASTROINTESTINAL: Abdomen is soft. MUSCULOSKELETAL: No tenderness. No edema. DERMATOLOGIC: No skin rash. NEUROLOGIC: Alert and awake and oriented X3. No focal neurologic deficits. Moving all the extremities. PSYCHIATRIC: Mood and affect normal. LABORATORY DATA: Potassium is 4.6, BUN is 32, and creatinine is 4.8. ASSESSMENT AND PLAN: 1. Acute kidney injury on chronic kidney disease, stage 4 with improvement in urine output, but still needing dialysis. We will have Case Management consult for outpatient dialysis set up. 2. Plan discussed with Dr. Rdaha sanchez. 3. Edema, controlled. 4. Hypertension. 5. Anemia. Plan is to continue dialysis with close monitoring of renal function. Urine output is improving. We will follow. Avoid nephrotoxins. Job ID: [id number]
--- NOTE | 2018-08-06 12:42 | PDOC.PN ---
- Subjective Encounter Start Date: 08/06/18 Encounter Start Time: 10:30 Subjective: pt complains of pain to his left elbow - Objective Resuscitation Status - Order Detail: 07/29/18 21:00 Resuscitation Status Routine Resuscitation Status: FULL: Full Resuscitation Vital Signs & Weight: Vital Signs (12 hours) Temp Pulse Resp BP BP Pulse Ox 08/06/18 08:27 77 164/86 H 08/06/18 08:26 77 164/86 H 08/06/18 08:00 94 L 08/06/18 07:20 97.9 F 77 16 164/86 H 94 L Weight Weight 207 lb 0.225 oz I&O: 08/05/18 08/06/18 08/07/18 06:59 06:59 06:59 Intake Total 1000 700 Output Total 1075 800 Balance -75 -100 Result Diagrams: 08/06/18 05:27 08/06/18 05:28 Phys Exam - Physical Examination Neck: no nodes, no JVD, supple, full ROM Respiratory: no wheezing, no rales, no rhonchi, wheezing present, clear to auscultation bilateral Cardiovascular: RRR, no significant murmur, no rub, gallop, irregular Gastrointestinal: soft, non-tender, no distention, positive bowel sounds Musculoskeletal: edema present lef upper ext Dx/Plan (1) Acute kidney failure Status: Acute (2) Ethylene glycol poisoning Code(s): T52.8X1A - TOXIC EFFECT OF ORGANIC SOLVENTS, ACCIDENTAL, INIT Status : Acute Comment: second episode (3) High anion gap metabolic acidosis Code(s): E87.2 - ACIDOSIS Status: Acute Comment: Secondary to ethylene glycol ingestion (4) HTN (hypertension) Code(s): I10 - ESSENTIAL (PRIMARY) HYPERTENSION Status: Chronic Qualifiers: Comment: Continue Norvasc, Hydralazine and Clonidine - Plan will get elbow xray -: will plan to get outpatient dialysis -: pt will need inpatient psy due to 2 attempts on sucide -: recommended to elevated left hand * . Review of Systems - Review of Systems Respiratory: negative: Cough, Dry, Shortness of Breath, Hemoptysis, SOB with Excertion, Pleuritic Pain, Sputum, Wheezing Cardiovascular: negative: chest pain, palpitations, orthopnea, paroxysmal nocturnal dyspnea, edema, light headedness, other Gastrointestinal: negative: Nausea, Vomiting, Abdominal Pain, Diarrhea, Constipation, Melena, Hematochezia, Other Musculoskeletal: Arm Pain - Medications/Allergies Allergies/Adverse Reactions: Allergies Allergy/AdvReac Type Severity Reaction Status Date / Time codeine Allergy Hives Verified 07/07/18 17:46 Medications: Current Medications Acetaminophen (Tylenol) 1,000 mg PO Q6H PRN PRN Reason: Moderate to Severe Pain (6-10) Last Admin: 08/06/18 02:17 Dose: 1,000 mg Amlodipine Besylate (Norvasc) 10 mg PO DAILY [facility] Last Admin: 08/06/18 08:27 Dose: 10 mg Bisacodyl (Dulcolax) 10 mg DE DAILYPRN PRN PRN Reason: Constipation Gabapentin (Neurontin) 400 mg PO QID [facility] Last Admin: 08/06/18 08:26 Dose: 400 mg Hydralazine HCl (Apresoline) 10 mg SLOW IVP Q4H PRN PRN Reason: Blood Pressure Hydralazine HCl (Apresoline) 50 mg PO TID [facility] Last Admin: 08/06/18 08:26 Dose: 50 mg Lorazepam (Ativan) 1 mg SLOW IVP Q4H PRN PRN Reason: .ANXIETY Last Admin: 08/04/18 19:24 Dose: 1 mg Miscellaneous Medication (Pharmacy To Dose) 1 each IVPB PRN PRN PRN Reason: Pharmacy to dose Ondansetron HCl (Zofran) 4 mg IVP Q6H PRN PRN Reason: Nausea/Vomiting Polyethylene Glycol (Miralax) 17 gm PO DAILY [facility] Last Admin: 08/06/18 08:35 Dose: 17 gm Senna/Docusate Sodium (Senokot S) 1 tab PO DAILY [facility] Last Admin: 08/06/18 08:35 Dose: 1 tab Sodium Chloride (Flush - Normal Saline) 10 ml IVF Q12HR [facility] Last Admin: 08/06/18 08:27 Dose: Not Given Sodium Chloride (Flush - Normal Saline) 10 ml IVF PRN PRN PRN Reason: Saline Flush Tramadol HCl (Ultram) 50 mg PO Q6H PRN PRN Reason: Mild Pain (1-3) Last Admin: 08/03/18 06:06 Dose: 50 mg Tramadol HCl (Ultram) 100 mg PO Q6H PRN PRN Reason: Moderate Pain (4-6) Last Admin: 08/06/18 08:29 Dose: 100 mg Trazodone HCl (Desyrel) 50 mg PO HS [facility] Last Admin: 08/05/18 20:23 Dose: 50 mg Tuberculin PPD (Aplisol) 0.1 ml I-DERMAL ONE [facility] Stop: 08/09/18 10:16
--- NOTE | 2018-08-06 16:41 | PRG ---
DATE OF SERVICE: 08/06/2018 Mr. Cast complains of left forearm pain. He had a fistula placed 2 days ago. During placement of the fistula, it was noted that he had previous IV in his cephalic vein above the antecubital fossa. When exploring the vein, the thrombus was removed with a Go catheter. The vein was then probed and seen to be patent. He had prominent pulsations at this point and he appears to have a hematoma. The patient ate breakfast this morning. He complained of pain. Auscultation of the fistula, antecubital reveals abnormal bruit. Plan at this time is to explore the left forearm tomorrow. I backed away any hematoma, perform an angiogram to look at the outflow of the fistula to see if it has any potential for maturation. It may be that this will not mature. We may have to explore the other arm and another day to establish a fistula. N.p.o. after midnight tonight. Surgery planned approximately noon on , this is an outpatient procedure and he could be discharged the same day or the next day his discharge planning. Job ID: [id number]
[2018-08-06] MEDS: traZODone HCl 50 MG TAB PO SCH (20:51)
[2018-08-07] MEDS: traMADol HCl 50 MG TAB PO PRN ×3 (02:55→21:01)
[2018-08-07 07:06] LABS: Anion Gap 16 mmol/L (10-20); BUN (Urea Nitrogen) 40 mg/dL (8.4-25.7); Calc. Creatinine Clearance 19 mL/min (70-130); Calcium 9.1 mg/dL (7.8-10.44); Carbon Dioxide 25 mmol/L (23-31); Chloride 100 mmol/L (98-107); Estimated GFR-MDRD 11; Glucose 92 mg/dL (80-115); Potassium 5.1 mmol/L (3.5-5.1); Sodium 136 mmol/L (136-145)
[2018-08-07 07:24] LABS: HBSAg Index 0.28 S/CO (0-0.99); Hep B Surf Ag Non-Reactive S/CO (NonReactive)
[2018-08-07 08:33] LABS: HBSAB Concentration 1.77 mIU/mL; HBSAg Index 0.37 S/CO (0-0.99); Hep B Core Total Ab Non-Reactive (NonReactive); Hep B Core Total Index 0.05 S/CO (0-0.79); Hep B Surf AB Non-Reactive (NonReactive); Hep B Surf Ag Non-Reactive S/CO (NonReactive); Hep C IgG Ab Non-Reactive (NonReactive); Hep C Index 0.07 S/CO (0-0.79)
[2018-08-07] MEDS ORDERED: Heparin 10,000 UNITS/ 10 ML VIAL ONE (09:00)
[2018-08-07] MEDS: Acetaminophen 500 MG TAB PO PRN ×2 (11:30→21:06)
[2018-08-07] MEDS: Polyethylene Glycol 3350 17 GM Packet PO SCH (11:31)
[2018-08-07] MEDS: Amlodipine 10 MG TAB PO SCH (11:31)
[2018-08-07] MEDS: Senokot S 8.6-50 MG TAB PO SCH (11:31)
[2018-08-07] MEDS: Gabapentin 400 MG CAP PO SCH ×4 (11:31→21:00)
[2018-08-07] MEDS: hydrALAZINE 25 MG TAB PO SCH ×3 (11:31→21:07)
--- NOTE | 2018-08-07 14:40 | PDOC.PN ---
- Subjective Encounter Start Date: 08/07/18 Encounter Start Time: 10:00 Subjective: pt up in bed still complains of pain to his left arm - Objective Resuscitation Status - Order Detail: 07/29/18 21:00 Resuscitation Status Routine Resuscitation Status: FULL: Full Resuscitation Vital Signs & Weight: Vital Signs (12 hours) Temp Pulse Resp BP BP Pulse Ox 08/07/18 13:29 81 144/73 H 08/07/18 11:34 97.8 F 81 16 146/88 H 97 08/07/18 11:31 77 146/88 H 08/07/18 08:00 97 Weight Admit Weight 207 lb Weight 207 lb I&O: 08/06/18 08/07/18 08/08/18 06:59 06:59 06:59 Intake Total 700 Output Total 800 Balance -100 Result Diagrams: 08/06/18 05:27 08/07/18 06:19 Phys Exam - Physical Examination Neck: no nodes, no JVD, supple, full ROM Respiratory: no wheezing, no rales, no rhonchi, wheezing present, clear to auscultation bilateral Cardiovascular: RRR, no significant murmur, no rub, gallop, irregular Musculoskeletal: no edema, pulses present, edema present Dx/Plan (1) Acute kidney failure Status: Acute (2) Ethylene glycol poisoning Code(s): T52.8X1A - TOXIC EFFECT OF ORGANIC SOLVENTS, ACCIDENTAL, INIT Status : Acute Comment: second episode (3) High anion gap metabolic acidosis Code(s): E87.2 - ACIDOSIS Status: Acute Comment: Secondary to ethylene glycol ingestion (4) HTN (hypertension) Code(s): I10 - ESSENTIAL (PRIMARY) HYPERTENSION Status: Chronic Qualifiers: Comment: Continue Norvasc, Hydralazine and Clonidine - Plan spoke with casey saw operator, will need approval for dialysis before -: he can be discharged. He will need to go to inpatient psy due to -: 2 attempts of sucide. pt going for surgery in am of his left arm. -: left arm xray no effusion * . Review of Systems - Review of Systems ENT: negative: Ear Pain, Ear Discharge, Nose Pain, Nose Discharge, Nose Congestion, Mouth Pain, Mouth Swelling, Throat Pain, Throat Swelling, Other Respiratory: negative: Cough, Dry, Shortness of Breath, Hemoptysis, SOB with Excertion, Pleuritic Pain, Sputum, Wheezing Cardiovascular: negative: chest pain, palpitations, orthopnea, paroxysmal nocturnal dyspnea, edema, light headedness, other Gastrointestinal: negative: Nausea, Vomiting, Abdominal Pain, Diarrhea, Constipation, Melena, Hematochezia, Other Musculoskeletal: Arm Pain - Medications/Allergies Allergies/Adverse Reactions: Allergies Allergy/AdvReac Type Severity Reaction Status Date / Time codeine Allergy Hives Verified 07/07/18 17:46 Medications: Current Medications Acetaminophen (Tylenol) 1,000 mg PO Q6H PRN PRN Reason: Moderate to Severe Pain (6-10) Last Admin: 08/07/18 11:30 Dose: 1,000 mg Amlodipine Besylate (Norvasc) 10 mg PO DAILY REPLACED BY [facility] Last Admin: 08/07/18 11:31 Dose: 10 mg Bisacodyl (Dulcolax) 10 mg [place] DAILYPRN PRN PRN Reason: Constipation Gabapentin (Neurontin) 400 mg PO QID REPLACED BY [facility] Last Admin: 08/07/18 13:30 Dose: Not Given Hydralazine HCl (Apresoline) 10 mg SLOW IVP Q4H PRN PRN Reason: Blood Pressure Hydralazine HCl (Apresoline) 50 mg PO TID REPLACED BY [facility] Last Admin: 08/07/18 13:29 Dose: Not Given Lorazepam (Ativan) 1 mg SLOW IVP Q4H PRN PRN Reason: .ANXIETY Last Admin: 08/04/18 19:24 Dose: 1 mg Miscellaneous Medication (Pharmacy To Dose) 1 each IVPB PRN PRN PRN Reason: Pharmacy to dose Ondansetron HCl (Zofran) 4 mg IVP Q6H PRN PRN Reason: Nausea/Vomiting Polyethylene Glycol (Miralax) 17 gm PO DAILY REPLACED BY [facility] Last Admin: 08/07/18 11:31 Dose: 17 gm Senna/Docusate Sodium (Senokot S) 1 tab PO DAILY REPLACED BY [facility] Last Admin: 08/07/18 11:31 Dose: 1 tab Sodium Chloride (Flush - Normal Saline) 10 ml IVF Q12HR REPLACED BY [facility] Last Admin: 08/07/18 11:32 Dose: Not Given Sodium Chloride (Flush - Normal Saline) 10 ml IVF PRN PRN PRN Reason: Saline Flush Tramadol HCl (Ultram) 50 mg PO Q6H PRN PRN Reason: Mild Pain (1-3) Last Admin: 08/03/18 06:06 Dose: 50 mg Tramadol HCl (Ultram) 100 mg PO Q6H PRN PRN Reason: Moderate Pain (4-6) Last Admin: 08/07/18 13:29 Dose: 100 mg Trazodone HCl (Desyrel) 50 mg PO HS REPLACED BY [facility] Last Admin: 08/06/18 20:51 Dose: 50 mg Tuberculin PPD (Aplisol) 0.1 ml I-DERMAL ONE REPLACED BY [facility] Stop: 08/09/18 10:16 Last Admin: 08/06/18 12:49 Dose: 0.1 ml
--- NOTE | 2018-08-07 15:04 | PRG ---
DATE OF SERVICE: 08/07/2018 SUBJECTIVE: Mr. Cast is doing well today. He was scheduled for surgery to explore his left forearm wound as he is having pain. We evacuated hematoma and do an intraoperative angiogram to see if this fistula not mature or needs to be ligated. This was postponed today due to OR scheduling and we will plan this in the mid morning. He understands risks and benefits. Job ID: [id number]
--- NOTE | 2018-08-07 20:11 | PRG ---
DATE OF SERVICE: 08/07/2018 SUBJECTIVE: Patient was seen and examined at bedside and overnight events noted. Patient denies any shortness of breath or chest pain or palpitation. No history of nausea or vomiting or diarrhea or fever or chills or cramps. OBJECTIVE: GENERAL: This is a well-built male, in no apparent distress. VITAL SIGNS: Temperature 98.3, pulse 81, respiratory rate 16, blood pressure 134/73. HEENT: Atraumatic, normocephalic. Oral mucosa is moist NECK: Supple. CARDIOVASCULAR: S1, S2 heard. Rate and rhythm regular. RESPIRATORY: Clear to auscultation. GASTROINTESTINAL: Abdomen is soft. MUSCULOSKELETAL: No tenderness. No edema. DERMATOLOGIC: No skin rash. NEUROLOGIC: Alert and awake and oriented X3. No focal neurologic deficits. Moving all the extremities. PSYCHIATRIC: Mood and affect normal. LABORATORY DATA: Potassium is 5.1, BUN is 40, and creatinine is 5.4. ASSESSMENT AND PLAN: 1. Acute kidney injury on chronic kidney disease, dialysis-dependent. We will continue on dialysis. 2. Edema. 3. Hypertension. 4. Anemia. Plan is to continue dialysis. Outpatient followup. Monitor kidney numbers closely. Job ID: [id number]
[2018-08-07] MEDS: traZODone HCl 50 MG TAB PO SCH (21:00)
[2018-08-08] MEDS: traMADol HCl 50 MG TAB PO PRN ×3 (02:41→20:06)
[2018-08-08 07:25] LABS: Anion Gap 14 mmol/L (10-20); BUN (Urea Nitrogen) 26 mg/dL (8.4-25.7); Calc. Creatinine Clearance 26 mL/min (70-130); Calcium 8.9 mg/dL (7.8-10.44); Carbon Dioxide 27 mmol/L (23-31); Chloride 100 mmol/L (98-107); Estimated GFR-MDRD 15; Glucose 82 mg/dL (80-115); Potassium 4.8 mmol/L (3.5-5.1); Sodium 136 mmol/L (136-145)
[2018-08-08] MEDS: Amlodipine 10 MG TAB PO SCH (08:06)
[2018-08-08] MEDS: Polyethylene Glycol 3350 17 GM Packet PO SCH (08:07)
[2018-08-08] MEDS: hydrALAZINE 25 MG TAB PO SCH ×3 (08:07→20:08)
[2018-08-08] MEDS: Senokot S 8.6-50 MG TAB PO SCH (08:07)
[2018-08-08] MEDS: Gabapentin 400 MG CAP PO SCH ×4 (08:07→20:08)
[2018-08-08] MEDS ORDERED: Bupivacaine HCl 0.5%/Epinephrine 1:200,000/PF 30 ml Vial ONE (09:08)
[2018-08-08] MEDS ORDERED: Lidocaine 2% PF 5 ML VIAL ONE (09:08)
[2018-08-08] MEDS ORDERED: Protamine Sulfate 50 MG/5 ML VIAL ONE (09:08)
[2018-08-08] MEDS ORDERED: Heparin 5,000 UNITS/ML VIAL ONE (09:08)
[2018-08-08] MEDS ORDERED: Ioversol 68 % 50 ML VIAL ONE (09:09)
[2018-08-08] MEDS ORDERED: Fentanyl 100 MCG/2 ML VIAL ONE ×2 (09:30→10:54)
[2018-08-08] MEDS ORDERED: Promethazine HCl 25 MG/ML VIAL IM PRN (10:40)
[2018-08-08] MEDS ORDERED: Promethazine HCl 25 MG/ML VIAL SLOW IVP PRN (10:40)
[2018-08-08] MEDS ORDERED: Ondansetron HCl/PF 4 MG/2 ML Vial IVP PRN (10:40)
[2018-08-08] MEDS ORDERED: hydrALAZINE 20 MG/ML VIAL ONE (11:01)
[2018-08-08] MEDS ORDERED: Dexamethasone 20 MG/5 ML VIAL ONE (11:34)
[2018-08-08] MEDS ORDERED: PROPOFOL 200 MG/20 ML VIAL ONE (11:34)
[2018-08-08] MEDS ORDERED: Ondansetron PF 4 MG/2 ML Vial ONE (11:34)
[2018-08-08] MEDS ORDERED: hydrALAZINE 20 MG/ML VIAL SLOW IVP SCH (12:30)
--- NOTE | 2018-08-08 13:24 | PRG ---
DATE OF SERVICE: 08/08/2018 SUBJECTIVE: Patient was seen and examined at bedside and overnight events noted. Patient denies any shortness of breath or chest pain or palpitation. No history of nausea or vomiting or diarrhea or fever or chills or cramps. OBJECTIVE: GENERAL: This is a well-built male, in no apparent distress. VITAL SIGNS: Temperature 98.1. Pulse 80. Respiratory rate 16. Blood pressure 131/83. HEENT: Atraumatic, normocephalic. Oral mucosa is moist NECK: Supple. CARDIOVASCULAR: S1, S2 heard. Rate and rhythm regular. RESPIRATORY: Clear to auscultation. GASTROINTESTINAL: Abdomen is soft. MUSCULOSKELETAL: No tenderness. No edema. DERMATOLOGIC: No skin rash. NEUROLOGIC: Alert and awake and oriented X3. No focal neurologic deficits. Moving all the extremities. PSYCHIATRIC: Mood and affect normal. LABORATORY DATA: Potassium is 4.8, BUN 26. creatinine 3.99. ASSESSMENT AND PLAN: 1. Acute kidney injury on chronic kidney disease stage 4, dialysis-dependent, continue dialysis, no dialysis today, dialysis set up as outpatient per Case Management. 2. Edema. Remove fluid with dialysis. 3. Hypertension. 4. Anemia. We will add Epogen as tolerated. We will follow. Job ID: [id number]
--- NOTE | 2018-08-08 14:11 | PDOC.PN ---
- Subjective Encounter Start Date: 08/08/18 Encounter Start Time: 10:30 Subjective: pt up in bed no complains - Objective Resuscitation Status - Order Detail: 07/29/18 21:00 Resuscitation Status Routine Resuscitation Status: FULL: Full Resuscitation Vital Signs & Weight: Vital Signs (12 hours) Temp Pulse Resp BP BP Pulse Ox 08/08/18 12:39 152/88 H 08/08/18 11:33 97.5 F L 79 18 152/88 H 98 08/08/18 08:07 80 08/08/18 08:06 80 08/08/18 08:00 93 L 08/08/18 07:24 98.1 F 80 16 131/83 93 L Weight Admit Weight 207 lb Weight 207 lb Result Diagrams: 08/06/18 05:27 08/08/18 06:41 Phys Exam - Physical Examination Neck: no nodes, no JVD, supple, full ROM Respiratory: no wheezing, no rales, no rhonchi, wheezing present, clear to auscultation bilateral Cardiovascular: RRR, no significant murmur, no rub, gallop, irregular Musculoskeletal: edema present left arm Dx/Plan (1) Acute kidney failure Status: Acute (2) Ethylene glycol poisoning Code(s): T52.8X1A - TOXIC EFFECT OF ORGANIC SOLVENTS, ACCIDENTAL, INIT Status : Acute Comment: second episode (3) High anion gap metabolic acidosis Code(s): E87.2 - ACIDOSIS Status: Acute Comment: Secondary to ethylene glycol ingestion (4) HTN (hypertension) Code(s): I10 - ESSENTIAL (PRIMARY) HYPERTENSION Status: Chronic Qualifiers: Comment: Continue Norvasc, Hydralazine and Clonidine - Plan pt had hematoma removed -: awaiting approval for dialysis -: encouraged to ambulate * . Review of Systems - Review of Systems Respiratory: negative: Cough, Dry, Shortness of Breath, Hemoptysis, SOB with Excertion, Pleuritic Pain, Sputum, Wheezing Cardiovascular: negative: chest pain, palpitations, orthopnea, paroxysmal nocturnal dyspnea, edema, light headedness, other Gastrointestinal: negative: Nausea, Vomiting, Abdominal Pain, Diarrhea, Constipation, Melena, Hematochezia, Other - Medications/Allergies Allergies/Adverse Reactions: Allergies Allergy/AdvReac Type Severity Reaction Status Date / Time codeine Allergy Hives Verified 12/24/18 17:46 Medications: Current Medications Acetaminophen (Tylenol) 1,000 mg PO Q6H PRN PRN Reason: Moderate to Severe Pain (6-10) Last Admin: 08/07/18 21:06 Dose: 1,000 mg Amlodipine Besylate (Norvasc) 10 mg PO DAILY [facility] Last Admin: 08/08/18 08:06 Dose: Not Given Bisacodyl (Dulcolax) 10 mg [place] DAILYPRN PRN PRN Reason: Constipation Epoetin Jesus Manuel (Procrit) 7,500 units IVP TuTa [facility] Gabapentin (Neurontin) 400 mg PO QID [facility] Last Admin: 08/08/18 12:41 Dose: 400 mg Heparin Sodium (Porcine) (Heparin) 5,000 units SC TID [facility] Hydralazine HCl (Apresoline) 10 mg SLOW IVP Q4H PRN PRN Reason: Blood Pressure Hydralazine HCl (Apresoline) 50 mg PO TID [facility] Last Admin: 08/08/18 08:07 Dose: Not Given Hydralazine HCl (Apresoline) 5 mg SLOW IVP NOW [facility] Stop: 08/08/18 14:30 Last Admin: 08/08/18 12:39 Dose: Not Given Lorazepam (Ativan) 1 mg SLOW IVP Q4H PRN PRN Reason: .ANXIETY Last Admin: 08/04/18 19:24 Dose: 1 mg Miscellaneous Medication (Pharmacy To Dose) 1 each IVPB PRN PRN PRN Reason: Pharmacy to dose Ondansetron HCl (Zofran) 4 mg IVP Q6H PRN PRN Reason: Nausea/Vomiting Polyethylene Glycol (Miralax) 17 gm PO DAILY [facility] Last Admin: 08/08/18 08:07 Dose: Not Given Senna/Docusate Sodium (Senokot S) 1 tab PO DAILY [facility] Last Admin: 08/08/18 08:07 Dose: Not Given Sodium Chloride (Flush - Normal Saline) 10 ml IVF Q12HR [facility] Last Admin: 08/08/18 08:07 Dose: Not Given Sodium Chloride (Flush - Normal Saline) 10 ml IVF PRN PRN PRN Reason: Saline Flush Tramadol HCl (Ultram) 50 mg PO Q6H PRN PRN Reason: Mild Pain (1-3) Last Admin: 08/03/18 06:06 Dose: 50 mg Tramadol HCl (Ultram) 100 mg PO Q6H PRN PRN Reason: Moderate Pain (4-6) Last Admin: 08/08/18 02:41 Dose: 100 mg Trazodone HCl (Desyrel) 50 mg PO HS [facility] Last Admin: 08/07/18 21:00 Dose: 50 mg Tuberculin PPD (Aplisol) 0.1 ml I-DERMAL ONE [facility] Stop: 08/09/18 10:16 Last Admin: 08/06/18 12:49 Dose: 0.1 ml
[2018-08-08] MEDS: Heparin 5,000 UNITS/ML VIAL SC SCH ×2 (15:10→20:09)
[2018-08-08] MEDS: Acetaminophen 500 MG TAB PO PRN (17:29)
[2018-08-08] MEDS: traZODone HCl 50 MG TAB PO SCH (20:09)
[2018-08-09] MEDS: traMADol HCl 50 MG TAB PO PRN ×5 (02:29→23:37)
[2018-08-09 08:47] LABS: #Lymphocytes 1.3 thou/uL (1.20-3.40); #Monocytes 0.8 thou/uL (0.11-0.59); #Neutrophils 5.8 thou/uL (1.40-6.50); %Basophils 0.4 % (0.0-1.0); %Eosinophils 0.6 % (0.0-10.0); %Lymphocytes 16.4 % (21.0-51.0); %Monocytes 9.6 % (0.0-10.0); Hemoglobin 8.1 g/dL (14.0-18.0); Mean Corpuscular HGB CONC 33.3 g/dL (32.0-36.0); Mean Corpuscular Hemoglobin 30.4 pg (27.0-31.0); Mean Corpuscular Volume 91.3 fL (78.0-98.0); Mean Platelet Volume 7.4 fL (7.4-10.4); Platelet Count 312 thou/uL (130-400); RBC Distribution Width 11.6 % (11.5-14.5); Red Blood Cell (RBC) Count 2.65 mill/uL (4.70-6.10)
[2018-08-09] MEDS: Gabapentin 400 MG CAP PO SCH ×4 (09:04→20:34)
[2018-08-09] MEDS: Heparin 5,000 UNITS/ML VIAL SC SCH ×3 (09:04→20:35)
[2018-08-09] MEDS: Amlodipine 10 MG TAB PO SCH (09:04)
[2018-08-09] MEDS: hydrALAZINE 25 MG TAB PO SCH ×3 (09:04→20:34)
[2018-08-09 09:05] LABS: Anion Gap 14 mmol/L (10-20); BUN (Urea Nitrogen) 41 mg/dL (8.4-25.7); Calc. Creatinine Clearance 22 mL/min (70-130); Calcium 8.9 mg/dL (7.8-10.44); Carbon Dioxide 27 mmol/L (23-31); Chloride 99 mmol/L (98-107); Estimated GFR-MDRD 13; Glucose 111 mg/dL (80-115); Potassium 4.8 mmol/L (3.5-5.1); Sodium 135 mmol/L (136-145)
[2018-08-09] MEDS: Senokot S 8.6-50 MG TAB PO SCH (09:05)
[2018-08-09] MEDS: Polyethylene Glycol 3350 17 GM Packet PO SCH (09:05)
[2018-08-09] MEDS ORDERED: Ketorolac Tromethamine 30 MG/ML VIAL IVP SCH (10:45)
[2018-08-09] MEDS ORDERED: Heparin 1,000 UNITS/ML VIAL ONE (11:11)
[2018-08-09] MEDS: Epoetin (ESRD) 20,000 UNITS/ML IVP SCH ×2 (11:33→12:52)
[2018-08-09 11:58] LABS: Troponin I 0.014 ng/mL (< 0.028)
[2018-08-09] MEDS ORDERED: Heparin 10,000 UNITS/ 10 ML VIAL FS PRN (13:13)
[2018-08-09 13:14] LABS: Magnesium 1.9 mg/dL (1.6-2.6); Phosphorus 3.5 mg/dL (2.3-4.7)
[2018-08-09 13:26] LABS: CKMB 0.6 ng/mL (0-6.6)
[2018-08-09] MEDS ORDERED: Epoetin (ESRD) 20,000 UNITS/ML SC SCH (14:45)
--- NOTE | 2018-08-09 15:47 | PRG ---
DATE OF SERVICE: 08/09/2018 SUBJECTIVE: Patient was seen and examined at bedside and overnight events noted. Patient denies any shortness of breath or chest pain or palpitation. No history of nausea or vomiting or diarrhea or fever or chills or cramps. OBJECTIVE: GENERAL: This is a well-built male, in no acute distress. VITAL SIGNS: Temperature 97. Pulse 78. Respiratory rate 16. Blood pressure 128/72. HEENT: Atraumatic, normocephalic. Oral mucosa is moist NECK: Supple. CARDIOVASCULAR: S1, S2 heard. Rate and rhythm regular. RESPIRATORY: Clear to auscultation. GASTROINTESTINAL: Abdomen is soft. MUSCULOSKELETAL: No tenderness. No edema. DERMATOLOGIC: No skin rash. NEUROLOGIC: Alert and awake and oriented X3. No focal neurologic deficits. Moving all the extremities. PSYCHIATRIC: Mood and affect normal. LABORATORY DATA: Potassium is 4.8, BUN is 41, and creatinine is 4.0. ASSESSMENT AND PLAN: 1. Acute kidney injury on chronic kidney disease, dialysis-dependent. 2. Edema. Remove fluid. 3. Hypertension. 4. Anemia. 5. Chest pain. Check EKG. Followup with primary team. We will continue close monitoring. Continue dialysis as tolerated. Job ID: [id number]
--- NOTE | 2018-08-09 15:53 | PDOC.PN ---
- Subjective Encounter Start Date: 08/09/18 Encounter Start Time: 09:00 Subjective: pt up in bed complains of pain to his chest area - Objective Resuscitation Status - Order Detail: 07/29/18 21:00 Resuscitation Status Routine Resuscitation Status: FULL: Full Resuscitation Vital Signs & Weight: Vital Signs (12 hours) Temp Pulse Resp BP BP BP Pulse Ox 08/09/18 15:24 78 121/71 08/09/18 12:51 98 F 78 16 128/72 96 08/09/18 09:04 85 08/09/18 08:40 93 L 08/09/18 07:36 98.0 F 85 18 139/87 93 L Weight Admit Weight 207 lb Weight 207 lb I&O: 08/08/18 08/09/18 08/10/18 06:59 06:59 06:59 Intake Total 1800 Output Total 1425 Balance 375 Result Diagrams: 08/09/18 07:14 08/09/18 07:14 Phys Exam - Physical Examination Neck: no nodes, no JVD, supple, full ROM Respiratory: no wheezing, no rales, no rhonchi, wheezing present, clear to auscultation bilateral Cardiovascular: RRR, no significant murmur, no rub, gallop, irregular Gastrointestinal: soft, non-tender, no distention, positive bowel sounds Musculoskeletal: no edema, pulses present, edema present Dx/Plan (1) Acute kidney failure Status: Acute (2) Ethylene glycol poisoning Code(s): T52.8X1A - TOXIC EFFECT OF ORGANIC SOLVENTS, ACCIDENTAL, INIT Status : Acute Comment: second episode (3) High anion gap metabolic acidosis Code(s): E87.2 - ACIDOSIS Status: Acute Comment: Secondary to ethylene glycol ingestion (4) HTN (hypertension) Code(s): I10 - ESSENTIAL (PRIMARY) HYPERTENSION Status: Chronic Qualifiers: Comment: Continue Norvasc, Hydralazine and Clonidine - Plan ethylene glycol level 93 -: pt has made comments to sitter he wants to hurt himself, but tells me he is -: not sucidal. this is his second attempt to sucide. I do not feel -: comfortable sending him home. trop neg, ekg no new changes. -: his pain is reproducible on palpation of his left chest wall area. * . Review of Systems - Review of Systems ENT: negative: Ear Pain, Ear Discharge, Nose Pain, Nose Discharge, Nose Congestion, Mouth Pain, Mouth Swelling, Throat Pain, Throat Swelling, Other Cardiovascular: chest pain Gastrointestinal: negative: Nausea, Vomiting, Abdominal Pain, Diarrhea, Constipation, Melena, Hematochezia, Other Genitourinary: negative: Dysuria, Frequency, Incontinence, Hematuria, Retention , Other - Medications/Allergies Allergies/Adverse Reactions: Allergies Allergy/AdvReac Type Severity Reaction Status Date / Time codeine Allergy Hives Verified 07/07/18 17:46 Medications: Current Medications Acetaminophen (Tylenol) 1,000 mg PO Q6H PRN PRN Reason: Moderate to Severe Pain (6-10) Last Admin: 08/08/18 17:29 Dose: 1,000 mg Amlodipine Besylate (Norvasc) 10 mg PO DAILY [facility] Last Admin: 08/09/18 09:04 Dose: Not Given Bisacodyl (Dulcolax) 10 mg [place] DAILYPRN PRN PRN Reason: Constipation Epoetin Jesus Manuel (Procrit) 7,500 units SC NOW [facility] Stop: 08/09/18 16:00 Last Admin: 08/09/18 15:24 Dose: 7,500 units Gabapentin (Neurontin) 400 mg PO QID [facility] Last Admin: 08/09/18 12:53 Dose: 400 mg Heparin Sodium (Porcine) (Heparin) 5,000 units SC TID [facility] Last Admin: 08/09/18 15:25 Dose: 5,000 units Heparin Sodium (Porcine) (Heparin 1,000 Units/Ml (10 Ml)) 0 units FS PRN PRN PRN Reason: DIALYSIS CATH USE Hydralazine HCl (Apresoline) 10 mg SLOW IVP Q4H PRN PRN Reason: Blood Pressure Hydralazine HCl (Apresoline) 50 mg PO TID [facility] Last Admin: 08/09/18 15:24 Dose: 50 mg Miscellaneous Medication (Pharmacy To Dose) 1 each IVPB PRN PRN PRN Reason: Pharmacy to dose Ondansetron HCl (Zofran) 4 mg IVP Q6H PRN PRN Reason: Nausea/Vomiting Polyethylene Glycol (Miralax) 17 gm PO DAILY [facility] Last Admin: 08/09/18 09:05 Dose: Not Given Senna/Docusate Sodium (Senokot S) 1 tab PO DAILY [facility] Last Admin: 08/09/18 09:05 Dose: Not Given Sodium Chloride (Flush - Normal Saline) 10 ml IVF Q12HR [facility] Last Admin: 08/09/18 09:05 Dose: Not Given Sodium Chloride (Flush - Normal Saline) 10 ml IVF PRN PRN PRN Reason: Saline Flush Tramadol HCl (Ultram) 50 mg PO Q6H PRN PRN Reason: Mild Pain (1-3) Last Admin: 08/08/18 17:27 Dose: 50 mg Tramadol HCl (Ultram) 100 mg PO Q6H PRN PRN Reason: Moderate Pain (4-6) Last Admin: 08/09/18 08:58 Dose: 100 mg Trazodone HCl (Desyrel) 50 mg PO HS [facility] Last Admin: 08/08/18 20:09 Dose: 50 mg
[2018-08-09 17:26] LABS: CKMB 0.8 ng/mL (0-6.6); Troponin I Less than 0.010 ng/mL (< 0.028)
[2018-08-09] MEDS: traZODone HCl 50 MG TAB PO SCH (20:34)
[2018-08-09 22:00] LABS: CKMB 0.8 ng/mL (0-6.6); Troponin I Less than 0.010 ng/mL (< 0.028)
[2018-08-09] MEDS ORDERED: diphenhydrAMINE 25 MG CAP PO PRN (23:00)
[2018-08-09] MEDS: Fluticasone Propionate Nasal Spray 16 gm Bottle NASAL PRN (23:36)
[2018-08-10] MEDS: Heparin 5,000 UNITS/ML VIAL SC SCH ×3 (09:27→20:41)
[2018-08-10] MEDS: Amlodipine 10 MG TAB PO SCH (09:27)
[2018-08-10] MEDS: hydrALAZINE 25 MG TAB PO SCH ×3 (09:27→20:40)
[2018-08-10] MEDS: Gabapentin 400 MG CAP PO SCH ×4 (09:27→20:39)
[2018-08-10] MEDS: Senokot S 8.6-50 MG TAB PO SCH (09:28)
[2018-08-10] MEDS: Polyethylene Glycol 3350 17 GM Packet PO SCH (09:28)
[2018-08-10 10:33] LABS: Anion Gap 15 mmol/L (10-20); BUN (Urea Nitrogen) 38 mg/dL (8.4-25.7); Calc. Creatinine Clearance 29 mL/min (70-130); Calcium 9.7 mg/dL (7.8-10.44); Carbon Dioxide 25 mmol/L (23-31); Chloride 103 mmol/L (98-107); Estimated GFR-MDRD 17; Glucose 82 mg/dL (80-115); Potassium 4.4 mmol/L (3.5-5.1); Sodium 139 mmol/L (136-145)
--- NOTE | 2018-08-10 14:26 | PRG ---
DATE OF SERVICE: 08/10/2018 SUBJECTIVE: Patient was seen and examined at bedside and overnight events noted. Patient denies any shortness of breath or chest pain or palpitation. No history of nausea or vomiting or diarrhea or fever or chills or cramps. OBJECTIVE: GENERAL: This is a well-built male, in no apparent distress. VITAL SIGNS: Temperature 98.2. Pulse 85. Respiratory rate 20. Blood pressure 174/71. HEENT: Atraumatic, normocephalic. Oral mucosa is moist NECK: Supple. CARDIOVASCULAR: S1, S2 heard. Rate and rhythm regular. RESPIRATORY: Clear to auscultation. GASTROINTESTINAL: Abdomen is soft. MUSCULOSKELETAL: No tenderness. No edema. DERMATOLOGIC: No skin rash. NEUROLOGIC: Alert and awake and oriented X3. No focal neurologic deficits. Moving all the extremities. PSYCHIATRIC: Mood and affect normal. LABORATORY DATA: Potassium 4.4, BUN 38, creatinine 3.0. ASSESSMENT AND PLAN: 1. Acute kidney injury on chronic kidney disease. He is dialysis-dependent. We will continue on dialysis. Urine output is improving, but renal parameters are not getting better. 2. Edema. Remove fluid. 3. Hypertension. 4. Anemia. 5. Titrate medications for blood pressure and we will continue on dialysis as tolerated. Monitor renal function. Job ID: [id number]
--- NOTE | 2018-08-10 17:41 | PDOC.PN ---
- Subjective Encounter Start Date: 08/10/18 Encounter Start Time: 17:35 Subjective: f/u for ethylene glycol ingestion and SI. [facility] evaluated with recs for -: inpt psych admission pending bed availability. Pt wants to go home and -: does not feel like he should be forced to go. - Objective Resuscitation Status - Order Detail: 07/29/18 21:00 Resuscitation Status Routine Resuscitation Status: FULL: Full Resuscitation MAR Reviewed: Yes Vital Signs & Weight: Vital Signs (12 hours) Temp Pulse Resp BP BP Pulse Ox 08/10/18 15:17 85 153/87 H 08/10/18 09:27 85 174/71 H 08/10/18 08:00 98.2 F 85 20 174/91 H 95 Weight Admit Weight 207 lb Weight 207 lb I&O: 08/09/18 08/10/18 08/11/18 06:59 06:59 06:59 Intake Total 1800 1370 240 Output Total 1425 2250 800 Balance 903 -154 -306 Result Diagrams: 08/09/18 07:14 08/10/18 09:25 Additional Labs: Laboratory Tests 07/07/18 07/07/18 07/09/18 03:28 11:04 08:35 Hgb Creatinine Phosphorus Ethylene Glycol 49 H 19 None Detected 07/10/18 07/11/18 07/11/18 07:54 07:39 07:39 Hgb Creatinine 3.83 H 4.74 H 4.71 H Phosphorus 4.1 Ethylene Glycol 07/12/18 07/31/18 08/06/18 07:32 09:20 05:27 Hgb 11.6 L 9.2 L Creatinine 4.65 H Phosphorus Ethylene Glycol 08/06/18 08/07/18 08/08/18 05:28 06:19 06:41 Hgb Creatinine 4.82 H 5.47 H 3.99 H Phosphorus Ethylene Glycol 08/09/18 07:14 Hgb Creatinine 4.60 H Phosphorus Ethylene Glycol Phys Exam - Physical Examination Constitutional: NAD HEENT: PERRLA, sclera anicteric, oral pharynx no lesions Neck: no nodes, no JVD, supple, full ROM Respiratory: no wheezing, no rales, no rhonchi, clear to auscultation bilateral S1, S2 Cardiovascular: RRR, no significant murmur, no rub, gallop Gastrointestinal: soft, non-tender, no distention, positive bowel sounds R AKA Musculoskeletal: no edema, pulses present Neurological: normal sensation, moves all 4 limbs Psychiatric: A&O x 3 Skin: normal turgor, cap refill <2 seconds Dx/Plan (1) Ethylene glycol poisoning Code(s): T52.8X1A - TOXIC EFFECT OF ORGANIC SOLVENTS, ACCIDENTAL, INIT Status : Acute Comment: second episode in 2 months, MR recommending inpt psych evaluation, MR to re-evaluate need for inpt psych (2) Suicidal ideation Code(s): R45.851 - SUICIDAL IDEATIONS Status: Acute Comment: See #1, sitter 1:1, no recurrent episodes per nursing (3) Acute kidney failure Status: Acute Comment: Continue HD per Renal recommendations (4) HTN (hypertension) Code(s): I10 - ESSENTIAL (PRIMARY) HYPERTENSION Status: Chronic Qualifiers: Comment: Continue Norvasc, Hydralazine and Clonidine prn - 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
[2018-08-10] MEDS: traZODone HCl 50 MG TAB PO SCH (20:39)
[2018-08-10] MEDS: Fluticasone Propionate Nasal Spray 16 gm Bottle NASAL PRN (20:39)
[2018-08-10] MEDS: traMADol HCl 50 MG TAB PO PRN (20:40)
[2018-08-10] MEDS ORDERED: Ondansetron ODT 4 MG TAB PO PRN (21:58)
[2018-08-10] MEDS: Acetaminophen/Codeine 30-300mg Tablet PO PRN (22:02)
[2018-08-11] MEDS: traMADol HCl 50 MG TAB PO PRN ×2 (02:37→15:43)
[2018-08-11] MEDS: Acetaminophen/Codeine 30-300mg Tablet PO PRN ×3 (04:15→17:42)
[2018-08-11] MEDS: hydrALAZINE 25 MG TAB PO SCH ×4 (09:00→21:33)
[2018-08-11] MEDS: Amlodipine 10 MG TAB PO SCH (09:01)
[2018-08-11] MEDS: Gabapentin 400 MG CAP PO SCH ×5 (09:01→21:32)
[2018-08-11] MEDS: Senokot S 8.6-50 MG TAB PO SCH (09:01)
[2018-08-11] MEDS: Polyethylene Glycol 3350 17 GM Packet PO SCH (09:02)
[2018-08-11] MEDS: Heparin 5,000 UNITS/ML VIAL SC SCH ×4 (09:02→21:34)
[2018-08-11 13:05] LABS: Anion Gap 15 mmol/L (10-20); BUN (Urea Nitrogen) 45 mg/dL (8.4-25.7); Calc. Creatinine Clearance 28 mL/min (70-130); Calcium 9.6 mg/dL (7.8-10.44); Carbon Dioxide 22 mmol/L (23-31); Estimated GFR-MDRD 17; Glucose 88 mg/dL (80-115)
[2018-08-11 13:24] LABS: Chloride 105 mmol/L (98-107); Potassium 4.4 mmol/L (3.5-5.1); Sodium 138 mmol/L (136-145)
--- NOTE | 2018-08-11 14:26 | PRG ---
DATE OF SERVICE: 08/11/2018 SUBJECTIVE: This is a 63-year-old gentleman being seen for end-stage kidney disease. The patient denies any nausea, vomiting, or chest pain. OBJECTIVE: GENERAL: The patient is awake and alert. VITAL SIGNS: Afebrile, pulse 81, breathing 16, blood pressure 158/84. HEAD/NECK: Normocephalic. Atraumatic. EYES: EOMI. No deformity. EARS: Clear. No ulcers. NOSE: Intact. No lesions. MOUTH: Clear. No discharge. THROAT: Clear. No exudate. LUNGS: Clear. No crackles. CARDIAC: S1, S2. No rub. ABDOMEN: Benign. Bowel sounds positive. GENITALIA/RECTUM: Go absent. BACK/EXTREMITIES: Edema 0+. NEUROLOGICAL: Alert and motor intact. SKIN: LYMPHATICS: LABORATORY DATA: Showed hemoglobin 8.1, creatinine 3.76. ASSESSMENT: 1. Chronic kidney disease. The patient has declined dialysis. Understands all risks versus benefits. The patient denies any suicidal or homicidal ideation. 2. Hypertension, stable. 3. Anemia, stable. 4. Medications based on GFR appropriate. Job ID: [id number]
--- NOTE | 2018-08-11 19:19 | PDOC.PN ---
- Subjective Encounter Start Date: 08/11/18 Encounter Start Time: 09:00 Subjective: f/u for ethylene glycol ingestion and ?SI receiving HD per Renal service. -: States he wants to go home and is does not have SI. He also wants to stop -: HD. - Objective Resuscitation Status - Order Detail: 07/29/18 21:00 Resuscitation Status Routine Resuscitation Status: FULL: Full Resuscitation MAR Reviewed: Yes Vital Signs & Weight: Vital Signs (12 hours) Temp Pulse Resp BP BP BP Pulse Ox 08/11/18 15:54 97.9 F 81 19 164/87 H 100 08/11/18 15:38 81 164/87 H 08/11/18 10:30 98.1 F 81 17 164/87 H 96 08/11/18 09:01 81 158/84 H 08/11/18 09:00 81 158/84 H Weight Admit Weight 207 lb Weight 207 lb I&O: 08/10/18 08/11/18 08/12/18 06:59 06:59 06:59 Intake Total 1370 1060 240 Output Total 2250 3700 Balance -880 -2640 240 Result Diagrams: 08/09/18 07:14 08/11/18 12:21 Additional Labs: Laboratory Tests 07/07/18 07/07/18 07/09/18 03:28 11:04 08:35 Hgb Creatinine Phosphorus Ethylene Glycol 49 H 19 None Detected 07/10/18 07/11/18 07/11/18 07:54 07:39 07:39 Hgb Creatinine 3.83 H 4.74 H 4.71 H Phosphorus 4.1 Ethylene Glycol 07/12/18 07/31/18 08/06/18 07:32 09:20 05:27 Hgb 11.6 L 9.2 L Creatinine 4.65 H Phosphorus Ethylene Glycol 08/06/18 08/07/18 08/08/18 05:28 06:19 06:41 Hgb Creatinine 4.82 H 5.47 H 3.99 H Phosphorus Ethylene Glycol 08/09/18 07:14 Hgb Creatinine 4.60 H Phosphorus Ethylene Glycol Phys Exam - Physical Examination Constitutional: NAD HEENT: PERRLA, sclera anicteric, oral pharynx no lesions Neck: no nodes, no JVD, supple, full ROM Respiratory: no wheezing, no rales, no rhonchi, clear to auscultation bilateral S1, S2 Cardiovascular: RRR, no significant murmur, no rub, gallop Gastrointestinal: soft, non-tender, no distention, positive bowel sounds R AKA Musculoskeletal: no edema, pulses present Neurological: normal sensation, moves all 4 limbs Psychiatric: normal affect, A&O x 3 Skin: normal turgor, cap refill <2 seconds Dx/Plan (1) Ethylene glycol poisoning Code(s): T52.8X1A - TOXIC EFFECT OF ORGANIC SOLVENTS, ACCIDENTAL, INIT Status : Acute Comment: second episode in 2 months, [facility] recommending inpt psych evaluation, [facility] to re-evaluate need for inpt psych (2) Suicidal ideation Code(s): R45.851 - SUICIDAL IDEATIONS Status: Acute Comment: See #1, sitter 1:1, no recurrent episodes per nursing, [facility] for re-eval (3) Acute kidney failure Status: Acute Comment: Continue HD per Renal recommendations, pt not wishing to continue HD as outpt (4) HTN (hypertension) Code(s): I10 - ESSENTIAL (PRIMARY) HYPERTENSION Status: Chronic Qualifiers: Comment: Continue Norvasc, Hydralazine and Clonidine prn - Plan social services counselor Stable currently -: MR re-evaluation pending, likely pt will return home with close follow up -: with [facility] services. Pt does not want to continue outpt HD and is competent -: to make his own decisions. Notified Nephrology service of this request. -: Likely home in 24h * .
[2018-08-11] MEDS: traZODone HCl 50 MG TAB PO SCH ×2 (20:55→21:34)
[2018-08-11] MEDS: hydrALAZINE 10 MG TAB PO SCH (21:15)
[2018-08-12] MEDS: Acetaminophen/Codeine 30-300mg Tablet PO PRN ×4 (00:16→21:43)
[2018-08-12] MEDS: traMADol HCl 50 MG TAB PO PRN ×2 (03:25→12:42)
--- NOTE | 2018-08-12 06:01 | DIS ---
DATE OF ADMISSION: 07/29/2018 DATE OF DISCHARGE: 08/11/2018 DISCHARGE DIAGNOSES: 1. Ethylene glycol ingestion. 2. Question of suicidal ideation, none currently. 3. Acute kidney failure secondary to ethylene glycol ingestion. 4. Hypertension. 5. Status post tunneled right internal jugular hemodialysis catheter. 6. Status post left upper extremity AV fistula placement with outflow obstruction. CONSULTATIONS: Drs. Torres and Ozzy with Nephrology Service. Dr. Campa with General Surgery Service. [facility] Service. PERTINENT LAB AND X-RAY FINDINGS: Creatinine ranged between 1.96 to 7.69. Estimated GFR ranged between 7 to 35. CO2 level ranged between less than 8 to 27. Phosphorus 3.5, magnesium level 1.9. LFTs within normal limits. CBC showed a white blood cell count ranging between 7.2 to 16.1, hemoglobin ranged between 8.1 to 13.3. Ethylene glycol level on 07/29/2018 of 93. Plasma alcohol level less than 10. Hepatitis B and C panel negative on 08/07/2018. HOSPITAL COURSE: The patient was initially admitted after presenting with altered mental status with intoxication and ingestion of ethylene glycol. Exact intent was unclear and question of suicidal ideation was suspected. The patient with acute encephalopathy secondary to ethylene glycol intoxication, undergoing treatment with fomepizole. The patient was also evaluated by the Nephrology Service with recommendations for hemodialysis. The patient underwent temporary hemodialysis catheter placement and then subsequent hemodialysis at the direction of the Nephrology Service. Serial creatinine and renal metrics showed some improvement in renal function; however, the patient was still hemodialysis dependent. The patient was evaluated by the [facility] Service after concern for potential suicidal ideation and gesture with ingestion of ethylene glycol. Initially, the patient was slated for transfer to inpatient psychiatric unit pending bed availability. The patient received general supportive management through the remainder of the hospital course as well as undergoing placement of a tunneled hemodialysis catheter and left upper extremity AV fistula. The patient had difficulty with pain and swelling of the left forearm necessitating general surgery evaluation. The left upper extremity AV fistula outflow tract was obstructed with recommendations for subsequent evaluation in the near future for placement of right upper extremity AV fistula. The patient received local care, ice packs, and elevation to the left upper extremity for pain relief. The patient was re-evaluated by [facility] on 2 subsequent visits due to concern for patient potentially transitioning home with outpatient followup with [facility]. The patient was deemed appropriate for outpatient followup agreeing to the safety plan and adherence to medical therapy and close followup. I have examined the patient at the time of discharge and discussed followup instructions. The patient verbalized understanding and agreement with the plan as well as safety plan and ready for discharge home on 08/11/2018. DISCHARGE MEDICATIONS: 1. Norvasc 10 mg one tab p.o. daily. 2. Clonidine 0.2 mg p.o. b.i.d. 3. Fenofibrate 145 mg p.o. daily. 4. Gabapentin 400 mg p.o. q.i.d. 5. [place] 10/325 mg one tab p.o. q.8 hours p.r.n. pain. 6. Testosterone cypionate 200 mg intramuscular q.7 days. 7. Hydralazine 100 mg p.o. t.i.d. 8. Tramadol 50 mg one to two tablets p.o. q.6 hours p.r.n. pain #30 given, no refills. FOLLOWUP: The patient may follow up with Dr. Madai Pearson, his primary care provider within 7 days. The patient will follow up with Dr. Blu Campa on 08/15/2018. The patient will follow up with Drs. Torres and Ozzy with hemodialysis, the patient will follow up with Nephrology Service for determination of maintenance hemodialysis. The patient will follow up with [facility] Service within 24 hours regarding safety plan. CONDITION ON DISCHARGE: Stable. ACTIVITY: Ad-ellis. DIET: Renal. CODE STATUS: Full. DISPOSITION: Home on 08/11/2018. TIME SPENT: Total time preparing and coordinating discharge is 40 minutes. Job ID: [id number]
[2018-08-12] MEDS: Amlodipine 10 MG TAB PO SCH (08:23)
[2018-08-12] MEDS: Fluticasone Propionate Nasal Spray 16 gm Bottle NASAL PRN (08:23)
[2018-08-12] MEDS: Gabapentin 400 MG CAP PO SCH ×4 (08:23→20:28)
[2018-08-12] MEDS: hydrALAZINE 10 MG TAB PO SCH ×3 (08:24→20:28)
[2018-08-12] MEDS: Heparin 5,000 UNITS/ML VIAL SC SCH ×3 (08:25→20:30)
[2018-08-12] MEDS: Polyethylene Glycol 3350 17 GM Packet PO SCH (08:26)
[2018-08-12] MEDS: Senokot S 8.6-50 MG TAB PO SCH (08:26)
--- NOTE | 2018-08-12 09:22 | PDOC.PN ---
- Subjective Encounter Start Date: 08/12/18 Encounter Start Time: 09:15 Subjective: f/u for ethylene glycol ingestion and SI. Received HD and creatinine -: stabilizing currently. - Objective Resuscitation Status - Order Detail: 07/29/18 21:00 Resuscitation Status Routine Resuscitation Status: FULL: Full Resuscitation MAR Reviewed: Yes Vital Signs & Weight: Vital Signs (12 hours) Temp Pulse Resp BP BP BP Pulse Ox 08/12/18 08:24 74 157/82 H 08/12/18 08:23 74 157/82 H 08/12/18 07:26 97.3 F L 74 18 157/82 H 95 08/12/18 00:00 98.8 F 64 20 125/74 96 08/11/18 21:33 98 Weight Admit Weight 207 lb Weight 207 lb I&O: 08/11/18 08/12/18 08/13/18 06:59 06:59 06:59 Intake Total 1060 1820 Output Total 3700 2100 Balance -2640 -280 Result Diagrams: 08/09/18 07:14 08/11/18 12:21 Additional Labs: Laboratory Tests 07/07/18 07/07/18 07/09/18 03:28 11:04 08:35 Hgb Creatinine Phosphorus Ethylene Glycol 49 H 19 None Detected 07/10/18 07/11/18 07/11/18 07:54 07:39 07:39 Hgb Creatinine 3.83 H 4.74 H 4.71 H Phosphorus 4.1 Ethylene Glycol 07/12/18 07/31/18 08/06/18 07:32 09:20 05:27 Hgb 11.6 L 9.2 L Creatinine 4.65 H Phosphorus Ethylene Glycol 08/06/18 08/07/18 08/08/18 05:28 06:19 06:41 Hgb Creatinine 4.82 H 5.47 H 3.99 H Phosphorus Ethylene Glycol 08/09/18 07:14 Hgb Creatinine 4.60 H Phosphorus Ethylene Glycol Phys Exam - Physical Examination Constitutional: NAD HEENT: PERRLA, sclera anicteric, oral pharynx no lesions Neck: no nodes, no JVD, supple, full ROM Respiratory: no wheezing, no rales, no rhonchi, clear to auscultation bilateral S1, S2 Cardiovascular: RRR, no significant murmur, no rub, gallop Gastrointestinal: soft, non-tender, no distention, positive bowel sounds Musculoskeletal: no edema, pulses present Neurological: moves all 4 limbs Psychiatric: A&O x 3 Skin: normal turgor, cap refill <2 seconds Dx/Plan (1) Ethylene glycol poisoning Code(s): T52.8X1A - TOXIC EFFECT OF ORGANIC SOLVENTS, ACCIDENTAL, INIT Status : Acute Comment: second episode in 2 months, [facility] recommending inpt psych evaluation, [facility] recommending inpt evaluation (2) Suicidal ideation Code(s): R45.851 - SUICIDAL IDEATIONS Status: Acute Comment: See #1, sitter 1:1, no recurrent episodes per nursing, MR for re-eval (3) Acute kidney failure Status: Acute Comment: Renal function stabilizing currently, Nephrology recommending d/c of HD and monitoring the patient as outpt with metabolic evaluation/labs (4) HTN (hypertension) Code(s): I10 - ESSENTIAL (PRIMARY) HYPERTENSION Status: Chronic Qualifiers: Comment: Continue Norvasc, Hydralazine and Clonidine prn - Plan rn social services Stable currently -: Await inpt psych transfer -: Continue supportive mgmt -: Sitter for 1:1 -: Surgery consult for HD catheter removal * .
[2018-08-12 09:47] LABS: Anion Gap 20 mmol/L (10-20); BUN (Urea Nitrogen) 43 mg/dL (8.4-25.7); Calc. Creatinine Clearance 31 mL/min (70-130); Calcium 9.2 mg/dL (7.8-10.44); Carbon Dioxide 17 mmol/L (23-31); Chloride 107 mmol/L (98-107); Estimated GFR-MDRD 19; Glucose 84 mg/dL (80-115); Potassium 4.5 mmol/L (3.5-5.1); Sodium 139 mmol/L (136-145)
[2018-08-12] MEDS ORDERED: Lidocaine 1% w/Epinephrine 1:100K 20 ML VIAL ONE (10:04)
--- NOTE | 2018-08-12 11:47 | PRG ---
DATE OF SERVICE: 08/12/2018 SUBJECTIVE: A 63-year-old gentleman being seen for acute kidney injury. The patient has started to make urine and has not had dialysis in a few days. OBJECTIVE: GENERAL: The patient is awake and alert. VITAL SIGNS: Afebrile, pulse 74, breathing 16, blood pressure 157/82. GENERAL APPEARANCE AND MENTAL STATUS: Fair. HEAD/NECK: Normocephalic. Atraumatic. EYES: EOMI. No deformity. EARS: Clear. No ulcers. NOSE: Intact. No lesions. MOUTH: Clear. No discharge. THROAT: Clear. No exudate. LUNGS: Clear. No crackles. CARDIAC: S1, S2. No rub. ABDOMEN: Benign. Bowel sounds positive. GENITALIA/RECTUM: Go absent. BACK/EXTREMITIES: Edema 0+. NEUROLOGICAL: Alert and motor intact. SKIN: LYMPHATICS: LABORATORY DATA: Show hemoglobin 8.1. Creatinine 3.3. ASSESSMENT AND PLAN: 1. Acute kidney injury with chronic kidney disease, improved. 2. Chronic kidney disease stage 4, stable. There is no indication for dialysis. I would recommend removing the tunneled catheter. 3. Hypertension, stable. 4. Anemia, stable. 5. Medication based on GFR appropriate. If he is discharged, should have labs in a few days and I will see him as an outpatient. Job ID: [id number]
[2018-08-12] MEDS: traZODone HCl 50 MG TAB PO SCH (20:28)
[2018-08-13 07:43] LABS: Anion Gap 18 mmol/L (10-20); BUN (Urea Nitrogen) 42 mg/dL (8.4-25.7); Calc. Creatinine Clearance 32 mL/min (70-130); Calcium 9.3 mg/dL (7.8-10.44); Carbon Dioxide 19 mmol/L (23-31); Chloride 107 mmol/L (98-107); Estimated GFR-MDRD 20; Glucose 99 mg/dL (80-115); Potassium 4.7 mmol/L (3.5-5.1); Sodium 139 mmol/L (136-145)
[2018-08-13 07:55] VITALS: BP 125/75; TEMP 98
[2018-08-13] MEDS: Amlodipine 10 MG TAB PO SCH (08:10)
[2018-08-13] MEDS: Gabapentin 400 MG CAP PO SCH ×3 (08:10→17:05)
[2018-08-13] MEDS: Acetaminophen/Codeine 30-300mg Tablet PO PRN ×2 (08:11→15:14)
[2018-08-13] MEDS: Senokot S 8.6-50 MG TAB PO SCH (08:13)
[2018-08-13] MEDS: Heparin 5,000 UNITS/ML VIAL SC SCH ×2 (08:13→15:15)
[2018-08-13] MEDS: Polyethylene Glycol 3350 17 GM Packet PO SCH (08:13)
[2018-08-13] MEDS: hydrALAZINE 25 MG TAB PO SCH ×2 (09:12→15:14)
[2018-08-13] MEDS ORDERED: Lidocaine 1% w/Epinephrine 1:100K 30 ML VIAL FS SCH (09:15)
--- NOTE | 2018-08-13 12:57 | PRG ---
DATE OF SERVICE: 08/13/2018 SUBJECTIVE: A 63-year-old gentleman being seen for end-stage renal disease. The patient denied nausea, vomiting, or chest pain. OBJECTIVE: CONSTITUTIONAL: Awake, alert, in no acute distress. VITAL SIGNS: Afebrile, pulse 75, breathing 16, blood pressure 125/75. GENERAL APPEARANCE AND MENTAL STATUS: Fair. HEAD/NECK: Normocephalic. Atraumatic. EYES: EOMI. No deformity. EARS: Clear. No ulcers. NOSE: Intact. No lesions. MOUTH: Clear. No discharge. THROAT: Clear. No exudate. LUNGS: Clear. No crackles. CARDIAC: S1, S2. No rub. ABDOMEN: Benign. Bowel sounds positive. GENITALIA/RECTUM: Go absent. BACK/EXTREMITIES: Edema 0+. NEUROLOGICAL: Alert and motor intact. SKIN: LYMPHATICS: LABORATORY DATA: Hemoglobin 8.1. ASSESSMENT AND PLAN: 1. Stage IV chronic kidney disease, stable. 2. Hypertension, stable. 3. Anemia, stable. No indication for dialysis. I would recommend removing tunneled dialysis catheter. Job ID: [id number]
--- NOTE | 2018-08-13 14:40 | DIS ---
DATE OF ADMISSION: 07/29/2018 DATE OF DISCHARGE: 08/12/2018 ADDENDUM: HOSPITAL COURSE: The patient's discharge was held for approximately 24 hours after concern for disposition planning and safety plan through [facility]. Due to the patient's 2nd episode of ethylene glycol ingestion and likely suicidal ideation/gesture, the patient was deemed appropriate candidate to transfer to inpatient psychiatric care. The patient has been cleared medically to transfer to [facility] in [place], [place] with accepting physician, Dr. Harvinder Peña. The patient also cleared to transfer from Nephrology Service without current need for ongoing hemodialysis. Please see dictated discharge summary dated 08/11/2018 for full details and medication list. I have examined the patient at the time of discharge and the patient was clinically stable and ready for transfer on 08/12/2018. Total time preparing and coordinating discharge is 40 minutes. Job ID: [id number]
--- NOTE | 2018-08-13 17:31 | PDOC.OP ---
Operative Note - Operative Note Operative Note: PROCEDURE: Removal internal jugular tunneled hemodialysis catheter DATE OF PROCEDURE: 08/13/2018 SURGEON: Tate Covarrubias M.D. PREOPERATIVE DIAGNOSIS: Acute on chronic renal failure, improved POSTOPERATIVE DIAGNOSIS: Acute on chronic renal failure, improved HISTORY: Patient with tunneled hemodialysis catheter for which removal has been requested by the career technical education teacher. He has not required any dialysis since Saturday and his creatinine is slowly going down. PROCEDURE: After informed consent was obtained, the patient's neck and chest were prepped with ChloraPrep. Local anesthesia was infused to the skin and subcutaneous tissue surrounding the subcutaneous cuff. Gentle traction was applied to the catheter and the cuff was dissected free of the surrounding scar tissue. Pressure was held on the exit site and the dialysis catheter was removed during exhalation. Pressure was held for 5 minutes and a sterile gauze and Tegaderm dressing was placed at the exit site. The patient tolerated the procedure well. Estimated blood loss was minimal. There were no complications. There were no specimens.
--- NOTE | 2018-08-14 10:34 | DIS ---
DATE OF ADMISSION: 07/29/2018 DATE OF DISCHARGE: 08/13/2018 ADDENDUM: HOSPITAL COURSE: The patient's discharge was held up for another 24 hours due to coordination for removal of tunneled hemodialysis catheter. General Surgery was consulted with successful removal of the tunneled hemodialysis catheter on 08/13/2018. The patient with chronic kidney disease, stage 4, stable currently without current need for hemodialysis. The patient's vital signs have remained stable, and the patient medically cleared for transfer to [facility] in [place], [place], for further inpatient psychiatric evaluation. Please see previous dictated discharge summary for full details and medication list. I have examined and discussed disposition plans with the patient, who verbalized understanding and in agreement. Job ID: [id number]
--- NOTE | 2018-08-30 00:49 | OP ---
DATE OF PROCEDURE: 08/08/2018 PREOPERATIVE DIAGNOSES: 1. 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 2. Pain, left arm after left arteriovenous fistula formation. 3. Postoperative hematoma. POSTOPERATIVE DIAGNOSES: 1. 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 2. Pain, left arm after left arteriovenous fistula formation. 3. Occluded outflow and venous hypertension causing the pain, minimal hematoma. PROCEDURE PERFORMED: Exploration of the left forearm wound from recent AV fistula with ligation of fistula due to venous hypertension and evacuation of small hematoma, outflow cephalic vein occluded. ANESTHESIA: Regional TIVA. DESCRIPTION OF PROCEDURE: The patient was taken to the operating room where under anesthesia, left upper extremity was prepared with ChloraPrep and draped in routine fashion. Incision was made through the old scar in the proximal volar forearm and carried down the skin and subcutaneous tissue. There was prominent pulsation of his fistula. Outflow tract was occluded. This was evident, angiogram performed, where an angiocatheter was then placed in the fistula and the outflow was noted to be totally occluded with thrombosis prevented by multiple small collaterals. For this reason, the fistula was ligated, wound irrigated, local anesthetic infiltrated in the skin and subcutaneous tissue about the operative site. Subcutaneous tissue was approximated with 3-0 Monocryl, skin with subdermal 4-0 Monocryl. The patient tolerated the procedure well. PLAN: Plan in the future is to place an another fistula in the other arm at another time. Fistula formation in left arm is exhausted. Job ID: [id number] MTDD
--- NOTE | 2018-09-08 20:13 | EKG ---
Test Reason : Blood Pressure : / mmHG Vent. Rate : 085 BPM Atrial Rate : 085 BPM P-R Int : 154 ms QRS Dur : 102 ms QT Int : 416 ms P-R-T Axes : 042 -01 056 degrees QTc Int : 495 ms Sinus rhythm Prolonged QT Abnormal ECG When compared with ECG of 29-JUL-2018 17:50, Premature ventricular complexes are now Present Vent. rate has increased BY 29 BPM T wave inversion no longer evident in Inferior leads Nonspecific T wave abnormality now evident in Lateral leads Confirmed by DANNA SONI (2) on 09/08/2018 8:12:56 PM Referred By: Confirmed By:DANNA SONI
== END 2018-08-13 19:52 | DRG 907 ==
LOC: ERS 17:30 → IMCU/EMU 22:32 → T4-B 07-30 16:54
PROVIDERS: ADMIT Hospitalist; ATTEND Hospitalist
PROC: 06HN33Z Insertion of Infusion Device into Left Femoral Vein, Percutaneous Approach (ICD-10-PCS; principal; 2018-07-29)
PROC: 5A1D70Z Performance of Urinary Filtration, Intermittent, Less than 6 Hours Per Day (ICD-10-PCS; 2018-07-29)
PROC: 06HM33Z Insertion of Infusion Device into Right Femoral Vein, Percutaneous Approach (ICD-10-PCS; 2018-07-30)
PROC: 5A1D70Z Performance of Urinary Filtration, Intermittent, Less than 6 Hours Per Day (ICD-10-PCS; 2018-07-30)
PROC: 5A1D70Z Performance of Urinary Filtration, Intermittent, Less than 6 Hours Per Day (ICD-10-PCS; 2018-07-31)
PROC: 5A1D70Z Performance of Urinary Filtration, Intermittent, Less than 6 Hours Per Day (ICD-10-PCS; 2018-08-01)
PROC: 0JH63XZ Insertion of Tunneled Vascular Access Device into Chest Subcutaneous Tissue and Fascia, Percutaneous Approach (ICD-10-PCS; 2018-08-02)
PROC: 02HV33Z Insertion of Infusion Device into Superior Vena Cava, Percutaneous Approach (ICD-10-PCS; 2018-08-02)
PROC: 5A1D70Z Performance of Urinary Filtration, Intermittent, Less than 6 Hours Per Day (ICD-10-PCS; 2018-08-03)
PROC: 031C0ZF Bypass Left Radial Artery to Lower Arm Vein, Open Approach (ICD-10-PCS; 2018-08-04)
PROC: 05LF0ZZ Occlusion of Left Cephalic Vein, Open Approach (ICD-10-PCS; 2018-08-04)
PROC: 05CF3ZZ Extirpation of Matter from Left Cephalic Vein, Percutaneous Approach (ICD-10-PCS; 2018-08-04)
PROC: 5A1D70Z Performance of Urinary Filtration, Intermittent, Less than 6 Hours Per Day (ICD-10-PCS; 2018-08-05)
PROC: 5A1D70Z Performance of Urinary Filtration, Intermittent, Less than 6 Hours Per Day (ICD-10-PCS; 2018-08-07)
PROC: 05LF0ZZ Occlusion of Left Cephalic Vein, Open Approach (ICD-10-PCS; 2018-08-08)
PROC: 05CF0ZZ Extirpation of Matter from Left Cephalic Vein, Open Approach (ICD-10-PCS; 2018-08-08)
PROC: 5A1D70Z Performance of Urinary Filtration, Intermittent, Less than 6 Hours Per Day (ICD-10-PCS; 2018-08-09)
PROC: 02PYX3Z Removal of Infusion Device from Great Vessel, External Approach (ICD-10-PCS; 2018-08-13)
DX: T51.8X2A Toxic effect of other alcohols, intentional self-harm, initial encounter (principal); G92 Toxic encephalopathy; N17.9 Acute kidney failure, unspecified; E87.2 Acidosis; I82.612 Acute embolism and thrombosis of superficial veins of left upper extremity; N18.4 Chronic kidney disease, stage 4 (severe); I97.638 Postprocedural hematoma of a circulatory system organ or structure following other circulatory system procedure; I12.9 Hypertensive chronic kidney disease with stage 1 through stage 4 chronic kidney disease, or unspecified chronic kidney disease; D63.1 Anemia in chronic kidney disease; E87.5 Hyperkalemia; Z88.5 Allergy status to narcotic agent; Z79.899 Other long term (current) drug therapy; Z89.611 Acquired absence of right leg above knee; Y83.8 Other surgical procedures as the cause of abnormal reaction of the patient, or of later complication, without mention of misadventure at the time of the procedure; Y92.239 Unspecified place in hospital as the place of occurrence of the external cause
CPT/HCPCS: 36415; 36556; 71045; 76000; 76770; 80048; 80053; 80306; 80307; 81003; 81015; 82550; 82553; 82693; 83690; 83735; 83880; 83930; 83935; 84100; 84484; 85025; 86580; 86704; 86706; 86803; 87340; 90935; 93005; 93010; 93970; 94760; 96361; 96374; 96375; A4216; C1752; C1769; G0257; G0365; J0360; J0670; J1100; J1200; J1451; J1642; J1644; J1885; J2001; J2060; J2250; J2270; J2370; J2405; J2704; J2720; J2997; J3010; J7050; Q0162; Q0163; Q4081; Q9967

== ENCOUNTER 2018-08-24 17:02 | Emergency (ER) | payer OTHER ==
[2018-08-24 17:54] LABS: #Basophils 0.1 thou/uL (0.0-0.2); #Eosinphils 0.2 thou/uL (0.0-0.7); #Lymphocytes 1.7 thou/uL (1.20-3.40); #Monocytes 0.5 thou/uL (0.11-0.59); %Basophils 1.3 % (0.0-1.0); %Lymphocytes 31.2 % (21.0-51.0); %Monocytes 9.1 % (0.0-10.0); %Neutrophils 55.4 % (42.0-75.0); Mean Corpuscular HGB CONC 32.8 g/dL (32.0-36.0); Mean Corpuscular Hemoglobin 30.5 pg (27.0-31.0); Mean Platelet Volume 7.1 fL (7.4-10.4); Platelet Count 318 thou/uL (130-400); RBC Distribution Width 12.7 % (11.5-14.5); Red Blood Cell (RBC) Count 3.28 mill/uL (4.70-6.10); White Blood Cell (WBC) Count 5.4 thou/uL (4.8-10.8)
[2018-08-24 18:18] LABS: ALT (SGPT) 11 U/L (8-55); AST (SGOT) 19 U/L (5-34); Albumin 3.8 g/dL (3.4-4.8); Alkaline Phosphatase 60 U/L (40-150); Anion Gap 14 mmol/L (10-20); BUN (Urea Nitrogen) 30 mg/dL (8.4-25.7); Bilirubin, Total 0.2 mg/dL (0.2-1.2); Calc. Creatinine Clearance 0 mL/min (70-130); Calcium 9.2 mg/dL (7.8-10.44); Carbon Dioxide 20 mmol/L (23-31); Chloride 109 mmol/L (98-107); Estimated GFR-MDRD 37; Globulin 3.8 g/dL (2.4-3.5); Glucose 93 mg/dL (80-115); Potassium 4.2 mmol/L (3.5-5.1); Protein, Total 7.6 g/dL (5.8-8.1); Sodium 139 mmol/L (136-145)
== END 2018-08-24 19:19 | disposition home or self-care (01) ==
LOC: ERS 17:02
DX: R10.9 Unspecified abdominal pain (principal); I12.9 Hypertensive chronic kidney disease with stage 1 through stage 4 chronic kidney disease, or unspecified chronic kidney disease; N18.9 Chronic kidney disease, unspecified; E78.5 Hyperlipidemia, unspecified; Z86.73 Personal history of transient ischemic attack (TIA), and cerebral infarction without residual deficits
CPT/HCPCS: 36415; 80053; 85025; 99284

== ENCOUNTER 2018-08-25 14:53 | Emergency (ER) | payer OTHER ==
[2018-08-25 15:42] LABS: #Basophils 0.1 thou/uL (0.0-0.2); #Eosinphils 0.1 thou/uL (0.0-0.7); #Monocytes 0.6 thou/uL (0.11-0.59); %Basophils 0.9 % (0.0-1.0); %Eosinophils 1.8 % (0.0-10.0); %Lymphocytes 25.1 % (21.0-51.0); %Monocytes 7.3 % (0.0-10.0); %Neutrophils 64.9 % (42.0-75.0); Hemoglobin 10.3 g/dL (14.0-18.0); Mean Corpuscular HGB CONC 33.9 g/dL (32.0-36.0); Mean Corpuscular Hemoglobin 32.1 pg (27.0-31.0); Mean Corpuscular Volume 94.7 fL (78.0-98.0); Mean Platelet Volume 7.2 fL (7.4-10.4); Platelet Count 323 thou/uL (130-400); RBC Distribution Width 12.9 % (11.5-14.5); White Blood Cell (WBC) Count 7.8 thou/uL (4.8-10.8)
[2018-08-25 16:08] LABS: ALT (SGPT) 11 U/L (8-55); AST (SGOT) 22 U/L (5-34); Alkaline Phosphatase 84 U/L (40-150); Anion Gap 19 mmol/L (10-20); BUN (Urea Nitrogen) 27 mg/dL (8.4-25.7); Bilirubin, Total 0.3 mg/dL (0.2-1.2); Calc. Creatinine Clearance 0 mL/min (70-130); Calcium 9.4 mg/dL (7.8-10.44); Carbon Dioxide 15 mmol/L (23-31); Chloride 113 mmol/L (98-107); Estimated GFR-MDRD 35; Globulin 4.8 g/dL (2.4-3.5); Glucose 89 mg/dL (80-115); Potassium 4.4 mmol/L (3.5-5.1); Protein, Total 8.8 g/dL (5.8-8.1); Sodium 143 mmol/L (136-145)
[2018-08-25 18:17] LABS: Bilirubin Negative (Negative); Blood, Urine Negative (Negative); Clarity CLEAR (Clear); Glucose, Urine (Dipstick) Negative (Negative); Leukocyte Negative (Negative); Nitrite Negative (Negative); Protein, Urine (Dipstick) Negative (Neg-Trace); Specific Gravity, Urine 1.008 (1.002-1.036); Urobilinogen 0.2 mg/dL (0.2-1.0); pH, Urine 6.5 (5.0-9.0)
== END 2018-08-25 19:15 | disposition home or self-care (01) ==
LOC: ERS 14:53
DX: R10.9 Unspecified abdominal pain (principal); I10 Essential (primary) hypertension; Z86.73 Personal history of transient ischemic attack (TIA), and cerebral infarction without residual deficits; E78.5 Hyperlipidemia, unspecified; Z79.899 Other long term (current) drug therapy
CPT/HCPCS: 36415; 80053; 81003; 85025; 99284